=== PATIENT | female | born 1970 | race Caucasian/White ===

== ENCOUNTER 2017-02-20 14:27 | Emergency (ER) | payer MEDICARE, MEDICAID ==
[~2017-02-20] VITALS: Ht 165.1 cm; Wt 70.8 kg
[~2017-02-20 14:27] MED LIST: AEROCHAMBER1 DEV IH; ALBUTEROL-200 PUFFS/ IH; ALBUTEROL0.09 MG/A1 IH; ALBUTEROL2 PUFFS/17 IN; ATIVAN1 M1 PO; AUGMENTIN 875-1 EACH PO; BENADRYL 25MG C25 MG PO; BENADRYL25 M1 PO; BUPROPION HCL150 M1 PO; CALAMINE 180 M180 ML TP; CIPRO 500MG TA500 MG PO; DEXALONE30 MG PO; DILAUDID4 MG PO; EFFEXOR75 MG PO; ESTRACE 2MG. TAB2 MG PO; ETODOLAC400 MG PO; FLEXERIL10 MG PO; FLEXERIL5 MG PO; FLUOXETINE20 M2 PO; FLUOXETINE40 MG PO; FOLIC ACID 1MG T1 MG PO; GABAPENTIN100 M1 PO; GLYBURIDE2.5 MG PO; IRON TABLETS325 M1 PO; KAPIDEX30 MG PO; KAPIDEX60 MG PO; KEFLEX 500MG.500 MG PO; LODINE200 MG PO; LORAZEPAM1 MG/TABLE PO; LORTAB 5/500 501 TAB PO; LORTAB ELIXIR473 ML PO; MEDROL 4MG. DOSE4 MG PO; NOVAPLUS FE TD; OXCARBAZEPINE150 M1 PO; PERCOCET 10 MG1 EACH PO; PERCOGESIC EXTR1 TAB PO; PREDNISONE 10MG10 MG PO; PREDNISONE 20MG20 MG PO; PREDNISONE20 MG PO; PREDNISONE50 MG PO; PRENATABS RX1 TAB PO; PROGESTERONE200 M1 VA; PROMETRIUM200 MG PO; PROZAC 20MG CAP20 MG PO; PROZAC40 MG PO; Pepcid20 MG PO; TESSALON PERLE100 M1 PO; TESSALON PERLE100 MG PO; TESSALON PERLE200 MG PO; TOPAMAX100 MG PO; TOPAMAX200 MG PO; TORADOL10 M1 NG; TRAZADONE HYDR100 MG PO; TRAZODONE HCL150 MG PO; TRAZODONE100 MG PO; TRILEPTAL300 MG PO; TYLENOL W/CODEI1 TA2 PO; VENLAFAXINE HY150 MG PO; VISTARIL25 MG PO; ZITHROMAX Z PA250 MG PO; ZITHROMAX Z-PA250 M1 PO; ZITHROMAX200 MG/51 PO
--- NOTE | 2017-02-20 15:24 | Urgent Treatment Center Report ---
History of Present Issue Date/Time Seen by Provider 02/20/17 4905 Visit Reason Pt arrived:Walked Presenting Problem:PT C/O HEAD AND CHEST CONGESTION AND SOA X5 DAYS Location if Accident: Onset of symptoms date/time:/ or onset unknown for:MEDICAL HX UNKNOWN Have you (or family members/close friends) recently traveled outside the [place]? N If Yes, where/when: Have you had exposure to infectious disease within the past month? TB? Other? Specify: Patient state that she has been having some head and chest congestion along with occasional shortness of air when she starts coughing for around 5 days now States that it has continued to get worse and she was worried that she would get pneumonia so she came in to get checked out ALLERGIES Coded Allergies: ibuprofen (Mild, 02/15/16) naproxen (Mild, 02/15/16) sumatriptan (From IMITREX) (Mild, 02/15/16) Home Medications Active Scripts Azithromycin (Zithromycin (Z-TRAVIS) 250MG Tab) 250 MG PO DAILY #6 TAB Prov: 10/22/16 Prednisone (Prednisone 20MG) 20 MG PO BID #10 TAB Prov: 10/22/16 BENZONATATE (Benzonatate) 100 MG PO TID #15 CAP Prov: 10/22/16 Albuterol (Albuterol-Hfa Inhaler) 1 PUFF IH Q4H #1 INH Ref 2 Prov: 09/14/16 Albuterol Sulfate (Albuterol Sulfate Hfa) 1 PUFF IH Q4 #1 INH Prov: 06/04/15 Reported Medications Dexlansoprazole (Dexilant) 60 MG PO DAILY Venlafaxine Hydrochloride (Effexor 75MG) 75 MG PO DAILY Topiramate (Topamax) 200 MG PO BID Oxcarbazepine (Oxcarbazepine 150MG TAB) 150 MG PO DAILY #60 VENLAFAXINE HCL (Venlafaxine HCl ER) 150 MG PO DAILY #30 Estradiol (Estrace 2MG. Tablet) 2 MG PO DAILY #30 Trazodone Hcl 150 MG PO QHS #60 Bupropion Hcl (Bupropion HCl Sr) 150 MG PO DAILY #60 History Medical History General CAD? No Angina: No [place]: No Hypertension? No Hyperlipidemia? Yes CHF? No DVT? No PE? No COPD? Yes Asthma? Yes Anemia? Yes GERD? Yes Gastric ulcers? No GI Bleed? No Hernia? Yes Thyroid Problems? No Hypothyroidism? No CVA? No Seizures? No Diabetes? No Insulin Dependent: No Insulin Pump: No Home FSBS? No Renal Insuffiency? No UTI? Yes Stones? Yes BPH? No GB Disease: No Nephritic Syndrome? No Asplenia? No Hepatitis? No Sickle Cell Disease? No Arthritis? Yes Migraines? No Cataracts? No Glaucoma? No MRSA? No HIV? No TB? No Anxiety? Yes Depression? Yes Cancer? No More? Yes Additional hx: 1.FIBROMYALGIA 2.BARETT'S ESOPHAGUS 3. LUNG NODULES 4.BIPOLAR Immunization HX DT/Tetanus 1-4 YRS Flu 2011-FSN Pneumonia Never Had Surgical Hx Previous Surgery?Y Appendix D&C X 2 LITHROTRIPSY Tonsils Tubal Ligation HYSTERECTOMY DUNCAN'S ESOPHAGUS SX CYST REMOVAL FROM OVARY TMJ SX Family History Family HX Diabetes No CAD No Hypertension No Hyperlipidemia No Cancer Yes TB No Social History Smoking Hx Smoker: Current Every Day Smoker Tobacco: Yes Type Cigarettes Packs/day < 1 Pack Alcohol Alcohol: No Review of Systems All Other Systems Reviewed and Negative ENT nose discharge, nose congestion, throat pain. Respiratory cough, shortness of breath, wheezing Physical Exam Vital Signs Vital Signs Date Time Temp Pulse Resp B/P Pulse O2 O2 Flow FiO2 Ox Delivery Rate 02/20 1439 97.9 68 18 130/65 100 General Appearance normal appearance, WD/WN, no apparent distress Ear, Nose, Throat sinus pain/drainage, nasal congestion, throat red, irritated, drainage noted, tenderness frontal sinuses yellowish brown drainage, coughing up brown phelm Respiratory Status Yes: trachea midline, chest symmetrical, non tender chest. No: respiratory distress. Lung Sounds bilateral: wheezing. 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 No Results/Orders Current Medication Orders Sig/Grecia Start time Last Medication Dose Route Stop Time Status Admin Albuterol/Ipratropium 3 ML ONCE ONE 02/20 1530 DC 02/20 INH 02/20 1531 1557 Orders Procedure Date/time Status RT REQUEST DUONEB 02/20 1523 Active CHEST(2 VIEWS-NOT PORTABLE) 02/20 1523 Active XRAY/CT/US XRAY/CT/US XRAY chest XR interpretation by reviewed by me Xray Results no infiltrates Comment discussed with Dr Rush Progress [facility] Progress Notes Comment wheezing improved after breathing treatment Departure Departure Time of Disposition 1603 Disposition DC Home or Self Care(routine) Clinical Impression Primary Impression: Sinusitis Qualifiers: Sinusitis location: frontal Chronicity: unspecified Qualified Code: J32.1 - Chronic frontal sinusitis Condition STABLE Patient Instructions Cough, DI for Nasal Congestion, Guaifenesin Additional Instructions * Monitor Temp. Tylenol and/or Ibuprofen as needed. ER if fever is no less than 101 despite alternating Tylenol and Ibuprofen * Encourage fluids, water, Gatorade, powerade, pedialyte if infant/toddler/or child * Warm salt water gargles for throat irritation *Warm fluids *Sore throat lozenges *Sleep elevated *humidifier or vaporizer Follow up IMMEDIATELY for new or worsening of symptoms OR no noticeable improvement over the next 48-72 hours. 911 immediately for any life threatening symptoms such as chest pain or difficulty breathing Discharge Counseling Counseled pt/family regarding diagnosis, test results, medications/RX, home care, follow up needs Prescriptions Current Visit Scripts Levofloxacin (Levaquin 500MG) 500 MG PO DAILY #10 TAB Methylprednisolone (Medrol Dose Travis) 4 MG PO UD #1 TRAVIS TAKE DIRECTED ON PACKAGING at 1607
[2017-02-20] MEDS ORDERED: LEVAQUIN500 MG PO (16:06)
[2017-02-20] MEDS ORDERED: MEDROL 4MG. DOSE4 MG PO (16:06)
[2017-02-20 16:10] VITALS: BP 130/65
--- NOTE | 2017-02-21 05:38 | RADIOLOGY REPORT PS360 ---
CHEST(2 VIEWS-NOT PORTABLE) HISTORY: Cough, congestion, smoker congestion ORDERING PHYSICIAN: CHUCKIE ROSADO APRN PATIENT AGE: 46 years COMPARISON: 10/22/2016 FINDINGS: The cardiomediastinal silhouette and pulmonary vascularity are within normal limits. 6 mm noncalcified nodule present in the left lower lobe not significant changed. No lobar consolidation or collapse. No effusions or infiltrates. There is mild coarsening of bronchovascular markings which may be seen with chronic smoking-related lung disease. No acute bony anomalies. IMPRESSION: 1. No change with no acute finding. 2. Chronic coarsening of the bronchovascular markings which may be seen with chronic bronchitis/smoker lung disease. 3. No change left lower lobe nodule
== END 2017-02-20 16:14 | disposition home or self-care (01) ==
LOC: UTC 14:27
DX: J32.1 Chronic frontal sinusitis (principal); F17.210 Nicotine dependence, cigarettes, uncomplicated; J44.9 Chronic obstructive pulmonary disease, unspecified; Z79.899 Other long term (current) drug therapy

== ENCOUNTER 2017-02-23 18:19 | Observation (INO) | payer MEDICARE, MEDICAID ==
[~2017-02-23] VITALS: Ht 165.1 cm; Wt 66.4 kg
[~2017-02-23 18:19] MED LIST changes: +LEVAQUIN500 MG PO
[2017-02-23 18:31] VITALS: BP 120/73
--- NOTE | 2017-02-23 18:37 | Emergency Room Report ---
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 N Clinical Suspician of Infection? N Mental Status: 1 - Regular (Normal Baseline) Sepsis Risk:Low Sepsis Risk Have you (or family members/close friends) recently traveled outside the [place]? N If Yes, where/when: Have you had exposure to infectious disease within the past month? N TB? Other? Specify: Comment The patient complains of productive cough, chest congestion, shortness of breath , wheezing, and subjective fevers for over a week. She initially started taking leftover prednisone and Zithromax without improvement. She was then seen in the urgent treatment center on 02/20/17. She had a negative chest x-ray. She was started on Levaquin and a Medrol Dosepak. She was given a breathing treatment. She also is using inhalers at home. She has again worsened and therefore returns to the emergency department. She has chronic obstructive pulmonary disease. She does not have a primary care physician. 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 ALLERGIES Coded Allergies: ibuprofen (Mild, 02/15/16) naproxen (Mild, 02/15/16) sumatriptan (From IMITREX) (Mild, 02/15/16) Home Medications Active Scripts Levofloxacin (Levaquin 500MG) 500 MG PO DAILY #10 TAB Prov: 02/20/17 Methylprednisolone (Medrol Dose Aroldo) 4 MG PO UD #1 AROLDO Prov: 02/20/17 Azithromycin (Zithromycin (Z-AROLDO) 250MG Tab) 250 MG PO DAILY #6 TAB Prov: 10/22/16 Prednisone (Prednisone 20MG) 20 MG PO BID #10 TAB Prov: 10/22/16 BENZONATATE (Benzonatate) 100 MG PO TID #15 CAP Prov: 10/22/16 Albuterol (Albuterol-Hfa Inhaler) 1 PUFF IH Q4H #1 INH Ref 2 Prov: 09/14/16 Albuterol Sulfate (Albuterol Sulfate Hfa) 1 PUFF IH Q4 #1 INH Prov: 06/04/15 Reported Medications Dexlansoprazole (Dexilant) 60 MG PO DAILY Venlafaxine Hydrochloride (Effexor 75MG) 75 MG PO DAILY Topiramate (Topamax) 200 MG PO BID Oxcarbazepine (Oxcarbazepine 150MG TAB) 150 MG PO DAILY #60 VENLAFAXINE HCL (Venlafaxine HCl ER) 150 MG PO DAILY #30 Estradiol (Estrace 2MG. Tablet) 2 MG PO DAILY #30 Trazodone Hcl 150 MG PO QHS #60 Bupropion Hcl (Bupropion HCl Sr) 150 MG PO DAILY #60 History Medical History General CAD? No Angina: No [place]: No Hypertension? No Hyperlipidemia? Yes CHF? No DVT? No PE? No COPD? Yes Asthma? Yes Anemia? Yes GERD? Yes Gastric ulcers? No GI Bleed? No Hernia? Yes Thyroid Problems? No Hypothyroidism? No CVA? No Seizures? No Diabetes? No Insulin Dependent: No Insulin Pump: No Home FSBS? No Renal Insuffiency? No End Stage Renal Disease? No UTI? Yes Stones? Yes BPH? No GB Disease: No Nephritic Syndrome? No Asplenia? No Hepatitis? No Sickle Cell Disease? No Arthritis? Yes Migraines? No Cataracts? No Glaucoma? No MRSA? No HIV? No TB? No Anxiety? Yes Depression? Yes Cancer? No More? Yes Additional hx: 1.FIBROMYALGIA 2.BARETT'S ESOPHAGUS 3. 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 Family History Family Hx Diabetes No CAD No Hypertension No Hyperlipidemia No Cancer Yes TB No Social History Smoking Hx Smoker: Current Every Day Smoker Tobacco: Yes Type Cigarettes Packs/day < 1 Pack Alcohol Alcohol: No Review of Systems All Other Systems Reviewed and Negative Constitutional chills, fever (subjective), malaise, weakness Respiratory cough, shortness of breath, wheezing Gastrointestinal other (no appetite) Comment States not eating or drinking, urinating very little Physical Exam Vital Signs Vital Signs Date Time Temp Pulse Resp B/P Pulse O2 O2 Flow FiO2 Ox Delivery Rate 02/23 1955 98.2 78 18 109/66 99 02/23 1831 98.2 78 18 120/73 99 General Appearance normal appearance, WD/WN Eye Exam - bilateral eye normal exam, bilateral eye PERRL, bilateral eye EOMI Ear, Nose, Throat hearing grossly normal, normal ENT inspection Neck normal inspection, non-tender, supple, full range of motion Respiratory Status Yes: trachea midline, chest symmetrical, productive cough. No: respiratory distress. Lung Sounds bilateral: rhonchi, wheezing. Cardiovascular normal exam, regular rate/rhythm, no peripheral edema, no gallop, no JVD, no murmur, no rub, normal peripheral pulses Peripheral Pulses Pulses normal Yes Gastrointestinal normal bowel sounds, normal exam, non tender, soft, no organomegaly Extremities non-tender, normal range of motion, normal inspection Neurologic alert, normal exam, oriented x 3 Mental status normal mood/affect Skin intact, normal color, warm/dry Lymphatic no adenopathy Medical Decision Making LABS/Meds/Orders Pt receiving controlled substance in ED? No Results/Orders Laboratory Tests 02/23/171919: Lactic Acid 1.0 02/23/171919: Sodium 132 L, Potassium 3.3 L, Chloride 96 L, Carbon Dioxide 28, BUN 17, Creatinine 0.8, Estimated Creat Clear 95, Estimated GFR (MDRD) 78, Glucose 99, Calcium 8.6, Total Bilirubin 0.1 L, AST 7 L, ALT 16, Alkaline Phosphatase 94, Total Protein 7.8, Albumin 3.8, Globulin 4.0 H, Albumin/Globulin Ratio 1.0 L, WBC 10.8, RBC 4.43, Hgb 12.2, Hct 36.5 L, MCV 82.5, RDW 13.9, Plt Count 349, MPV 7.9, Gran % 39.3, Gran # 4.3, Lymphocytes % 49.8, Monocytes % 6.7, Eosinophils % 3.7, Basophils % 0.5, Lymphocytes # 5.4 H, Monocytes # 0.7, Eosinophils # 0.4, Basophils # 0.1, PUBS MCHC 33.3, MCH 27.5 02/23/17 1912: Chlamy pneum (TEM-PCR) Pending, Adenovirus (PCR) Pending, B. pertussis DNA (PCR) Pending, Coronavirus OC43 (PCR) Pending, Coronavirus HKU1 (PCR) Pending, Coronavirus 229E (PCR) Pending, Coronavirus NL63 (PCR) Pending, Human Metapneumovir PCR Pending, Influenza A (H1) PCR Pending, Influ A (H1N1/09) PCR Pending, Influenza A (H3) PCR Pending, Influenza Type A (PCR) Pending, Influenza Type B (PCR) Pending, M. pneumoniae (PCR) Pending, Parainfluenza 1 (PCR) Pending , Parainfluenza 2 (PCR) Pending, Parainfluenza 3 (PCR) Pending, Parainfluenza 4 (PCR) Pending, RSV (PCR) Pending, Entero/Rhino (PCR) Pending Current Medication Orders Sig/Grecia Start time Last Medication Dose Route Stop Time Status Admin Potassium Chloride 40 MEQ ONCE ONE 02/23 2015 AC PO 02/24 2016 Levofloxacin/Dextrose 150 ML .STK-MED ONE 02/23 1953 DC IV Methylprednisolone 0 .STK-MED ONE 02/23 1953 DC Sodium Succinate .ROUTE Albuterol/Ipratropium 0 .STK-MED ONE 02/23 1939 DC INH Albuterol/Ipratropium 3 ML ONCE ONE 02/23 1900 DC 02/23 INH 02/23 1901 194 Levofloxacin/Dextrose 150 ML ONCE ONE 02/23 1900 r 02/23 IV 02/23 Methylprednisolone 125 MG ONCE ONE 02/23 1900 DC 02/23 Sodium Succinate IV 02/23 Sodium Chloride 10 ML PRN PRN 02/23 1845 AC IV 02/24 1837 Orders Procedure Date/time Status RT REQUEST DUONEB 02/23 1857 Active CULTURE, SPUTUM 02/23 185 Active CULTURE, BLOOD 02/23 185 Active UPPER RESPIRATORY PANEL, PCR 02/23 185 Active LACTIC ACID 02/23 185 Complete ELECTROCARDIOGRAM REQUEST 02/23 1838 Active IV SALINE LOCK 02/23 1838 Active CBC WITH AUTO DIFF 02/23 1838 Complete CHEM 12 PROFILE 02/23 1838 Complete CM/EKG CM/EKG Comments EKG interpreted by Giovanny García MD: Rhythm: sinus Rate: 65 [place]: normal Ectopy: none Conduction: normal ST Segment Changes: none T Wave Changes: none Q Waves: none No evidence of acute ischemia or injury Normal electrocardiogram XRAY/CT/US XRAY/CT/US XRAY chest Comment Chest x-ray interpreted by Giovanny García M.D. No infiltrate, pneumothorax, pleural effusion, or wide mediastinum. I do not see any interval change. Progress - 7:55 PM: I have discussed the case with Dr. Handy who agrees to admit the patient to the hospital. We discussed the patient's clinical information, including history, exam, laboratory and radiology results and ED course. Per hospital procedure, I will write temporary bridge inpatient orders on the patient. Specific orders requested by the admitting physician: Continue steroids, nebulizer treatments, antibiotics. Departure Departure Disposition Still a Patient Clinical Impression Primary Impression: Chronic obstructive pulmonary disease with (acute) exacerbation Secondary Impressions: Acute bronchitis Qualifiers: Bronchitis organism: unspecified organism Qualified Code: J20.9 - Acute bronchitis, unspecified Condition STABLE Referrals Lee BERUMEN,Kasi Kerns (Family) ED Critical Care Critical Care No at 2002
[2017-02-23 19:19] LABS: CORONAVIRUS 229E NOT DETECTED (NOT DETECTE); CORONAVIRUS HKU 1 NOT DETECTED (NOT DETECTE); CORONAVIRUS NL63 NOT DETECTED (NOT DETECTE); CORONAVIRUS OC43 NOT DETECTED (NOT DETECTE)
[2017-02-23 19:43] LABS: HEMOGLOBIN 12.2 g/dL (12.2-16.2); LYMPH # 5.4 K/mm3 (0.7-4.5); LYMPH % 49.8 % (10-50.0)
--- NOTE | 2017-02-23 19:55 | RADIOLOGY REPORT PS360 ---
CHEST(2 VIEWS-NOT PORTABLE) HISTORY: Cough and congestion, smoker PAIN ORDERING PHYSICIAN: Giovanny García MD PATIENT AGE: 46 years COMPARISON: 02/20/2017 FINDINGS: The cardiomediastinal silhouette and pulmonary vascularity are within normal limits. There is chronic coarsening of the bronchovascular markings consistent with chronic bronchitis. A 6 mm nodule is once again noted in the superior segment of the left lower lobe. No lobar consolidation or collapse. No effusions. No acute bony anomalies. IMPRESSION: 1. COPD with chronic coarsening of the bronchovascular markings. 2. No change left lower lobe nodule. 3. No acute finding
[2017-02-23 20:32] LABS: RHINOVIRUS/ENTEROVIRUS DETECTED (NOT DETECTE)
[2017-02-23 20:57] VITALS: BP 130/85
[2017-02-23 21:44] VITALS: BP 109/66
[2017-02-24 03:46] VITALS: BP 169/92
--- NOTE | 2017-02-24 07:28 | PHARMACY CLINIC NOTE ---
Patient Demographics Patient Demographics Admission date: 02/23/17 Date: 02/24/17 Time: 07 Allergies Coded Allergies: ibuprofen (Mild, 02/15/16) naproxen (Mild, 02/15/16) sumatriptan (From IMITREX) (Mild, 02/15/16) HEIGHT- FT: 5 IN: 5.00 K.367 VTE General Information Labs: Laboratory Tests 02/24 1920 Hematology Hgb (12.2 - 16.2 g/dL) 12.2 Hct (37.0 - 47.0 %) 36.5 L Plt Count (142 - 424 K/mm3) 349 Disclaimer The following section includes nursing documentation that has been pulled in for pharmacy review. Patient's VTE score: 2 Patient's VTE Risk: VERY LOW RISK Clinical trial participant? No VTE prophylaxis [id number] VTE prophylaxis ordered? Yes Type of prophylaxis/treatment: LEONIDES at 0730
[2017-02-24 08:12] VITALS: BP 122/61
[2017-02-24 08:44] VITALS: BP 122/61
--- NOTE | 2017-02-24 10:00 | HISTORY AND PHYSICAL REPORT ---
Demographics: Admit date: 02/23/17 Chief complaint: copd PRIMARY DIAGNOSIS: copd Allergies: Coded Allergies: ibuprofen (Mild, 02/15/16) naproxen (Mild, 02/15/16) sumatriptan (From IMITREX) (Mild, 02/15/16) History of present illness: History of present illness: 46 yr old female presents to ed with c/o productive cough, chest congestion, shortness of breath, wheezing, and subjective fevers for over a week. She took left over prednisone and Zithromax without improvement. She was seen at the urgent treatment center on 02/20/17. She had a negative chest x-ray. [facility] started her on Levaquin and a Medrol Dosepak. At home she only takes albuterol inhalers at home nothing as a maintance treatment. pt states s/s worsened and therefore returns to the emergency department. She has chronic obstructive pulmonary disease. She does not have a primary care physician. 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 Past medical history: Family HX Diabetes No CAD No Hypertension No Hyperlipidemia No Cancer No TB No Immunization HX DT/Tetanus > 10 Years Ago Flu 2011-FSN Pneumonia Received In Past TB Test in last year Yes Result Negative General CAD? No Angina: No [place]: No Hypertension? No Hyperlipidemia? Yes CHF? No DVT? No PE? No COPD? Yes Asthma? Yes Anemia? Yes GERD? Yes Gastric ulcers? No GI Bleed? No Hernia? Yes Thyroid Problems? No Hypothyroidism? No CVA? No Seizures? No Diabetes? No Insulin Dependent: No Insulin Pump: No Home FSBS? No Renal Insuffiency? No UTI? Yes Stones? Yes BPH? No GB Disease: No Nephritic Syndrome? No Asplenia? No Hepatitis? No Sickle Cell Disease? No Arthritis? Yes Migraines? No Cataracts? No Glaucoma? No MRSA? No HIV? No TB? No Anxiety? Yes Depression? Yes Cancer? No More? Yes Additional hx: 1.FIBROMYALGIA 2.BARETT'S ESOPHAGUS 3. LUNG NODULES 4.BIPOLAR Past Surgical HX Previous Surgery?Y Appendix D&C X 2 LITHROTRIPSY Tonsils Tubal Ligation HYSTERECTOMY DUNCAN'S ESOPHAGUS SX CYST REMOVAL FROM OVARY TMJ SX Current home meds: Active Scripts Levofloxacin (Levaquin 500MG) 500 MG PO DAILY #10 TAB Prov: 02/20/17 Azithromycin (Zithromycin (Z-TRAVIS) 250MG Tab) 250 MG PO DAILY #6 TAB Prov: 10/22/16 Prednisone (Prednisone 20MG) 20 MG PO BID #10 TAB Prov: 10/22/16 Albuterol (Albuterol-Hfa Inhaler) 1 PUFF IH Q4H #1 INH Ref 2 Prov: 09/14/16 Albuterol Sulfate (Albuterol Sulfate Hfa) 1 PUFF IH Q4 #1 INH Prov: 06/04/15 Reported Medications Dexlansoprazole (Dexilant) 60 MG PO DAILY Venlafaxine Hydrochloride (Effexor 75MG) 75 MG PO DAILY Topiramate (Topamax) 200 MG PO BID Oxcarbazepine (Oxcarbazepine 150MG TAB) 150 MG PO DAILY #60 VENLAFAXINE HCL (Venlafaxine HCl ER) 150 MG PO DAILY #30 Estradiol (Estrace 2MG. Tablet) 2 MG PO DAILY #30 Trazodone Hcl 150 MG PO QHS #60 Bupropion Hcl (Bupropion HCl Sr) 150 MG PO DAILY #60 Social Hx: Smoking HX Tobacco Yes Type Cigarettes Packs/day < 1 PACK Alcohol Alcohol: No Hx of Drug Use Drug Use? No Review of systems: Constitutional see HPI, fever, weakness. Respiratory see HPI, cough, shortness of breath, SOB with excertion, SOB at rest, wheezing. Cardiovascular No no symptoms reported Gastrointestinal/Abdominal No no symptoms reported Genitourinary No: no symptoms reported. Musculoskeletal No: no symptoms reported. Skin No: no symptoms reported. Neurological Yes: see HPI, weakness. Psychiatric No: no symptoms reported. Exam: Lab data for last 24 hours: Laboratory Tests 02/23/171919: Lactic Acid 1.0 02/23/171919: Sodium 132 L, Potassium 3.3 L, Chloride 96 L, Carbon Dioxide 28, BUN 17, Creatinine 0.8, Estimated Creat Clear 95, Estimated GFR (MDRD) 78, Glucose 99, Calcium 8.6, Total Bilirubin 0.1 L, AST 7 L, ALT 16, Alkaline Phosphatase 94, Total Protein 7.8, Albumin 3.8, Globulin 4.0 H, Albumin/Globulin Ratio 1.0 L, WBC 10.8, RBC 4.43, Hgb 12.2, Hct 36.5 L, MCV 82.5, RDW 13.9, Plt Count 349, MPV 7.9, Gran % 39.3, Gran # 4.3, Lymphocytes % 49.8, Monocytes % 6.7, Eosinophils % 3.7, Basophils % 0.5, Lymphocytes # 5.4 H, Monocytes # 0.7, Eosinophils # 0.4, Basophils # 0.1, PUBS MCHC 33.3, MCH 27.5 02/23/17 1912: Chlamy pneum (TEM-PCR) NOT DETECTED, Adenovirus (PCR) NOT DETECTED, B. pertussis DNA (PCR) NOT DETECTED, Coronavirus OC43 (PCR) NOT DETECTED, Coronavirus HKU1 ( PCR) NOT DETECTED, Coronavirus 229E (PCR) NOT DETECTED, Coronavirus NL63 (PCR) NOT DETECTED, Human Metapneumovir PCR NOT DETECTED, Influenza A (H1) PCR NOT DETECTED, Influ A (H1N1/09) PCR NOT DETECTED, Influenza A (H3) PCR NOT DETECTED, Influenza Type A (PCR) NOT DETECTED, Influenza Type B (PCR) NOT DETECTED, M. pneumoniae (PCR) NOT DETECTED, Parainfluenza 1 (PCR) NOT DETECTED, Parainfluenza 2 (PCR) NOT DETECTED, Parainfluenza 3 (PCR) NOT DETECTED, Parainfluenza 4 (PCR) NOT DETECTED, RSV (PCR) NOT DETECTED, Entero/Rhino (PCR) DETECTED H Microbiology 02/24 2000 BLOOD: Anaerobic Blood Culture - RECD 02/24 2000 BLOOD: Aerobic Blood Culture - RECD 02/24 1920 BLOOD: Anaerobic Blood Culture - RECD 02/24 1920 BLOOD: Aerobic Blood Culture - RECD 02/24 1856 SPUTUM: Sputum Culture - ORD 02/24 1856 SPUTUM: Gram Stain - ORD Admission vital signs: 1ST Vital Signs Result Date Time Pulse Ox 99 02/23 1831 B/P 120/73 02/23 1831 Temp 98.2 02/23 183 Pulse 78 02/23 1831 Resp 18 02/23 1831 O2 Delivery ROOM AIR 02/23 2057 O2 Flow Rate 2 02/23 2130 Exam General appearance: normal appearance, awake, no acute distress Eyes: normal exam ENT: normal exam Neck: normal inspection, full range of motion Cardiovascular: regular rate & rhythm Respiratory: diminished breath sounds, wheezing, cough ABD: normal exam, soft Genitourinary: normal voiding & quantity Extremities: normal exam, moves all, warm Musculoskeletal: normal exam Skin: normal exam, intact, warm Neuro: normal exam, alert, intact, oriented Plan: Problem List 1. Chronic obstructive pulmonary disease with (acute) exacerbation Plan: contiune iv steroids and breathing treatments. Rounded with robert at 1006
[2017-02-24] MEDS ORDERED: BUPROPION HCL200 M1 PO (10:10)
[2017-02-24 15:54] VITALS: BP 144/75
[2017-02-24 19:57] VITALS: BP 100/62; BP 110/62
[2017-02-24 20:27] VITALS: BP 110/62
[2017-02-25 03:55] VITALS: BP 122/63
[2017-02-25 08:00] VITALS: BP 104/48
[2017-02-25] MEDS ORDERED: ZITHROMAX Z PA250 MG PO (08:38)
[2017-02-25] MEDS ORDERED: PREDNISONE 20MG20 MG PO (08:38)
--- NOTE | 2017-02-25 08:45 | DISCHARGE SUMMARY STANDARD ---
Demographics Admit date: 02/23/17 Discharge date: 02/25/17 History of present illness History of present illness 46 yr old female presents to ed with c/o productive cough, chest congestion, shortness of breath, wheezing, and subjective fevers for over a week. She took left over prednisone and Zithromax without improvement. She was seen at the urgent treatment center on 02/20/17. She had a negative chest x-ray. [facility] her on Levaquin and a Medrol Dosepak. At home she only takes albuterol inhalers at home nothing as a maintance treatment. pt states s/s worsened and therefore returns to the emergency department. She has chronic obstructive pulmonary disease. She does not have a primary care physician. 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 Hospital Course Hospital Course: copd- iv fluids, steriods, mummur- echo pt c/o of headaches meds given today pt states she feels better will dc home and follow up in office for more work up on mummur. lung nodules- keep ilene with pulmonology Discharge diagnoses Problem List 1. Chronic obstructive pulmonary disease with (acute) exacerbation 2. Migraine 3. Murmur, cardiac Medications Medications: Discharge meds are as noted. Follow up Follow up in office in: 7 DAYS with: LOWELL LOPEZ Comment: riounded with robert at 0844
--- NOTE | 2017-02-25 08:45 | DISCHARGE SUMMARY STANDARD ---
Demographics Admit date: 02/23/17 Discharge date: 02/25/17 History of present illness History of present illness 46 yr old female presents to ed with c/o productive cough, chest congestion, shortness of breath, wheezing, and subjective fevers for over a week. She took left over prednisone and Zithromax without improvement. She was seen at the urgent treatment center on 02/20/17. She had a negative chest x-ray. [facility] started her on Levaquin and a Medrol Dosepak. At home she only takes albuterol inhalers at home nothing as a maintance treatment. pt states s/s worsened and therefore returns to the emergency department. She has chronic obstructive pulmonary disease. She does not have a primary care physician. 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 Hospital Course Hospital Course: copd- iv fluids, steriods, mummur- echo pt c/o of headaches meds given today pt states she feels better will dc home and follow up in office for more work up on mummur. lung nodules- keep ilene with pulmonology Discharge diagnoses Problem List 1. Chronic obstructive pulmonary disease with (acute) exacerbation 2. Migraine 3. Murmur, cardiac Medications Medications: Discharge meds are as noted. Follow up Follow up in office in: 7 DAYS with: LOWELL LOPEZ Comment: riounded with robert at [id number]
[2017-02-25 11:40] VITALS: BP 104/48
--- NOTE | 2017-02-25 15:26 | RADIOLOGY REPORT PS360 ---
PROCEDURE: 2-D M-mode and color Doppler study INDICATIONS FOR THE TEST: Chest pain COPD+ Heart Murmur Tobacco Smoking+ Palpitations Fatigue Syncope Edema Hypertension Diabetes Mellitus Rheumatic Fever SOB GONZÁLES Obesity Hyperlipidemia+ Family History HD Additional History LUNG NODULES PATIENT INFORMATION HEIGHT: 65 WEIGHT:146 GENDER: Female B/P:120/73 2-D/M-MODE INTERPRETATION: 2-D MEASUREMENTS OBSERVED VALUES IN CMS Right Ventricular Dimension (RVDd) 1.8 Interventricular Septum (Thickness)(IVsd) 1.1 Left Ventricular Internal Dimensions(LVIDd) 5.2 Left Ventricular Posterior Wall (Thickness)(LVPWd) 0.8 Aortic Root 3.3 Aortic Cusp Separation 2.1 Left Atrial Dimensions (LAD) 3.7 2D 1. Left atrium is mildly enlarged, left ventricle is normal size, left ventricle wall thickness is upper limit of the normal, there is preserved left ventricular systolic function, visually estimated ejection fraction 55% with no obvious regional wall motion abnormality. 2. The right atrium and right ventricle are relatively normal size and function. 3. The aortic valve is minimally thickened and calcified. 4. The mitral and tricuspid valve leaflets are minimally thickened. 5. The pulmonic valve is poorly visualized. 6. No significant pericardial effusion noted. DOPPLER INTERROGATION: Doppler interrogation of the aortic, mitral and tricuspid valvular presence of mild aortic, mild mitral and tricuspid regurgitation, tricuspid and jet velocity insufficient for calculation of the right ventricular systolic pressure. Agitated saline contrast study fails to identify intracardiac shunt. Diastolic parameters are within normal range. CONCLUSION: 1. Mildly enlarged left atrium, normal left ventricular size, visually estimated ejection fraction 55% with no obvious regional wall motion abnormality, diastolic parameters are within normal range. 2. Mild aortic, mild mitral and tricuspid regurgitation. 3. Agitated saline contrast study fails to identify intracardiac shunt. 4. No significant pericardial effusion noted.
--- OUTSIDE RECORDS SUMMARY | 2017-03-22 03:16 | External Medical Summary Rpt ---
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 Name Role Phone Duncan ARANA MD PSC, A Unavailable Unavailable Grover ARANA MD PSC WEBB, WEBB Unavailable Unavailable WEBB LESLI, WEBB Unavailable Unavailable L[facility]LI [facility] Unavailable Unavailable [facility], [facility] MIREYA LES, MIREYA Unavailable Unavailable LES BEINEKE, BEINEKE Unavailable Unavailable BEINEKE HANSEL, BEINEKE Unavailable Unavailable HANSEL [facility] Unavailable [facility]available [facility], [facility] Unavailable Unavailable [facility], [facility] REYES, REYES Unavailable Unavailable REYES ALL, REYES ALL Unavailable Unavailable [facility] Unavailable Unavailable [facility], [facility] ROD HANSEL, ROD HANSEL Unavailable Unavailable JOEL, JOEL Unavailable Unavailable MCGARRY TRISH, MCGARRY Unavailable Unavailable TRISH MCGARRY TRISH, MCGARRY Unavailable Unavailable TRISH ROSALIE MEDINA, ROSALIE MEDINA Unavailable Unavailable HIPOLITO SWETA, Unavailable Unavailable HIPOLITO SWETA HIPOLITO SWETA, Unavailable Unavailable HIPOLITO SWETA HIPOLITO, JEFF, Unavailable Unavailable HIPOLITO, JEFF ROLANDO JAMESON, ROLANDO Unavailable Unavailable JAMESON [facility] Unavailable [facility]available [facility] Unavailable Unavailable [facility], [facility] Unavailable Unavailable [facility], [facility] Unavailable Unavailable JOE, JOE Unavailable Unavailable JOE JAMESON, JOE Unavailable Unavailable JAMESON JOE JAMESON, JOE Unavailable Unavailable JAMESON ANN DIAZ, Unavailable Unavailable ANN DIAZ MD, Unavailable Unavailable ROSELINE WILLIS, Unavailable Unavailable CHANDAN WILLIS LAZAR LARISSA, LAZAR LARISSA Unavailable Unavailable LAZAR LARISSA, LAZAR LARISSA Unavailable Unavailable LAZAR III CAROL, LAZAR Unavailable Unavailable III CAROL GREEN, RENETTA, Unavailable Unavailable GREEN, RENETTA HARPEL, HARPEL Unavailable Unavailable HARPEL DEVENDRA, HARPEL Unavailable Unavailable DEVENDRA HARPEL DEVENDRA, HARPEL Unavailable Unavailable DEVENDRA [facility] Unavailable Unavailable [facility], [facility] Unavailable Unavailable [facility], [facility] Unavailable Unavailable INC, [facility] Unavailable Unavailable HOSPITAL, [facility] Unavailable Unavailable HOSPITAL P, [facility], [facility]available Unavailable [facility] ZAMBRANO MICHELE, ZAMBRANO MICHELE Unavailable Unavailable SEN RAFAEL, SEN RAFAEL Unavailable Unavailable HUHN THO, HUHN THO Unavailable Unavailable HU[facility] THO, HUHN THO Unavailable Unavailable TELLO MEDARDO, TELLO Unavailable Unavailable [facility] KILPELA JEA, KILPELA Unavailable Unavailable JEA KRABRANDI MICHELE, KRAMAN Unavailable Unavailable [facility] Unavailable Un[facility] Un[facility] Unavailable Unavailable [facility]ING, [facility] Unavailable Unavailable [facility]ING, [facility] Unavailable Unavailable [facility]INGS[facility] Unavailable Unavailable [facility]INGS, [facility], Unavailable Unavailable [facility], Unavailable Unavailable [facility] JANUSZ, JANUSZ Unavailable Unavailable STEFFANY JR DWI, STEFFANY Unavailable Unavailable JR DWI MICHEL ANG, MICHEL ANG Unavailable Unavailable [facility] Unavailable Unavailable SERVICES, [facility] GUILLERMO DON, Unavailable Unavailable GUILLERMO DON MERSACK, BEATRICE P, Unavailable Unavailable MERSACK, BEATRICE P MURO RACHID, MURO RACHID Unavailable Unavailable JAMIN MICHELE, JAMIN MICHELE Unavailable Unavailable JAMIN MICHELE, JAMIN MICHELE Unavailable Unavailable MUSIC MIKKI, MUSIC MIKKI Unavailable Unavailable MUSIC MIKKI, MUSIC MIKKI Unavailable Unavailable [facility] Unavailable Unavailable [facility], [facility] Unavailable Unavailable [facility], [facility] PSC [facility], Unavailable Unavailable PLL[facility], [facility] Unavailable Unavailable LAB, [facility] Unavailable Unavailable LAB, [facility] LONGORIA KALI, LONGORIA KALI Unavailable Unavailable LONGORIA KALI, LONGORIA KALI Unavailable Unavailable BENZ, III ANGIE, Unavailable Unavailable BENZ, III ANGIE BENZ, III ANGIE, Unavailable Unavailable BENZ, III ANGIE CARO, SEPTEMBER W, Unavailable Unavailable CARO, SEPTEMBER W RAHMAN L, RAHMAN Unavailable Unavailable L CHURCH CAROL, CHURCH CAROL Unavailable Unavailable HORTENSIA RACHID, HORTENSIA Unavailable Unavailable RACHID SCHULSTAD GEE, Unavailable Unavailable [facility] G[facility] GEE, Unavailable Unavailable [facility] SCIFRES ANG, SCIFRES Unavailable Unavailable ANG SCIFRES ANG, SCIFRES Unavailable Unavailable ANG ARACELI LIS, ARACELI LIS Unavailable Unavailable SHEELA MAT, Unavailable Unavailable SHEELA MAT SOKAN, CRUZ O, Unavailable Unavailable SOKAN, CRUZ O [facility] Unavailable Unavailable SURG[facility], [facility] Unavailable Unavailable HOSPITALS, [facility], Unavailable Unavailable [facility] WEHRMAN III RACHID, Unavailable Unavailable WEHRMAN III RACHID WEHRMAN III RACHID, Unavailable Unavailable WEHRMAN III RACHID WEHRMAN III, ROSELYN, Unavailable Unavailable WEHRBRANDI IIIROSELYN WHITE CHR, WHITE CHR Unavailable Unavailable [facility], Unavailable Unavailable [facility] ARANA A, ARANA A Unavailable Unavailable ARANA A, ARANA A Unavailable Unavailable Purpose Continuity of Care Document - 06-19-2007 through 2016 Problems Code Diagnosis DOS Provider Status [id number] EMBOLISM & 12-07-2016 [facility] TH[facility]B [facility] SUPERFICIAL INC VEINS RIGHT LW EXT [id number] PAIN IN 12-07-2016 [facility] [id number] ACUTE EMBO 12-06-2016 [facility] THROMB UNS [facility] DEEP VNS RT INC PROX LOW EXT K219 GASTRO-ESOP 12-06-2016 [facility] H REFLUX [facility] DISEASE INC WITHOUT ESOPHAGITIS Z720 TOBACCO USE 12-06-2016 [facility] INC [id number] UNSPECIFIED 11-25-2016 [facility] ED J440 COPD WITH 10-22-2016 [facility] ACUTE [facility]OWER [facility], PLL[facility] RESPIRATORY INFECTION J441 CHRONIC 10-22-2016 [facility] OBSTRUCTIVE [facility] PULMONARY INC DZ W/EXACERBAT ION R05 COUGH 10-22-2016 [facility] R079 CHEST PAIN 10-22-2016 [facility] UNSPECIFIED [facility] [id number] PERSONAL 10-22-2016 [facility] HISTORY OF PHYSICIANS, NICOTINE PLLC DEPENDENCE J42 UNSPECIFIED 09-14-2016 [facility] CHRONIC [facility] BRONCHITIS INC R0989 OTH SPEC SX 09-14-2016 [facility] & SIGNS MEDICAL INVLV THE IMAGING ASS CIRC & RESP SYS N951 MENOPAUSAL 07-09-2016 [facility] CLIMACTERIC GROUP STATES R0781 PLEURODYNIA 04-05-2016 [facility] I10 ESSENTIAL 03-29-2016 [facility] PRIMARY [facility] HYPERTENSIO INC N J449 CHRONIC 03-29-2016 [facility] OBSTRUCTIVE [facility] PULMONARY INC DISEASE UNS [id number] CONTUSION 03-29-2016 [facility] RT FRONT [facility] WALL THORAX INC INITIAL ENCOUNTER X967CVF UNSPECIFIED 03-29-2016 [facility] INJURY OF MEDICAL THORAX IMAGING ASS INITIAL ENCOUNTER J209 ACUTE 02-15-2016 [facility] BRONCHITIS [facility] UNSPECIFIED HOSPITAL P R0602 SHORTNESS 02-15-2016 [facility] OF BREATH MEDICAL IMAGING ASS E871 HYPO-OSMOLA 02-12-2016 [facility] LITY AND [facility] HYPONATREMI INC A Z23 ENCOUNTER 02-12-2016 [facility] FOR [facility] IMMUNIZATIO INC N K224 DYSKINESIA 02-11-2016 [facility]ICAL OF SERV ESOPHAGUS FOUNDATION K2270 BARRETTS 02-11-2016 [facility] ESOPHAGUS SERV WITHOUT FOUNDATION DYSPLASIA R12 HEARTBURN 02-11-2016 [facility] SERV FOUNDATION N3020 OTHER 01-21-2016 [facility] [place] [facility] WITHOUT HEMATURIA R300 DYSURIA 01-21-2016 [facility] R312 OTHER 01-21-2016 [facility]OS[facility] PSC N3021 OTHER 12-31-2015 [facility] CYSTITIS PSC WITH HEMATURIA N342 OTHER 12-31-2015 [facility] PSC K660 PERITONEAL 12-23-2015 [facility] ADHESIONS PHYSICIANS POSTPROC GROUP POSTINFECTI ON N736 FEMALE 12-23-2015 [facility] PELVIC PHYSICIANS PERITONEAL GROUP ADHESIONS POSTINFECTI VE N8320 UNSPECIFIED 12-23-2015 [facility] OVARIAN PHYSICIANS CYSTS GROUP R102 PELVIC AND 12-23-2015 [facility] PERINEAL PHYSICIANS PAIN GROUP B9689 OTH SPEC 12-19-2015 [facility] BACTERIAL PHYSICIANS AGNT CAUSE GROUP DZ CLASSIFIED ELSW N760 ACUTE 12-19-2015 [facility] VAGINITIS PHYSICIANS GROUP N341 NONSPECIFIC 12-10-2015 [facility] URETHRITIS [facility] PSC Z8719 PERSONAL 11-21-2015 [facility] MEDICAL HISTORY SERV OTHER FOUNDATION DISEASES DIGESTIVE SYSTEM R928 OTH ABNORM 11-12-2015 [facility] & [facility] INCONCLUSIV INC E FIND ON DX IMAG BREAST N830 FOLLICULAR 11-07-2015 [facility] CYST OF MEDICAL OVARY IMAGING ASS R309 PAINFUL 11-07-2015 [facility] MICTURITION [facility] UNSPECIFIED R918 OTHER 11-04-2015 [facility] ABNORMAL FINDING OF LUNG FIELD N390 URINARY 11-03-2015 [facility] TRACT PHYSICIANS INFECTION GROUP SITE NOT SPECIFIED R0609 OTHER FORMS 10-30-2015 [facility] OF DYSPNEA SERV FOUNDATION Z539 PROCEDURE & 10-24-2015 [facility] NOT CARRIED OUT UNS REASON K449 DIAPHRAGMAT 10-22-2015 [facility] IC HERNIA SERV W/O FOUNDATION OBSTRUCTION OR GANGRENE E789 DISORDER OF 10-13-2015 [facility] HOSP LIPOPROTEIN INC METABOLISM UNSPECIFIED Z8679 PERSONAL 10-13-2015 [facility] DISEASES INC CIRCULATORY SYSTEM E785 HYPERLIPIDE 10-09-2015 [facility] HOSP UNSPECIFIED INC I340 NONRHEUMATI 09-30-2015 [facility] C MITRAL SERV VALVE FOUNDATION INSUFFICIEN CY I351 NONRHEUMATI 09-30-2015 [facility] C AORTIC SERV VALVE FOUNDATION INSUFFICIEN CY I361 NONRHEUMATI 09-30-2015 [facility] C TRICUSPID SERV VALVE FOUNDATION INSUFFICIEN CY Z8632 PERSONAL 09-25-2015 [facility] HISTORY OF PHYSICIANS GESTATIONAL GROUP DIABETES J069 ACUTE UPPER 07-22-2015 [facility] HOSP RESPIRATORY INC INFECTION UNSPECIFIED J0190 ACUTE 06-24-2015 [facility]INUSITIS [facility] N200 CALCULUS OF 04-29-2015 [facility] INC N201 CALCULUS OF 04-29-2015 [facility] P N202 CALCULUS OF 04-29-2015 [facility] MEDICAL WITH IMAGING ASS CALCULUS OF URETER N1330 UNSPECIFIED 04-28-2015 [facility] HYDRONEPHRO IMAGING ASS SIS 82755 PAIN IN 12-21-2014 [facility] JOINT, MEDICAL UPPER ARM IMAGING ASS 9593 INJURY 12-21-2014 [facility] OTHER&UNSPE MEDICAL CIFIED IMAGING ASS ELBOW FOREARM&WRI ST 3899 UNSPECIFIED 06-18-2014 [facility] PHYSICIAN LOSS PRACTICE L 7856 ENLARGEMENT 06-14-2014 [facility] OF LYMPH MEDICAL NODES IMAGING ASS 94062 OTHER 06-14-2014 [facility] NONSPECIFIC MEDICAL ABNORMAL IMAGING ASS FINDING OF LUNG FIELD 07751 LOC 05-23-2014 DEMAR OSTEOARTHRO III ANGIE S NOT SPEC PRIM/SEC OTH SPEC SITE 4019 UNSPECIFIED 11-26-2013 [facility] ESSENTIAL [facility] HYPERTENSIO INC N 486 PNEUMONIA, 11-26-2013 [facility] ORGANISM [facility] UNSPECIFIED INC 96878 ASTHMA, 11-26-2013 [facility] UNSPECIFIED [facility] , INC UNSPECIFIED STATUS 5601 PARALYTIC 11-26-2013 [facility] ILEUS [facility] INC 46299 OTHER 11-26-2013 [facility] SPECIFIED MEDICAL DISORDER OF IMAGING ASS INTESTINES 38838 ABDOMINAL 11-26-2013 [facility] OTHER MEDICAL SPECIFIED IMAGING ASS SITE 74547 OTHER 11-26-2013 [facility] DIGESTIVE [facility] SYSTEM INC COMPLICATIO NS V148 PERSONAL 11-26-2013 [facility] HISTORY [facility] ALLERGY OTH INC SPEC MEDICINAL AGTS 5990 URINARY 11-25-2013 [facility] TRACT [facility] INFECTION INC SITE NOT SPECIFIED V1582 PERS HX 11-25-2013 [facility] TOBACCO USE [facility] PRESENTING INC [facility] 50445 UNSPECIFIED 08-22-2013 [facility] MIC SLEEP DISTURBANCE 43062 ESOPHAGEAL 08-07-2013 [facility] 5533 DIAPHRAGMAT 08-07-2013 [facility] W/O HOSPITAL MENTION OBSTRUCTION /GANGREN 62332 BARRETTS 07-10-2013 [facility] 27899 ABDOMINAL 03-27-2013 [facility] PAIN, SWETA UNSPECIFIED SITE 16144 ATROPHIC 03-26-2013 [facility] GASTRITIS WITHOUT MENTION OF HEMORRHAGE 97709 PAIN IN 12-18-2012 [facility] JOINT, HAND 7295 PAIN IN 12-18-2012 [facility] SOFT SWETA TISSUES OF LIMB 9233 CONTUSION 12-18-2012 [facility] THO OF FINGER 8470 NECK SPRAIN 12-11-2012 Duncan ANDRADE MD PSC 6259 UNSPEC 09-29-2012 [facility] SYMPTOM [facility] ASSOC INC W/FEMALE GENITAL ORGANS 6268 OTH D/O 09-29-2012 [facility] MENSTRUATIO [facility] N&OTH ABN INC BLEED FE GNT TRACT V0382 NEED PROPH 09-29-2012 [facility] VACCINATION [facility] AGAINST INC STREP PNEUMONE V5869 LONG-TERM 09-29-2012 [facility] (CURRENT) [facility] USE OF INC OTHER MEDICATIONS 2165 BENIGN 09-14-2012 MUS[facility] MIKKI NEOPLASM OF SKIN OF TRUNK EXCEPT SCROTUM 48848 INFLAMED 09-14-2012 [facility] SEBORRHEIC KERATOSIS 7089 UNSPECIFIED 09-14-2012 [facility] URTICARIA V2651 TUBAL 08-08-2012 [facility] LIGATION SWETA STERILIZATI ON STATUS 32863 ABNORMAL 06-20-2012 [facility] MATERNAL [facility] GLUCOSE INC TOLERANCE W/DELIVERY 67288 PREV C/S 06-20-2012 [facility] DELIV DELIV GEE W/WO MENTION ANTPRTM COND V252 STERILIZATI 06-20-2012 [facility] ON GEE V270 OUTCOME OF 06-20-2012 [facility] DELIVERY GEE SINGLE LIVEBORN V221 SUPERVISION 05-26-2012 [facility] DEVENDRA OF OTHER NORMAL V286 SCREENING 05-26-2012 [place] [address] THREATENED 05-24-2012 [facility] TRISH PREMATURE LABOR ANTEPARTUM 24317 OTHER 04-29-2012 [facility] SPECIFED [facility] COMPLICATIO INC N ANTEPARTUM 59296 ABNORMAL 04-20-2012 [facility] MATERNAL [facility] GLUCOSE INC TOLERANCE ANTEPARTUM 7080 ALLERGIC 04-20-2012 [facility] URTICARIA [facility] INC V222 04-20-2012 [facility], [facility] INCIDENTAL INC 14425 DECR 03-29-2012 [facility] MOVMNTS [facility] MGMT MOTH INC ANTPRTM COND/COMP 89906 OTHER 03-28-2012 [facility] SPECIFIED MEDICAL DISORDER OF IMAGING ASS KIDNEY AND URETER 7242 LUMBAGO 03-28-2012 [facility] INC 4660 ACUTE 02-15-2012 [facility] BRONCHITIS [facility] INC 04132 OTHER 01-29-2012 [facility] DISEASES OF MEDICAL LUNG NOT IMAGING ASS ELSEWHERE CLASSIFIED 62997 SPRAIN AND 12-25-2011 [facility] STRAIN OF HOSP UNSPECIFIED SITE OF FOOT 37239 CONTUSION 12-25-2011 [facility] OF SHOULDER HOSP REGION 72567 CONTUSION 12-25-2011 [facility] OF FOOT HOSP V2382 SUPERVISION 11-29-2011 [facility] DEVENDRA HIGH-RISK PG ELDER MULTIGRAVID A 02010 [facility] CURRENT 11-24-2011 [facility] RASHID MAT CONDS CLASSIFIABL E ELSW ANTPRTM V2341 SUPERVISION 10-21-2011 ROSELINE Kendrick NAHOMY BERUMEN W/HISTORY PRE-TERM LABOR V2389 SUPERVISION 10-21-2011 ROSELINE Kendrikc OF NURIA PONCE MD HIGH-RISK V2889 OTHER 10-21-2011 ROSELINE PONCE MD SCREENING V704 EXAMINATION 10-21-2011 ROSELINE Kendrick FOR NAHOMY BERUMEN MEDICOLEGAL REASON V745 SCREENING 10-21-2011 ROSELINE PONCE MD FOR VENEREAL DISEASE 8448 SPRAIN&STRA 09-08-2011 JAMIN MICHELE IN OTHER SPECIFIED SITES KNEE&LEG 17970 CONTUSION 09-08-2011 JAMIN MICHELE OF HIP 49088 CONTUSION 09-08-2011 JAM[facility] MICHELE OF LOWER LEG 60429 CONTUSION 09-08-2011 JAMIN MICHELE OF KNEE 12653 PAIN IN 09-05-2011 [facility] JOINT MEDICAL PELVIC IMAGING ASS REGION AND THIGH 76553 SWELLING OF 09-05-2011 [facility] LIMB [facility]ICAL [facility] 8439 SPRAIN&STRA 09-05-2011 [facility] IN OF EMERGENCY UNSPECIFIED SERVICES SITE OF HIP&THIGH 8449 SPRAIN&STRA 09-05-2011 [facility] IN OF EMERGENCY UNSPECIFIED SERVICES SITE OF KNEE&LEG 33033 UNSPECIFIED 09-05-2011 [facility] SITE OF ANKLE SPRAIN AND STRAIN E8859 FALL FROM 09-05-2011 [facility] OTHER EMERGENCY SLIPPING SERVICES TRIPPING OR STUMBLING E8889 UNSPECIFIED 09-05-2011 [facility] FALL MEDICAL IM[facility]ING ASS V720 EXAMINATION 08-13-2011 SC[facility] ANG OF EYES AND VISION 94648 MIGRAINE 07-29-2011 LAZAR LARISSA UNSP W/O INTRACT W/O STATUS MIGRAINOSUS 7245 UNSPECIFIED 07-29-2011 LAZAR LARISSA BACKACHE 7821 RASH AND 07-28-2011 ARANA A OTHER NONSPECIFIC SKIN ERUPTION V2509 OTH GENERAL 07-15-2011 ROSELINE PONCE MD CNSL&ADVICE CONTRACEPT MANAGEMENT V7241 07-15-2011 ROSELINE PONCE MD OR TEST NEGATIVE RESULT 632 MISSED 07-01-2011 PATHOLOGY & CYTOLOGY LAB 00589 UNSPEC 06-26-2011 WEHRMAN III HEMORRHAGE RACHID EARLY ANTEPARTUM 40819 MATERNAL 2011 ROSELINE Kendrick ANEMIANAHOMY MD ANTEPARTUM 94572 SPOTTING 2011 ROSELINE Kendrick COMP NAHOMY BERUMEN ANTEPARTUM COND/COMP 33130 THREATENED 06-19-2011 [facility] , EMERGENCY ANTEPARTUM SERVICES V220 SUPERVISION 03-11-2011 [facility] OF NORMAL [facility] FIRST INC 2859 UNSPECIFIED 02-20-2011 [facility] ANEMIA [facility] INC 6238 OTHER 02-20-2011 [facility] SPECIFIED EMERGENCY NONINFLAMMA SERVICES TORY DISORDER VAGINA 25699 PAIN IN 01-21-2011 [facility] JOINT, [employer] HOLDING SITES 5210 DENTAL 01-14-2011 THE IMPLANT CARIES & ORAL SURGERY C 89386 PAIN IN 01-12-2011 [facility] JOINT, [facility]OS[facility] LOWER LEG INC 13959 PAIN IN 01-12-2011 [facility] JOINT, MEM HOS[facility] ANKLE AND INC FOOT 98466 UNSPECIFIED 01-12-2011 [facility] EMERGENCY DISORDER OF SERVICES MULTIPLE SITES 2662 OTHER 11-19-2010 [facility] CO B-COMPLEX HEALTH DEFICIENCIE CENTER S V2689 OTHER 11-19-2010 [facility] CO SPECIFIED HEALTH PROCREATIVE CENTER MANAGEMENT 2809 UNSPECIFIED 11-03-2010 [facility] OF [facility] DEFICIENCY ANEMIA 68470 RESTLESS 11-03-2010 Duncan HOFF MD PSC SYNDROME 43003 OTHER 11-03-2010 [facility] [place] [facility] [place] INC FATIGUE 7831 ABNORMAL 11-03-2010 [facility] [place] INC 43205 TOOTH 09-10-2010 THE IMPLANT BROKEN FX & ORAL DUE TO SURGERY C TRAUMA W/O MENTION COMP 5920 CALCULUS OF 08-21-2010 [facility] KIDNEY [employer] 14053 UNSPECIFIED 08-18-2010 [facility] CONSTIPATIO IMAGING ASS N 7840 HEADACHE 08-15-2010 [facility] 7945 NONSPECIFIC 07-17-2010 [facility] ABNORM SERV RESULTS FOUNDATIO THYROID FUNCT STUDY 67555 ABDOMINAL 05-05-2010 [facility] PAIN, EMERGENCY EPIGASTRIC SERVICES 7802 SYNCOPE AND 01-03-2010 [facility] COLLAPSE EMERGENCY SERVICES 8910 OPEN WOUND 01-03-2010 [facility] KNEE EMERGENCY LEG&ANK SERVICES WITHOUT MENTION COMP V065 NEED 01-03-2010 [facility] PROPHYLACTI [facility] C INC VACCINATION W/TETANUS-D [facility] 8488 OTHER 11-24-2009 [facility] SPECIFIED EMERGENCY SITES OF SERVICES SPRAINS AND ASSOCIATES STRAINS 6918 OTHER 09-04-2009 [facility] DERMATITIS OF AND RELATED [place], CONDITIONS PSC 6989 UNSPECIFIED 09-04-2009 [facility] PR[facility] DISORDER OF [place], PSC 6929 CONTACT 08-19-2009 [facility] DERMATITIS& EMERGENCY OTHER SERVICES ECZEMA DUE ASSOCIATES UNSPEC CAUSE 1330 SCABIES 08-14-2009 [facility] EM[facility]GENCY SERVICES ASSOCIATES 490 BRONCHITIS 04-17-2009 [facility] NOT EMERGENCY SPECIFIED SERVICES ACUTE OR ASSOCIATES CHRONIC 7862 COUGH 04-17-2009 [facility] 98997 FEVER 04-10-2009 [facility] UNSPECIFIED MEDICAL IMAGING ASSOCIATES 49612 UNSPECIFIED 02-25-2009 [facility]IN[facility] 6253 DYSMENORRHE 04-17-2008 [facility] INC V7612 OTHER 04-17-2008 [facility] SCREENING [facility] MAMMOGRAM INC 7061 OTHER ACNE 08-02-2007 [facility] [place], PSC 16782 LOSS OF 07-10-2007 [facility] 33922 ABDOMINAL 07-10-2007 [facility] PA[facility], SERV GENERALIZED FOUNDAT[facility] 54426 REFLUX 06-19-2007 [place] [facility] ESOPHAGITIS SERV [facility] [id number] Postoperati [facility] Allergies, Adverse Reactions, Alerts Type Drug Allergy Adverse Reaction to Substance Substance Reaction Severity Naproxen THROAT Unknown SWELLING/ITCHING Ibuprofen I-ITCHING Intermediate Sumatriptan MUSCLE STIFFNESS Intermediate Clinical Alert Notifications Alert Asthma: no influenza vaccine in the last 365 days Medications Na ND Rx Da Fi Fi Am Da Di Ph RX Ph St me C No te ll ll ou ys ag ar # ys at rm s nt no ma ic us Or Da si cy ia de te s n re d PE 00 04 0 No NT 59 -2 AZ 10 1- Lo OC 39 20 ng IN 50 13 er E- 1 NA Ac LO ti XO ve NE TA BL ET BI 00 04 1 No SA 71 -2 C- 30 0- Lo EV 10 20 ng AC 95 13 er 0 10 Ac ti MG ve HAQ PP OS IT OR Y CE 00 04 0 No FA 40 -1 ZO 92 9- Lo LI 58 20 ng N 50 13 er 1 1 GM Ac ti AD ve D- VA N AL So 00 04 0 No d 07 -1 Ch 47 9- Lo lo 10 20 ng ri 11 13 er de 3 Ac 0. ti 9% ve 50 ML Ad v SO 00 04 2 No DI 40 -1 UM 97 9- Lo 98 20 ng CH 42 13 er LO 0 RI Ac DE ti ve 0. 9% SO SHARON TI ON So 00 04 1 No d 07 -1 Ch 47 9- Lo lo 10 20 ng ri 11 13 er de 3 Ac 0. ti 9% ve 50 ML Ad v LA [address] 40 -1 AT 97 9- Lo ED 95 20 ng 30 13 er RI 9 NG Ac ER ti S ve IN JE CT IO N LO 00 04 2 No VE 07 -1 NO 50 9- Lo X 62 20 ng 40 04 13 er 1 MG Ac /0 ti .4 ve ML SY RI NG E MA 00 04 2 No PA 90 -1 P 41 9- Lo 32 98 20 ng 5 26 13 er MG 1 Ac TA ti BL ve ET PN 00 04 2 No EU 00 -1 MO 64 9- Lo VA 94 20 ng X 30 13 er 23 0 Ac ti AL ve WV 00 04 2 No OM 64 -1 ET 11 9- Lo PAT 49 20 ng ZI 53 13 er NE 5 Ac 25 ti ve MG /M L AM PU L Mo 00 04 0 No rp 40 -1 hi 91 9- Lo ne 76 20 ng 23 13 er 2M 0 G/ Ac Ml ti ve Sy ri ng e Mo 00 04 0 No rp 40 -1 hi 91 9- Lo ne 76 20 ng 23 13 er 2M 0 G/ Ac Ml ti ve Sy ri ng e Mo 00 04 0 No rp 40 -1 hi 91 9- Lo ne 76 20 ng 23 13 er 2M 0 G/ Ac Ml ti ve Sy ri ng e ME 00 04 0 No TH 51 -1 YL 70 9- Lo EN 37 20 ng E 27 13 er BL 1 UE Ac ti 1% ve AM PU L BU 00 04 0 No PI 40 -1 VA 91 9- Lo CA 16 20 ng IN 20 13 er E 2 0. Ac 5% ti ve AL Mo 00 04 2 No rp 40 -1 hi 91 9- Lo ne 26 20 ng 06 13 er 8M 9 G/ Ac Ml ti ve Sy ri ng e HY [address] 40 -1 OM 91 9- Lo OR 30 20 ng PH 43 13 er ON 1 E Ac 4 ti MG ve /M L CA RP UJ CT Immunization Name Date Rout CVX Reac Dose Comm Prov Is Faci e tion ent ider Refu lity Give sed n PPSV 09-0 33 TAY No TAY 23 2-20 CED CED VACC 16 MEM MEM INE 2 HOSP HOSP Y[facility] INC INC OR JAYDA Kendrick FOR SUBQ /IM USE Vital Signs 12-18-2012 11:31 Name Value Interpretat Reference Comment ion Range BP 80 mm[Hg] Diastolic BP Systolic 116 mm[Hg] Heart 67 /min Rate/Pulse O2% 97 % Respiratory 20 /min Rate 12-18-2012 11:30 Name Value Interpretat Reference Comment ion Range BP 80 mm[Hg] Diastolic BP Systolic 116 mm[Hg] Heart 67 /min Rate/Pulse O2% 97 % Respiratory 20 /min Rate 10-01-2012 12:00 Name Value Interpretat Reference Comment ion Range Body 98.6 [degF] Temperature BP 90 mm[Hg] Diastolic BP Systolic 154 mm[Hg] Heart 65 /min Rate/Pulse O2% 99 % Respiratory 18 /min Rate 09-29-2012 20:00 Name Value Interpretat Reference Comment ion Range O2% 95 % 09-29-2012 10:35 Name Value Interpretat Reference Comment ion Range Body 98.4 [degF] Temperature BP 93 mm[Hg] Diastolic BP Systolic 155 mm[Hg] Heart 74 /min Rate/Pulse Height 165.10 cm Respiratory 14 /min Rate Weight 88.452 kg Measured 09-29-2012 06:45 Name Value Interpretat Reference Comment ion Range Weight 195 [lb_av] Measured Results Labs Lab Lab Date Result Refere Interp Status Commen Order Detail nces retati t Range on Differential panel, method unspecified - (03-04-2017 09:55) LYMPH 15 % 10% - Normal complet 017 50% ed 09:55 Platele NORMAL complet ts 017 ed [Presen 09:55 ce] in Blood by Light microsc opy Hemoglobin A1c in Blood (03-04-2017 09:55) Hemoglo 5.8 % 0.0% Normal complet bin A1c 017 - ed in 09:55 7.0% Blood Glucose BldC Glucomtr-nc (09-29-2012 18:20) Glucose 201 70-110 complet BldC 013 mg/dl ed Glucomt 18:20 r-nc URINALYSIS/COMPLETE (09-29-2012 09:15) URINE YELLOW YELLOW complet COLOR 013 ed 09:15 URINE CLEAR CLEAR complet APPEARA 013 ed NCE 09:15 URINE NEGATIV NEG complet GLUCOSE 013 E ed - 09:15 DIPSTIC K URINE NEGATIV NEG complet BILIRUB 013 E ed IN - 09:15 DIPSTIC K URINE NEGATIV NEG complet KETONE 013 E mg/dL ed 09:15 URINE 1.015 1.005-1 complet SPECIFI 013 UNK .030 ed C 09:15 GRAVITY URINE 04-19-2 1+ NEG complet BLOOD 013 ed 09:15 URINE 09-29-2 6.5 UNK 5.0-8.5 complet PH 013 ed 09:15 URINE 09-29-2 NEGATIV NEG complet PROTEIN 013 E mg/dL ed - 09:15 DIPSTIC K URINE 09-29-2 0.2 NEG complet UROBILI 013 E.U./dL ed NOGEN - 09:15 DIPSTIC K URINE 09-29-2 NEGATIV NEG complet NITRATE 013 E ed - 09:15 DIPSTIC K URINE 09-29-2 NEGATIV NEG complet LEUK 013 E ed ESTERAS 09:15 E URINE 09-29-2 3-5 0 complet RBC 013 rbc/hpf ed 09:15 URINE 09-29-2 3-5 0-5 complet SQUAMOU 013 #/hpf ed S CELLS 09:15 Procedures Procedure DOS Code Location Performer Comment DUP-SCAN 32812 [facility] XTR VEINS [facility] G0463 [facility] OUTPATIEN 7 [facility] CL[facility] INC INC VISIT ASSESS & MGMT PT PLETHYSMO 16038 [facility] GRAPHY 7 [facility]ALTH[facility] HEALTHCAR LUNG E E VOLUMES [facility] W/WO AIRWAY RESIST PULMONARY 76218 [facility] STRESS 7 [facility]ALTH[facility] TESTING E E SIMPLE [facility] [place] [address] [facility] DIFFUSING 7 HEALTHCAR HEALTH[facility] CAPACITY E E [facility] THORAX 37026 [facility] W/O 7 HEALTHCAR HEALTHCAR CONTRAST E E MATERIAL [facility] SPMTRY 51129 [place] JOEL W/VC 7 MEDICAL EXPIRATOR SERV Y LEONCIO FOUNDATIO W/WO MXML N VOL VNTJ PRESSURIZ 09576 [facility] ED/NONPRE 7 [facility] SSURIZED INC INC INHALATIO N TREATMENT THERAPEUT 54512 [facility] IC 7 [facility] INJECTION INC INC IV PUSH EACH NEW DRUG RADIOLOGI 18530 [facility] C EXAM 7 [facility] CHEST 2 INC INC VIEWS FRONTAL&L ATERAL COMPREHEN 04387 [facility] SIVE 7 [facility] [address] [facility] STREPTOCO 7 [facility] CCUS INC INC GROUP A THER 48666 [facility] GEOVANNA PROPH/DX 7 [facility] NJX IV INC INC PUSH SINGLE/1S T SBST/DRUG CULTURE 18778 [facility] BACTERIAL 7 [facility] BLOOD INC INC AEROBIC W/ID ISOLATES ECG 00812 [facility]OV[facility]NA ROUTINE 7 [facility] ECG INC INC W/LEAST 12 LDS TRCG ONLY W/O I&R IAADI 43205 [facility] INFFLUENZ 7 [facility] A A VIRUS INC INC IAADI 96701 [facility] INFLUENZA 7 [facility] B VIRUS INC INC CREATINE 52813 [facility] KINASE MB 7 [facility] [place] [address] [facility] LACTATE 7 [place] [address] [facility] TROPONIN 7 [facility] QUANTITAT INC INC JORY BLOOD 64535 [facility] COUNT 7 [facility] COMPLETE INC INC AUTO&AUTO DIFRNTL WBC CREATINE 37371 [facility] KINASE 7 [facility] [place] [address] [facility] TROPONIN 7 [facility] QUANTITAT INC INC JORY CREATINE 23309 [facility] [place] KINASE 7 [facility] TOTAL INC INC CREATINE 30803 [facility] [place] KINASE MB 7 [facility] FRACTION INC INC ONLY ECG 64612 [facility] [place] ROUTINE 7 [facility] ECG INC INC W/LEAST 12 LDS TRCG ONLY W/O I&R BLOOD 37492 [facility] COUNT 7 [facility] COMPLETE INC INC AUTO&AUTO DIFRNTL WBC THER 27662 [facility] PROPH/DX 7 [facility] NJX IV INC INC PUSH SINGLE/1S T SBST/DRUG COMPREHEN 45901 [facility] SIVE 7 [facility] METABOLIC INC INC PANEL RADIOLOGI 49866 [facility] BARFIELD C EXAM 7 MEDICAL CHEST 2 IMAGING VIEWS ASS FRONTAL&L ATERAL PRESSURIZ 09600 [facility] ED/NONPRE 7 [facility] SSURIZED INC INC INHALATIO N TREATMENT THERAPEUT 06191 [facility] IC 7 [facility] INJECTION INC INC IV PUSH EACH NEW DRUG CT THORAX 43742 DELL MCMILLAN W/O 6 MEDICAL SWETA CONTRAST IMAGING MATERIAL ASS RADEX 34565 DELL REYES ALL RIBS UNI 6 MEDICAL W/POSTERO IMAGING ANT CH ASS MINIMUM 3 VIEWS RADIOLOGI 41742 [facility] [place] C 6 MEDICAL EXAMINATI IMAGING ON CHEST ASS SINGLE VIEW FRONTAL ECG 96112 [facility] JETER JR ROUTINE 6 [facility] W/LEAST P 12 LDS I&R ONLY PRESSURIZ 22389 [facility] [place] ED/NONPRE 6 [facility] SSURIZED INC INC INHALATIO N TREATMENT ADMINISTR G0009 [facility] ATION OF 6 [facility] PNEUMOCOC INC INC [facility] G0378 [facility] [place] OBSERVATI 6 [facility] ON INC INC SERVICE PER HOUR PPSV23 67903 [facility] [place] VACCINE 2 6 [facility] YRS OR INC INC OLDER FOR SUBQ/IM USE BASIC 02743 [facility] [place] METABOLIC 6 [facility] PANEL INC INC CALCIUM TOTAL COLLECTIO 41630 [facility] N VENOUS 6 [facility] BLOOD INC INC VENIPUNCT URE BLOOD 18452 [facility] [place] COUNT 6 [facility] COMPLETE INC INC AUTO&AUTO DIFRNTL WBC BLOOD 10905 [facility] [place] COUNT 6 [facility] COMPLETE INC INC AUTO&AUTO DIFRNTL WBC BLOOD 20743 [facility] GASES ANY 6 [facility] INC INC COMBINATI ON PH PCO2 PO2 CO2 HCO3 RADIOLOGI 38096 DELL REYES ALL C EXAM 6 MEDICAL CHEST 2 IMAGING VIEWS ASS FRONTAL&L ATERAL THER 44771 [facility] PROPH/DX 6 [facility] NJX IV INC INC PUSH SINGLE/1S T SBST/DRUG [facility] G0378 [facility] [place] OBSERVATI 6 [facility] ON INC INC SERVICE PER HOUR COMPREHEN 73664 [facility] SIVE 6 [facility] METABOLIC INC INC PANEL TOBACCO 41160 [facility] USE 6 [facility] CESSATION INC INC INTERMEDI ATE 3-10 MINUTES PRESSURIZ 62486 [facility] [place] ED/NONPRE 6 [facility] SSURIZED INC INC INHALATIO N TREATMENT ESOPHAGOG 62043 [facility] ASTRODUOD 6 MEDICAL ENOSCOPY SERV TRANSORAL FOUNDATIO N DIAGNOSTI C INJECTION J2704 [facility] PROPOFOL 6 Y Y 10 MG [facility] ANES 81727 ANESTHESI GRABMAYER TRANSURET 6 A LAZARO HRAL ASSOCIATE W/URETHRO S PSC CYSTOSCOP Y NOS CYSTO [address] DILAT CLINIC CLINIC URTL PSC PSC STRIX/MICHELE NOSIS BLOOD 91973 [facility] COUNT 6 [facility] HEMOGLOBI INC INC N BLOOD 98339 [facility] COUNT 6 [facility] HEMATOCRI INC INC T ANESTHESI 11000 [facility] A 6 ANESTH INTRAPERI OF THE TONEAL BLUE LOWER ABD W/LAPS NOS COLLECTIO 37635 [facility] N VENOUS 6 [facility] BLOOD INC INC VENIPUNCT URE LAPAROSCO 81111 [facility] PY W/RMVL 6 [facility] ADNEXAL INC INC STRUCTURE S INJECTION J2710 [facility] 6 [facility] NEOSTIGMI INC INC NE METHYLSUL FATE UP TO 0.5 MG INJECTION J2405 [facility] 6 [facility] ONDANSETR INC INC ON HCL PER 1 MG INJECTION J0131 [facility] 6 [facility] ACETAMINO INC INC PHEN 10 MG EGD 60696 [place] SEN RAFAEL TRANSORAL 6 MEDICAL BIOPSY SERV SINGLE/MU FOUNDATIO LTIPLE N ESOPHGL 01931 [place] MICHEL ZUNIGA FUNCJ 6 MEDICAL G-ESOP SERV RFLX IMPD FOUNDATIO ELTRD N PROLNG ESOPHAGEA 17487 [facility] L 6 HEALTHCAR HEALTHCAR MOTILITY E E STUDY [facility] W/INTERP& RPT DIAGNOSTI G0206 [facility] C 6 [facility] MAMMOGRAP INC INC HY INCL CAD [place] [address] [facility] TRANSVAGI 6 [facility] NAL INC INC CT THORAX 21501 [place] ZAMBRANO MICHELE W/O 6 MEDICAL CONTRAST SERV MATERIAL FOUNDATIO N URINLS 45854 [facility] DIP 6 PHYSICIAN DEVENDRA STICK/TAB S GROUP LET REAGNT NON-AUTO MICRSCPY ANES 39282 [facility] WHITE CHR UPPER GI 6 [facility] ENDOSCOPY ANESTHESI PROXIMAL A PSC TO DUODENUM ESOPHAGEA 91582 [facility] 6 [facility] STUDY W/INTERP& RPT ECG 00083 [facility] ROUTINE 6 [facility] ECG INC INC W/LEAST 12 LDS TRCG ONLY W/O I&R ECG 51110 [facility] SHEELA ROUTINE 6 PHYSICIAN MAT ECG S GROUP W/LEAST 12 LDS I&R ONLY CV STRS [address] [facility] CAROL TST 6 PHYSICIAN XERS&/OR S GROUP RX CONT ECG W/O I&R CV STRS 15866 [facility] TST 6 [facility] XERS&/OR INC INC RX CONT ECG TRCG ONLY ECHO 58782 [facility] TTHRC R-T 6 [facility] 2D INC INC W/WOM-MOD E COMPL SPEC&[place] [address] [place] JANUSZ TRACT 6 MEDICAL UPPER SERV W/WO FOUNDATIO DELAYED N IMAGES W/KUB ECG 81681 [facility] ROUTINE 6 [facility] ECG INC INC W/LEAST 12 LDS TRCG ONLY W/O I&R ECG 96676 [facility] ROUTINE 6 [facility] ECG INC INC W/LEAST 12 LDS TRCG ONLY W/O I&R RADIOLOGI 84619 DELL REYES C 6 MEDICAL EXAMINATI IMAGING ON CHEST ASS SINGLE VIEW FRONTAL CREATINE 38043 [facility] KINASE MB 6 [facility] FRACTION INC INC ONLY CREATINE 96460 [facility] KINASE 6 [facility] TOTAL INC INC FIBRIN 41717 [facility] DGRADJ 6 [facility] PRODUCTS INC INC D-DIMER QUAL/[place] [address] [facility] TROPONIN 6 [facility] QUANTITAT INC INC JORY BLOOD 19437 [facility] COUNT 6 [facility] COMPLETE INC INC AUTO&AUTO DIFRNTL WBC ECG 07231 [facility] JETER JR ROUTINE 6 [facility] W/LEAST P 12 LDS I&R ONLY COMPREHEN 28373 [facility] SIVE 6 [facility] METABOLIC INC INC PANEL FLUOROSCO 63700 [facility] PY SPX UP 5 [facility] TO 1 INC INC HOUR PHYS/QHP TIME THERAPEUT 13522 [facility] IC 5 [facility] INJECTION INC INC IV PUSH EACH NEW DRUG CYSTO/URE 33225 [facility] WEBB TERO 5 [facility] IPSY P &INDWELL STENT INSRT RADEX 68506 [place] [facility] ABDOMEN 1 5 MEDICAL HANSEL [place] [address] [facility] INFUSION 5 [facility] THERAPY INC [place] [address] [facility] ABDOMEN & 5 [facility] PELVIS INC INC W/O CONTRAST MATERIAL THERAPEUT 72619 [facility] IC 5 [facility] INJECTION INC INC IV PUSH EACH NEW DRUG RADEX 49762 DELL REYES ALL ELBOW 5 MEDICAL COMPLETE IMAGING MINIMUM [address] THORAX 41220 [facility] 5 [facility] W/[place] [address] [facility] ABDOMEN & 4 [facility] PELVIS INC INC W/O CONTRAST MATERIAL THERAPEUT 26632 [facility] [place] IC 4 [facility] PROPHYLAC INC INC TIC/DX INJECTION SUBQ/IM RADIOLOGI 25998 [facility] C EXAM 4 [facility] CHEST 2 INC INC VIEWS FRONTAL&[place] [address] [facility] 4 Y Y [facility] W/WO DELAYED IMAGES W/KUB ESOPHAGEA 71161 [facility] 4 Y Y [facility] STUDY W/INTERP& RPT GASTRIC 38053 [facility] EMPTYING 3 [facility] IMAGING INC INC STUDY EGD 00883 [facility] KAL[facility] [place] KALI TRANSORAL 3 BIOPSY 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 L3925 [employer] ORTHOSIS 3 PIP/DIP NONTORSIO N JOINT PREFAB RADEX 12077 [facility] HIPOL[facility]O FINGR 3 SWETA SWETA MINIMUM 2 VIEWS THERAPEUT 05562 [facility] IC 3 [facility] PROPHYLAC INC INC TIC/DX INJECTION SUBQ/IM HYSTEROSA 69412 HIPOL[facility] HIPOLITO LPINGOGRA 3 SWETA SWETA PHY RS&I LIG/TRNSX 11735 HARPEL HARPEL J 3 DEVENDRA DEVENDRA FALOPIAN TUBE DEL/ABDML SURG 37494 SCHULST[facility] SCHULSTAD DELIVERY 3 GEE GEE ONLY LOW 741 [facility] CERVICAL 3 [facility] INC INC SECTION 84072 HARPEL HARPEL CONTRACTI 2 DEVENDRA DEVENDRA ON STRESS TEST 60563 [facility] NONSTRESS 2 TRISH TRISH TEST 15603 [facility] NONSTRESS 2 [facility] TEST INC INC URNLS DIP 83255 [facility] [place] 2 [facility] STICK/TAB INC [place] [address] [facility] [place] INFUSION 2 [facility] HYDRATION INC INC INITIAL 31 MIN-1 HOUR THERAPEUT 34373 [facility] IC 2 [facility] PROPHYLAC INC INC TIC/DX INJECTION SUBQ/IM 25378 [facility] NONSTRESS 2 [facility] TEST INC INC 01062 [facility] NONSTRESS 2 [facility] TEST INC INC THERAPEUT 08729 [facility] IC 2 [facility] PROPHYLAC INC INC TIC/DX INJECTION SUBQ/[place] [address] [facility] 2 [facility] UTERUS INC INC LIMITED 1/> [place] [address] [facility] [place] RETROPERI 2 [facility] TONEAL INC INC REAL TIME W/IMAGE COMPLETE THERAPEUT 54261 [facility] IC 2 [facility] PROPHYLAC INC INC TIC/DX INJECTION SUBQ/IM RADIOLOGI 10679 [facility] SALAZARHIPOLITO C EXAM 2 MEDICAL SWETA CHEST 2 IMAGING VIEWS ASS FRONTAL&L ATERAL RADEX 25514 EVELIA ALTAMIRANO FOOT 2 [facility] COMPLETE MINIMUM 3 VIEWS NONCOVERE A9270 EVELIA ALTAMIRANO D ITEM OR 2 [facility] SERVICE URNLS DIP 34139 [facility] 2 [facility] STICK/TAB INC [place] [address] [facility] 2 [facility] UTERUS INC INC LIMITED 1/> FETUSES US PREG 45947 [facility] UTERUS 2 MEDICAL SWETA REAL TIME IMAGING W/IMAGE ASS DCMTN TRANSVAG CULTURE 71542 [facility] BACTERIAL 2 [facility] INC INC QUANTTATI VE COLONY COUNT URINE US PREG 80475 [facility] UTERUS 2 MEDICAL SWETA REAL TIME IMAGING W/IMAGE ASS DCMTN TRANSVAG IADNA 91614 BIO BIO LANDY 2 REFERNCE 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 UNDARM 2 OTH THAN WOOD PAIR PAD TIP&HNDGR IP CT LOWER 30596 DELL HIPOLITO EXTREMITY 2 MEDICAL SWETA W/O IMAGING CONTRAST ASS MATERIAL OPHTH 28162 SCIFRES SCIFRES MEDICAL 2 ANG ANG XM&EVAL COMPRE NEW PT 1/> VST DETERMINA 70193 SCIFRES SCIFRES TION 2 ANG ANG REFRACTIV E STATE THERAPEUT 19908 YASMEEN Song IC 2 PROPHYLAC TIC/DX INJECTION SUBQ/IM INJ J0702 YASMEEN Song BETAMETHA 2 SONE ACETATE & PHOSPHATE 3 MG INJECTION J1030 YASMEEN Song 2 METHYLPRE DNISOLONE ACETATE 40 MG URINE 68013 ROSELINE PONCE 2 NAHOMY BERUMEN DEVENDRA TEST VISUAL COLOR CMPRSN METHS URINE 30979 [facility] 2 [facility] TEST INC INC VISUAL COLOR CMPRSN METHS [place] PREG 10485 [facility] UTERUS 2 [facility] REAL TIME INC INC W/IMAGE DCMTN TRANSVAG CULTURE 06376 [facility] BACTERIAL 2 [facility] INC INC QUANTTATI VE COLONY COUNT URINE BLOOD 44829 [facility] TYPING 2 [facility] SEROLOGIC INC INC RH (D) GONADOTRO 41345 [facility] PIN 2 [facility] CHORIONIC INC INC QUANTITAT JORY BLOOD 47965 [facility] COUNT 2 [facility] COMPLETE INC INC AUTO&AUTO DIFRNTL WBC URNLS DIP 27462 [facility] 2 [facility] STICK/TAB INC INC LET REAGENT AUTO MICROSCOP Y THERAPEUT 16850 [facility] IC 1 [facility] INJECTION INC INC IV PUSH EACH NEW DRUG IV 10-11-201 21561 [facility] INFUSION 1 [facility] THERAPY/P INC INC ROPHYLAXI S /DX 1ST TO 1 [place] [address] PATHOLOGY PATHOLOGY SURG 1 & & PATHOLOGY CYTOLOGY CYTOLOGY LAB LAB GROSS&JAMESON ROSCOPIC EXAM ANESTHESI 87337 [facility] R[facility] Duncan 1 ANESTH INCOMPLET OF THE E/MISSED BLUE BLOOD 28734 [facility] COUNT 1 [facility] COMPLETE INC INC AUTO&AUTO DIFRNTL WBC BLOOD 42273 [facility] [place] COUNT 1 [facility] [address] [facility] [place] NUCLEOTID 1 [facility] ASE 5'- INC INC BLOOD 67414 [facility] [place] TYPING 1 [facility] SEROLOGIC INC INC RH (D) [place] MISSED 68562 ROSELINE PONCE 1 NAHOMY RAMSAY FIRST TRIMESTER SURGICAL BLOOD 30461 [facility] [place] COUNT 1 [facility] HEMATOCRI INC INC T COLLECTIO 34646 [facility] [place] N VENOUS 1 [facility] [address] [facility] [place] INFUSION 1 [facility] THERAPY INC INC PROPHYLAX IS/DX [place] PREG 55891 [facility] UTERUS 1 [facility] CLIN[facility] OF W/IMAGE SHERYL DCMTN TRANSVAG US PREG 80470 [facility] UTERUS 1 [facility] OF W/IMAGE SHERYL DCMTN TRANSVAG COLLECTIO 08177 [facility] N VENOUS 1 [facility] BLOOD INC INC VENIPUNCT URE GONADOTRO 10541 [facility] [place] PIN 1 [facility] CHORIONIC INC INC QUANTITAT JORY GONADOTRO 34907 [facility] PIN 1 [facility] CHORIONIC INC INC QUANTITAT JORY COLLECTIO 89779 [facility] [place] N VENOUS 1 [facility] BLOOD INC INC VENIPUNCT URE COLLECTIO 30584 [facility] [place] N VENOUS 1 [facility] BLOOD INC INC VENIPUNCT URE GONADOTRO 02542 [facility] PIN 1 [facility] CHORIONIC INC INC QUANTITAT JORY GONADOTRO 23664 [facility] PIN 1 [facility] CHORIONIC INC INC QUANTITAT JORY COLLECTIO 62669 [facility] [place] N VENOUS 1 [facility] BLOOD INC INC VENIPUNCT URE BLOOD 13907 [facility] [place] TYPING 1 [facility] SEROLOGIC INC INC ABO BLOOD 83871 [facility] [place] TYPING 1 [facility] SEROLOGIC INC INC RH (D) GONADOTRO 85547 [facility] [place] PIN 1 [facility] CHORIONIC INC INC QUANTITAT JORY BLOOD 56351 [facility] [place] COUNT 1 [facility] COMPLETE INC INC AUTO&AUTO DIFRNTL WBC URNLS DIP 30190 [facility] [place] 1 [facility] STICK/TAB INC INC LET REAGENT AUTO MICROSCOP Y US PREG 92895 [facility] UTERUS 1 [facility] OF W/IMAGE SHERYL DCMTN TRANSVAG RHEUMATOI 07884 [facility] D FACTOR 1 AMERIC AMERIC QUANTITAT HOLDING HOLDING JORY BLOOD 78695 [facility] COUNT 1 AMERIC AMERIC COMPLETE HOLDING HOLDING AUTO&[place] [address] [facility] BLOOD/URI 1 AMERIC AMERIC C ACID HOLDING HOLDING SEDIMENTA 08791 [facility] TION RATE 1 AMERIC AMERIC RBC HOLDING HOLDING AUTOMATED ANTINUCLE 68908 [facility] AR 1 AMERIC AMERIC ANTIBODIE HOLDING HOLDING S MODESTO C-REACTIV 41124 [facility] E PROTEIN 1 AMERIC AMERIC HOLDING HOLDING DEEP D9220 THE GUILLERMO SEDATION/ 1 IMPLANT & DON GENERAL ORAL ANESTHESI SURGERY C A-1ST 30 MINUTES SEDIMENTA 57525 [facility] TION RATE 1 [facility] RBC INC INC NON-AUTOM ATED DEEP D9220 THE LAZAR III SEDATION/ 1 IMPLANT & CAROL GENERAL ORAL ANESTHESI SURGERY C A-1ST 30 MINUTES URINE 81950 [facility] [place] 1 [facility] CENTER [place] [address] [facility] FERRITIN 1 [facility] BLOOD 81055 [facility] COUNT 1 [facility] COMPLETE AUTO&AUTO DIFRNTL WBC IRON 57973 [facility] BINDING 1 [facility] CAPACITY COLLECTIO 33963 A C JAMIN MICHELE N VENOUS 1 YASMEEN BERUMEN B[place] [address] [facility] IRON 1 [facility] DEEP D9220 THE GUILLERMO SEDATION/ 1 IMPLANT & DON GENERAL ORAL ANESTHESI SURGERY C A-1ST 30 MINUTES ORTHOPANT 35245 THE GUILLERMO OGRAM 1 IMPLANT & DON ORAL SURGERY C CALCULUS 98721 [facility] QUANTITAT 1 AMERIC AMERIC JORY HOLDINGDaleeliS CHEMICAL RADEX 02331 [facility] ABDOMEN 1 1 [facility] INC INC ANTEROPOS TERIOR VIEW 3D 70193 [facility] [place] RENDERING 1 [facility] W/INTERP INC [place] & [place] [address] [facility] HEAD/BRAI 1 [facility] N W/[place] [address] [facility] [place] INFUSION 1 [facility] THERAPY/P INC INC ROPHYLAXI S /DX 1ST TO 1 HR THERAPEUT 59041 [facility] [place] IC 1 [facility] INJECTION INC INC IV PUSH EACH NEW DRUG EGD 13276 [place] KAL[place] TRANSORAL 0 MEDICAL BIOPSY SERV SINGLE/MU FOUNDATIO LTIPLE CLOSURE 8659 [facility] [place] SKIN&SUBC 0 [facility] [place] [address] [facility] [place] INFUSION 0 [facility] THERAPY/P INC INC ROPHYLAXI S /DX 1ST TO 1 HR IM ADM 04619 [facility] [place] PRQ ID 0 [facility] SUBQ/IM INC INC NJXS 1 VACCINE BLOOD 78969 [facility] [place] COUNT 0 [facility] COMPLETE INC INC AUTO&AUTO DIFRNTL WBC SIMPLE 60579 [facility] [place] REPAIR 0 [facility] SCALP/NEC INC INC K/AX/ARBEN T/TRUNK 2.5CM/< THERAPEUT 07808 [facility] [place] IC 9 [facility] PROPHYLAC INC INC TIC/DX INJECTION SUBQ/IM BLOOD 72168 [facility] [place] COUNT 9 [facility] COMPLETE INC INC AUTO&AUTO DIFRNTL WBC BASIC 02877 [facility] [place] METABOLIC 9 [facility] PANEL INC INC CALCIUM TOTAL RADIOLOGI 10972 Grover PENA EXAM 9 MEDICAL JEFF CHEST 2 IMAGING VIEWS ASSOCIATE FRONTAL&[place] [address] [facility] [place] INFUSION 9 [facility] THERAPY/P INC INC ROPHYLAXI S /DX 1ST TO 1 HR RADIOLOGI 34399 Grover PENA EXAM 9 MEDICAL JEFF CHEST 2 IMAGING VIEWS ASSOCIATE FRONTAL&[place] [address] [facility] [place] TRANSVAGI 8 [facility] NAL INC INC COMPUTER- 79420 [facility] [place] AIDED 8 [facility] DETECTION INC INC SCREENING MAMMOGRAP HY 3D 84813 [facility] [place] RENDERING 8 [facility] W/INTERP INC INC & [place] [address] [facility] [place] HEAD/BRAI 8 [facility] N W/O & INC INC W/CONTRAS T MATERIAL SCREENING 46694 [facility] [place] 8 [facility] MAMMOGRAP INC INC HY BILATERAL COLONOSCO 05067 [facility] [place] PY FLX DX 8 [facility] W/[place]LLJ [place] [address] [facility] [place] THER 8 [facility] PROPH/DX INC INC 1ST >1 HR Encounters Encounter Start End Date Code Location Performer Type Date HOSPITAL [facility] [place] [facility] 7 7 [facility] - 7 7 [facility] OUTPATIEN [facility] T EMERGENCY 18216 [facility] 7 [facility] T VISIT MODERATE SEVERITY EMERGENCY 46573 HARJINDER DIAZ DEPT 7 7 PHYSICIAN VISIT S, PLLC HIGH SEVERITY& THREAT FUNCJ EMERGENCY 28351 [facility] 7 7 [facility] T VISIT [facility]IGH/URGE NT SEVERITY HOSPITAL [facility] - 7 7 [facility] OFF[facility] 79307 [facility] 7 7 PHYSICIAN T VISIT S GROUP 10 MINUTES EMERGENCY 61022 [facility] 6 6 [facility] LIMITED/M INOR PROB HOSPITAL GE[facility] - 6 6 [facility] EMERGENC[facility] 07228 [facility] 6 [facility] T VISIT [facility]IGH/URGE NT SEVERITY HOSPITAL GE[facility] - 6 6 [facility] OUTPATIEN [facility] T OFFICE 90035 [facility] OUTPATIEN 6 6 MEDICAL T VISIT SERV 15 FOUNDATIO MINUTES N OFFICE 60845 [facility]UR[facility] CAROL OUTPATIEN 6 6 MEDICAL T VISIT SERV 25 FOUNDATIO MINUTES N OFFICE 51673 LISANDRO [facility] 6 6 [facility] 15 PSC MINUTES [facility]OSP[facility] UNIVERSIT [facility] 6 6 Y [facility] - 6 6 [facility] T OFFICE 24159 LISANDRO BETANCURKINS OUTPATIEN 6 6 [facility] 10 PSC MINUTES OFFICE 51962 [facility] 6 6 PHYSICIAN DEVENDRA T VISIT S GROUP 15 MINUTES OFFICE 61401 LISANDRO WEBB OUTPATIEN 6 6 [place] [facility] 25 PSC MINUTES OFFICE 42537 [facility] OUTPATI[facility] 6 6 PHYSICIAN DEVENDRA T VISIT S GROUP 25 MINUTES OFFICE 95137 [facility] CHURCH CAROL OUTPATIEN 6 6 MEDICAL T VISIT SERV 25 FOUNDATIO MINUTES [facility] - 6 6 [facility] OFFICE 20965 [facility] OUTPATIEN 6 6 PHYSICIAN DEVENDRA T VISIT S GROUP 15 MINUTES [facility]OSP[facility] - [facility] 6 [facility] [address] [facility] T OFF[facility] PHYSICIAN DEVENDRA T VISIT S GROUP 15 MINUTES OFFICE 05044 P[facility] EDUARDOBRANDI OUTPATIEN 6 6 MEDICAL MICHELE T VISIT SERV 15 FOUNDATIO MINUTES [facility] UNIVERSIT - 6 6 [facility] T OFFICE [address] [facility] OUTPATIEN 6 6 MEDICAL T VISIT SERV 25 FOUNDATIO MINUTES [facility] GEOVANNA - 6 6 [facility] OUTPAT[facility]EN [facility] GE[facility] - 6 6 [facility] - 6 6 [facility]PATI[facility] UNIVERSIT - 6 6 [facility] T OFFICE 84830 [facility] SHEELA OUTPATIEN 6 6 PHYSICIAN MAT T NEW 60 S GROUP MINUTES [facility]OSP[facility] - 6 6 [facility] 48122 [facility] 6 6 [facility] DEPARTMEN [facility] T VISIT MODERATE SEVERITY [facility] - 6 6 [facility] 67699 [facility] 6 6 [facility] T VISIT LOW/MODER SEVERITY OFFICE 08116 [facility] ROLANDO OUTPATIEN 6 6 [facility] 20 [facility] EMERGENCY 32953 [facility] 5 5 [facility] T [facility]ISIT LIMITED/M INOR [facility] GEOVANNA - 5 5 [facility] OUTPATIEN [facility] T OFFICE 76951 [facility] OUTPATIEN 5 5 [facility] 20 [facility] - 5 5 [facility] - 5 5 [facility] OUTPATIEN [facility] T OFF[facility] 75136 [facility] 30 [facility] - 5 5 [facility] OUTPATIEN [facility] T OFFICE 00759 DEMAR BENZ[facility] OUTPATIEN 4 4 III ANGIE III [facility] 30 [facility] GEOVANNA - 4 4 [facility]EN [facility] - 4 4 [facility] OUTPATIEN [facility] T OFFICE 16629 JOE VENTURAEY OUTPATIEN 4 4 [facility] 10 [facility] UNIVERSIT [facility] 4 4 Y [facility] - 4 4 [facility] T OFFICE [address] [facility] 45 [facility] GEOVANNA - 3 3 [facility] Emergency KENIA Geovanna Palmer MD (ER) 3 10:49 3 11:31 [facility] EMERGENCY 86283 JHONNY BURNS THO 3 3 DEPARTMEN T VISIT MODERATE SEVERITY OFFICE 77237 Duncan SCHMIDT OUTPATIEN 3 3 YASMEEN BERUMEN JEDuncan T VISIT PSC 15 MINUTES Inpatient JENNIFER Ponce MD (IN) 3 06:00 3 15:00 [facility] GEOVANNA - 3 3 [facility] OFFICE 97253 MUSIC MIKKI MUSIC MIKKI OUTPATIEN 3 3 T [facility] 20 MINUTES [facility] GEOVANNA - 3 3 [facility] INPATIENT [facility] - 2 2 [facility] EMERGENCY 86732 [place] 2 2 [facility] VISIT LOW/MODER SEVERITY HOSPITAL GE[facility]NA - 2 2 [facility] GE[facility] - 2 2 [facility] - 2 2 [facility] - 2 2 [facility] EMERGENCY 39268 EVELIA 2 2 [facility] T VISIT MODERATE [facility]VERITY HOSPITAL EVELIA - 2 2 [facility] OUTPATIEN EMERGENCY 20288 GEOVANNA 2 2 [facility] T VISIT MODERATE SEVERITY [facility]OSP[facility] - 2 2 [facility] - 2 2 [facility] 54109 [facility] 2 2 NAHOMY BERUMEN E MED EST PATIENT 40-64YRS OFFICE 71034 ROSELINE PONCE OUTPATIEN 2 2 NAHOMY RAMSAY T VISIT 15 MINUTES HOSPITAL [facility] - 2 2 [facility] - 2 2 [facility] OUTPATIEN INC T EMERGENCY 90081 [facility] 2 2 [facility] DEPARTMEN INC T VISIT MODERATE SEVERITY EMERGENCY 28641 NELSON DIAZ DEPT 2 2 EMERGENCY JAMESON VISIT SERVICES HIGH SEVERITY& THREAT FUN OFFICE 38443 ROSELINE PONCE OUTPATIEN 1 1 NAHOMY RAMSAY T [facility] 60 [facility] - 1 1 [facility]PATIEN [facility] - 1 1 [facility] - 1 1 [facility] - 1 1 [facility] - 1 1 [facility] - 1 1 [facility] OUTPATIEN INC T EMERGENCY 17218 NELSON DIAS 1 1 EMERGENCY DEPARTMEN SERVICES T VISIT HIGH/URGE NT SEVERITY EMERGENCY 02880 [facility] 1 1 [facility] DEPARTMEN INC T VISIT MODERATE SEVERITY [facility]OSPITAL [facility] - 1 1 [facility] OUTPATIEN INC T EMERGENCY 67864 NELSON COOL 1 1 EMERGENCY III RACHID DEPARTMEN SERVICES T VISIT HIGH/URGE NT SEVERITY EMERGENCY 65570 [facility] 1 1 [facility] DEPARTMEN INC T VISIT MODERATE SEVERITY OFFICE 84202 [place] OUTPATIEN [address] MINUTES OFFICE 51547 A C OUTPATIEN 1 1 YASMEEN BERUMEN T VISIT PSC 15 MINUTES HOSPITAL [facility] - 1 1 [facility] OUTPATIEN INC T OFFICE 74432 Duncan C JAMIN MICHELE OUTPATIEN 1 1 YASMEEN BERUMEN T VISIT PSC 15 MINUTES EMERGENCY 53723 NELSON COOL DEPT 1 1 EMERGENCY III RACHID VISIT SERVICES HIGH SEVERITY& THREAT [facility] HOSPITAL [facility] - 1 1 [facility] OUTPATIEN INC T EMERGENCY 15902 [facility] 1 1 [facility] DEPARTMEN INC T VISIT HIGH/URGE NT SEVERITY OFFICE 55088 [place] LACEY OUTPATIEN 1 1 MEDICAL L T NEW 45 SERV MINUTES [facility] EMERGENCY 34811 NELSON JAVED DEPT 0 0 EMERGENCY MEDARDO VISIT SERVICES HIGH SEVERITY& THREAT [facility]PITAL [facility] - 0 0 [facility] OUTPATIEN INC T EMERGENCY 21237 NELSON COOL DEPT 0 0 EMERGENCY III RACHID VISIT SERVICES HIGH SEVERITY& THREAT [facility] EMERGENCY 83129 [facility] 0 0 [facility] DEPARTMEN INC T VISIT MODERATE SEVERITY EMERGENCY 26100 NELSON COOL 0 0 EMERGENCY III, DEPARTMEN SERVICES ROSELYN T VISIT HIGH/URGE ASSOCIATE NT S SEVERITY OFFICE 24650 DERMATSKIP CARO, OUTPATIEN 0 0 GY VARGHESE W T VISIT ASSOCIATE 15 S OF MINUTES [place] EMERGENCY 75134 NELSON LOERA, 0 0 EMERGENCY CRUZ DEPARTMEN SERVICES O T VISIT MODERATE ASSOCIATE SEVERITY S EMERGENCY 40947 NELSON DIAZ, 0 0 EMERGENCY ANN S DEPARTMEN SERVICES T VISIT MODERATE ASSOCIATE SEVERITY S [facility] GEOVANNA - 9 9 [facility] OUTPATIEN INC T EMERGENCY 26442 [facility] 9 9 [facility] DEPARTMEN INC T VISIT MODERATE SEVERITY EMERGENCY 97363 NELSON LOERA, 9 9 [facility] T VISIT HIGH/URGE ASSOCIATE NT S SEVERITY OFFICE [address] ST NAVYA SINGH [facility] 9 9 FAMILY RENETTA T VISIT CARE 15 CLINIC MINUTES [facility] GEOVANNA - 8 8 [facility] OUTPATIEN INC T OFFICE 32028 DERMATOLO AYANNA [facility] 8 8 GY BEATRICE P T VISIT ASSOCIATE 15 S OF MINUTES [facility] GEOVANNA - 8 8 [facility] OUTPATIEN INC T OFFICE 91229 [place] PEDRO [facility] 8 8 MEDICAL MEDICAL T VISIT SERV SERV 25 FOUNDATIO FOUNDATIO MINUTES
--- OUTSIDE RECORDS SUMMARY | 2017-03-22 03:16 | External Medical Summary Rpt ---
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 Name Role Phone Duncan ARANA MD PSC, [...] Unavailable [facility] Unavailable Unavailable PRACTICE L, [facility] ROD HANSEL, ROD HANSEL Unavailable Unavailable JOEL, JOEL Unavailable Unavailable CMGARRY TRISH, MCGARRY Unavailable Unavailable TRISH MCGARRY TRISH, [...] DEVENDRA HARPEL DEVENDRA, HARPEL Unavailable Unavailable DEVENDRA [facility] Unavailable Unavailable [place], [facility] Unavailable Unavailable [place], [facility] Unavailable Unavailable [facility], [facility] Unavailable Unavailable HOSPITAL, [facility] Unavailable Unavailable HOSPITAL P, [facility], Unavailable Unavailable [facility] ZAMBRANO MICHELE, ZAMBRANO MICHELE Unavailable Unavailable SEN RAFAEL, SEN RAFAEL Unavailable Unavailable [facility] THO, HUHN THO Unavailable Unavailable [facility] TH[facility], [facility]HN THO Unavailable Unavailable TELLO MEDARDO, TELLO Unavailable Unavailable [facility] KILPELA JEA, KILPELA Unavailable [...] DWI MICHEL ANG, MICHEL ANG Unavailable Unavailable [facility] Unavailable Unavailable SERVICES, [facility] GUILLERMO DON, Unavailable Unavailable GUILLERMO DON MERSACK, BEATRICE P, Unavailable Unavailable MERSACK, BEATRICE P MURO RACHID, MURO RACHID Unavailable Unavailable JAMIN MICHELE, JAMIN MICHELE Unavailable Unavailable JAMIN MICHELE, JAMIN MICHELE Unavailable Unavailable MUSIC MIKKI, MUSIC MIKKI Unavailable Unavailable MUSIC MIKKI, MUSIC MIKKI Unavailable [facility]available [facility] Unavailable Unavailable [facility] Unavailable Unavailable [facility], [facility], Unavailable Unavailable PLL[facility], [facility] [...] C, THE IMPLANT & ORAL SURGERY C [facility] Unavailable Unavailable [facility]PITALS, [facility], Unavailable Unavailable [facility] WEHRMAN III RACHID, Unavailable Unavailable WEHRMAN III RACHID WEHRMAN III RACHID, Unavailable Unavailable WEHRMAN III RACHID WEHRMAN III, ROSELYN, Unavailable Unavailable WEHRBRANDI IIIROSELYN WHITE CHR, WHITE CHR Unavailable Unavailable [facility], Unavailable Unavailable [facility] ARANA A, ARANA A Unavailable Unavailable ARANA A, ARANA A Unavailable Unavailable Purpose Continuity of Care Document - 06-19-2007 through 2016 Problems Code Diagnosis DOS Provider Status [id number] EMBOLISM & 12-07-2016 [facility] SUPERFICIAL INC VEINS RIGHT LW EXT [id number] PAIN IN 12-07-2016 [place] [facility] [id number] ACUTE EMBO 12-06-2016 [facility] THROMB UNS [facility] DEEP VNS RT INC PROX LOW EXT K219 GASTRO-ESOP 12-06-2016 [facility] H REFLUX [facility] DISEASE INC WITHOUT ESOPHAGITIS Z720 TOBACCO USE 12-06-2016 [facility] INC N67149 UNSPECIFIED 11-25-2016 [facility] ED J440 COPD WITH 10-22-2016 [facility] ACUTE [facility]ANS, PLLC RESPIRATORY INFECTION J441 CHRONIC 10-22-2016 [facility]STRUCTIVE [facility] PULMONARY INC DZ W/EXACERBAT ION R05 COUGH 10-22-2016 [facility] R079 CHEST PAIN 10-22-2016 [place] UNSPECIFIED MEDICAL IMAGING ASS P22929 PERSONAL 10-22-2016 [facility] HISTORY OF PHYSICIANS, NICOTINE PLLC DEPENDENCE J42 UNSPECIFIED 09-14-2016 [facility] CHRONIC [facility] BRONCHITIS INC R0989 OTH SPEC SX 09-14-2016 [place] & SIGNS MEDICAL INVLV THE IMAGING ASS CIRC & RESP SYS N951 MENOPAUSAL 07-09-2016 [facility] CLIMACTERIC GROUP STATES R0781 PLEURODYNIA 04-05-2016 [place] [facility] I10 ESSENTIAL 03-29-2016 [facility]IMARY [facility] HYPERTENSIO INC N J449 CHRONIC 03-29-2016 [facility] OBSTRUCTIVE [facility] PULMONARY INC DISEASE UNS [id number] CONTUSION 03-29-2016 [facility] RT FRONT [facility] WALL THORAX INC INITIAL ENCOUNTER M624UFG UNSPECIFIED 03-29-2016 [place] INJURY OF MEDICAL THORAX IMAGING ASS INITIAL ENCOUNTER J209 ACUTE 02-15-2016 [facility] BRONCHITIS [facility] UNSPECIFIED HOSPITAL P R0602 SHORTNESS 02-15-2016 [place] OF BREATH MEDICAL IMAGING ASS E871 HYPO-OSMOLA 02-12-2016 [facility] LITY AND [facility] HYPONATREMI INC A Z23 ENCOUNTER 02-12-2016 [facility] FOR [facility] IMMUNIZATIO INC N K224 DYSKINESIA 02-11-2016 [place] [facility] SERV ESOPHAGUS [facility]OUNDATION K2270 BARRETTS 02-11-2016 [place] [facility] ESOPHAGUS SERV WITHOUT FOUNDATION DYSPLASIA R12 HEARTBURN 02-11-2016 [place] [facility] SERV [facility] N3020 OTHER 01-21-2016 [facility] [place] PSC WITHOUT HEMATURIA R300 DYSURIA 01-21-2016 [facility] R312 OTHER 01-21-2016 [facility]CROSCOPIC [facility] PSC N3021 OTHER 12-31-2015 [facility] CYSTITIS PSC WITH HEMATURIA N342 OTHER 12-31-2015 [facility]RITIS [facility] PSC K660 PERITONEAL 12-23-2015 [facility] ADHESIONS PHYSICIANS POSTPROC GROUP POSTINFECTI ON N736 FEMALE 12-23-2015 [facility] PELVIC PHYSICIANS PERITONEAL GROUP ADHESIONS POSTINFECTI VE N8320 UNSPECIFIED 12-23-2015 [facility] OVARIAN PHYSICIANS CYSTS GROUP R102 PELVIC AND 12-23-2015 [facility] PERINEAL PHYSICIANS PAIN GROUP B9689 OTH SPEC 12-19-2015 [facility] BACTERIAL PHYSICIANS AGNT CAUSE GROUP DZ CLASSIFIED ELSW N760 ACUTE 12-19-2015 [facility] VAGINITIS PHYSICIANS GROUP N341 NONSPECIFIC 12-10-2015 [facility]THRITIS [facility] PSC Z8719 PERSONAL 11-21-2015 [place] [facility] HISTORY SERV OTHER FOUNDATION DISEASES DIGESTIVE SYSTEM R928 OTH ABNORM 11-12-2015 [facility] & [facility] INCONCLUSIV INC E FIND ON DX IMAG BREAST N830 FOLLICULAR 11-07-2015 [place] CYST OF MEDICAL OVARY IMAGING ASS R309 PAINFUL 11-07-2015 [place] MICTURITION MEDICAL IMAGING ASS UNSPECIFIED R918 OTHER 11-04-2015 [facility] ABNORMAL FINDING OF LUNG FIELD N390 URINARY 11-03-2015 [facility] TRACT PHYSICIANS INFECTION GROUP SITE NOT SPECIFIED R0609 OTHER FORMS 10-30-2015 [place] [facility] DYSPNEA SERV FOUNDATION Z539 PROCEDURE & 10-24-2015 [facility] NOT CARRIED OUT UNS REASON K449 DIAPHRAGMAT 10-22-2015 [place] [facility] HERNIA SERV W/O FOUNDATION OBSTRUCTION OR GANGRENE E789 DISORDER OF 10-13-2015 [facility] HOSP LIPOPROTEIN INC METABOLISM UNSPECIFIED Z8679 PERSONAL 10-13-2015 [place] [facility] DISEASES INC CIRCULATORY SYSTEM E785 HYPERLIPIDE 10-09-2015 [facility] UNSPECIFIED INC I340 NONRHEUMATI 09-30-2015 [facility] MITRAL SERV VALVE FOUNDATION INSUFFICIEN CY I351 NONRHEUMATI 09-30-2015 [facility] AORTIC SERV VALVE FOUNDATION INSUFFICIEN CY I361 NONRHEUMATI 09-30-2015 [facility] TRICUSPID SERV VALVE FOUNDATION INSUFFICIEN CY Z8632 PERSONAL 09-25-2015 [facility] HISTORY OF PHYSICIANS GESTATIONAL GROUP DIABETES J069 ACUTE UPPER 07-22-2015 [facility] HOSP RESPIRATORY INC INFECTION UNSPECIFIED J0190 ACUTE 06-24-2015 [place] [facility] N200 CALCULUS OF 04-29-2015 [place] KIDNEY [facility] INC N201 CALCULUS OF 04-29-2015 [facility] P N202 CALCULUS OF 04-29-2015 [place] KIDNEY MEDICAL WITH IMAGING ASS CALCULUS OF URETER N1330 UNSPECIFIED 04-28-2015 [place] [facility] HYDRONEPHRO IMAGING ASS SIS 51945 PAIN IN 12-21-2014 [place] JOINT, MEDICAL UPPER ARM IMAGING ASS 9593 INJURY 12-21-2014 [place] OTHER&UNSPE MEDICAL CIFIED IMAGING ASS [employer]WRI ST 3899 UNSPECIFIED 06-18-2014 [facility] LOSS PRACTICE L 7856 ENLARGEMENT 06-14-2014 [place] OF LYMPH MEDICAL NODES IMAGING ASS 47459 OTHER 06-14-2014 [place] NONSPECIFIC MEDICAL ABNORMAL IMAGING ASS FINDING OF LUNG FIELD 57685 LOC 05-23-2014 DEMAR OSTEOARTHRO III ANGIE S NOT SPEC PRIM/SEC OTH SPEC SITE 4019 UNSPECIFIED 11-26-2013 [facility] ESSENTIAL [facility] HYPERTENSIO INC N 486 PNEUMONIA, 11-26-2013 [facility] ORGANISM [facility] UNSPECIFIED INC 40223 ASTHMA, 11-26-2013 [facility] UNSPECIFIED [facility] , INC UNSPECIFIED STATUS 5601 PARALYTIC 11-26-2013 [facility] ILEUS [facility] INC 34078 OTHER 11-26-2013 [place] SPECIFIED MEDICAL DISORDER OF IMAGING ASS INTESTINES 70927 ABDOMINAL 11-26-2013 [facility] OTHER MEDICAL SPECIFIED IMAGING ASS SITE 14268 OTHER 11-26-2013 [facility] DIGESTIVE [facility] SYSTEM INC COMPLICATIO NS V148 PERSONAL 11-26-2013 [facility] HISTORY [facility] ALLERGY OTH INC SPEC MEDICINAL AGTS 5990 URINARY 11-25-2013 [facility] TRACT [facility] INFECTION INC SITE NOT SPECIFIED V1582 PERS HX 11-25-2013 [facility] TOBACCO USE [facility] PRESENTING INC [facility] 18791 UNSPECIFIED 08-22-2013 [facility] SLEEP DISTURBANCE 09047 ESOPHAGEAL 08-07-2013 [facility] 5533 DIAPHRAGMAT 08-07-2013 [facility] W/O HOSPITAL MENTION OBSTRUCTION /GANGREN 58811 BARRETTS 07-10-2013 [facility] 02433 ABDOMINAL 03-27-2013 [facility] PAIN, SWETA UNSPECIFIED SITE 87779 ATROPHIC 03-26-2013 [facility] GASTRITIS WITHOUT MENTION OF HEMORRHAGE 96946 PAIN IN 12-18-2012 [employer] JOINT, HAND 7295 PAIN IN 12-18-2012 [facility] SOFT SWETA TISSUES OF LIMB 9233 CONTUSION 12-18-2012 [facility] THO OF FINGER 8470 NECK SPRAIN 12-11-2012 Duncan ANDRADE MD PSC 6259 UNSPEC 09-29-2012 [facility] SYMPTOM [facility] ASSOC INC W/FEMALE GENITAL ORGANS 6268 OTH D/O 09-29-2012 [facility] MENSTRUATIO [facility] N&OTH ABN INC BLEED FE GNT TRACT V0382 NEED PROPH 09-29-2012 [facility] VACCINATION [facility] AGAINST INC STREP PNEUMONE V5869 LONG-TERM 09-29-2012 [facility] (CURRENT) [facility] USE OF INC OTHER MEDICATIONS 2165 BENIGN 09-14-2012 MUS[facility] MI[facility]I NEOPLASM OF SKIN OF TRUNK EXCEPT SCROTUM 71983 INFLAMED 09-14-2012 [facility] SEBORRHEIC KERATOSIS 7089 UNSPECIFIED 09-14-2012 [facility] URTICARIA V2651 TUBAL 08-08-2012 [facility] LIGATION SWETA STERILIZATI ON STATUS 72840 ABNORMAL 06-20-2012 [facility] MATERNAL [facility] GLUCOSE INC TOLERANCE W/DELIVERY 04630 PREV C/S 06-20-2012 [facility] DELIV DELIV GEE W/WO MENTION ANTPRTM COND V252 STERILIZATI 06-20-2012 [facility] ON GEE V270 OUTCOME OF 06-20-2012 [facility] DELIVERY GEE SINGLE LIVEBORN V221 SUPERVISION 05-26-2012 [facility] DEVENDRA OF OTHER NORMAL V286 SCREENING 05-26-2012 [place] [address] THREATENED 05-24-2012 MCGARR[facility] TRISH PREMATURE LABOR ANTEPARTUM 91087 OTHER 04-29-2012 [facility] SPECIFED [facility] COMPLICATIO INC N ANTEPARTUM 98401 ABNORMAL 04-20-2012 [facility] MATERNAL [facility] GLUCOSE INC TOLERANCE ANTEPARTUM 7080 ALLERGIC 04-20-2012 [facility] URTICARIA [facility] INC V222 04-20-2012 [place], [facility] INCIDENTAL INC 96145 DECR 03-29-2012 [facility] MOVMNTS [facility] MGMT MOTH INC ANTPRTM COND/COMP 59740 OTHER 03-28-2012 [place] SPECIFIED MEDICAL DISORDER OF IMAGING ASS KIDNEY AND URETER 7242 LUMBAGO 03-28-2012 [facility] INC 4660 ACUTE 02-15-2012 [facility] BRONCHITIS [facility] INC 52701 OTHER 01-29-2012 [place] DISEASES OF MEDICAL LUNG NOT IMAGING ASS ELSEWHERE CLASSIFIED 64888 SPRAIN AND 12-25-2011 [facility] STRAIN OF HOSP UNSPECIFIED SITE OF FOOT 55816 CONTUSION 12-25-2011 [facility] OF SHOULDER HOSP REGION 30952 CONTUSION 12-25-2011 [facility] OF FOOT HOSP V2382 SUPERVISION 11-29-2011 [facility] DEVENDRA HIGH-[place] [address] [facility] CURRENT 11-24-2011 [facility] RASHID MAT CONDS CLASSIFIABL E ELSW ANTPRTM V2341 SUPERVISION 10-21-2011 RO[facility] Kendrick NAHOMY BERUMEN W/HISTORY PRE-TERM LABOR V2389 SUPERVISION 10-21-2011 ROSELINE Kendrick OF NURIA PONCE MD HIGH-RISK V2889 OTHER 10-21-2011 [facility] PONCE MD SCREENING V704 EXAMINATION 10-21-2011 RO[facility] Kendrick FOR NAHOMY BERUMEN MEDICOLEGAL REASON V745 SCREENING 10-21-2011 RO[facility] PONCE MD FOR VENEREAL DISEASE 8448 SPRAIN&STRA 09-08-2011 JAMIN MICHELE IN OTHER SPECIFIED SITES KNEE&LEG 22142 CONTUSION 09-08-2011 JAM[facility] MICHELE OF HIP 92879 CONTUSION 09-08-2011 JAMIN MICHELE OF LOWER LEG 50400 CONTUSION 09-08-2011 JAMIN MICHELE OF KNEE 49748 PAIN IN 09-05-2011 [place] JOINT MEDICAL PELVIC IMAGING ASS REGION AND THIGH 70750 SWELLING OF 09-05-2011 [place] LIMB MEDICAL IMAGING ASS 8439 SPRAIN&STRA 09-05-2011 [facility] IN OF EMERGENCY UNSPECIFIED SERVICES SITE OF HIP&THIGH 8449 SPRAIN&STRA 09-05-2011 [facility] IN OF EMERGENCY UNSPECIFIED SERVICES SITE OF KNEE&LEG 69742 UNSPECIFIED 09-05-2011 [facility] SITE OF ANKLE SPRAIN AND STRAIN E8859 FALL FROM 09-05-2011 [facility] OTHER EMERGENCY SLIPPING SERVICES TRIPPING OR STUMBLING E8889 UNSPECIFIED 09-05-2011 [place] FALL MEDICAL IMAGING ASS V720 EXAMINATION 08-13-2011 [facility] ANG OF EYES AND VISION 00506 MIGRAINE 07-29-2011 LAZ[facility] LARISSA UNSP W/O INTRACT W/O STATUS MIGRAINOSUS 7245 UNSPECIFIED 07-29-2011 [facility] LARISSA BACKACHE 7821 RASH AND 07-28-2011 ARANA A OTHER NONSPECIFIC SKIN ERUPTION V2509 OTH GENERAL 07-15-2011 [facility] PONCE MD CNSL&ADVICE CONTRACEPT MANAGEMENT V7241 07-15-2011 [facility] PONCE MD OR TEST NEGATIVE RESULT 632 MISSED 07-01-2011 PATHOLOGY & CYTOLOGY LAB 19064 UNSPEC 06-26-2011 WEHRMAN III HEMORRHAGE RACHID EARLY ANTEPARTUM 69568 MATERNAL 2011 ROSELINE Kendrick ANEMIANAHOMY MD ANTEPARTUM 08020 SPOTTING 2011 [facility] Kendrick COMP NAHOMY BERUMEN ANTEPARTUM COND/COMP 74118 THREATENED 06-19-2011 [facility] , EMERGENCY ANTEPARTUM SERVICES V220 SUPERVISION 03-11-2011 [facility] OF NORMAL [facility] FIRST INC 2859 UNSPECIFIED 02-20-2011 [facility] ANEMIA [facility] INC 6238 OTHER 02-20-2011 [facility] SPECIFIED EMERGENCY NONINFLAMMA SERVICES TORY DISORDER VAGINA 53372 PAIN IN 01-21-2011 LAB [facility] ALFR[facility]O JOINT, [employer]ING SITES 5210 DENTAL 01-14-2011 THE IMPLANT CARIES & ORAL SURGERY C 48993 PAIN IN 01-12-2011 [facility] JO[facility], [facility] LOWER LEG INC 68791 PAIN IN 01-12-2011 [facility] JO[facility], [facility] ANKLE AND INC FOOT 75706 UNSPECIFIED 01-12-2011 [facility] JOINT EMERGENCY DISORDER OF SERVICES MULTIPLE SITES 2662 OTHER 11-19-2010 [facility] CO B-[facility]PLEX [facility]ICIENCIE CENTER S V2689 OTHER 11-19-2010 [facility] CO SPECIFIED HEALTH PROCREATIVE CENTER MANAGEMENT 2809 UNSPECIFIED 11-03-2010 [facility] OF [facility] DEFICIENCY ANEMIA 11120 RESTLESS 11-03-2010 Duncan HOFF MD PSC SYNDROME 67901 OTHER 11-03-2010 [facility] OF [place] INC FATIGUE 7831 ABNORMAL 11-03-2010 [facility] OF WEIGHT [place] INC 69568 TOOTH 09-10-2010 THE IMPLANT BROKEN FX & ORAL DUE TO SURGERY C TRAUMA W/O MENTION COMP 5920 CALCULUS OF 08-21-2010 LAB LU[facility] ALFREDO KIDNEY [employer] 17222 UNSPECIFIED 08-18-2010 [place] MEDICAL CONSTIPATIO IMAGING ASS N 7840 HEADACHE 08-15-2010 [place] [facility] 7945 NONSPECIFIC 07-17-2010 [place] [facility] ABNORM SERV RESULTS FOUNDATIO THYROID FUNCT STUDY 91246 ABDOMINAL 05-05-2010 [facility] PAIN, EMERGENCY EPIGASTRIC SERVICES 7802 SYNCOPE AND 01-03-2010 [facility] COLLAPSE EMERGENCY SERVICES 8910 OPEN WOUND 01-03-2010 [facility] KNEE EMERGENCY LEG&ANK SERVICES WITHOUT MENTION COMP V065 NEED 01-03-2010 [facility] PROPHYLACTI [facility] C INC VACCINATION W/TETANUS-D [facility] 8488 OTHER 11-24-2009 [facility] SPECIFIED EMERGENCY SITES OF SERVICES SPRAINS AND ASSOCIATES STRAINS 6918 OTHER 09-04-2009 DERMATOLOGY ATOPIC ASSOCIATES DERMATITIS OF AND RELATED [place], CONDITIONS PSC 6989 UNSPECIFIED 09-04-2009 [facility] PRURITIC [facility] DISORDER OF [place], PSC 6929 CONTACT 08-19-2009 [facility] DERMATITIS& EMERGENCY OTHER SERVICES ECZEMA DUE ASSOCIATES UNSPEC CAUSE 1330 SCABIES 08-14-2009 [facility] EMERGENCY SERVICES ASSOCIATES 490 BRONCHITIS 04-17-2009 [facility] NOT EMERGENCY SPECIFIED SERVICES ACUTE OR ASSOCIATES CHRONIC 7862 COUGH 04-17-2009 [place] [facility] 09331 FEVER 04-10-2009 [place] UNSPECIFIED MEDICAL IMAGING ASSOCIATES 09975 UNSPECIFIED 02-25-2009 [facility] 6253 DYSMENORRHE 04-17-2008 [facility] A [facility] HOS[facility] INC V7612 OTHER 04-17-2008 [facility] SCREENING [facility] MAMMOGRAM INC 7061 OTHER ACNE 08-02-2007 [facility] OF [place], PSC 85905 LOSS OF 07-10-2007 [place] [facility] SERV FOUNDAT[facility] 87391 ABDOMINAL 07-10-2007 [place] [facility] PA[place], SERV GENERALIZED FOUNDATIO 76546 REFLUX 06-19-2007 [place] [facility] ESOPHAGITIS SERV FOUNDATIO [id number] Postoperati [facility] Allergies, Adverse Reactions, Alerts Type Drug Allergy [...] er 23 0 Ac ti AL ve WI 00 04 2 No OM 64 -1 [...] Procedure DOS Code Location Performer Comment DUP-SCAN 23582 [facility] XTR VEINS 7 [facility] INC INC [facility] L/[facility] G0463 [facility] OUTPATIEN 7 MEM HOSP [facility] T CLIN INC INC VISIT ASSESS & MGMT PT PLETHYSMO 96365 [facility] GRAPHY 7 [facility] LUNG E E [facility] W/WO AIRWAY RESIST PULMONARY 37433 [facility] STRESS 7 [facility] [place] [address] [facility] DIFFUSING 7 [facility]CAR HEALTHCAR CAPACITY E E [facility] THORAX 76793 [facility] W/O 7 [facility] CONTRAST E E [facility] SPMTRY 11390 [place] JOEL W/VC 7 MEDICAL EXPIRATOR SERV Y LEONCIO FOUNDATIO W/WO MXML N VOL VNTJ PRESSURIZ 18525 [facility] ED/NONPRE 7 MEM H[facility]P [facility] SSURIZED INC INC INHALATIO N TREATMENT THERAPEUT 55648 [facility] IC 7 [facility] INJECTION INC INC IV PUSH EACH NEW DRUG RADIOLOGI 04604 [facility] C EXAM 7 [facility] CHEST 2 INC INC VIEWS FRONTAL&L ATERAL COMPREHEN 32627 [facility] SIVE 7 MEM H[facility] [place] [address] [facility] STREPTOCO 7 MEM HOSP [facility] CCUS INC INC GROUP A THER 93548 [facility] PROPH/DX 7 MEM H[facility]P [facility] NJX IV INC INC PUSH SINGLE/1S T SBST/DRUG CULTURE 49310 [facility] BACTERIAL 7 [facility] BLOOD INC INC AEROBIC W/ID ISOLATES ECG 35925 [facility] ROUTINE 7 MEM HOSP [facility] ECG INC INC W/LEAST 12 LDS TRCG ONLY W/O I&R IAADI 41259 [facility] INFFLUENZ 7 MEM HOSP [facility] A A VIRUS INC INC IAADI 26896 [facility] INFLUENZA 7 [facility] B VIRUS INC INC CREATINE 12923 [facility] KINASE MB 7 MEM HOSP [place] [address] [facility] LACTATE 7 [place] [address] [facility] TROPONIN 7 MEM H[facility] QUANTITAT INC INC JORY BLOOD 13016 [facility] COUNT 7 [facility] COMPLETE INC INC AUTO&AUTO DIFRNTL WBC CREATINE 74912 [facility] KINASE 7 [place] [address] [facility] [place] TROPONIN 7 [facility] QUANTITAT INC INC JORY CREATINE 75339 [facility] [place] KINASE 7 [facility] TOTAL INC INC CREATINE 14033 [facility] [place] KINASE MB 7 [facility] H[facility] FRACTION INC INC ONLY ECG 87313 [facility] [place] ROUTINE 7 [facility] ECG INC INC W/LEAST 12 LDS TRCG ONLY W/O I&R BLOOD 00964 [facility] [place] COUNT 7 [facility] COMPLETE INC INC AUTO&AUTO DIFRNTL WBC THER 43880 [facility] [place] PROPH/DX 7 [facility] NJX IV INC INC PUSH SINGLE/1S T SBST/DRUG COMPREHEN 53392 [facility] [place] SIVE 7 [facility]P [facility] METABOLIC INC INC PANEL RADIOLOGI 84831 [facility] C EXAM 7 MEDICAL CHEST 2 IMAGING VIEWS ASS FRONTAL&L ATERAL PRESSURIZ 79382 [facility] [place] ED/NONPRE 7 MEM HOSP MEM HOS[facility] SSURIZED INC INC INHALATIO N TREATMENT THERAPEUT 69101 [facility] [place] IC 7 [facility] INJECTION INC INC IV PUSH EACH NEW DRUG CT THORAX 19842 DELL MCMILLAN W/O 6 MEDICAL SWETA CONTRAST IMAGING MATERIAL ASS RADEX 38952 DELL REYES ALL RIBS UNI 6 MEDICAL W/POSTERO IMAGING ANT CH ASS MINIMUM 3 VIEWS RADIOLOGI 11260 [facility] [place] C 6 MEDICAL EXAMINATI IMAGING ON CHEST ASS SINGLE VIEW FRONTAL ECG 59464 [facility] JETER JR ROUTINE 6 [facility] W/LEAST P 12 LDS I&R ONLY PRESSURIZ 81427 [facility] [place] ED/NONPRE 6 MEM HOS[facility] HOS[facility] SSURIZED INC INC INHALATIO N TREATMENT ADMINISTR G0009 [facility] ATION OF 6 MEM HOSP [facility]OS[facility] PNEUMOCOC INC INC [facility] G0378 [facility] [place] OBSERVATI 6 [facility] ON INC INC SERVICE PER HOUR PPSV23 63331 [facility] VACCINE 2 6 [facility] YRS OR INC INC OLDER FOR SUBQ/IM USE BASIC 04308 [facility] METABOLIC 6 [facility] PANEL INC INC CALCIUM TOTAL COLLECTIO 36598 [facility] N VENOUS 6 MEM H[facility]OS[facility] BLOOD INC INC VENIPUNCT URE BLOOD 27495 [facility] [place] COUNT 6 [facility]OS[facility] COMPLETE INC INC AUTO&AUTO DIFRNTL WBC BLOOD 99722 [facility] [place] COUNT 6 [facility] COMPLETE INC INC AUTO&AUTO DIFRNTL WBC BLOOD 95314 [facility] GASES ANY 6 [facility] INC INC COMBINATI ON PH PCO2 PO2 CO2 HCO3 RADIOLOGI 94801 DELL REYES ALL C EXAM 6 MEDICAL CHEST 2 IMAGING VIEWS ASS FRONTAL&L ATERAL THER 40664 [facility] PROPH/DX 6 [facility] NJX IV INC INC PUSH SINGLE/1S T SBST/DRUG [facility] [id number] [facility] OBSERVATI 6 [facility] ON INC INC SERVICE PER HOUR COMPREHEN 24455 [facility] SIVE 6 [facility] METABOLIC INC INC PANEL TOBACCO 84058 [facility] USE 6 [facility] CESSATION INC INC INTERMEDI ATE 3-10 MINUTES PRESSURIZ 24597 [facility] ED/NONPRE 6 [facility] SSURIZED INC INC INHALATIO N TREATMENT ESOPHAGOG 70144 [facility] ASTRODUOD 6 MEDICAL ENOSCOPY SERV TRANSORAL FOUNDATIO N DIAGNOSTI C INJECTION J2704 [facility] PLANO PROPOFOL 6 Y Y 10 MG [facility] ANES 12880 ANESTHESI GRABMAYER TRANSURET 6 A LAZARO HRAL ASSOCIATE W/URETHRO S PSC CYSTOSCOP Y NOS CYSTO [id number] [facility] URTL PSC PSC STRIX/MICHELE NOSIS BLOOD 59954 [facility] COUNT 6 [facility] HEMOGLOBI INC INC N BLOOD 07196 [facility] COUNT 6 [facility] HEMATOCRI INC INC T ANESTHESI 22272 [facility] HANSEL A 6 ANESTH INTRAPERI OF THE TONEAL BLUE LOWER ABD W/LAPS NOS COLLECTIO 95758 [facility] N VENOUS 6 [facility] BLOOD INC INC VENIPUNCT URE LAPAROSCO 51190 [facility] PY W/RMVL 6 [facility] [...] ACETAMINO INC INC PHEN 10 MG EGD 58478 [place] SEN RAFAEL TRANSORAL 6 MEDICAL BIOPSY SERV SINGLE/MU FOUNDATIO LTIPLE N ESOPHGL 85790 [place] MICHEL ZUNIGA FUNCJ 6 MEDICAL G-ESOP SERV RFLX IMPD FOUNDATIO ELTRD N PROLNG ESOPHAGEA 30061 [facility] 6 [facility]ALTH[facility] HEALTHCAR MOTILITY E E [facility] W/INTERP& RPT DIAGNOSTI [id number] [facility] C 6 [facility] MAMMOGRAP INC INC [place] [address] [facility] TRANSVAGI 6 [facility] NAL INC INC [place] THORAX [address] [place] ZAMBRANO MICHELE W/O 6 MEDICAL CONTRAST SERV MATERIAL FOUNDATIO N URINLS 19279 [facility] HARPEL DIP 6 PHYSICIAN DEVENDRA STICK/TAB S GROUP LET REAGNT NON-AUTO MICRSCPY ANES 18120 [facility] WHITE CHR UPPER GI 6 [facility] ENDOSCOPY ANESTHESI PROXIMAL A PSC TO DUODENUM ESOPHAGEA 49688 [facility] 6 [facility] STUDY W/INTERP& RPT ECG 34587 [facility] ROUTINE 6 [facility] ECG INC INC W/LEAST 12 LDS TRCG ONLY W/O I&R ECG 17864 [facility] SHEELA ROUTINE 6 PHYSICIAN MAT ECG S GROUP W/LEAST 12 LDS I&R ONLY CV STRS 37070 [facility] CAROL TST 6 PHYSICIAN XERS&/OR S GROUP RX CONT ECG W/O I&R CV STRS 54251 [facility] TST 6 [facility] XERS&/OR INC INC RX CONT ECG TRCG ONLY ECHO 91998 GEOVANNA [place] TTHRC R-T 6 [facility] 2D INC INC W/WOM-MOD E COMPL SPEC&[place] [address] [place] JANUSZ TRACT 6 MEDICAL UPPER SERV W/WO FOUNDATIO DELAYED N IMAGES W/KUB ECG 71235 [facility] [place] ROUTINE 6 [facility] ECG INC INC W/LEAST 12 LDS TRCG ONLY W/O I&R ECG 93905 GE[facility] [place] ROUTINE 6 [facility] ECG INC INC W/LEAST 12 LDS TRCG ONLY W/O I&R RADIOLOGI 77009 DELL REYES C 6 MEDICAL EXAMINATI IMAGING ON CHEST ASS SINGLE VIEW FRONTAL CREATINE 69904 [facility] KINASE MB 6 [facility] FRACTION INC INC ONLY CREATINE 50239 [facility] [place] KINASE 6 [facility] TOTAL INC INC FIBRIN 59620 GE[facility]NA [place] DGRADJ 6 [facility] PRODUCTS INC INC D-DIMER QUAL/[place] [address] GEOV[facility]NA [place] TROPONIN 6 [facility] QUANTITAT INC INC JORY BLOOD 72037 [facility] [place] COUNT 6 [facility] COMPLETE INC INC AUTO&AUTO DIFRNTL WBC ECG 46088 GEOVANNA JETER JR ROUTINE [address] [facility] W/LEAST P 12 LDS I&R ONLY COMPREHEN 45076 [facility] SIVE 6 [facility] METABOLIC INC INC PANEL FLUOROSCO 63777 GE[facility] [place] PY SPX UP 5 [facility] TO 1 INC INC HOUR PHYS/QHP TIME THERAPEUT 07472 [facility] [place] IC 5 [facility] INJECTION INC INC IV PUSH EACH NEW DRUG CYSTO/URE 75615 GEOVANNA WEBB TERO 5 [facility] IPSY P &INDWELL STENT INSRT RADEX 28204 [place] ADRIA ABDOMEN 1 5 MEDICAL HANSEL [place] [address] GEOV[facility] INFUSION 5 [facility] THERAPY INC [place] [address] GEOV[facility] [place] ABDOMEN & 5 [facility] PELVIS INC INC W/O CONTRAST MATERIAL THERAPEUT 94521 [facility] [place] IC 5 [facility] INJECTION INC INC IV PUSH EACH NEW DRUG RADEX 43185 DELL REYES ALL ELBOW 5 MEDICAL COMPLETE IMAGING MINIMUM [address] THORAX 94581 [facility] [place] 5 [facility] W/[place] [address] GE[facility] [place] ABDOMEN & 4 [facility] PELVIS INC INC W/O CONTRAST MATERIAL THERAPEUT 39801 GE[facility] [place] IC 4 [facility] PROPHYLAC INC INC TIC/DX INJECTION SUBQ/IM RADIOLOGI 63019 [facility] [place] C EXAM 4 [facility] CHEST 2 INC INC VIEWS FRONTAL&[place] [address] [facility] [place] 4 Y Y [facility] W/WO DELAYED IMAGES W/KUB ESOPHAGEA 37612 [facility] 4 Y Y [facility] STUDY W/INTERP& RPT GASTRIC 08727 GEOVANNA [place] EMPTYING 3 [facility] IMAGING INC INC STUDY EGD 71779 [place] KALI [place] KALI TRANSORAL 3 BIOPSY 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 L3925 [employer] ORTHOSIS 3 PIP/DIP NONTORSIO N JOINT PREFAB RADEX 18807 HIPOL[facility]O HIPOLITO FINGR 3 SWETA SWETA MINIMUM 2 VIEWS THERAPEUT 57518 GEOV[facility]NA [place] IC 3 [facility] PROPHYLAC INC INC TIC/DX INJECTION SUBQ/IM HYSTEROSA 07610 HIPOLITO HIPOLITO LPINGOGRA 3 SWETA SWETA PHY RS&I LIG/TRNSX 61731 HARPEL HARPEL J 3 DEVENDRA DEVENDRA FALOPIAN TUBE DEL/ABDML SURG 13129 SCHULSTAD SCHULSTAD DELIVERY 3 GEE GEE ONLY LOW 741 [facility] [place] CERVICAL 3 [facility] INC INC SECTION 89544 HARPEL HARPEL CONTRACTI 2 DEVENDRA DEVENDRA ON STRESS TEST 40025 MALGORZATA MCGARRY NONSTRESS 2 TRISH TRISH TEST 17386 GEOV[facility]NA [place] NONSTRESS 2 [facility] TEST INC INC URNLS DIP 64645 GEOV[facility]NA [place] 2 [facility] STICK/TAB INC [place] [address] GEOV[facility] [place] INFUSION 2 [facility] HYDRATION INC INC INITIAL 31 MIN-1 HOUR THERAPEUT 79924 [facility] [place] IC 2 [facility] PROPHYLAC INC INC TIC/DX INJECTION SUBQ/IM 80825 [facility] [place] NONSTRESS 2 [facility] TEST INC INC 72762 [facility] [place] NONSTRESS 2 [facility] TEST INC INC THERAPEUT 78107 GEOV[facility]NA [facility] IC 2 [facility] PROPHYLAC INC INC TIC/DX INJECTION SUBQ/[place] 913[address] GE[facility] 2 [facility] UTERUS INC INC LIMITED 1/> [place] [address] GEOVANNA AUSTIN RETROPERI 2 [facility] TONEAL INC INC REAL TIME W/IMAGE COMPLETE THERAPEUT 67181 [facility] [place] IC 2 [facility] PROPHYLAC INC INC TIC/DX INJECTION SUBQ/IM RADIOLOGI 81399 [facility] SALAZARHIPOLITO C EXAM 2 MEDICAL SWETA CHEST 2 IMAGING VIEWS ASS FRONTAL&L ATERAL RADEX 53788 EVELIA ALTAMIRANO FOOT 2 [facility] COMPLETE MINIMUM 3 VIEWS NONCOVERE A9270 EVELIA ALTAMIRANO D ITEM OR 2 [facility] SERVICE URNLS DIP 36821 [facility] [place] 2 [facility] STICK/TAB INC [place] [address] [facility] 2 [facility] UTERUS INC INC LIMITED 1/> FETUSES US PREG 38721 [facility]OL[facility] UTERUS 2 MEDICAL SWETA REAL TIME IMAGING W/IMAGE ASS DCMTN TRANSVAG CULTURE 70313 [facility] [place] BACTERIAL 2 [facility] INC INC QUANTTATI VE COLONY COUNT URINE US PREG 99853 [facility] HIOPLITO UTERUS 2 MEDICAL SWETA REAL TIME IMAGING W/IMAGE ASS DCMTN TRANSVAG IADNA 23664 BIO BIO LANDY 2 REFERNCE REFERNCE SPECIES 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 UNDARM 2 OTH THAN WOOD PAIR PAD TIP&HNDGR IP CT LOWER 83542 DELL HIPOLITO EXTREMITY 2 MEDICAL SWETA W/O IMAGING CONTRAST ASS MATERIAL OPHTH 92404 SCIFRES SCIFRES MEDICAL 2 ANG ANG XM&EVAL COMPRE NEW PT 1/> VST DETERMINA 04058 SCIFRES SCIFRES TION 2 ANG ANG REFRACTIV E STATE THERAPEUT 10087 YASMEEN Song IC 2 PROPHYLAC TIC/DX INJECTION SUBQ/IM INJ J0702 YASMEEN Song BETAMETHA 2 SONE ACETATE & PHOSPHATE 3 MG INJECTION J1030 YASMEEN Song 2 METHYLPRE DNISOLONE ACETATE 40 MG URINE 91300 ROSELINE PONCE 2 NAHOMY BERUMEN DEVENDRA TEST VISUAL COLOR CMPRSN METHS URINE 80542 [facility] [place] 2 [facility] TEST INC INC VISUAL COLOR CMPRSN METHS US PREG 49853 [facility] [place] UTERUS 2 [facility] REAL TIME INC INC W/IMAGE DCMTN TRANSVAG CULTURE 22770 [facility] [place] BACTERIAL 2 [facility] INC INC QUANTTATI VE COLONY COUNT URINE BLOOD 20895 [facility] [place] TYPING 2 [facility] SEROLOGIC INC INC RH (D) GONADOTRO 15353 GE[facility] [place] PIN 2 [facility] CHORIONIC INC INC QUANTITAT JORY BLOOD 78688 [facility] [place] COUNT 2 [facility] COMPLETE INC INC AUTO&AUTO DIFRNTL WBC URNLS DIP 69146 [facility] [place] 2 [facility] STICK/TAB INC INC LET REAGENT AUTO MICROSCOP Y THERAPEUT 48160 [facility] [place] IC 1 [facility] INJECTION INC INC IV PUSH EACH NEW DRUG IV 10-11-201 06063 [facility] [place] INFUSION 1 [facility] THERAPY/P INC INC ROPHYLAXI S /DX 1ST TO 1 [place] [address] PATHOLOGY PATHOLOGY SURG 1 & & PATHOLOGY CYTOLOGY CYTOLOGY LAB LAB GROSS&JAMESON ROSCOPIC EXAM ANESTHESI 44955 [facility] RACHID Duncan 1 ANESTH INCOMPLET OF THE E/MISSED BLUE BLOOD 96196 [facility] [place] COUNT 1 [facility] COMPLETE INC INC AUTO&AUTO DIFRNTL WBC BLOOD 38028 [facility] [place] COUNT 1 [facility] [address] [facility] [place] NUCLEOTID 1 [facility] ASE 5'- INC INC BLOOD 90745 GE[facility]NA [place] TYPING 1 [facility] SEROLOGIC INC INC RH (D) [place] MISSED 40083 ROSELINE PONCE 1 NAHOMY RAMSAY FIRST TRIMESTER SURGICAL BLOOD 78462 [facility] [place] COUNT 1 [facility] HEMATOCRI INC INC T COLLECTIO 41581 GE[facility] [place] N VENOUS 1 [facility] [address] [facility] [place] INFUSION 1 [facility] THERAPY INC INC PROPHYLAX IS/DX EA [place]OUR [place] PREG 52107 [facility] UTERUS 1 [facility] REAL [facility] CLINIC OF W/IMAGE SHERYL DCMTN TRANSVAG US PREG 58458 [facility] UTERUS 1 [facility] OF W/IMAGE SHERYL DCMTN TRANSVAG COLLECTIO 78825 [facility] [place] N VENOUS 1 [facility] BLOOD INC INC VENIPUNCT URE GONADOTRO 59937 GEOAVNNA [facility] PIN 1 [facility] CHORIONIC INC INC QUANTITAT JORY GONADOTRO 95025 [facility] [place] PIN 1 [facility] CHORIONIC INC INC QUANTITAT JORY COLLECTIO 10732 [facility] [place] N VENOUS 1 [facility] BLOOD INC INC VENIPUNCT URE COLLECTIO 39678 [facility] [place] N VENOUS 1 [facility] BLOOD INC INC VENIPUNCT URE GONADOTRO 02059 [facility] [place] PIN 1 [facility] CHORIONIC INC INC QUANTITAT JORY GONADOTRO 22293 GE[facility] PIN 1 [facility] CHORIONIC INC INC QUANTITAT JORY COLLECTIO 05333 GE[facility] [place] N VENOUS 1 [facility] BLOOD INC INC VENIPUNCT URE BLOOD 41645 [facility] [place] TYPING 1 [facility] SEROLOGIC INC INC ABO BLOOD 62292 [facility] [place] TYPING 1 [facility] SEROLOGIC INC INC RH (D) GONADOTRO 30769 GE[facility] [place] PIN 1 [facility] CHORIONIC INC INC QUANTITAT JORY BLOOD 79564 GE[facility] [place] COUNT 1 [facility] COMPLETE INC INC AUTO&AUTO DIFRNTL WBC URNLS DIP 23760 GE[facility] [place] 1 [facility] STICK/TAB INC INC LET REAGENT AUTO MICROSCOP Y US PREG 93745 [facility] UTERUS 1 [facility] W/IMAGE SHERYL DCMTN TRANSVAG RHEUMATOI 12469 [facility] D FACTOR 1 AMERIC AMERIC QUANTITAT HOLDING HOLDING JORY BLOOD 56457 [facility] COUNT 1 AMERIC AMERIC COMPLETE HOLDING HOLDING AUTO&[place] [address] [facility] BLOOD/URI 1 AMERIC AMERIC C ACID HOLDING HOLDING SEDIMENTA 78138 [facility] TION RATE 1 AMERIC AMERIC RBC HOLDING HOLDING AUTOMATED ANTINUCLE 52438 [facility] AR 1 AMERIC AMERIC ANTIBODIE HOLDING HOLDING S MODESTO C-REACTIV 10117 [facility] E PROTEIN 1 AMERIC AMERIC HOLDING HOLDING DEEP D9220 THE GUILLERMO SEDATION/ 1 IMPLANT & DON GENERAL ORAL ANESTHESI SURGERY C A-1ST 30 MINUTES SEDIMENTA 51927 [facility] [place] TION RATE 1 [facility] RBC INC INC NON-AUTOM ATED DEEP D9220 THE LAZAR III SEDATION/ 1 IMPLANT & CAROL GENERAL ORAL ANESTHESI SURGERY C A-1ST 30 MINUTES URINE 77808 GE[facility] [place] 1 [facility] CENTER [place] [address] [facility] FERRITIN 1 [facility] BLOOD 75196 [facility] COUNT 1 [facility] COMPLETE AUTO&AUTO DIFRNTL WBC IRON 05960 [facility] BINDING 1 [facility] CAPACITY COLLECTIO 08847 A C JAMIN MICHELE N VENOUS 1 YASMEEN BERUMEN B[place] [address] [facility] IRON 1 [facility] DEEP D9220 THE GUILLERMO SEDATION/ 1 IMPLANT & DON GENERAL ORAL ANESTHESI SURGERY C A-1ST 30 MINUTES ORTHOPANT 99237 THE GUILLERMO OGRAM 1 IMPLANT & DON ORAL SURGERY C CALCULUS 65615 [facility] QUANTITAT 1 AMERIC AMERIC JORY HOLDINGAny+TimesS CHEMICAL RADEX 25919 [facility] [place] ABDOMEN 1 1 [facility] INC INC ANTEROPOS TERIOR VIEW 3D 75987 [facility] [place] RENDERING 1 [facility] W/INTERP INC INC & [place] [address] GEOV[facility]NA [place] HEAD/BRAI 1 [facility] N W/[place] [address] GEOV[facility]NA [place] INFUSION 1 [facility] THERAPY/P INC INC ROPHYLAXI S /DX 1ST TO 1 HR THERAPEUT 62210 [facility] [place] IC 1 [facility] INJECTION INC INC IV PUSH EACH NEW DRUG EGD 99699 [place] KALI TRANSORAL 0 MEDICAL BIOPSY SERV SINGLE/MU FOUNDATIO LTIPLE CLOSURE 8659 [facility] [place] SKIN&SUBC 0 [facility] [place] [address] GEOV[facility] [place] INFUSION 0 [facility] THERAPY/P INC INC ROPHYLAXI S /DX 1ST TO 1 HR IM ADM 72563 [facility] [place] PRQ ID 0 [facility] SUBQ/IM INC INC NJXS 1 VACCINE BLOOD 02399 [facility] [place] COUNT 0 [facility] COMPLETE INC INC AUTO&AUTO DIFRNTL WBC SIMPLE 25694 GE[facility] [place] REPAIR 0 [facility] SCALP/NEC INC INC K/AX/ARBEN T/TRUNK 2.5CM/< THERAPEUT 41399 [facility] [place] IC 9 [facility] PROPHYLAC INC INC TIC/DX INJECTION SUBQ/IM BLOOD 25759 [facility] [place] COUNT 9 [facility] COMPLETE INC INC AUTO&AUTO DIFRNTL WBC BASIC 96283 [facility] [place] METABOLIC 9 [facility] PANEL INC INC CALCIUM TOTAL RADIOLOGI 59147 Grover PENA EXAM 9 MEDICAL JEFF CHEST 2 IMAGING VIEWS ASSOCIATE FRONTAL&[place] [address] GEOV[facility]NA [facility] INFUSION 9 [facility] THERAPY/P INC INC ROPHYLAXI S /DX 1ST TO 1 HR RADIOLOGI 54863 Grover PENA EXAM 9 MEDICAL JEFF CHEST 2 IMAGING VIEWS ASSOCIATE FRONTAL&[place] [address] GEOV[facility]NA [place] TRANSVAGI 8 [facility] NAL INC INC COMPUTER- 96286 GEOV[facility]NA [place] AIDED 8 [facility] DETECTION INC INC SCREENING MAMMOGRAP HY 3D 95055 GEOV[facility] RENDERING 8 [facility] W/INTERP INC INC & [place] [address] GE[facility]NA [place] HEAD/BRAI 8 [facility] N W/O & INC INC W/CONTRAS T MATERIAL SCREENING 76928 [facility] [place] 8 [facility] MAMMOGRAP INC INC HY BILATERAL COLONOSCO 47864 GE[facility]NA [place] PY FLX DX 8 [facility] W/COLLJ [place] [address] [facility] [place] THER 8 [facility] PROPH/DX INC INC 1ST >1 HR Encounters Encounter Start End Date Code Location Performer Type Date HOSPITAL [facility] 7 [facility] INC [facility] Coyle 7 [facility] OUTPATIEN INC T [facility] [place] - 7 7 [facility] OUTPATI E [facility] GEOVANNA - 7 7 [facility] OUTPATIEN [facility] T EMERGENCY 86177 [facility]NA 7 7 [facility] T VISIT MODERATE SEVERITY EMERGENCY 63057 HARJINDER DIAZ DEPT 7 7 PHYSICIAN VISIT S, PLLC HIGH SEVERITY& THREAT FUNCJ EMERGENCY 47992 GEOVANNA 7 7 [facility] T VISIT HIGH/URGE NT SEVERITY HOSPITAL GEOVANNA - 7 7 [facility] T OFFICE 97952 [facility] 7 7 PHYSICIAN T VISIT S GROUP 10 MINUTES EMERGENCY 49017 [facility]NA 6 6 [facility] T VISIT LIMITED/M INOR [facility] GEOVANNA - 6 6 [facility] T EMERGENCY 91391 GE[facility]ANNA 6 6 [facility] T VISIT HIGH/URGE NT SEVERITY HOSPITAL GEOVANNA - 6 6 [facility] OUTPATIEN [facility] T OFFICE 56039 P[facility] CHARLES LIS OUTPATIEN 6 6 MEDICAL T VISIT SERV 15 FOUNDATIO MINUTES N OFFICE 16105 P[facility] CHURCH CAROL OUTPATIEN 6 6 MEDICAL T VISIT SERV 25 FOUNDATIO MINUTES N OFFICE 42687 LISANDRO EBTANCURKINS OUTPATIEN 6 6 [facility] V[facility] 15 PSC MINUTES HOSPITAL [facility] - 6 6 [facility] GEOV[facility] - 6 6 [facility] OUTPATIEN [facility] T OFFICE 13084 LISANDRO BETANCURKINS OUTPATIEN 6 6 [facility] 10 PSC MINUTES OFFICE 20507 [facility] OUTPATIEN 6 6 PHYSICIAN DEVENDRA T VISIT S GROUP 15 MINUTES OFFICE 34473 LISANDRO WEBB OUTPATIEN 6 6 [place] [facility] T VISIT CLINIC 25 PSC MINUTES OFFICE 62568 [facility] HARPEL OUTPATIEN 6 6 PHYSICIAN DEVENDRA T VISIT S GROUP 25 MINUTES OFFICE 70812 P[facility]RO CHURCH CAROL OUTPATIEN 6 6 MEDICAL T VISIT SERV 25 FOUNDATIO MINUTES [facility] UK - 6 6 [facility] OUTPATIEN [facility] HOSPITALS OFFICE 36827 [facility] HARPEL OUTPATIEN 6 6 PHYSICIAN DEVENDRA T VISIT S GROUP 15 MINUTES HOSPITAL [facility]ANNA - 6 6 [facility] 6 6 [facility] 35519 [facility] PHYSICIAN DEVENDRA T VISIT S GROUP 15 MINUTES OFFICE 38682 PEDRO EDUARDOBRANDI OUTPATIEN 6 6 MEDICAL MICHELE T VISIT SERV 15 FOUNDATIO MINUTES [facility] UNIVERSIT - 6 6 [facility] T OFFICE 19702 [facility] OUTPATI[facility] 6 6 MEDICAL T VISIT SERV 25 FOUNDATIO MINUTES [facility] GEOVANNA - 6 6 MEM H[facility] OUTPATIEN [facility] GEOVANNA - 6 6 [facility] OUTPATIEN [facility] GEOVANNA - 6 6 [facility] OUTPATIEN [facility] UNIVERSIT - 6 6 [facility] T OFFICE 78208 [facility] SHEELA OUTPATIEN 6 6 PHYSICIAN MAT T NEW 60 S GROUP MINUTES HOSPITAL GEOVANNA - 6 6 [facility] OUTPATIEN [facility] EMERGENCY 03902 GEOVANNA 6 6 MEM H[facility] DEPARTMEN [facility] T VISIT MODERATE SEVERITY HOSPITAL GEOVANNA - 6 6 [facility] OUTPATIEN [facility] HOSPITAL GEOVANNA - 6 6 [facility] OUTPATIEN [facility] EMERGENCY 93961 GEOVANNA 6 6 [facility] T VISIT LOW/MODER SEVERITY OFFICE 38992 GEOVANNA ROLANDO OUTPATIEN 6 6 [facility] 20 [facility] EMERGENCY 02627 GEOVANNA 5 5 [facility] T VISIT LIMITED/M INOR [facility] GEOVANNA - 5 5 [facility] OUTPATIEN [facility] T OFFICE 89773 GEOVANNA OUTPATIEN 5 5 [facility] 20 INC [facility] GEOVANNA - 5 5 [facility] OUTPATIEN [facility] HOSPITAL GEOVANNA - 5 5 [facility] OUTPATIEN [facility] T OFF[facility] 83736 [facility] 5 5 [facility] 30 [facility] GEOVANNA - 5 5 [facility] OUTPATIEN [facility] T OFFICE 01523 DEMAR BENZ, OUTPATIEN 4 4 III ANGIE III [facility] 30 [facility] GEOVANNA - 4 4 [facility] OUTPATIEN [facility] HOSPITAL GEOVANNA - 4 4 [facility] OUTPATIEN [facility] T OFFICE 65450 JOE VENTURAEY OUTPATIEN 4 4 [facility] 10 [facility] UNIVERSIT - 4 4 [facility] - 4 4 [facility] T OFFICE 22312 [facility] 4 T [facility] 45 [facility] GEOVANNA - 3 3 [facility] OUTPATIEN [facility] Emergency KENIA Geovanna Palmer MD (ER) 3 10:49 3 11:31 [facility] EMERGENCY 87844 JHONNY BURNS THO 3 3 DEPARTMEN T VISIT MODERATE SEVERITY OFFICE 05210 Duncan SCHMIDT OUTPATIEN 3 3 YASMEEN BERUMEN JEDuncan T VISIT PSC 15 MINUTES Inpatient JENNIFER Ponce MD (IN) 3 06:00 3 15:00 [facility] GEOVANNA - 3 3 [facility] OUTPATIEN [facility] OFFICE 53790 MUSIC MIKKI MUSIC MIKKI OUTPATIEN 3 3 T [facility] 20 MINUTES [facility] GEOVANNA - 3 3 [facility] INPATIENT [facility] GEOVANNA - 2 2 [facility] OUT[facility]IEN [facility] EMERGENCY 98203 [place] 2 2 [facility] VISIT LOW/MODER SEVERITY HOSPITAL GE[facility] - 2 2 [facility] OUTPATIEN [facility] HOSPITAL [place] [facility] 2 2 [facility] OUTPATIEN [facility] HOSPITAL [place] - 2 2 [facility] OUTPATIEN [facility] - 2 2 [facility] OUTPATIEN [facility] EMERGENCY 95227 EVELIA 2 2 [facility] T VISIT MODERATE [facility]VERITY HOSPITAL EVELIA - 2 2 [facility] OUTPATIEN EMERGENCY 89524 GEOVANNA 2 2 [facility] T VISIT MODERATE [facility]VERITY HOSPITAL [facility] - 2 2 [facility] OUTPATIEN [facility] HOSPITAL [place] - 2 2 [facility] OUTPATIEN [facility] PERIODIC 72013 [facility] 2 2 NAHOMY BERUMEN E MED EST PATIENT 40-64YRS OFFICE 63491 ROSELINE PONCE OUTPATIEN 2 2 NAHOMY RAMSAY T VISIT 15 MINUTES HOSPITAL [facility] - 2 2 [facility] - 2 2 [facility] OUTPATIEN INC T EMERGENCY 24390 [place] 2 2 [facility] DEPARTMEN INC T VISIT MODERATE SEVERITY EMERGENCY 95912 NELSON DIAZ DEPT 2 2 EMERGENCY JAMESON VISIT SERVICES HIGH SEVERITY& THREAT FUN OFFICE 00273 ROSELINE PONCE OUTPATIEN 1 1 NAHOMY RAMSAY T [facility] 60 [facility] GEOVANNA - 1 1 [facility]PATI[facility] - 1 1 [facility] OUTPATIEN [facility] HOSP[facility] - 1 1 [facility] OUTPATIEN [facility] - 1 1 [facility] OUTPATIEN [facility] - 1 1 [facility] OUTPATIEN [facility] HOSPITAL [facility] - 1 1 [facility] OUTPATIEN INC T EMERGENCY 72892 NELSON DIAS 1 1 EMERGENCY DEPARTMEN SERVICES T VISIT HIGH/URGE NT SEVERITY EMERGENCY 98903 [facility] 1 1 [facility] DEPART[facility] INC T VISIT MODERATE SEVERITY HOSPITAL [facility] - 1 1 [facility] OUTPATIEN INC T EMERGENCY 92775 NELSON COOL 1 1 EMERGENCY III RACHID DEPARTMEN SERVICES T VISIT HIGH/URGE NT SEVERITY EMERGENCY 14147 [facility] 1 1 [facility] DEPARTMEN INC T VISIT MODERATE SEVERITY OFFICE 76680 [place] OUTPATIEN [address] MINUTES OFFICE 78394 A C OUTPATIEN 1 1 YASMEEN BERUMEN T VISIT PSC 15 MINUTES HOSPITAL [facility] - 1 1 [facility] OUTPATIEN INC T OFFICE 85781 Duncan C JAMIN MICHELE OUTPATIEN 1 1 YASMEEN BERUMEN T VISIT PSC 15 MINUTES EMERGENCY 35275 NELSON COOL DEPT 1 1 EMERGENCY III RACHID VISIT SERVICES HIGH SEVERITY& THREAT [facility] GEOV[place] - 1 1 [facility] OUTPATIEN INC T EMERGENCY 12205 [place] 1 1 [facility] DEPARTMEN INC T VISIT HIGH/URGE NT SEVERITY OFFICE 89613 [place] LACEY OUTPATIEN 1 1 MEDICAL L T NEW 45 SERV MINUTES [facility] EMERGENCY 00363 NELSON JAVED DEPT 0 0 EMERGENCY MEDARDO VISIT SERVICES HIGH SEVERITY& THREAT [facility] GEOV[place]NA - 0 0 [facility] OUTPATIEN INC T EMERGENCY 75552 NELSON COOL DEPT 0 0 EMERGENCY III RACHID VISIT SERVICES HIGH SEVERITY& THREAT [facility] EMERGENCY 38412 [place] 0 0 [facility] DEPARTMEN INC T VISIT MODERATE SEVERITY EMERGENCY 80487 NELSON COOL 0 0 EMERGENCY III, DEPARTMEN SERVICES ROSELYN T VISIT HIGH/URGE ASSOCIATE NT S SEVERITY OFFICE 26394 DERMATSKIP CARO, OUTPATIEN 0 0 GY VARGHESE W T VISIT ASSOCIATE 15 S OF MINUTES [place] EMERGENCY 73092 NELSON LOERA, 0 0 EMERGENCY CRUZ DEPARTMEN SERVICES O T VISIT MODERATE ASSOCIATE SEVERITY S EMERGENCY 48534 NELSON DIAZ, 0 0 EMERGENCY ANN S DEPARTMEN SERVICES T VISIT MODERATE ASSOCIATE SEVERITY S [facility] GEOVANNA - 9 9 [facility] OUTPATIEN INC T EMERGENCY 49341 [facility] 9 9 [facility] DEPARTMEN INC T VISIT MODERATE SEVERITY EMERGENCY [id number] NELSON LOERA, 9 9 [facility] VISIT HIGH/URGE ASSOCIATE NT S SEVERITY OFFICE [id number] NAVYA [facility] 9 9 FAMILY RENETTA T VISIT CARE 15 CLINIC MINUTES [facility] - 8 8 [facility] OUTPATIEN INC T OFFICE [id number] DERMATOLO AYANNA [facility] 8 8 GY BEATRICE P T VISIT ASSOCIATE 15 S OF MINUTES [facility] - 8 8 [facility] OUTPATIEN INC T OFFICE [id number] [place] PEDRO [facility] 8 8 MEDICAL MEDICAL T VISIT SERV SERV 25 FOUNDATIO FOUNDATIO MINUTES
--- OUTSIDE RECORDS SUMMARY | 2017-03-22 03:23 | External Medical Summary Rpt ---
Author Author , KENNETH Organization KENNETH Address Unknown Phone [email or web address] Care Team Providers Care Robotic Maintenance Technician Name Role Phone A Grover ARANA MD PSC, A Unavailable Unavailable Grover ARANA MD PSC WEBB, WEBB Unavailable Unavailable WEBB LESLI, WEBB Unavailable Unavailable L[facility]LI [facility] Unavailable Unavailable [facility], [facility] MIREYA LES, MIREYA Unavailable Unavailable LES BEINEKE, BEINEKE Unavailable Unavailable BEINEKE HANSEL, BEINEKE Unavailable Unavailable HANSEL [facility] Unavailable [facility]available [facility], [facility] Unavailable Unavailable [facility], [facility] REYES, RYEES Unavailable Unavailable REYES ALL, REYES ALL Unavailable Unavailable [facility] ROD HANSEL, ROD HANSEL Unavailable Unavailable JOEL, JOEL Unavailable Unavailable MCGARRY TRISH, MCGARRY Unavailable Unavailable TRISH MCGARRY TRISH, MCGARRY Unavailable Unavailable TRISH COOK CAROL, COOK CAROL Unavailable Unavailable HIPOLITO SWETA, Unavailable Unavailable [facility]IP[facility] [...] JAMESON ANN DIAZ, Unavailable Unavailable ANN DIAZ S ROSELINE COREA MD, Unavailable Unavailable ROSELINE LAZAR LARISSA, LAZAR LARISSA Unavailable Unavailable LAZAR LARISSA, CADY LARISSA Unavailable Unavailable LAZAR III CAROL, LAZAR Unavailable Unavailable III RENETTA HERNANDEZ, Unavailable Unavailable RENETTA SINGH HARPEL, HARPEL Unavailable Unavailable HARPEL DEVENDRA, HARPEL Unavailable Unavailable DEVENDRA HARPEL DEVENDRA, HARPEL Unavailable Unavailable DEVENDRA [facility] Unavailable Unavailable [place], [facility] Unavailable Unavailable [place], [facility] Unavailable Unavailable INC, [facility] Unavailable Unavailable HOSPITAL, [facility] Unavailable Unavailable HOSPITAL P, [facility], Unavailable Unavailable [facility] MCKINLEY HALL, MCKINLEY HALL Unavailable Unavailable HUHN THO, HUHN THO Unavailable Unavailable HUHN THO, HUHN THO Unavailable Unavailable TELLO MEDARDO, TELLO Unavailable Unavailable MEDARDO [facility] KILPELA JEA, KILPELA Unavailable Unavailable JEA KRAMAN MICHELE, KRAMAN Unavailable Unavailable MICHE[facility] [...] DWI MICHEL ANG, MICHEL ANG Unavailable Unavailable [facility] Unavailable Unavailable SERVICES, [facility] GUILLERMO DON, Unavailable Unavailable GUILLERMO DON MERSACK, BEATRICE P, Unavailable Unavailable MERSACK, BEATRICE P BHASKAR RACHID, BHASKAR RASHID Unavailable Unavailable JAMIN MICHELE, JAMIN MICHELE Unavailable Unavailable JAMIN MICHELE, JAMIN MICHELE Unavailable Unavailable MUSIC MIKKI, MUSIC MIKKI Unavailable Unavailable MUSIC MIKKI, MUSIC MIKKI Unavailable Unavailable [facility] Unavailable Unavailable [facility], Unavailable Unavailable PLLC, [facility], [...] SEPTEMBER W, Unavailable Unavailable CARO, SEPTEMBER W KIM LAD, KIM LAD Unavailable Unavailable RAHMAN L, RAHMAN Unavailable Unavailable L CHURCH CAROL, CHURCH CAROL Unavailable Unavailable HORTENSIA RACHID, HORTENSIA Unavailable Unavailable RACHID SCHULSTAD GEE, Unavailable Unavailable [facility], Unavailable Unavailable [facility] SCIFRES ANG, SCIFRES Unavailable Unavailable ANG SCIFRES ANG, SCIFRES Unavailable Unavailable ANG ARACELI LIS, ARACELI LIS Unavailable Unavailable SHEELA MAT, Unavailable Unavailable SHEELA MAT SOLUNA BARNETTCRUZ O, Unavailable Unavailable LUNA LOERAATUNDE O BE[facility] Unavailable Unavailable [facility] Unavailable Unavailable SURG[facility], [facility] Unavailable [facility]available HOSPITALS, [facility], Unavailable Unavailable [facility] WEHRMAN III RACHID, Unavailable Unavailable WEHRMAN III RACHID WEHRMAN III RACHID, Unavailable Unavailable WEHRMAN III RACHID WEHRMAN III, ROSELYN, Unavailable Unavailable WEHRMAN III, ROSELYN WHITE CHR, WHITE CHR Unavailable Unavailable [facility], Unavailable [facility]available [facility] ARANA A, ARANA A Unavailable Unavailable ARANA A, ARANA A Unavailable Unavailable Purpose Continuity of Care Document - 06-19-2007 through 2016 Problems Code Diagnosis DOS Provider Status [id number] EMBOLISM & 12-07-2016 [facility]B [facility] SUPERFICIAL INC VEINS RIGHT LW EXT [id number] PAIN IN 12-07-2016 [facility]G [facility] [id number] ACUTE EMBO 12-06-2016 [facility] THROMB UNS [facility] DEEP VNS RT INC PROX LOW EXT K219 GASTRO-ESOP 12-06-2016 [facility] H REFLUX [facility] DISEASE INC WITHOUT ESOPHAGITIS Z720 TOBACCO USE 12-06-2016 [facility] INC M48568 UNSPECIFIED 11-25-2016 [facility] ED J440 COPD WITH 10-22-2016 [facility] RESPIRATORY INFECTION J441 CHRONIC 10-22-2016 [facility] OBSTRUCTIVE [facility] PULMONARY INC DZ W/EXACERBAT ION R05 COUGH 10-22-2016 [facility] R079 CHEST PAIN 10-22-2016 [facility] UNSPECIFIED [facility] [id number] PERSONAL 10-22-2016 [facility], NICOTINE PLLC DEPENDENCE J42 UNSPECIFIED 09-14-2016 [facility] CHRONIC [facility] BRONCHITIS INC R0989 OTH SPEC SX 09-14-2016 [facility] & SIGNS MEDICAL INVLV THE IMAGING ASS CIRC & RESP SYS N951 MENOPAUSAL 07-09-2016 [facility] CLIMACTERIC GROUP STATES R0781 PLEURODYNIA 04-05-2016 [facility] I10 ESSENTIAL 03-29-2016 [facility] PRIMARY [facility] HYPERTENSIO INC N J449 CHRONIC 03-29-2016 [facility] OBSTRUCTIVE [facility] PULMONARY INC DISEASE UNS [id number] CONTUSION 03-29-2016 [facility] RT FRONT [facility] WALL THORAX INC INITIAL ENCOUNTER [id number] UNSPECIFIED 03-29-2016 [facility] IN[facility] OF MEDICAL THORAX IMAGING ASS INITIAL ENCOUNTER J209 ACUTE 02-15-2016 [facility]CHITIS [facility] R0602 SHORTNESS 02-15-2016 [facility] LUMPKINY OF BREATH MEDICAL IMAGING ASS E871 HYPO-OSMOLA 02-12-2016 [facility] LITY AND [facility] HYPONATREMI INC A Z23 ENCOUNTER 02-12-2016 [facility] FOR [facility] IMMUNIZATIO INC N K224 DYSKINESIA 02-11-2016 [place] [facility] ESOPHAGUS [facility]OUND[facility] K2270 BARRETTS 02-11-2016 [facility] ESOP[facility]AGUS SERV WITHOUT FOUNDATION DYSPLASIA R12 HEARTBURN 02-11-2016 [facility] N3020 OTHER 01-21-2016 [facility] WITHOUT HEMATURIA R300 DYSURIA 01-21-2016 NEW [facility] PSC R312 OTHER 01-21-2016 NEW MICROSCOPIC [facility] HEMATURIA [facility]INIC PSC N3021 OTHER 12-31-2015 [facility] CYSTITIS PSC WITH HEMATURIA N342 OTHER 12-31-2015 NEW URETHRITIS [facility] PSC K660 PERITONEAL 12-23-2015 [facility] ADHESIONS PHYSICIANS POSTPROC GROUP POSTINFECTI ON N736 FEMALE 12-23-2015 [facility] PELVIC PHYSICIANS PERITONEAL GROUP ADHESIONS POSTINFECTI VE N8320 UNSPECIFIED 12-23-2015 [facility] OVARIAN PHYSICIANS CYSTS GROUP R102 PELVIC AND 12-23-2015 [facility] PERINEAL PHYSICIANS PAIN GROUP B9689 OT SPEC 12-19-2015 [facility] BACTERIAL PHYSICIANS AGNT CAUSE GROUP DZ CLASSIFIED ELSW N760 ACUTE 12-19-2015 [facility] VAGINITIS PHYSICIANS GROUP N341 NONSPECIFIC 12-10-2015 NEW URETHRITIS [facility] PSC Z8719 PERSONAL 11-21-2015 [place] [facility] HIST[facility] SERV OTHER FOUNDATION DISEASES DIGESTIVE SYSTEM R928 OTH ABNORM 11-12-2015 [facility] & [facility] INCONCLUSIV INC E FIND ON DX IMAG BREAST N830 FOLLICULAR 11-07-2015 [facility] CYST OF MEDICAL OVARY IMAGING ASS R309 PAINFUL 11-07-2015 [facility] MICTURITION [facility] UNSPECIFIED R918 OTHER 11-04-2015 [facility] ABNORMAL FINDING OF LUNG FIELD N390 URINARY 11-03-2015 [facility] TRACT PHYSICIANS INFECTION GROUP SITE NOT SPECIFIED R0609 OTHER FORMS 10-30-2015 [place] [facility] DYSPNEA SERV FOUNDATION Z539 PROCEDURE & 10-24-2015 [facility] NOT CARRIED OUT UNS REASON K449 DIAPHRAGMAT 10-22-2015 [place] [facility] HERNIA SERV W/O FOUNDATION OBSTRUCTION OR GANGRENE E789 DISORDER OF 10-13-2015 [facility] LIPOPROTEIN INC METABOLISM UNSPECIFIED Z8679 PERSONAL 10-13-2015 [facility]IST[facility]TH [facility] DISEASES INC CIRCULATORY SYSTEM E785 HYPERLIPIDE 10-09-2015 [facility] REMI [facility] UNSPECIFIED INC I340 NONRHEUMATI 09-30-2015 [facility] MITRAL SERV VALVE FOUNDATION INSUFFICIEN CY I351 NONRHEUMATI 09-30-2015 [place] [facility] AORTIC SERV VALVE [facility]OUND[facility] INSUFFICIEN CY I361 NONRHEUMATI 09-30-2015 [facility] TRICUSPID SERV VALVE FOUNDATION INSUFFICIEN CY Z8632 PERSONAL 09-25-2015 [facility] HISTORY OF PHYSICIANS GESTATIONAL GROUP DIABETES J069 ACUTE UPPER 07-22-2015 [facility] RESPIRATORY INC INFECTION UNSPECIFIED J0190 ACUTE 06-24-[address] [facility] [address] [facility] N200 CALCULUS OF 04-29-2015 [facility] KIDNEY [facility] INC N201 CALCULUS OF 04-29-2015 [facility] URETER [facility] P N202 CALCULUS OF 04-29-2015 [facility] KIDNEY MEDICAL WITH IMAGING ASS CALCULUS OF URETER N1330 UNSPECIFIED 04-28-2015 [facility] HYDRONEPHRO IMAGING ASS SIS 65175 PAIN IN 12-21-2014 [facility], MEDICAL UPPER ARM IMAGING ASS 9593 INJURY 12-21-2014 [facility] OTHER&UNSPE MEDICAL CIFIED IMAGING ASS [employer]BOW FOREARM&WRI ST 3899 UNSPECIFIED 06-18-2014 [facility] LOSS PRACTICE L 7856 ENLARGEMENT 06-14-2014 [facility] OF LYMPH MEDICAL NODES IMAGING ASS 03418 OTHER 06-14-2014 [facility] NONSPECIFIC MEDICAL ABNORMAL IMAGING ASS FINDING OF LUNG FIELD 45037 LOC 05-23-2014 DEMAR OSTEOARTHRO III ANGIE S NOT SPEC PRIM/SEC OTH SPEC SITE 4019 UNSPECIFIED 11-26-2013 [facility] ESSENTIAL [facility] HYPERTENSIO INC N 486 PNEUMONIA, 11-26-2013 [facility] ORGANISM [facility] UNSPECIFIED INC 79502 ASTHMA, 11-26-2013 [facility] UNSPECIFIED [facility] , INC UNSPECIFIED STATUS 5601 PARALYTIC 11-26-2013 [facility] ILEUS [facility] INC 57288 OTHER 11-26-2013 [facility] SPE[facility]IF[facility] MEDICAL DISORDER OF IMAGING ASS INTESTINES 98451 ABDOMINAL 11-26-2013 [facility] PAIN OTHER MEDICAL SPECIFIED IMAGING ASS SITE 32240 OTHER 11-26-2013 [facility] DIGESTIVE [facility] SYSTEM INC COMPLICATIO NS V148 PERSONAL 11-26-2013 [facility] HISTORY [facility] ALLERGY OTH INC SPEC MEDICINAL AGTS 5990 URINARY 11-25-2013 [facility] TRACT [facility] INFECTION INC SITE NOT SPECIFIED V1582 PERS HX 11-25-2013 [facility] TOBACCO USE [facility] PRESENTING INC [facility] 97136 UNSPECIFIED 08-22-2013 [facility] SLEEP DISTURBANCE 33872 ESOPHAGEAL 08-07-2013 [facility] 5533 DIAPHRAGMAT 08-07-2013 [facility] W/O HOSPITAL MENTION OBSTRUCTION /GANGREN 25332 BARRETTS 07-10-2013 [facility] 74546 ABDOMINAL 03-27-2013 [facility] PAIN, SWETA UNSPECIFIED SITE 85902 ATROPHIC 03-26-2013 [facility] GASTRITIS WITHOUT MENTION OF HEMORRHAGE 03733 PAIN IN 12-18-2012 [employer] JOINT, HAND 7295 PAIN IN 12-18-2012 [facility] SOFT SWETA TISSUES OF LIMB 9233 CONTUSION 12-18-2012 [facility] THO OF FINGER 8470 NECK SPRAIN 12-11-2012 Duncan ANDRADE MD PSC 6259 UNSPEC 09-29-2012 [facility] SYMPTOM [facility] ASSOC INC W/FEMALE GENITAL ORGANS 6268 OTH D/O 09-29-2012 [facility] MENSTRUATIO [facility] N&OTH ABN INC BLEED FE GNT TRACT V0382 NEED PROPH 09-29-2012 [facility] VACCINATION [facility] AGAINST INC STREP PNEUMONE V5869 LONG-TERM 09-29-2012 [facility] (CURRENT) [facility] USE OF INC OTHER MEDICATIONS 2165 BENIGN 09-14-2012 MUS[facility] MI[facility]I NEOPLASM OF SKIN OF TRUNK EXCEPT SCROTUM 46991 INFLAMED 09-14-2012 [facility] SEBORRHEIC KERATOSIS 7089 UNSPECIFIED 09-14-2012 [facility] URTICARIA V2651 TUBAL 08-08-2012 [facility] LIGATION SWETA STERILIZATI ON STATUS 76523 ABNORMAL 06-20-2012 [facility] MATERNAL [facility] GLUCOSE INC TOLERANCE W/DELIVERY 37531 PREV C/S 06-20-2012 BRITTANY VIGIL GEE W/WO MENTION ANTPRTM COND V252 STERILIZATI 06-20-2012 [facility] ON GEE V270 OUTCOME OF 06-20-2012 [facility] DELIVERY GEE SINGLE LIVEBORN V221 SUPERVISION 05-26-2012 [facility] DEVENDRA OF OTHER NORMAL V286 SCREENING 05-26-2012 [place] [address] THREATENED 05-24-2012 [facility] TRISH PREMATURE LABOR ANTEPARTUM 64508 OTHER 04-29-2012 [facility] SPECIFED [facility] COMPLICATIO INC N ANTEPARTUM 25367 ABNORMAL 04-20-2012 [facility] MATERNAL [facility] GLUCOSE INC TOLERANCE ANTEPARTUM 7080 ALLERGIC 04-20-2012 [facility] URTICARIA [facility] INC V222 04-20-2012 [facility] STATE, [facility] INCIDENTAL INC 24029 DECR 03-29-2012 [facility] MOVMNTS [facility] MGMT MOTH INC ANTPRTM COND/COMP 33727 OTHER 03-28-2012 [facility] SPECIFIED MEDICAL DISORDER OF IMAGING ASS KIDNEY AND URETER 7242 LUMBAGO 03-28-2012 [facility] INC 4660 ACUTE 02-15-2012 [facility] BRONCHITIS [facility] INC 75585 OTHER 01-29-2012 [facility] DISEASES OF MEDICAL LUNG NOT IMAGING ASS ELSEWHERE CLASSIFIED 33510 SPRAIN AND 12-25-2011 [facility] STRAIN OF HOSP UNSPECIFIED SITE OF FOOT 57787 CONTUSION 12-25-2011 [facility] OF SHOULDER HOSP REGION 38351 CONTUSION 12-25-2011 [facility] OF FOOT HOSP V2382 SUPERVISION 11-29-2011 NAHOMY RAMSAY HIGH-RISK [place]VID A [address] [facility] CURRENT 11-24-2011 [facility] RASHID MAT CONDS CLASSIFIABL E ELSW ANTPRTM V2341 SUPERVISION 10-21-2011 ROSELINE Kendrick NAHOMY BERUMEN W/HISTORY PRE-TERM LABOR V2389 SUPERVISION 10-21-2011 ROSELINE Kendrick OF OTHER NAHOMY BERUMEN HIGH-RISK V2889 OTHER 10-21-2011 ROSELINE Kendrick SPECIFIED NAHOMY BERUMEN SCREENING V704 EXAMINATION 10-21-2011 ROSELINE Kendrick FOR NAHOMY BERUMEN MEDICOLEGAL REASON V745 SCREENING 10-21-2011 ROSELINE Kendrick EXAMINATION NAHOMY BERUMEN FOR VENEREAL DISEASE 8448 SPRAIN&STRA 09-08-2011 JAMIN MICHELE IN OTHER SPECIFIED SITES KNEE&LEG 95409 CONTUSION 09-08-2011 JAMIN MICHELE OF HIP 71311 CONTUSION 09-08-2011 JAMIN MICHELE OF LOWER LEG 33794 CONTUSION 09-08-2011 JAMIN MICHELE OF KNEE 24768 PAIN IN 09-05-2011 [facility] JOINT MEDICAL PELVIC IMAGING ASS REGION AND THIGH 49437 SWELLING OF 09-05-2011 [facility] LIMB [facility]ICAL [facility] ASS 8439 SPRAIN&STRA 09-05-2011 [facility] IN OF EMERGENCY UNSPECIFIED SERVICES SITE OF HIP&THIGH 8449 SPRAIN&STRA 09-05-2011 [facility] IN OF EMERGENCY UNSPECIFIED SERVICES SITE OF KNEE&LEG 78280 UNSPECIFIED 09-05-2011 [facility] SITE OF ANKLE SPRAIN AND STRAIN E8859 FALL FROM 09-05-2011 [facility] OTHER EMERGENCY SLIPPING SERVICES TRIPPING OR STUMBLING E8889 UNSPECIFIED 09-05-2011 [facility] FALL MEDICAL IMAGING ASS V720 EXAMINATION 08-13-2011 SCIFRES ANG OF EYES AND VISION 48723 MIGRAINE 07-29-2011 LAZAR LARISSA UNSP W/O INTRACT W/O STATUS MIGRAINOSUS 7245 UNSPECIFIED 07-29-2011 LAZAR LARISSA BACKACHE 7821 RASH AND 07-28-2011 ARANA A OTHER NONSPECIFIC SKIN ERUPTION V2509 OTH GENERAL 07-15-2011 ROSELINE COREA MD CNSL&ADVICE CONTRACEPT MANAGEMENT V7241 07-15-2011 ROSELINE Kendrick EXAMINATION NAHOMY BERUMEN OR TEST NEGATIVE RESULT 632 MISSED 07-01-2011 PATHOLOGY & CYTOLOGY LAB 21646 UNSPEC 06-26-2011 WEHRMAN III HEMORRHAGE RACHID EARLY ANTEPARTUM 78301 MATERNAL 2011 NAHOMY ESCOBAR MD ANTEPARTUM 20671 SPOTTING 2011 ROSELINE COREA MD ANTEPARTUM COND/COMP 17441 THREATENED 06-19-2011 [facility] , EMERGENCY ANTEPARTUM SERVICES V220 SUPERVISION 03-11-2011 [facility] OF NORMAL [facility] FIRST INC 2859 UNSPECIFIED 02-20-2011 [facility] ANEMIA [facility] INC 6238 OTHER 02-20-2011 [facility] SPECIFIED EMERGENCY NONINFLAMMA SERVICES TORY DISORDER VAGINA 34922 PAIN IN 01-21-2011 LAB [facility]O JOINT, AMERIC MULTIPLE HOLDING SITES 5210 DENTAL 01-14-2011 THE IMPLANT CARIES & ORAL SURGERY C 02828 PAIN IN 01-12-2011 [facility], [facility] LOWER LEG INC 44365 PAIN IN 01-12-2011 [facility], [facility] ANKLE AND INC FOOT 66078 UNSPECIFIED 01-12-2011 [facility] EMERGENCY DISORDER OF SERVICES MULTIPLE SITES 2662 OTHER 11-19-2010 [facility] CO B-[facility] C[facility] S V2689 OTHER 11-19-2010 [facility] CO SPECIFIED HEALTH PROCREATIVE CENTER MANAGEMENT 2809 UNSPECIFIED 11-03-2010 [facility] ANEMIA 40300 RESTLESS 11-03-2010 A Grover HOFF MD PSC SYNDROME 90702 OTHER 11-03-2010 [facility] [place] INC FATIGUE 7831 ABNORMAL 11-03-2010 [facility] OF WEIGHT GAIN [place] INC 99390 TOOTH 09-10-2010 THE IMPLANT BROKEN FX & ORAL DUE TO SURGERY C TRAUMA W/O MENTION COMP 5920 CALCULUS OF 08-21-2010 LAB LUIS ALFREDO KIDNEY [employer] 42933 UNSPECIFIED 08-18-2010 [facility] CONSTIPATIO IMAGING ASS N 7840 HEADACHE 08-15-2010 [facility] 7945 NONSPECIFIC 07-17-2010 [place] [facility] ABNORM SERV RESULTS FOUNDATIO THYROID FUNCT STUDY 11278 ABDOMINAL 05-05-2010 [facility] PAIN, EMERGENCY EPIGASTRIC SERVICES 7802 SYNCOPE AND 01-03-2010 [facility] COLLAPSE EMERGENCY SERVICES 8910 OPEN WOUND 01-03-2010 [facility] KNEE EMERGENCY LEG&ANK SERVICES WITHOUT MENTION COMP V065 NEED 01-03-2010 [facility] PROPHYLACTI [facility] C INC VACCINATION W/TETANUS-D [facility] 8488 OTHER 11-24-2009 [facility] SPECIFIED EMERGENCY SITES OF SERVICES SPRAINS AND ASSOCIATES STRAINS 6918 OTHER 09-04-2009 [facility]OCIATES DERMATITIS OF AND RELATED [facility] CONDITIONS PSC 6989 UNSPECIFIED 09-04-2009 [facility] PR[facility] DISORDER OF [place], PSC 6929 CONTACT 08-19-2009 [facility] DERMATITIS& EMERGENCY OTHER SERVICES ECZEMA DUE ASSOCIATES UNSPEC CAUSE 1330 SCABIES 08-14-2009 [facility] SERVICES ASSOCIATES 490 BRONCHITIS 04-17-2009 [facility] NOT EMERGENCY SPECIFIED SERVICES ACUTE OR ASSOCIATES CHRONIC 7862 COUGH 04-17-2009 [facility] 11612 FEVER 04-10-2009 [facility] UNSPECIFIED MEDICAL IMAGING ASSOCIATES 82115 UNSPECIFIED 02-25-2009 [facility] 2781 DYSMENORRHE 04-17-2008 [facility] A [facility] INC V7612 OTHER 04-17-2008 [facility] SCREENING [facility] MAMMOGRAM INC 7061 OTHER ACNE 08-02-2007 [facility] [place], PSC 06645 LOSS OF 07-10-2007 [place] [facility] 47168 ABDOMINAL 07-10-2007 [place] [facility] PAIN, SERV GENERALIZED FOUNDATIO 37155 REFLUX 06-19-2007 [place] [facility] ESOPHAGITIS SERV [facility]ATIO Immunization Name Date Rout CVX Reac Dose Comm Prov Is Faci e tion ent ider Refu lity Give sed n PPSV 09-0 33 TAY No TAY 23 2-20 CED CED VACC 16 MEM MEM INE 2 HOSP HOSP YRS INC INC OR NIKOSE R FOR SUBQ /IM USE Procedures Procedure DOS Code Location Performer Comment DUP-SCAN 61750 [facility] [place] XTR VEINS 7 MEM HOSP MEM HOSP INC INC UNILATERA L/LIMITED [facility] G0463 [facility] [place] OUTPATIEN 7 MEM HOS[facility] MEM HOSP T CLIN INC INC VISIT ASSESS & MGMT PT PLETHYSMO 60370 [place] [facility] GRAPHY 7 MEDICAL LUNG SERV VOLUMES FOUNDATIO W/WO N AIRWAY RESIST CT THORAX 33684 [place] W/O 7 HEALTHCAR HEALTHCAR CONTRAST E E MATERIAL [facility] SPMTRY 65203 [place] [facility]EL W/VC 7 MEDICAL EXPIRATOR SERV Y LEONCIO FOUNDATIO W/WO MXML N VOL VNTJ PULMONARY 02390 [place] [facility] STRESS 7 [place] [address] [place] [facility] DIFFUSING 7 [place] [address] [facility] TROPONIN 7 MEM HOSP [place] [address] [facility] STREPTOCO 7 MEM HOSP MEM HOSP CCUS INC INC GROUP A COMPREHEN 19837 [facility] SIVE 7 MEM HOSP MEM [facility]OS[facility] METABOLIC INC INC PANEL CREATINE 62223 [facility] KINASE MB 7 MEM HOSP [place] [address] [facility] [place] LACTATE 7 MEM HOSP [facility]OS[facility] INC INC CREATINE 64976 [facility] KINASE 7 MEM HOSP MEM [facility]OS[facility] TOTAL INC INC BLOOD 50172 [facility] [place] COUNT 7 MEM H[facility] MEM [facility]OS[facility] COMPLETE INC INC AUTO&AUTO DIFRNTL WBC PRESSURIZ 05-12-201 93103 [facility] [place] ED/NONPRE 7 MEM HOSP MEM HOSP SSURIZED INC INC INHALATIO N TREATMENT THERAPEUT 72729 [facility] [place] IC 7 MEM HOSP MEM HOSP INJECTION INC INC IV PUSH EACH NEW DRUG THER 60292 [facility] [place] PROPH/DX 7 MEM HOSP MEM [facility]OS[facility] NJX IV INC INC PUSH SINGLE/1S T SBST/DRUG CULTURE 75779 [facility] [place] BACTERIAL 7 MEM HOSP [facility]OS[facility] BLOOD INC INC AEROBIC W/ID ISOLATES RADIOLOGI 07661 [facility] C EXAM 7 MEM HOSP MEM HOSP CHEST 2 INC INC VIEWS FRONTAL&L ATERAL ECG 30536 [facility] [place] ROUTINE 7 MEM HOSP MEM HOSP ECG INC INC W/LEAST 12 LDS TRCG ONLY W/O I&R IAADI 87025 [facility] [place] INFLUENZA 7 MEM HOSP [facility] B VIRUS INC INC IAADI 23788 [facility] [place] INFFLUENZ 7 MEM HOSP [facility]OS[facility] A A VIRUS INC INC ECG 89390 [facility] [place] ROUTINE 7 MEM HOSP MEM HOSP ECG INC INC W/LEAST 12 LDS TRCG ONLY W/O I&R RADIOLOGI 37223 [facility] [place] C EXAM 7 MEM HOSP MEM HOS[facility] CHEST 2 INC INC VIEWS FRONTAL&L ATERAL THER 82439 [facility] [place] PROPH/DX 7 MEM HOSP MEM HOSP NJX IV INC INC PUSH SINGLE/1S T SBST/DRUG THERAPEUT 17017 [facility] [place] IC 7 MEM H[facility]P MEM [facility]OS[facility] INJECTION INC INC IV PUSH EACH NEW DRUG PRESSURIZ 51891 [facility] [place] ED/NONPRE 7 MEM HOSP MEM HOSP SSURIZED INC INC INHALATIO N TREATMENT BLOOD 43323 [facility] [place] COUNT 7 MEM HOS[facility] MEM [facility]OS[facility] COMPLETE INC INC AUTO&AUTO DIFRNTL WBC CREATINE 71306 [facility] [place] KINASE 7 MEM HOSP [facility]OS[facility] TOTAL INC INC CREATINE 85874 [facility] KINASE MB 7 MEM HOSP MEM HOSP FRACTION INC INC ONLY COMPREHEN 17140 [facility] SIVE 7 [facility] [place] [address] [facility] TROPONIN 7 [facility] QUANTITAT INC INC JORY CT THORAX 27736 DELL MCMILLAN W/O 6 [facility] SWETA CONTRAST IMAGING MATERIAL ASS RADEX 64323 [facility] RIBS UNI 6 [facility] W/POSTERO INC INC ANT CH MINIMUM 3 VIEWS RADIOLOGI 49794 DELL CONTRERASSARIKE C 6 MEDICAL EXAMINATI IMAGING ON CHEST ASS SINGLE VIEW FRONTAL ECG 50066 [facility]ET[facility] JR ROUTINE 6 [facility] W/LEAST P 12 LDS I&R ONLY PRESSURIZ 01088 [facility] ED/NONPRE 6 [facility] SSURIZED INC INC INHALATIO N TREATMENT PPSV23 16769 [facility] VACCINE 2 6 [facility] YRS OR INC INC OLDER FOR SUBQ/IM USE BASIC 98702 [facility] METABOLIC 6 [facility] PANEL INC INC CALCIUM TOTAL COLLECTIO 82693 [facility] N VENOUS 6 [facility] BLOOD [facility] G0378 [facility] OBSERVATI 6 [facility] ON INC INC SERVICE PER HOUR ADMINISTR G0009 [facility] ATION OF 6 [facility] PNEUMOCOC INC INC KEERTHI VACCINE BLOOD 87865 [facility] COUNT 6 [facility] COMPLETE INC INC AUTO&AUTO DIFRNTL WBC BLOOD 87626 [facility] COUNT 6 [facility] COMPLETE INC INC AUTO&AUTO DIFRNTL [facility] G0378 [facility] OBSERVATI 6 [facility] ON INC INC SERVICE PER HOUR COMPREHEN 31987 [facility] SIVE 6 [facility] METABOLIC INC INC PANEL TOBACCO 66991 [facility] USE 6 [facility] CESSATION INC INC INTERMEDI ATE 3-10 MINUTES BLOOD 71262 [facility] GASES ANY 6 [facility] INC INC COMBINATI ON PH PCO2 PO2 CO2 HCO3 THER 15024 [facility] PROPH/DX 6 [facility] NJX IV INC INC PUSH SINGLE/1S T SBST/DRUG RADIOLOGI 90183 [facility] C EXAM 6 [facility] CHEST 2 INC INC VIEWS FRONTAL&L ATERAL PRESSURIZ 92412 [facility] ED/NONPRE 6 [facility] SSURIZED INC INC INHALATIO N TREATMENT INJECTION J2704 [facility] PROPOFOL 6 Y Y 10 MG [facility] ESOPHAGOG 08583 [facility] ASTRODUOD 6 MEDICAL ENOSCOPY SERV TRANSORAL FOUNDATIO N DIAGNOSTI C CYSTO 48308 [facility] CALIBRATI 6 [facility] URTL PSC STRIX/MICHELE NOSIS ANES 74188 ANESTHESI KIM LAD TRANSURET 6 A HRAL ASSOCIATE W/URETHRO S PSC CYSTOSCOP Y NOS INJECTION J0131 [facility] ACETAMINO INC INC PHEN 10 MG INJECTION J2710 [facility] NEOSTIGMI INC INC NE METHYLSUL FATE UP TO 0.5 MG INJECTION J2405 [facility] ONDANSETR INC INC ON HCL PER 1 MG ANESTHESI 88016 [facility] HANSEL A 6 ANESTH INTRAPERI OF THE TONEAL BLUE LOWER ABD W/LAPS NOS COLLECTIO 30121 GE[facility]NA [place] N VENOUS 6 [facility] BLOOD INC INC VENIPUNCT URE LAPAROSCO 71628 [facility] [place] PY W/RMVL 6 [facility] ADNEXAL INC INC STRUCTURE S BLOOD 70720 [facility] [place] COUNT 6 [facility] HEMATOCRI INC INC T BLOOD 57762 [facility] [place] COUNT 6 [facility] HEMOGLOBI INC INC N ESOPHGL 73668 PEDRO ZUNIGA FUNCJ 6 MEDICAL G-ESOP SERV RFLX IMPD FOUNDATIO ELTRD N PROLNG ESOPHAGEA 81606 [place] L 6 [facility]CAR MOTILITY E E STUDY HOSPITALS HOSPITALS W/INTERP& RPT EGD 94958 [place] SEN RAFAEL TRANSORAL 6 MEDICAL BIOPSY SERV SINGLE/MU FOUNDATIO LTIPLE N DIAGNOSTI [id number] GE[facility]NA GEOVANNA C 6 [facility] MAMMOGRAP INC INC HY [place]; [place] [address] [facility] CITY[facility]ermaine MCMILLAN TRANSVAGI 6 MEDICAL SWETA NAL IMAGING ASS [address] THORAX 14103 [facility] W/O 6 Y Y [facility] MATERIAL URINLS 91814 [facility] HARPEL DIP 6 PHYSICIAN DEVENDRA STICK/TAB S GROUP LET REAGNT NON-AUTO MICRSCPY ANES 24292 [facility] CH[facility] UPPER GI 6 [facility] ENDOSCOPY ANESTHESI PROXIMAL A PSC TO DUODENUM ESOPHAGEA 32887 [facility] 6 Y Y [facility] STUDY W/INTERP& RPT ECG 23186 GE[facility] [place] ROUTINE 6 [facility] ECG INC INC W/LEAST 12 LDS TRCG ONLY W/O I&R ECG 92560 [facility] SHEELA ROUTINE 6 PHYSICIAN MAT ECG S GROUP W/LEAST 12 LDS I&R ONLY CV STRS 91747 [facility] MC[facility]EN CAROL TST 6 PHYSICIAN XERS&/OR S GROUP RX CONT ECG W/O I&R CV STRS 73933 [facility] [place] TST 6 [facility] XERS&/OR INC INC RX CONT ECG TRCG ONLY ECHO 56934 PEDRO SIFUENTES TTHRC R-T 6 MEDICAL 2D SERV W/WOM-MOD FOUNDATIO E COMPL N SPEC&[place] [address] PEDRO JANUSZ TRACT 6 MEDICAL UPPER SERV W/WO FOUNDATIO DELAYED N IMAGES W/KUB ECG 30207 [facility] [place] ROUTINE 6 [facility] ECG INC INC W/LEAST 12 LDS TRCG ONLY W/O I&R ECG 67925 [facility] [place] ROUTINE 6 [facility] ECG INC INC W/LEAST 12 LDS TRCG ONLY W/O I&R RADIOLOGI 80586 [facility] 6 MEDICAL EXAMINATI IMAGING ON CHEST ASS SINGLE VIEW FRONTAL ECG 86831 GEOVANNA JETER JR ROUTINE 6 [facility] W/LEAST P 12 LDS I&R ONLY CREATINE 38901 [facility] [place] KINASE 6 [facility] TOTAL INC INC COMPREHEN 62524 GE[facility]NA [place] SIVE 6 [facility] METABOLIC INC INC PANEL CREATINE 69292 GEOV[place]NA [place] KINASE MB 6 [facility] FRACTION INC INC ONLY FIBRIN 39971 GE[facility] [place] DGRADJ 6 [facility]OSP PRODUCTS INC INC D-DIMER QUAL/[place] [address] GE[facility] [place] TROPONIN 6 [facility] QUANTITAT INC INC JORY BLOOD 64483 [facility] [place] COUNT 6 [facility] COMPLETE INC INC AUTO&AUTO DIFRNTL WBC FLUOROSCO 86268 GE[facility] [place] PY SPX UP 5 [facility] TO 1 INC INC HOUR PHYS/QHP TIME THERAPEUT 21705 [facility] [place] IC 5 [facility] INJECTION INC INC IV PUSH EACH NEW DRUG CYSTO/URE 20749 GEOVANNA WEBB TERO 5 [facility] IPSY P &[place] [address] [facility] [place] INFUSION 5 [facility] THERAPY INC INC PROPHYLAX IS/DX EA HOUR RADEX 18323 [facility] 1 5 MEDICAL HANSEL [place] [address] [facility] [place] ABDOMEN & 5 [facility] PELVIS INC INC W/O CONTRAST MATERIAL THERAPEUT 76090 GE[facility] [place] IC 5 [facility] INJECTION INC INC IV PUSH EACH NEW DRUG RADEX 42230 [facility] REYES ALL ELBOW 5 MEDICAL COMPLETE IMAGING MINIMUM [address] THORAX 69818 [facility] BEINEKE 5 MEDICAL HANSEL W/[place] [address] [facility] ABDOMEN & 4 MEDICAL SWETA PELVIS IMAGING W/O ASS CONTRAST MATERIAL RADIOLOGI 70914 GE[facility]NA [place] C EXAM 4 [facility] CHEST 2 INC INC VIEWS FRONTAL&L ATERAL THERAPEUT 73136 [facility] [place] IC 4 [facility] PROPHYLAC INC INC TIC/DX IN[place] SUBQ/[place] [address] [facility] 4 Y Y [facility] W/WO DELAYED IMAGES W/KUB ESOPHAGEA 37131 [facility] 4 Y Y [facility] STUDY W/INTERP& RPT GASTRIC 17888 [facility] HIPOLITO EMPTYING 3 SWETA SWETA IMAGING STUDY EGD 71132 [facility] KALI [place] KALI TRANSORAL 3 BIOPSY SINGLE/MU LTIPLE RADEX 11212 [facility] HIP[facility] FINGR 3 SWETA SWETA MINIMUM 2 VIEWS FINGER L3925 [employer] ORTHOSIS 3 PIP/DIP NONTORSIO N JOINT PREFAB THERAPEUT 48569 [facility] [place] IC 3 [facility] PROPHYLAC INC INC TIC/DX INJECTION SUBQ/IM HYSTEROSA 50495 [facility] HIPOLITO LPINGOGRA 3 SWETA SWETA PHY RS&I LIG/TRNSX 25725 HARPEL HARPEL J 3 DEVENDRA DEVENDRA FALOPIAN TUBE DEL/ABDML SURG 55015 SCHULSTAD SCHULSTAD DELIVERY 3 GEE GEE ONLY LOW 741 GE[facility] [place] CERVICAL 3 [facility] INC INC SECTION 38686 [facility] HARPEL CONTRACTI 2 DEVENDRA DEVENDRA ON STRESS TEST 15130 MALGORZATA MCGARRY NONSTRESS 2 TRISH TRISH TEST 44533 [facility] [place] NONSTRESS 2 [place] [address] [facility] [place] INFUSION 2 [facility] HYDRATION INC INC INITIAL 31 MIN-1 HOUR URNLS DIP 21370 [facility] [place] 2 [facility] STICK/TAB INC INC LET REAGENT AUTO MICROSCOP Y THERAPEUT 74524 [facility] [place] IC 2 [facility] PROPHYLAC INC INC TIC/DX INJECTION SUBQ/IM 45954 [facility] [place] NONSTRESS 2 [facility] TEST INC INC 97474 [facility] [place] NONSTRESS 2 [place] [address] [facility] [place] 2 [facility] UTERUS INC INC LIMITED 1/> FETUSES THERAPEUT 81814 [facility] [place] IC 2 [facility] PROPHYLAC INC INC TIC/DX INJECTION SUBQ/[place] [address] GE[facility] [place] RETROPERI 2 [facility] TONEAL INC INC REAL TIME W/IMAGE COMPLETE THERAPEUT 08757 [facility] [place] IC 2 [facility] PROPHYLAC INC INC TIC/DX INJECTION SUBQ/IM RADIOLOGI 08064 DELL MCMILLAN C EXAM 2 MEDICAL SWETA CHEST 2 IMAGING VIEWS ASS FRONTAL&L ATERAL RADEX 94537 EVELIA ALTAMIRANO FOOT 2 [facility] COMPLETE MINIMUM 3 VIEWS NONCOVERE A9270 EVELIA ALTAMIRANO D ITEM OR 2 [facility] SERVICE URNLS DIP 09501 [facility] [place] 2 [facility] STICK/TAB INC INC LET REAGENT AUTO MICROSCOP Y US PREG 89639 DELL 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 UTERUS 2 MEDICAL SWETA REAL TIME IMAGING W/[place] [address] [facility] [place] 2 [facility] UTERUS INC INC LIMITED 1/> FETUSES CULTURE 52551 [facility] [place] BACTERIAL 2 [facility] INC INC QUANTTATI VE COLONY COUNT URINE US PREG 01070 [facility] [place] UTERUS 2 [facility] REAL TIME INC INC W/IMAGE DCMTN TRANSVAG IADNA 40422 BIO BIO LANDY 2 REFERNCE REFERNCE SPECIES 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 NABIL L.P. UNDARM 2 OTH THAN WOOD PAIR PAD TIP&HNDGR IP CT LOWER 42281 DELL HIPOLITO EXTREMITY 2 MEDICAL SWETA W/O IMAGING CONTRAST ASS MATERIAL OPHTH 42980 SCIFRES SCIFRES MEDICAL 2 ANG ANG XM&EVAL COMPRE NEW PT 1/> VST DETERMINA 79442 SCIFRES SCIFRES TION 2 ANG ANG REFRACTIV E STATE THERAPEUT 86648 YASMEEN Song IC 2 PROPHYLAC TIC/DX INJECTION SUBQ/IM INJ J0702 YASMEEN Song BETAMETHA 2 SONE ACETATE & PHOSPHATE 3 MG INJECTION J1030 YASMEEN Song 2 METHYLPRE DNISOLONE ACETATE 40 MG URINE 23977 ROSELINE COREA 2 NAHOMY BERUMEN DEVENDRA IONA VISUAL COLOR CMPRSN METHS URINE 20766 [facility] [place] 2 [facility] TEST INC INC VISUAL COLOR CMPRSN METHS BLOOD 14564 [facility] [place] TYPING 2 [facility] SEROLOGIC INC INC RH (D) CULTURE 41892 GE[facility] [place] BACTERIAL 2 [facility] INC INC QUANTTATI VE COLONY COUNT URINE US PREG 48604 GEOV[facility]NA [place] UTERUS 2 [facility] REAL TIME INC INC W/IMAGE DCMTN TRANSVAG URNLS DIP 13327 GE[facility] [place] 2 [facility] STICK/TAB INC INC LET REAGENT AUTO MICROSCOP Y GONADOTRO 78093 GE[facility]NA [place] PIN 2 [facility] CHORIONIC INC INC QUANTITAT JORY BLOOD 70515 [facility] [place] COUNT 2 [facility] COMPLETE INC INC AUTO&AUTO DIFRNTL WBC BLOOD 65683 [facility] [place] COUNT 1 [facility] COMPLETE INC INC AUTO&AUTO DIFRNTL WBC BLOOD 12522 [facility] [place] COUNT 1 [facility] HEMOGLOBI INC INC N BLOOD 46308 GE[facility] [place] COUNT 1 [facility] HEMATOCRI INC INC T COLLECTIO 31555 [facility] [place] N VENOUS 1 [facility] [place] [address] PATHOLOGY PATHOLOGY SURG 1 & & PATHOLOGY CYTOLOGY CYTOLOGY LAB LAB GROSS&[place] [address] GE[facility] [place] NUCLEOTID 1 [facility] ASE 5'- INC INC ANESTHESI 52897 [facility] Song 1 ANESTH INCOMPLET OF THE E/MISSED BLUE THERAPEUT 69071 GEOV[facility]NA [place] IC 1 [facility] INJECTION [place] [address] GEOV[place] [place] INFUSION 1 [facility] THERAPY/P INC INC ROPHYLAXI S /DX 1ST TO 1 HR TX MISSED 98161 GE[facility] [place] 1 [facility] FIRST INC INC TRIMESTER SURGICAL BLOOD 75576 GEOV[facility]NA [place] TYPING 1 [facility] SEROLOGIC INC INC RH (D) [place] [address] GEOV[facility] [place] INFUSION 1 [facility] THERAPY INC INC PROPHYLAX IS/DX [place] HOUR [place] PREG 34831 [facility] UTERUS 1 [facility] REAL TIME CLINIC OF W/IMAGE SHERYL DCMTN TRANSVAG US PREG 60374 [facility] UTERUS 1 [facility] OF W/IMAGE SHERYL DCMTN TRANSVAG COLLECTIO 47284 [facility] [place] N VENOUS 1 [facility] BLOOD INC INC VENIPUNCT URE GONADOTRO 03381 GE[facility]NA [place] PIN 1 [facility] CHORIONIC INC INC QUANTITAT JORY GONADOTRO 52697 GEOV[facility]NA [place] PIN 1 [facility] CHORIONIC INC INC QUANTITAT JORY COLLECTIO 70750 GE[facility] [place] N VENOUS 1 [facility] BLOOD INC INC VENIPUNCT URE COLLECTIO 86645 GE[facility] [place] N VENOUS 1 [facility] BLOOD INC INC VENIPUNCT URE GONADOTRO 96200 GE[facility] [place] PIN 1 [facility] CHORIONIC INC INC QUANTITAT JORY GONADOTRO 65211 GE[facility] [place] PIN 1 [facility] CHORIONIC INC INC QUANTITAT JORY COLLECTIO 83058 [facility] [place] N VENOUS 1 [facility] BLOOD INC INC VENIPUNCT URE URNLS DIP 44026 GEOV[place]NA [place] 1 [facility] STICK/TAB INC INC LET REAGENT AUTO MICROSCOP Y BLOOD 18729 GEOVANNA [place] TYPING 1 [facility] SEROLOGIC INC INC RH (D) GONADOTRO 65771 GEOVANNA [place] PIN 1 [facility] CHORIONIC INC INC QUANTITAT JORY BLOOD 87860 GE[facility] [place] TYPING 1 [facility] SEROLOGIC INC INC ABO BLOOD 44508 GEOV[facility]NA [place] COUNT 1 [facility] COMPLETE INC INC AUTO&AUTO DIFRNTL WBC US PREG 23918 [facility] UTERUS 1 [facility] W/IMAGE SHERYL DCMTN TRANSVAG RHEUMATOI 15966 [facility] D FACTOR 1 AMERIC AMERIC QUANTITAT HOLDING HOLDING JORY ANTINUCLE 04537 [facility] AR 1 AMERIC AMERIC ANTIBODIE HOLDING HOLDING S MODESTO BLOOD 36640 [facility] COUNT 1 AMERIC AMERIC COMPLETE HOLDING HOLDING AUTO&[place] [address] [facility] BLOOD/URI 1 AMERIC AMERIC C ACID HOLDING HOLDING SEDIMENTA 17101 [facility] TION RATE 1 AMERIC AMERIC RBC HOLDING HOLDING AUTOMATED C-REACTIV 58503 [facility] E PROTEIN 1 AMERIC AMERIC HOLDING HOLDING DEEP D9220 THE GUILLERMO SEDATION/ 1 IMPLANT & DON GENERAL ORAL ANESTHESI SURGERY C A-1ST 30 MINUTES SEDIMENTA 19390 GE[facility]NA [place] TION RATE 1 [facility] RBC INC INC NON-AUTOM ATED DEEP D9220 THE LAZAR III SEDATION/ 1 IMPLANT & CAROL GENERAL ORAL ANESTHESI SURGERY C A-1ST 30 MINUTES URINE 60612 GE[facility] [place] 1 [facility] VISUAL COLOR CMPRSN METHS COLLECTIO 59264 Duncan BAUTISTA N VENOUS 1 YASMEEN BERUMEN BLOOD PSC VENIPUNCT URE BLOOD 83630 [facility] COUNT 1 [facility] INC COMPLETE AUTO&[place] [address] [facility] FERRITIN 1 [facility] [place] [address] [facility] IRON 1 [facility] IRON 35238 [facility] BINDING 1 [facility] CAPACITY DEEP D9220 THE GUILLERMO SEDATION/ 1 IMPLANT & DON GENERAL ORAL ANESTHESI SURGERY C A-1ST 30 MINUTES ORTHOPANT 37625 THE GUILLERMO OGRAM 1 IMPLANT & DON ORAL SURGERY C CALCULUS 11358 LAB [facility] LAB [facility] QUANTITAT 1 AMERIC AMERIC JORY HOLDINGS HOLDINGS CHEMICAL RADEX 39942 [facility] ABDOMEN 1 1 MEDICAL SWETA IMAGING ANTEROPOS ASS TERIOR VIEW 3D 23169 [facility] RENDERING 1 MEDICAL SWETA W/INTERP IMAGING & [place] [address] [facility] HEAD/BRAI 1 MEDICAL SWETA N W/O IMAGING CONTRAST ASS MATERIAL THERAPEUT 23760 GE[facility]NA [place] IC 1 [facility] INJECTION INC [place] [address] GEOVANNA [place] INFUSION 1 [facility] THERAPY/P INC INC ROPHYLAXI S /DX 1ST TO 1 HR EGD 16826 [place] KALI TRANSORAL 0 MEDICAL BIOPSY SERV SINGLE/[place] [address] GEOVANNA [place] INFUSION 0 [facility] THERAPY/P INC INC ROPHYLAXI S /DX 1ST TO 1 HR SIMPLE 28046 NELSON WEHRMAN REPAIR 0 EMERGENCY III RACHID SCALP/NEC SERVICES K/AX/ARBEN T/TRUNK 2.5CM/< IM ADM 30621 GEOVANNA [place] PRQ ID 0 [facility] SUBQ/IM INC INC NJXS 1 VACCINE BLOOD 91087 [facility] [place] COUNT 0 [facility] COMPLETE INC INC AUTO&AUTO DIFRNTL WBC CLOSURE 8659 GEOV[facility]NA [place] SKIN&SUBC 0 [facility] UTANEOUS INC INC TISSUE OTHER SITES BLOOD 89815 [facility] [place] COUNT 9 [facility] COMPLETE INC INC AUTO&AUTO DIFRNTL WBC BASIC 78401 GE[facility] [place] METABOLIC 9 [facility] PANEL INC INC CALCIUM TOTAL THERAPEUT 96773 GEOVANNA [place] IC 9 [facility] PROPHYLAC INC INC TIC/DX INJECTION SUBQ/[place] [address] GEOVANNA [place] INFUSION 9 [facility] THERAPY/P INC INC ROPHYLAXI S /DX 1ST TO 1 HR RADIOLOGI 20515 GEOVANNA [place] C EXAM 9 [facility] CHEST 2 INC INC VIEWS FRONTAL&L ATERAL RADIOLOGI 50603 DELL MCMILLAN C EXAM 9 MEDICAL JEFF CHEST 2 IMAGING VIEWS ASSOCIATE FRONTAL&[place] [address] GEOVANNA [place] HEAD/BRAI 8 [facility]OS[facility] N W/O & [place] [address] GEOVANNA [place] TRANSVAGI 8 [facility] NAL INC INC COMPUTER- 86220 GEOV[facility]NA [place] AIDED 8 [facility] DETECTION INC INC SCREENING MAMMOGRAP HY 3D 93536 GE[facility]NA [place] RENDERING 8 [facility] W/INTERP INC INC & POSTPROCE SS SUPERVISI ON SCREENING 05074 [facility] [place] 8 [facility] MAMMOGRAP INC INC HY BILATERAL COLONOSCO 86919 [place] PY FLX DX 8 MEDICAL MEDICAL W/COLLJ SERV SERV SPEC [place] [address] GEOV[facility]NA [place] THER 8 [facility] PROPH/DX INC INC 1ST >1 HR Encounters Encounter Start End Date Code Location Performer Type Date HOSPITAL GEOVANNA Coyle 7 [facility] OUTPATIEN INC [facility] GEOVANNA Coyle 7 [facility]PATI[facility] INC [facility] [address] [facility] GEOVANNA Coyle 7 [facility] OUTPATIEN INC T EMERGENCY 56561 GEOVANNA Coyle 7 [facility] DEPARTMEN INC T VISIT MODERATE SEVERITY EMERGENCY 29417 HARJINDER DIAZ DEPT 7 7 PHYSICIAN VISIT S, PLL HIGH SEVERITY& THREAT FUN HOSPITAL GEOVANNA - 7 7 [facility] OUTPATIEN INC T EMERGENCY 30897 GEOVAN[facility] 7 7 [facility] HIGH/URGE NT SEVERITY OFFICE 29658 [facility] OUTPATIEN 7 7 PHYSICIAN T VISIT S GROUP 10 MINUTES EMERGENCY 49379 GEOVANNA 6 6 [facility] LIMITED/M INOR [facility] GEOVANNA - 6 6 [facility] OUTPATIEN [facility] T EMERGENCY 38012 GEOVANNA 6 6 [facility] HIGH/URGE NT SEVERITY HOSPITAL GEOVANNA - 6 6 [facility] OUTPATIEN INC T OFFICE 38015 [facility] CAROL OUTPATIEN 6 6 MEDICAL T VISIT SERV 25 FOUNDATIO MINUTES N OFFICE 81974 [facility] ARACELI LIS OUTPATIEN 6 6 MEDICAL T VISIT SERV 15 FOUNDATIO MINUTES N OFFICE 24898 [facility] 6 6 [place] 15 PSC MINUTES HOSPITAL [facility] - 6 6 [facility] GEOVANNA - 6 6 [facility] OUTPATIEN INC T OFFICE 72532 [facility] 6 6 [place] [facility] 10 PSC MINUTES OFFICE 82784 [facility] OUTPATIEN 6 6 PHYSICIAN DEVENDRA T VISIT S GROUP 15 MINUTES OFFICE 05497 [facility] 6 6 [place] [facility] 25 PSC MINUTES OFFICE 58477 [facility] OUTPATIEN 6 6 PHYSICIAN DEVENDRA T VISIT S GROUP 25 MINUTES OFFICE 53435 [facility] MEDICAL T VISIT SERV 25 FOUNDATIO MINUTES [facility]OS[facility] - 6 6 [facility] OFFICE 58641 [facility] 6 PHYSICIAN DEVENDRA T VISIT S GROUP 15 MINUTES HOSPITAL GEOVANNA - 6 6 [facility] GEOVANNA - 6 6 [facility]PATIEN [facility] - [facility] 00190 [facility] 6 6 PHYSICIAN DEVENDRA T VISIT S GROUP 15 MINUTES OFFICE [address] [facility] 6 6 MEDICAL MICHELE T VISIT SERV 15 FOUNDATIO MINUTES [facility] 6 [facility] 50720 [facility] 6 6 MEDICAL T VISIT SERV 25 FOUNDATIO MINUTES [facility] GEOVANNA - 6 6 [facility] OUTPATIEN [facility] GEOVANNA - 6 6 [facility] GEOVANNA - 6 6 [facility] - 6 [facility] 82988 [facility] 6 6 PHYSICIAN MAT T NEW 60 S GROUP MINUTES [facility] GEOVANNA - 6 6 [facility]PATIEN [facility] EMERGENC[facility] 28979 GEOVANNA 6 6 MEM [facility]PART[facility] T VISIT MODERATE [facility]VERITY HOSPITAL GEOVANNA - 6 6 [facility]PATIEN [facility] - 6 6 [facility] EMERGENC[facility] [id number] [place] 6 6 [facility] T VISIT LOW/MODER SEVERITY OFFICE 51394 GE[place] ROLANDO OUTPATIEN 6 [address] [facility] 20 [facility] GEOVANNA - 5 5 [facility] OUTPATIEN [facility] EMERGENC[facility] 80923 [facility] 5 5 [facility]ISIT LIMITED/M INOR PROB OFFICE 67971 [facility] OUTPATIEN 5 5 [facility] 20 [facility] GEOV[facility] - 5 5 [facility] OUTPATIEN [facility] GEOVANNA [facility] 5 5 [facility] OUTPATIEN [facility] T OFFICE 87069 OBED GOMES OUTPATIEN 5 5 [facility] 30 [facility] GEOVANNA - 5 5 [facility] OUTPATIEN [facility] T OFFICE [id number] DEMAR BENZ[facility] OUTPATIEN 4 4 III ANGIE III [facility] 30 [facility] GEOVANNA - 4 4 [facility] OUTPATIEN [facility] GEOV[facility] 4 4 [facility] T OFFICE 22161 [facility] OUTPATI[facility] 4 4 [facility] 10 [facility] UNIVERSIT - 4 4 [facility] 47011 RANJIT CHURCH [facility] OUTPATI 4 4 T [facility] 45 [facility] GE[facility] - 3 3 [facility] OUTPATIEN [facility] T EMERGENCY 31146 HUHN THO HUHN THO 3 3 DEPARTMEN T VISIT MODERATE SEVERITY OFFICE 34005 Duncan HOLDEN 3 3 YASMEEN MARIE T VISIT [facility] 15 MINUTES [facility] GE[facility] - 3 3 [facility] OFFICE 19559 MUSIC MIKKI MUSIC MIKKI OUTPATIEN 3 3 T NEW 20 MINUTES HOSPITAL [facility] 3 3 [facility] INPATIENT [facility] GE[facility] - 2 2 [facility] OUTPATIEN [facility] GE[facility] - 2 2 [facility] EMERGENCY 79549 [place] 2 2 [facility] VISIT LOW/MODER [facility]VERITY HOSPITAL [facility] - 2 2 [facility] GEOVANNA - 2 2 [facility] - 2 2 [facility] - 2 2 [facility] 42671 EV[place]IA 2 2 [facility] T VISIT MODERATE [facility]VERITY HOSPITAL [facility] - 2 2 [facility] EMERGENC[facility] 19380 [place] 2 2 [facility] T VISIT MODERATE [facility]VERITY [facility] - 2 2 [facility] OUT[facility] PERIODIC 00736 ROSELINE Kendrick PREVENTIV 2 2 NAHOMY BERUMEN E MED EST PATIENT [id number] OFFICE 49782 ROSELINE COREA OUTPATIEN 2 2 NAHOMY BERUMEN DEVENDRA VISIT 15 MINUTES HOSPITAL [facility] - 2 2 [facility] - 2 2 [facility] EMERGENCY 25287 NELSON DIAZ DEPT 2 2 EMERGENCY JAMESON VISIT SERVICES HIGH SEVERITY& THREAT FUN EMERGENCY 01820 [facility] 2 2 [facility] MODERATE SEVERITY [facility] - 1 1 [facility] OUTPATIEN INC T OFFICE 98699 ROSELINE COREA OUTPATIEN 1 1 [facility] 60 MINUTES [facility] T EMERGENCY [id number] NELSON DIAS 1 1 EMERGENCY DEPARTMEN SERVICES T VISIT HIGH/URGE NT SEVERITY EMERGENCY 72077 [facility] 1 1 [facility] T VISIT MODERATE SEVERITY [facility] 1 [facility] T EMERGENCY 59773 NELSON COOL 1 1 EMERGENCY III RACHID DEPARTMEN SERVICES T VISIT HIGH/URGE NT SEVERITY EMERGENCY 36265 [facility] 1 1 [facility] T VISIT MODERATE SEVERITY OFFICE 54782 [facility] [place] OUTPATIEN [address] MINUTES OFFICE 28549 A C OUTPERRY 1 1 YASMEEN BERUMEN T VISIT PSC 15 MINUTES [facility] - 1 1 [facility] T OFFICE 16183 A C JAMIN BAUTISTA OUTPATIMAGDIEL 1 1 YASMEEN BERUMEN T VISIT PSC 15 MINUTES EMERGENCY 76699 NELSON COOL DEPT 1 1 EMERGENCY III RACHID VISIT SERVICES HIGH SEVERITY& THREAT FUN [facility]OSP[facility] - 1 1 [facility] OUTPATI[facility] INC T EMERGENCY 81322 [facility] 1 1 [facility] DEPARTMEN INC T VISIT HIGH/URGE NT SEVERITY OFFICE 05513 [place] LACEY MCCULLOUGHPATIEN 1 1 MEDICAL L T NEW 45 SERV MINUTES [facility] EMERGENCY 33683 NELSON JAVED DEPT 0 0 EMERGENCY MEDARDO VISIT SERVICES HIGH SEVERITY& THREAT FUNCJ EMERGENCY 19302 NELSON COOL DEPT 0 0 EMERGENCY III RACHID VISIT SERVICES HIGH SEVERITY& THREAT FUNJ EMERGENCY 78949 [facility] 0 0 [facility] DEPART[facility] INC T VISIT MODERATE SEVERITY [facility] - 0 0 [facility] OUTPATI[facility] INC T EMERGENCY 68165 NELSON COOL 0 0 EMERGENCY III, DEPARTMEN SERVICES ROSELYN T VISIT HIGH/URGE ASSOCIATE NT S SEVERITY OFFICE 82300 NAVIN CERVANTES 0 0 GY VARGHESE W T VISIT ASSOCIATE 15 S OF MINUTES [facility] EMERGENCY 01017 NELSON LOERA, 0 0 EMERGENCY CRUZ DEPARTMEN SERVICES O T VISIT MODERATE ASSOCIATE SEVERITY S EMERGENCY 48238 NELSON DIAZ, 0 0 EMERGENCY ANN S DEPARTMEN SERVICES T VISIT MODERATE ASSOCIATE SEVERITY S EMERGENCY 70467 NELSON LOERA, 9 9 EMERGENCY CRUZ DEPARTMEN SERVICES O T VISIT HIGH/URGE ASSOCIATE NT S SEVERITY [facility] - 9 9 [facility] OUT[facility] INC T EMERGENCY 91038 [facility] 9 9 [facility] DEPARTMEN INC T VISIT MODERATE SEVERITY OFFICE 14553 NAVIN CHAHAL 9 9 FAMILY RENETTA T VISIT CARE 15 CLINIC MINUTES [facility] - 8 8 [facility] OUTPATIEN INC T OFFICE 35885 NAVIN FLANENRY 8 8 GY BEATRICE P T VISIT ASSOCIATE 15 S OF MINUTES [facility]OV[facility] - 8 8 [facility] OUTPATIEN INC T OFFICE 70030 [place] OUTSERGEI 8 8 MEDICAL MEDICAL T VISIT SERV SERV 25 [facility]OUND[facility] FOUNDATIO MINUTES
--- OUTSIDE RECORDS SUMMARY | 2017-03-22 03:23 | External Medical Summary Rpt ---
Author Author , KENNETH Organization KENNETH Address Unknown Phone [email or web address] Care Team Providers Care Honey Producer Name Role Phone A Grover ARANA MD [...] [facility] Unavailable Unavailable JOE, JOE Unavailable Unavailable JEO JAMESON, JOE Unavailable Unavailable JAMESON JOE JAMESON, [...] DEVENDRA HARPEL DEVENDRA, HARPEL Unavailable Unavailable DEVENDRA [facility] Unavailable Unavailable [place] Unavailable Unavailable [facility] Unavailable Unavailable INC, [facility] Unavailable Unavailable [facility], [facility] Unavailable Unavailable [facility]OSPITAL P, [facility], Unavailable Unavailable [facility]IN[facility], MCKINLEY H[facility] Unavailable Unavailable [facility] THO, HUHN THO Unavailable Unavailable [facility] TH[facility], HUHN THO Unavailable Unavailable TELLO MEDARDO, TELLO Unavailable Unavailable [facility] KILPELA JEA, KILPELA Unavailable [...] DWI MICHEL ANG, MICHEL ANG Unavailable Unavailable [facility] Unavailable Unavailable SERVICES, [facility] GUILLERMO DON, Unavailable Unavailable GUILLERMO DON MERSACK, BEATRICE P, Unavailable Unavailable MERSACK, BEATRICE P BHASKAR RACHID, BHASKAR RASHID Unavailable Unavailable JAMIN MICHELE, JAMIN MICHELE Unavailable Unavailable JAMIN MICHELE, JAMIN MICHELE Unavailable Unavailable MUSIC MIKKI, MUSIC MIKKI Unavailable Unavailable MUSIC MIKKI, MUSIC MIKKI Unavailable Unavailable [facility] Unavailable Unavailable [facility], Unavailable Unavailable [facility], [facility] [...] THE IMPLANT & ORAL SURGERY C [facility] Unavailable Unavailable [facility]ITALS, [facility], Unavailable Unavailable [facility] WEHRMAN III RACHID, Unavailable Unavailable WEHRMAN III [...] 2016 Problems Code Diagnosis DOS Provider Status [id number] EMBOLISM & 12-07-2016 [facility] SUPERFICIAL INC VEINS RIGHT LW EXT [id number] PAIN IN 12-07-2016 [place] [facility] [id number] ACUTE EMBO 12-06-2016 [facility] THROMB UNS [facility] DEEP VNS RT INC PROX LOW EXT K219 GASTRO-ESOP 12-06-2016 [facility] H REFLUX [facility] DISEASE INC WITHOUT ESOPHAGITIS Z720 TOBACCO USE 12-06-2016 [facility] INC [id number] UNSPECIFIED 11-25-2016 [facility] ED J440 COPD WITH 10-22-2016 [facility] RESPIRATORY INFECTION J441 CHRONIC 10-22-2016 [facility] OBSTRUCTIVE [facility] PULMONARY INC DZ W/EXACERBAT ION R05 COUGH 10-22-2016 [facility] R079 CHEST PAIN 10-22-2016 [place] UNSPECIFIED [facility] [id number] PERSONAL 10-22-2016 [facility] HISTORY OF PHYSIC[facility]ANS, NICOTINE PLLC DEPENDENCE J42 UNSPECIFIED 09-14-2016 [facility] CHRONIC [facility] BRONCHITIS INC R0989 OTH SPEC SX 09-14-2016 [place] [facility] THE IMAGING ASS CIRC & RESP SYS N951 MENOPAUSAL 07-09-2016 [facility] CLIMACTERIC GROUP STATES R0781 PLEURODYNIA 04-05-2016 [facility] I10 ESSENTIAL 03-29-2016 [facility] PRIMARY [facility] HYPERTENSIO INC N J449 CHRONIC 03-29-2016 [facility] OBSTRUCTIVE [facility] PULMONARY INC DISEASE UNS [id number] CONTUSION 03-29-2016 [facility] RT FRONT [facility] WALL THORAX INC INITIAL ENCOUNTER N456NEK UNSPECIFIED 03-29-2016 [facility] OF MEDICAL THORAX IMAGING ASS INITIAL ENCOUNTER J209 ACUTE 02-15-2016 [facility] BRONCHITIS [facility] P R0602 SHORTNESS 02-15-2016 [facility] E871 HYPO-OSMOLA 02-12-2016 [facility] LITY AND [facility] HYPONATREMI INC A Z23 ENCOUNTER 02-12-2016 [facility] FOR [facility] IMMUNIZATIO INC N K224 DYSKINESIA 02-11-2016 [facility] SERV ESOPHAGUS FOUNDATION K2270 BARRETTS 02-11-2016 [facility]US SERV WITHOUT FOUNDATION DYSPLASIA R12 HEARTBURN 02-11-2016 [facility] N3020 OTHER 01-21-2016 [facility] [place] [facility] PSC WITHOUT HEMATURIA R300 DYSURIA 01-21-2016 NEW [facility] PSC R312 OTHER 01-21-2016 NEW [facility]CROSCOPIC [place] HEMAT[facility]IA [facility]IC PSC N3021 OTHER 12-31-2015 [facility] CYSTITIS PSC WITH HEMATURIA N342 OTHER 12-31-2015 NEW URETHRITIS [facility] PSC K660 PERITONEAL 12-23-2015 [facility] ADHESIONS PHYSICIANS POSTPROC GROUP POSTINFECTI ON N736 FEMALE 12-23-2015 [facility] PELVIC PHYSICIANS PERITONEAL GROUP ADHESIONS POSTINFECTI VE N8320 UNSPECIFIED 12-23-2015 [facility] OVARIAN PHYSICIANS CYSTS GROUP R102 PELVIC AND 12-23-2015 [facility] PERINEAL PHYSICIANS PAIN GROUP B9689 OT SPEC 12-19-2015 [facility] BACTERIAL PHYSICIANS AGNT CAUSE GROUP DZ CLASSIFIED ELSW N760 ACUTE 12-19-2015 [facility] VAGINITIS PHYSICIANS GROUP N341 NONSPECIFIC 12-10-2015 NEW URETHRITIS [facility] PSC Z8719 PERSONAL 11-21-2015 [facility] SERV OTHER FOUNDATION DISEASES DIGESTIVE SYSTEM R928 OTH ABNORM 11-12-2015 [facility] & [facility] INCONCLUSIV INC E FIND ON DX IMAG BREAST N830 FOLLICULAR 11-07-2015 [place] CYST OF MEDICAL OVARY IMAGING ASS R309 PAINFUL 11-07-2015 [place] MICTURITION [facility] UNSPECIFIED R918 OTHER 11-04-2015 [facility] ABNORMAL FINDING OF LUNG FIELD N390 URINARY 11-03-2015 [facility] TRACT PHYSICIANS INFECTION GROUP SITE NOT SPECIFIED R0609 OTHER FORMS 10-30-2015 [facility] OF DYSPNEA SERV FOUNDATION Z539 PROCEDURE & 10-24-2015 [facility] NOT CARRIED OUT UNS REASON K449 DIAPHRAGMAT 10-22-2015 [facility] IC HERNIA SERV W/O FOUNDATION OBSTRUCTION OR GANGRENE E789 DISORDER OF 10-13-2015 [facility] LIPOPROTEIN INC METABOLISM UNSPECIFIED Z8679 PERSONAL 10-13-2015 [place] HISTORY OTH [facility] DISEASES INC CIRCULATORY SYSTEM E785 HYPERLIPIDE 10-09-2015 [place] REMI [facility] UNSPECIFIED INC I340 NONRHEUMATI 09-30-2015 [facility] MITRAL SERV VALVE FOUNDATION INSUFFICIEN CY I351 NONRHEUMATI 09-30-2015 [place] [facility] AORTIC SERV VALVE FOUNDATION INSUFFICIEN CY I361 NONRHEUMATI 09-30-2015 [facility] TRICUSPID SERV VALVE FOUNDATION INSUFFICIEN CY Z8632 PERSONAL 09-25-2015 [facility] HISTORY OF PHYSICIANS GESTATIONAL GROUP DIABETES J069 ACUTE UPPER 07-22-2015 [facility] RESPIRATORY INC INFECTION UNSPECIFIED J0190 ACUTE 06-24-2015 [place] SINUSITIS [facility] N200 CALCULUS OF 04-29-2015 [place] KIDNEY [facility] INC N201 CALCULUS OF 04-29-2015 [place] [facility] P N202 CALCULUS OF 04-29-2015 [place] [facility]NEY MEDICAL WITH IMAGING ASS CALCULUS OF URETER N1330 UNSPECIFIED 04-28-2015 [place] [facility] HYDRONEPHRO IMAGING ASS SIS 32099 PAIN IN 12-21-2014 [place] [facility], MEDICAL UPPER ARM IMAGING ASS 9593 INJURY 12-21-2014 [place] OTHER&UNSPE MEDICAL CIFIED IMAGING ASS [employer]&WRI ST 3899 UNSPECIFIED 06-18-2014 [facility] HEARING PHYSICIAN LOSS PRACTICE L 7856 ENLARGEMENT 06-14-2014 [place] OF LYMPH MEDICAL NODES IMAGING ASS 41583 OTHER 06-14-2014 [place] NONSPECIFIC MEDICAL ABNORMAL IMAGING ASS FINDING OF LUNG FIELD 10566 LOC 05-23-2014 [facility] OSTEOARTHRO III ANGIE S NOT SPEC PRIM/SEC OTH SPEC SITE 4019 UNSPECIFIED 11-26-2013 [facility] ESSENTIAL [facility] HYPERTENSIO INC N 486 PNEUMONIA, 11-26-2013 [facility] ORGANISM [facility] UNSPECIFIED INC 89800 ASTHMA, 11-26-2013 [facility] UNSPECIFIED [facility] , INC UNSPECIFIED STATUS 5601 PARALYTIC 11-26-2013 [facility] ILEUS [facility] INC 60038 OTHER 11-26-2013 [facility] [place] [place] SPECIFIED MEDICAL DISORDER OF IMAGING ASS INTESTINES 03838 ABDOMINAL 11-26-2013 [facility] [place] [place] PAIN OTHER MEDICAL SPECIFIED IMAGING ASS SITE 87148 OTHER 11-26-2013 [facility] DIGESTIVE [facility] SYSTEM INC COMPLICATIO NS V148 PERSONAL 11-26-2013 [facility] HISTORY [facility] ALLERGY OTH INC SPEC MEDICINAL AGTS 5990 URINARY 11-25-2013 [facility] TRACT [facility] INFECTION INC SITE NOT SPECIFIED V1582 PERS HX 11-25-2013 [facility] TOBACCO USE [facility] PRESENTING INC [facility] 74660 UNSPECIFIED 08-22-2013 [facility] SLEEP DISTURBANCE 15910 ESOPHAGEAL 08-07-2013 [facility] 5533 DIAPHRAGMAT 08-07-2013 [facility] W/O HOSPITAL MENTION OBSTRUCTION /GANGREN 62077 BARRETTS 07-10-2013 [facility] 59137 ABDOMINAL 03-27-2013 [place] PAIN, SWETA UNSPECIFIED SITE 65707 ATROPHIC 03-26-2013 [facility] GASTRITIS WITHOUT MENTION OF HEMORRHAGE 33454 PAIN IN 12-18-2012 [employer] JOINT, HAND [...] NEOPLASM OF SKIN OF TRUNK EXCEPT SCROTUM 56482 INFLAMED 09-14-2012 [facility] SEBORRHEIC KERATOSIS 7089 UNSPECIFIED 09-14-2012 [facility] URTICARIA V2651 TUBAL 08-08-2012 [place] LIGATION SWETA STERILIZATI ON STATUS 89479 ABNORMAL 06-20-2012 [facility] MATERNAL [facility] GLUCOSE INC TOLERANCE W/DELIVERY 51719 PREV C/S 06-20-2012 BR[facility] VIGIL GEE W/WO MENTION ANTPRTM COND V252 STERILIZATI 06-20-2012 [place] ON GEE V270 OUTCOME OF 06-20-2012 [place] DELIVERY GEE SINGLE LIVEBORN V221 SUPERVISION 05-26-2012 [facility] DEVENDRA OF OTHER NORMAL V286 SCREENING 05-26-2012 [place] [address] THREATENED 05-24-2012 [facility] PREMATURE LABOR ANTEPARTUM 40490 OTHER 04-29-2012 [facility] SPECIFED [facility] COMPLICATIO INC N ANTEPARTUM 52951 ABNORMAL 04-20-2012 [facility] MATERNAL [facility] GLUCOSE INC TOLERANCE ANTEPARTUM 7080 ALLERGIC 04-20-2012 [facility] URTICARIA [facility] INC V222 04-20-2012 [facility] STATE, [facility] INCIDENTAL INC 90869 DECR 03-29-2012 [facility] MOVMNTS [facility] MGMT MOTH INC ANTPRTM COND/COMP 41640 OTHER 03-28-2012 [place] SPECIFIED MEDICAL DISORDER OF IMAGING ASS KIDNEY AND URETER 7242 LUMBAGO 03-28-2012 [facility] INC 4660 ACUTE 02-15-2012 [facility] BRONCHITIS [facility] INC 00242 OTHER 01-29-2012 [place] DISEASES OF MEDICAL LUNG NOT IMAGING ASS ELSEWHERE CLASSIFIED 23206 SPRAIN AND 12-25-2011 [facility] STRAIN OF HOSP UNSPECIFIED SITE OF FOOT 51164 CONTUSION 12-25-2011 [facility] MEM OF SHOULDER HOSP REGION 08878 CONTUSION 12-25-2011 [facility] MEM OF FOOT HOSP V2382 SUPERVISION 11-29-2011 NAHOMY RAMSAY HIGH[place] [address] [facility] CURRENT 11-24-2011 [place] RASHID MAT CONDS CLASSIFIABL [...] JAMIN MICHELE IN OTHER SPECIFIED SITES KNEE&LEG 57478 CONTUSION 09-08-2011 JAMIN MICHELE OF HIP 21975 CONTUSION 09-08-2011 JAMIN MICHELE OF LOWER LEG 59621 CONTUSION 09-08-2011 JAMIN MICHELE OF KNEE 16634 PAIN IN 09-05-2011 [place] [facility] MEDICAL PELVIC IMAGING ASS REGION AND THIGH 50623 SWELLING OF 09-05-2011 [place] LIMB [facility]ICAL [facility] 8439 SPRAIN&STRA 09-05-2011 [facility] IN OF EMERGENCY UNSPECIFIED SERVICES SITE OF HIP&THIGH 8449 SPRAIN&STRA 09-05-2011 [facility] IN OF EMERGENCY UNSPECIFIED SERVICES SITE OF KNEE&LEG 91654 UNSPECIFIED 09-05-2011 [facility] SITE OF ANKLE SPRAIN AND STRAIN E8859 FALL FROM 09-05-2011 [facility] OTHER EMERGENCY SLIPPING SERVICES TRIPPING OR STUMBLING E8889 UNSPECIFIED 09-05-2011 [place] FALL MEDICAL IMAGING ASS V720 EXAMINATION 08-13-2011 [facility] ANG OF EYES AND VISION 09254 MIGRAINE 07-29-2011 LAZAR LARISSA UNSP W/O INTRACT W/O STATUS MIGRAINOSUS 7245 UNSPECIFIED 07-29-2011 LAZAR LARISSA BACKACHE 7821 RASH AND 07-28-2011 ARANA A OTHER NONSPECIFIC SKIN ERUPTION V2509 OTH GENERAL 07-15-2011 ROSELINE COREA MD CNSL&ADVICE CONTRACEPT MANAGEMENT V7241 07-15-2011 ROSELINE Kendrick EXAMINATION NAHOMY BERUMEN OR TEST NEGATIVE RESULT 632 MISSED 07-01-2011 PATHOLOGY & CYTOLOGY LAB 53242 UNSPEC 06-26-2011 WEHRMAN III HEMORRHAGE RACHID EARLY ANTEPARTUM 56691 MATERNAL 2011 NAHOMY ESCOBAR MD ANTEPARTUM 23592 SPOTTING 2011 ROSELINE COREA MD ANTEPARTUM COND/COMP 47306 THREATENED 06-19-2011 [facility] , EMERGENCY ANTEPARTUM SERVICES V220 SUPERVISION 03-11-2011 [facility] OF NORMAL [facility] FIRST INC 2859 UNSPECIFIED 02-20-2011 [facility] ANEMIA [facility] INC 6238 OTHER 02-20-2011 [facility] SPECIFIED EMERGENCY NONINFLAMMA SERVICES TORY DISORDER VAGINA 69379 PAIN IN 01-21-2011 LAB LUIS ALFREDO JOINT, [employer] SITES 5210 DENTAL 01-14-2011 THE IMPLANT CARIES & ORAL SURGERY C 50783 PAIN IN 01-12-2011 [facility], [facility] LOWER LEG INC 17906 PAIN IN 01-12-2011 [facility], [facility] ANKLE AND INC FOOT 36619 UNSPECIFIED 01-12-2011 [facility] EMERGENCY DISORDER OF SERVICES MULTIPLE SITES 2662 OTHER 11-19-2010 [facility] CO B-[facility] S V2689 OTHER 11-19-2010 [facility] CO SPECIFIED HEALTH PROCREATIVE CENTER MANAGEMENT 2809 UNSPECIFIED 11-03-2010 [facility] DEFICIENCY ANEMIA 15366 RESTLESS 11-03-2010 A Grover HOFF MD PSC SYNDROME 67945 OTHER 11-03-2010 [facility] OF [place] INC FATIGUE 7831 ABNORMAL 11-03-2010 [facility] OF WEIGHT [place]IN [place] INC 78488 TOOTH 09-10-2010 THE IMPLANT BROKEN FX & ORAL DUE TO SURGERY C TRAUMA W/O MENTION COMP 5920 CALCULUS OF 08-21-2010 LAB LUIS ALFREDO KIDNEY [employer] 52555 UNSPECIFIED 08-18-2010 [place] [facility] CONSTIPATIO IMAGING ASS N 7840 HEADACHE 08-15-2010 [place] [facility] 7945 NONSPECIFIC 07-17-2010 [place] [facility] ABNORM SERV RESULTS FOUNDATIO THYROID FUNCT STUDY 85938 ABDOMINAL 05-05-2010 [place] PAIN, EMERGENCY EPIGASTRIC SERVICES 7802 SYNCOPE AND 01-03-2010 [facility] COLLAPSE EMERGENCY SERVICES 8910 OPEN WOUND 01-03-2010 [facility] KNEE EMERGENCY LEG&ANK SERVICES WITHOUT MENTION COMP V065 NEED 01-03-2010 [facility] PROPHYLACTI [facility] C INC VACCINATION W/TETANUS-D [facility] 8488 OTHER 11-24-2009 [facility] SPECIFIED EMERGENCY SITES OF SERVICES SPRAINS AND ASSOCIATES STRAINS 6918 OTHER 09-04-2009 DERMATOLOGY ATOPIC ASSOCIATES DERMATITIS OF AND RELATED [facility] CONDITIONS PSC 6989 UNSPECIFIED 09-04-2009 DERMATOLOGY PRURITIC ASSOCIATES DISORDER OF [place], PSC 6929 CONTACT 08-19-2009 [facility] DERMATITIS& EMERGENCY OTHER SERVICES ECZEMA DUE ASSOCIATES UNSPEC CAUSE 1330 SCABIES 08-14-2009 [facility] ASSOCIATES 490 BRONCHITIS 04-17-2009 [facility] NOT EMERGENCY SPECIFIED SERVICES ACUTE OR ASSOCIATES CHRONIC 7862 COUGH 04-17-2009 [place] [facility] 00549 FEVER 04-10-2009 [place] UNSPECIFIED MEDICAL IMAGING ASSOCIATES 62931 UNSPECIFIED 02-25-2009 [facility] 3328 DYSMENORRHE 04-17-2008 [facility] A [facility] INC V7612 OTHER 04-17-2008 [facility] SCREENING [facility] MAMMOGRAM INC 7061 OTHER ACNE 08-02-2007 [facility] [place], PSC 66805 LOSS OF 07-10-2007 [place] [facility] 79545 ABDOMINAL 07-10-2007 [place] [facility] PA[facility], SERV GENERALIZED FOUNDATIO 58035 REFLUX 06-19-2007 [place] [facility] ESOPHAGITIS SERV FOUNDATIO Immunization Name Date Rout CVX Reac Dose Comm Prov Is Faci e tion ent ider Refu lity Give sed n PPSV 09-0 33 TAY No TAY 23 2-20 CED CED VACC 16 MEM MEM INE 2 HOSP HOSP YRS INC INC OR NIKOSE R FOR SUBQ /IM USE Procedures Procedure DOS Code Location Performer Comment DUP-SCAN 78719 [facility] [place] XTR VEINS 7 [facility] INC INC UNILATERA L/LIMITED [facility] G0463 [facility] [place] OUTPATIEN 7 MEM H[facility] MEM [facility]OS[facility] T CLIN INC INC VISIT ASSESS & MGMT PT PLETHYSMO 39702 [place] [facility] GRAPHY 7 MEDICAL LUNG SERV VOLUMES FOUNDATIO W/WO N AIRWAY RESIST CT THORAX 77220 [place] W/O 7 [facility]ALTH[facility] HEALTHCAR CONTRAST E E [facility] SPMTRY 90437 [place] JOEL W/VC 7 MEDICAL EXPIRATOR SERV Y LEONCIO FOUNDATIO W/WO MXML N VOL VNTJ PULMONARY 91450 [place] [facility] STRESS 7 [place] [address] [place] [facility] DIFFUSING 7 [place] [address] [facility] [place] TROPONIN 7 MEM HOSP [place] [address] [facility] [place] STREPTOCO 7 MEM HOSP MEM [facility]OSP CCUS INC INC GROUP A COMPREHEN 41031 [facility] [place] SIVE 7 [facility] H[facility] METABOLIC INC INC PANEL CREATINE 36788 [facility] [place] KINASE MB 7 MEM HOSP [place] [address] [facility] [place] LACTATE 7 [facility] H[facility] INC INC CREATINE 03303 [facility] [place] KINASE 7 MEM HOSP [facility] TOTAL INC INC BLOOD 67474 [facility] [place] COUNT 7 [facility]OS[facility] COMPLETE INC INC AUTO&AUTO DIFRNTL WBC PRESSURIZ 05-12-201 94515 [facility] [place] ED/NONPRE 7 MEM HOSP MEM HOS[facility] SSURIZED INC INC INHALATIO N TREATMENT THERAPEUT 04172 [facility] [place] IC 7 MEM [facility]P [facility]OSP INJECTION INC INC IV PUSH EACH NEW DRUG THER 78811 [facility] [place] PROPH/DX 7 MEM [facility]OSP [facility] NJX IV INC INC PUSH SINGLE/1S T SBST/DRUG CULTURE 88771 [facility] [place] BACTERIAL 7 [facility]P [facility] BLOOD INC INC AEROBIC W/ID ISOLATES RADIOLOGI 99444 [facility] [place] C EXAM 7 MEM HOSP [facility]OS[facility] CHEST 2 INC INC VIEWS FRONTAL&L ATERAL ECG 23253 [facility] [place] ROUTINE 7 MEM HOSP MEM [facility]OSP ECG INC INC W/LEAST 12 LDS TRCG ONLY W/O I&R IAADI 23044 [facility] AUSITN INFLUENZA 7 MEM HOSP [facility] B VIRUS INC INC IAADI 48767 [facility] [place] INFFLUENZ 7 [facility] A A VIRUS INC INC ECG 11632 [facility] [place] ROUTINE 7 MEM HOSP MEM [facility]OSP ECG INC INC W/LEAST 12 LDS TRCG ONLY W/O I&R RADIOLOGI 69656 [facility] [place] C EXAM 7 MEM HOSP MEM [facility]OS[facility] CHEST 2 INC INC VIEWS FRONTAL&L ATERAL THER 65903 [facility] [place] PROPH/DX 7 MEM HOSP MEM HOSP NJX IV INC INC PUSH SINGLE/1S T SBST/DRUG THERAPEUT 40323 [facility] [place] IC 7 MEM H[facility]P MEM [facility]OS[facility] INJECTION INC INC IV PUSH EACH NEW DRUG PRESSURIZ 36152 [facility] [place] ED/NONPRE 7 MEM HOSP MEM HOSP SSURIZED INC INC INHALATIO N TREATMENT BLOOD 47039 [facility] [place] COUNT 7 [facility] H[facility]OS[facility] COMPLETE INC INC AUTO&AUTO DIFRNTL WBC CREATINE 34967 [facility] [place] KINASE 7 MEM HOSP [facility] TOTAL INC INC CREATINE 46722 [facility] [place] KINASE MB 7 MEM HOSP [facility] FRACTION INC INC ONLY COMPREHEN 68961 [facility] [place] SIVE 7 [facility] [address] [facility] [place] TROPONIN 7 [facility] QUANTITAT INC INC JORY CT THORAX 67291 DELL MCMILLAN W/O 6 MEDICAL SWETA CONTRAST IMAGING MATERIAL ASS RADEX 94719 [facility] [place] RIBS UNI 6 MEM H[facility]P [facility] W/POSTERO INC INC ANT CH MINIMUM 3 VIEWS RADIOLOGI 92526 DELL CONTRERASSARIKE C 6 MEDICAL EXAMINATI IMAGING ON CHEST ASS SINGLE VIEW FRONTAL ECG 73681 [facility] JETER JR ROUTINE 6 [facility] W/LEAST P 12 LDS I&R ONLY PRESSURIZ 19148 [facility] [place] ED/NONPRE 6 MEM HOSP MEM [facility]OS[facility] SSURIZED INC INC INHALATIO N TREATMENT PPSV23 12078 [facility] [place] VACCINE 2 6 MEM H[facility] YRS OR INC INC OLDER FOR SUBQ/IM USE BASIC 43722 [facility] [place] METABOLIC 6 MEM HOS[facility]OS[facility] PANEL INC INC CALCIUM TOTAL COLLECTIO 90495 [facility] [place] N VENOUS 6 MEM HOSP [facility] BLOOD INC INC VENIPUNCT URE [facility] G0378 [facility] [place] OBSERVATI 6 [facility] ON INC INC SERVICE PER HOUR ADMINISTR G0009 [facility] [place] ATION OF 6 MEM HOSP MEM HOSP PNEUMOCOC INC INC KEERTHI VACCINE BLOOD 29215 [facility] [place] COUNT 6 MEM H[facility] MEM [facility]OS[facility] COMPLETE INC INC AUTO&AUTO DIFRNTL WBC BLOOD 58325 [facility] [place] COUNT 6 MEM H[facility]OS[facility] COMPLETE INC INC AUTO&AUTO DIFRNTL WBC HOSPITAL G0378 [facility] [place] OBSERVATI 6 MEM H[facility]OS[facility] ON INC INC SERVICE PER HOUR COMPREHEN 46255 [facility] [place] SIVE 6 [facility] H[facility]OS[facility] METABOLIC INC INC PANEL TOBACCO 46508 [facility] [place] USE 6 [facility] CESSATION INC INC INTERMEDI ATE 3-10 MINUTES BLOOD 99163 [facility] [place] GASES ANY 6 MEM HOSP [facility]OS[facility] INC INC COMBINATI ON PH PCO2 PO2 CO2 HCO3 THER 57277 [facility] [place] PROPH/DX 6 MEM HOSP [facility]OS[facility] NJX IV INC INC PUSH SINGLE/1S T SBST/DRUG RADIOLOGI 32405 [facility] [place] C EXAM 6 MEM HOSP [facility]OS[facility] CHEST 2 INC INC VIEWS FRONTAL&L ATERAL PRESSURIZ 46515 [facility] [place] ED/NONPRE 6 MEM HOSP MEM HOS[facility] SSURIZED INC INC INHALATIO N TREATMENT INJECTION J2704 [facility] PROPOFOL 6 Y Y 10 MG [facility] ESOPHAGOG 26833 [facility] ASTRODUOD 6 MEDICAL ENOSCOPY SERV TRANSORAL FOUNDATIO N DIAGNOSTI C CYSTO 49285 [facility] CALIBRATI 6 [place] [facility] URTL PSC STRIX/MICHELE NOSIS ANES [address] TRANSURET 6 A HRAL [...] INC ON HCL PER 1 MG ANESTHESI 03744 COMMUNITY ROD HANSEL A 6 ANESTH INTRAPERI OF THE TONEAL BLUE LOWER ABD W/LAPS NOS COLLECTIO 89955 [facility] [place] N VENOUS 6 MEM HOSP [facility]OS[facility] BLOOD INC INC VENIPUNCT URE LAPAROSCO 58643 [facility] [place] PY W/RMVL 6 MEM HOSP MEM HOS[facility] ADNEXAL INC INC STRUCTURE S BLOOD 48761 [facility] [place] COUNT 6 MEM HOS[facility] MEM HOS[facility] HEMATOCRI INC INC T BLOOD 99101 [facility] [place] COUNT 6 [facility] MEM HOS[facility] HEMOGLOBI INC INC N ESOPHGL 22790 [facility] ZUNIGA FUNCJ 6 MEDICAL G-ESOP SERV RFLX IMPD FOUNDATIO ELTRD N PROLNG ESOPHAGEA 04690 [place] L 6 [facility] MOTILITY E E STUDY HOSPITALS HOSPITALS W/INTERP& RPT EGD 74126 [place] SEN RAFAEL TRANSORAL 6 MEDICAL BIOPSY SERV SINGLE/MU FOUNDATIO LTIPLE N DIAGNOSTI [id number] [facility] C 6 [facility] MAMMOGRAP INC INC HY [place] [address] [facility] TRANSVAGI 6 MEDICAL SWETA NAL IMAG[facility] THORAX 24061 [facility] W/O [address] [facility] MATERIAL URINLS 42816 [facility] HARPEL DIP 6 PHYSICIAN DEVENDRA STICK/TAB S GROUP LET REAGNT NON-AUTO MICRSCPY ANES 07338 [facility] WHITE CHR UPPER GI 6 [facility] ENDOSCOPY ANESTHESI PROXIMAL A PSC TO DUODENUM ESOPHAGEA 18465 [facility] ALLIANCE 6 Y Y [facility] STUDY W/INTERP& RPT ECG 39879 [facility] [place] ROUTINE 6 [facility] ECG INC INC W/LEAST 12 LDS TRCG ONLY W/O I&R ECG 41988 [facility] SHEELA ROUTINE 6 PHYSICIAN MAT ECG S GROUP W/LEAST 12 LDS I&R ONLY CV STRS 38740 [facility] CAROL TST 6 PHYSICIAN XERS&/OR S GROUP RX CONT ECG W/O I&R CV STRS 24923 [facility] [place] TST 6 [facility] XERS&/OR INC INC RX CONT ECG TRCG ONLY ECHO 19372 P[facility]RO SIFUENTES TTHRC R-T 6 MEDICAL 2D SERV W/WOM-MOD FOUNDATIO E COMPL N SPEC&[place] [address] P[facility] JANUSZ TRACT 6 MEDICAL UPPER SERV W/WO FOUNDATIO DELAYED N IMAGES W/KUB ECG 84612 [facility] [place] ROUTINE 6 [facility] ECG INC INC W/LEAST 12 LDS TRCG ONLY W/O I&R ECG 99646 [facility] [place] ROUTINE 6 [facility] ECG INC INC W/LEAST 12 LDS TRCG ONLY W/O I&R RADIOLOGI 89957 [facility] [place] [place] REYES 6 MEDICAL EXAMINATI IMAGING ON CHEST ASS SINGLE VIEW FRONTAL ECG 30015 [facility] JETER JR ROUTINE 6 [facility] W/LEAST P 12 LDS I&R ONLY CREATINE 42347 [facility] [place] KINASE 6 [facility] TOTAL INC INC COMPREHEN 74610 [facility] [place] SIVE 6 [facility] METABOLIC INC INC PANEL CREATINE 32956 [facility] [place] KINASE MB 6 [facility] FRACTION INC INC ONLY FIBRIN 47567 [facility] [place] DGRADJ 6 [facility] PRODUCTS INC INC D-DIMER QUAL/[place] [address] [facility] [place] TROPONIN 6 [facility] QUANTITAT INC INC JORY BLOOD 88548 [facility] [place] COUNT 6 [facility] COMPLETE INC INC AUTO&AUTO DIFRNTL WBC FLUOROSCO 53431 [facility] [place] PY SPX UP 5 [facility] TO 1 INC INC HOUR PHYS/QHP TIME THERAPEUT 18673 [facility] [place] IC 5 [facility] INJECTION INC INC IV PUSH EACH NEW DRUG CYSTO/URE 40963 [facility] WEBB TERO 5 [facility] IPSY [place] [address] [facility] [place] INFUSION 5 [facility] HOSP THERAPY INC INC PROPHYLAX IS/DX EA HOUR RADEX 35869 [place] [facility] ABDOMEN 1 5 MEDICAL HANSEL [place] [address] GE[place]NA ASUTIN ABDOMEN & 5 [facility]OSP PELVIS INC INC W/O CONTRAST MATERIAL THERAPEUT 40365 GEOVANNA [place] IC 5 [facility]OSP INJECTION INC INC IV PUSH EACH NEW DRUG RADEX 79198 [place] REYES ALL ELBOW 5 MEDICAL COMPLETE IMAGING MINIMUM [address] THORAX 28887 [place] BEINEKE 5 MEDICAL HANSEL W/[place] [address] [place] ABDOMEN & 4 MEDICAL SWETA PELVIS IMAGING W/O ASS CONTRAST MATERIAL RADIOLOGI 54151 GEOV[place]NA [place] C EXAM 4 [facility] CHEST 2 INC INC VIEWS FRONTAL&L ATERAL THERAPEUT 75253 GE[place] IC 4 [facility] PROPHYLAC INC INC TIC/DX INJECTION SUBQ/[place] [address] [facility] [address] [facility] W/WO DELAYED IMAGES W/KUB ESOPHAGEA 28873 [facility] 4 Y Y [facility] STUDY W/INTERP& RPT GASTRIC 37646 HIPOL[facility] HIPOLITO EMPTYING 3 SWETA SWETA IMAGING STUDY EGD 04142 LONG[place] KALI LONG[place] KALI TRANSORAL 3 BIOPSY SINGLE/MU LTIPLE RADEX 42478 [facility] HIP[facility] FINGR 3 SWETA SWETA MINIMUM 2 VIEWS FINGER L3925 [employer] ORTHOSIS 3 PIP/DIP NONTORSIO N JOINT PREFAB THERAPEUT 06821 GE[place] IC 3 [facility] PROPHYLAC INC INC TIC/DX INJECTION SUBQ/IM HYSTEROSA 08313 HIP[facility] HIPOLITO LPINGOGRA 3 SWETA SWETA PHY RS&I LIG/TRNSX 44088 HARPEL HARPEL J 3 DEVENDRA DEVENDRA FALOPIAN TUBE DEL/ABDML SURG 50049 SCHULSTAD SCHULSTAD DELIVERY 3 GEE GEE ONLY LOW 741 GEOV[place]NA [place] CERVICAL 3 [facility] INC INC SECTION 75125 HARPEL HARPEL CONTRACTI 2 DEVENDRA DEVENDRA ON STRESS TEST 68223 MALGORZATA MCGARRY NONSTRESS 2 TRISH TRISH TEST 52689 [place] NONSTRESS 2 [place] [address] [place] INFUSION 2 [facility] HYDRATION INC INC INITIAL 31 MIN-1 HOUR URNLS DIP 16407 [facility] 2 [facility] STICK/TAB INC INC LET REAGENT AUTO MICROSCOP Y THERAPEUT 26150 [place] IC 2 [facility] PROPHYLAC INC INC TIC/DX INJECTION SUBQ/IM 75554 [place] NONSTRESS 2 [facility] TEST INC INC 91580 [place] NONSTRESS 2 [place] [address] GEOV[place] 2 [facility] UTERUS INC INC LIMITED 1/> FETUSES THERAPEUT 61914 GE[place] IC 2 [facility] PROPHYLAC INC INC TIC/DX INJECTION SUBQ/[place] [address] [place] RETROPERI 2 [facility] TONEAL INC INC REAL TIME W/IMAGE COMPLETE THERAPEUT 51429 [place] IC 2 [facility] PROPHYLAC INC INC TIC/DX INJECTION SUBQ/IM RADIOLOGI 80772 DELL MCMILLAN C EXAM 2 MEDICAL SWETA CHEST 2 IMAGING VIEWS ASS FRONTAL&L ATERAL RADEX 03280 EVELIA ALTAMIRANO FOOT 2 [facility] COMPLETE MINIMUM 3 VIEWS NONCOVERE A9270 EVELIA ALTAMIRANO D ITEM OR 2 [facility] SERVICE URNLS DIP 45723 [place] 2 [facility] STICK/TAB INC INC LET REAGENT AUTO MICROSCOP Y US PREG 39108 DELL 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 UTERUS 2 MEDICAL SWETA REAL TIME IMAGING W/[place] [address] [place] 2 [facility] UTERUS INC INC LIMITED 1/> FETUSES CULTURE 93524 GE[place]NA [place] BACTERIAL 2 [facility] INC INC QUANTTATI VE COLONY COUNT URINE US PREG 39478 GE[place]NA [place] UTERUS 2 [facility] REAL TIME INC INC W/IMAGE DCMTN TRANSVAG IADNA 63727 BIO BIO LANDY 2 REFERNCE REFERNCE SPECIES 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 NABIL L.P. UNDARM 2 OTH THAN WOOD PAIR PAD TIP&HNDGR IP CT LOWER 16122 DELL HIPOLITO EXTREMITY 2 MEDICAL SWETA W/O IMAGING CONTRAST ASS MATERIAL OPHTH 08817 SCIFRES SCIFRES MEDICAL 2 ANG ANG XM&EVAL COMPRE NEW PT 1/> VST DETERMINA 03234 SCIFRES SCIFRES TION 2 ANG ANG REFRACTIV E STATE THERAPEUT 67835 YASMEEN Song IC 2 PROPHYLAC TIC/DX INJECTION SUBQ/IM INJ J0702 YASMEEN Song BETAMETHA 2 SONE ACETATE & PHOSPHATE 3 MG INJECTION J1030 YASMEEN Song 2 METHYLPRE DNISOLONE ACETATE 40 MG URINE 35451 ROSELINE COREA 2 NAHOMY BERUMEN DEVENDRA IONA VISUAL COLOR CMPRSN METHS URINE 35058 [facility] [place] 2 [facility] TEST INC INC VISUAL COLOR CMPRSN METHS BLOOD 75445 GE[place] TYPING 2 [facility] SEROLOGIC INC INC RH (D) CULTURE 74093 [place] BACTERIAL 2 [facility] INC INC QUANTTATI VE COLONY COUNT URINE US PREG 57000 GEOV[place]NA [place] UTERUS 2 [facility] REAL TIME INC INC W/IMAGE DCMTN TRANSVAG URNLS DIP 72331 GE[place] 2 [facility] STICK/TAB INC INC LET REAGENT AUTO MICROSCOP Y GONADOTRO 88194 GE[place]NA [place] PIN 2 [facility] CHORIONIC INC INC QUANTITAT JORY BLOOD 08802 [place] COUNT 2 [facility] COMPLETE INC INC AUTO&AUTO DIFRNTL WBC BLOOD 35399 [place] COUNT 1 [facility] COMPLETE INC INC AUTO&AUTO DIFRNTL WBC BLOOD 61495 [place] COUNT 1 [facility] HEMOGLOBI INC INC N BLOOD 37495 [place] COUNT 1 [facility] HEMATOCRI INC INC T COLLECTIO 81085 GE[facility] N VENOUS 1 [facility] [place] [address] PATHOLOGY PATHOLOGY SURG 1 & & PATHOLOGY CYTOLOGY CYTOLOGY LAB LAB GROSS&[place] [address] GEOVANNA [place] NUCLEOTID 1 [facility] ASE 5'- INC INC ANESTHESI 43385 [facility] Song 1 ANESTH INCOMPLET OF THE E/MISSED BLUE THERAPEUT 14472 GEOVANNA [place] IC 1 [facility]OSP INJECTION [place] [address] GEOV[place]NA [place] INFUSION 1 [facility]OS[facility] THERAPY/P INC INC ROPHYLAXI S /DX 1ST TO 1 HR TX MISSED 53119 GE[place]NA [place] 1 [facility]OSP FIRST INC INC TRIMESTER SURGICAL BLOOD 58213 GE[place]NA [place] TYPING 1 [facility] HOSP SEROLOGIC INC INC RH (D) [place] [address] GEOV[place]NA [place] INFUSION 1 [facility]OSP THERAPY INC INC PROPHYLAX IS/DX EA HOUR US PREG 55860 [facility] UTERUS 1 [facility]IN[facility] OF W/IMAGE SHERYL DCMTN TRANSVAG US PREG 78169 [facility] UTERUS 1 [facility] W/IMAGE SHERYL DCMTN TRANSVAG COLLECTIO 40233 [place] N VENOUS 1 [facility] BLOOD INC INC VENIPUNCT URE GONADOTRO 80656 GEOV[place]NA [place] PIN 1 [facility] CHORIONIC INC INC QUANTITAT JORY GONADOTRO 74690 GE[place] PIN 1 [facility] CHORIONIC INC INC QUANTITAT JORY COLLECTIO 51822 GE[place] N VENOUS 1 [facility] BLOOD INC INC VENIPUNCT URE COLLECTIO 20992 GE[place] N VENOUS 1 [facility] BLOOD INC INC VENIPUNCT URE GONADOTRO 13329 GE[place] PIN 1 [facility] CHORIONIC INC INC QUANTITAT JORY GONADOTRO 74266 [place] PIN 1 [facility] CHORIONIC INC INC QUANTITAT JORY COLLECTIO 19692 GE[place] N VENOUS 1 [facility] BLOOD INC INC VENIPUNCT URE URNLS DIP 76932 GEOV[place]NA [place] 1 [facility] STICK/TAB INC INC LET REAGENT AUTO MICROSCOP Y BLOOD 87876 GEOV[place]NA [place] TYPING 1 [facility] SEROLOGIC INC INC RH (D) GONADOTRO 60998 GEOVANNA [place] PIN 1 [facility]OS[facility] CHORIONIC INC INC QUANTITAT JORY BLOOD 35523 GE[place]NA [place] TYPING 1 [facility] SEROLOGIC INC INC ABO BLOOD 66336 GEOV[place]NA [place] COUNT 1 [facility]OS[facility] COMPLETE INC INC AUTO&[place]NTL [place]BC [place] PREG 84234 [facility] UTERUS 1 [facility] W/IMAGE SHERYL DCMTN TRANSVAG RHEUMATOI 62988 [facility] D FACTOR 1 AMERIC AMERIC QUANTITAT HOLDING HOLDING JORY ANTINUCLE 06516 [facility] AR 1 AMERIC AMERIC ANTIBODIE HOLDING HOLDING S MODESTO BLOOD 52529 [facility] COUNT 1 AMERIC AMERIC COMPLETE HOLDING HOLDING AUTO&[place] [address] [facility] BLOOD/URI 1 AMERIC AMERIC C ACID HOLDING HOLDING SEDIMENTA 74567 [facility] TION RATE 1 AMERIC AMERIC RBC HOLDING HOLDING AUTOMATED C-REACTIV 44758 [facility] E PROTEIN 1 AMERIC AMERIC HOLDING HOLDING DEEP D9220 THE GUILLERMO SEDATION/ 1 IMPLANT & DON GENERAL ORAL ANESTHESI SURGERY C A-1ST 30 MINUTES SEDIMENTA 11710 GEOV[place]NA [place] TION RATE 1 [facility] RBC INC INC NON-AUTOM ATED DEEP D9220 THE LAZAR III SEDATION/ 1 IMPLANT & CAROL GENERAL ORAL ANESTHESI SURGERY C A-1ST 30 MINUTES URINE 28795 GEOV[place]NA [place] 1 [facility]ENTER VISUAL COLOR CMPRSN METHS COLLECTIO 56901 Duncan BAUTISTA N VENOUS 1 YASMEEN BERUMEN BLOOD PSC VENIPUNCT URE BLOOD 51120 [facility] COUNT 1 [facility] INC COMPLETE AUTO&[place] [address] [facility] FERRITIN 1 [facility] [place] [address] [facility] IRON 1 [facility] IRON 33304 [facility] BINDING 1 [facility] CAPACITY DEEP D9220 THE GUILLERMO SEDATION/ 1 IMPLANT & DON GENERAL ORAL ANESTHESI SURGERY C A-1ST 30 MINUTES ORTHOPANT 88590 THE GUILLERMO OGRAM 1 IMPLANT & DON ORAL SURGERY C CALCULUS 90558 [facility] QUANTITAT 1 AMERIC AMERIC JORY HOLDINGS HOLDINGS CHEMICAL RADEX 88593 [place] ABDOMEN 1 1 MEDICAL SWETA IMAGING ANTEROPOS ASS TERIOR VIEW 3D 24891 [place] RENDERING 1 MEDICAL SWETA W/INTERP IMAGING & [place] [address] [place] HEAD/BRAI 1 MEDICAL SWETA N W/O IMAGING CONTRAST ASS MATERIAL THERAPEUT 98260 GE[facility]NA [place] IC 1 [facility] INJECTION [place] [address] GEOV[place]NA [place] INFUSION 1 [facility] THERAPY/P INC INC ROPHYLAXI S /DX 1ST TO 1 HR EGD 90025 [place] KALI TRANSORAL 0 MEDICAL BIOPSY SERV SINGLE/[place] [address] GEOVANNA [place] INFUSION 0 [facility] THERAPY/P INC INC ROPHYLAXI S /DX 1ST TO 1 HR SIMPLE 62238 NELSON WEHRMAN REPAIR 0 EMERGENCY III RACHID SCALP/NEC SERVICES K/AX/ARBEN T/TRUNK 2.5CM/< IM ADM 39645 GE[facility]NA [place] PRQ ID 0 [facility] SUBQ/IM INC INC NJXS 1 VACCINE BLOOD 40690 [place] COUNT 0 [facility] COMPLETE INC INC AUTO&AUTO DIFRNTL WBC CLOSURE 8659 GE[place] SKIN&SUBC 0 [facility] UTANEOUS INC INC TISSUE OTHER SITES BLOOD 00585 [place] COUNT 9 [facility] COMPLETE INC INC AUTO&AUTO DIFRNTL WBC BASIC 77849 GE[place] METABOLIC 9 [facility] PANEL INC INC CALCIUM TOTAL THERAPEUT 12684 [place] IC 9 [facility] PROPHYLAC INC INC TIC/[place] INJE[place] SUBQ/[place] [address] GEOVANNA [place] INFUSION 9 [facility] THERAPY/P INC INC ROPHYLAXI S /DX 1ST TO 1 HR RADIOLOGI 88462 GEOV[place]NA [place] C EXAM 9 [facility] CHEST 2 INC INC VIEWS FRONTAL&L ATERAL RADIOLOGI 44507 DELL MCMILLAN C EXAM 9 MEDICAL JEFF CHEST 2 IMAGING VIEWS ASSOCIATE FRONTAL&[place] [address] GEOVANNA [place] HEAD/BRAI 8 [facility] N W/O & [place] [address] GEOV[place]NA [place] TRANSVAGI 8 [facility] NAL INC INC COMPUTER- 61167 GEOV[place]NA [place] AIDED 8 [facility] DETECTION INC INC SCREENING MAMMOGRAP HY 3D 55964 GEOV[place]NA [place] RENDERING 8 [facility] W/INTERP INC INC & POSTPROCE SS SUPERVISI ON SCREENING 06907 [facility] [place] 8 [facility] MAMMOGRAP INC INC HY BILATERAL COLONOSCO [address] [place] PY FLX DX 8 MEDICAL MEDICAL W/COLLJ SERV SERV SPEC [place] [address] GEOV[place]NA [place] THER 8 [facility] PROPH/DX INC INC 1ST >1 HR Encounters Encounter Start End Date Code Location Performer Type Date HOSPITAL GEOVANNA Coyle 7 [facility] OUTPATIEN INC [facility] GEOVANNA Coyle 7 [facility] 7 7 [facility] GEOVANNA Coyle 7 [facility] OUTPATIEN INC T EMERGENCY 96965 GEOVANNA Coyle 7 [facility] DEPARTMEN INC T VISIT MODERATE SEVERITY EMERGENCY 31795 HARJINDER DIAZ DEPT 7 7 PHYSICIAN VISIT S, PLL HIGH SEVERITY& THREAT FUN HOSPITAL GEOVANNA - 7 7 [facility] OUTPATIEN INC T EMERGENCY 70202 GEOVANNA 7 7 [facility] T VISIT HIGH/URGE NT SEVERITY OFFICE 87603 [facility] HARPEL OUTPATIEN 7 7 PHYSICIAN T VISIT S GROUP 10 MINUTES EMERGENCY 64905 GEOVANNA 6 6 [facility] T VISIT LIMITED/M INOR [facility] GEOVANNA - 6 6 [facility] OUTPATIEN [facility] T EMERGENCY 33797 GEOVANNA 6 6 [facility] T VISIT HIGH/URGE NT SEVERITY HOSPITAL GEOVANNA - 6 6 [facility] OUTPATIEN INC T OFFICE 05555 [facility] OUTPATIEN 6 6 MEDICAL T VISIT SERV 25 FOUNDATIO MINUTES N OFFICE 42062 [facility] ARACELI LIS OUTPATIEN 6 6 MEDICAL T VISIT SERV 15 FOUNDATIO MINUTES N OFFICE 59854 [facility] 6 6 [place] [facility] 15 PSC MINUTES HOSPITAL [facility] - 6 6 [facility] GE[facility] - 6 6 [facility] OUTPATIEN INC T OFFICE 84667 [facility] 6 6 [place] [facility] 10 PSC MINUTES OFFICE 19063 [facility] HARPEL OUTPATIEN 6 6 PHYSICIAN DEVENDRA T VISIT S GROUP 15 MINUTES OFFICE 73430 [facility] 6 6 [place] [facility] 25 PSC MINUTES OFFICE 03040 [facility] HARPEL OUTPATIEN 6 6 PHYSICIAN DEVENDRA T VISIT S GROUP 25 MINUTES OFFICE 26531 [facility] T VISIT SERV 25 FOUNDATIO MINUTES [facility] - 6 6 [facility] 56[facility] PHYSICIAN DEVENDRA T VISIT S GROUP 15 MINUTES HOSPITAL GEOVANNA - 6 6 [facility]EN [facility] GEOVANNA - 6 6 [facility] 56930 [facility] 6 6 PHYSICIAN DEVENDRA T VISIT S GROUP 15 MINUTES OFFICE [address] [facility] 6 6 MEDICAL MICHELE T VISIT SERV 15 FOUNDATIO MINUTES [facility] UN[facility]ERS[facility] - 6 6 [facility] 93313 [facility] 6 6 MEDICAL T VISIT SERV 25 FOUNDATIO MINUTES [facility] GEOVANNA - 6 6 [facility]PAT[facility]EN [facility] GE[facility] - 6 6 [facility] - 6 6 [facility]PATI[facility] UNIVERSIT - 6 6 [facility] OFF[facility] 61321 [facility] 6 6 PHYSICIAN MAT T NEW 60 S GROUP MINUTES [facility] GEOVANNA - 6 6 [facility] OUTPATIEN [facility] EMERGENCY 93391 GEOVANNA 6 6 [facility] DEPARTMEN [facility] T VISIT MODERATE SEVERITY HOSPITAL GEOVANNA - 6 6 [facility] OUTPATIEN [facility] GEOVANNA - 6 6 [facility] OUTPATIEN [facility] EMERGENCY 51396 GEOVANNA 6 6 [facility] T VISIT LOW/MODER SEVERITY OFFICE 53762 GEOVANNA ROLANDO OUTPATIEN 6 6 [facility] 20 [facility] GEOVANNA - 5 5 [facility] OUTPATIEN [facility] EMERGENCY 44389 GEOVANNA 5 5 [facility] VISIT LIMITED/M INOR PROB OFFICE 67469 GEOVANNA OUTPATIEN 5 5 [facility] [address] [facility] GEOVANNA - 5 5 [facility]PATIEN [facility] GEOVANNA - 5 5 [facility] OUTPATIEN [facility] T OFFICE 56786 OBED GOM[facility] OUTPATIEN 5 5 PHYSICIAN [facility] 30 [facility] GEOVANNA - 5 5 [facility] OUTPATIEN [facility] T OFFICE 47267 DEMAR BENZ, OUTPATIEN 4 4 III ANGIE III [facility] 30 [facility] GEOVANNA - 4 4 [facility] OUTPATIEN [facility] GEOVANNA - 4 4 [facility] OUTPATIEN [facility] T OFFICE 08835 [facility] 4 4 [facility] 10 [facility]ERS[facility] - 4 [facility] OFF[facility] 03875 [facility] OUT[facility] 4 4 T [facility] 45 [facility] GEOVANNA - 3 3 [facility] OUTPATIEN [facility] T EMERGENCY 03932 HU[facility] THO HUHN THO 3 3 DEPARTMEN T VISIT MODERATE SEVERITY OFFICE 64341 Duncan HOLDEN 3 3 YASMEEN MARIE T VISIT [facility] 15 MINUTES [facility] GEOVANNA - 3 3 [facility] OUTPATIEN [facility] OFFICE 69916 MUSIC MIKKI MUSIC MIKKI OUTPATIEN 3 3 T NEW 20 MINUTES HOSPITAL GEOVANNA - 3 3 [facility] INPATIENT [facility] GEOVANNA - 2 2 [facility] OUTPATI[facility] GEOVANNA - 2 2 [facility] OUTPATIEN [facility] EMERGENCY 76820 GEOVANNA 2 2 [facility] VISIT LOW/MODER SEVERITY HOSPITAL GEOVANNA - 2 2 [facility] GEOV[facility]NA - 2 2 [facility] GEOV[facility]NA - 2 2 [facility] EVELIA - 2 2 [facility] 63768 EVELIA 2 2 [facility] T VISIT MODERATE SEVERITY HOSPITAL GEOVANNA - 2 2 [facility] EMERGENCY 61401 GEOVANNA 2 2 [facility] T VISIT MODERATE SEVERITY HOSPITAL GEOVANNA - 2 2 [facility] OUTPATIEN [facility] PERIODIC 81978 ROSELINE Kendrick PREVENTIV 2 2 NAHOMY BERUMEN E MED EST PATIENT 40-64YRS OFFICE 21333 ROSELINE COREA OUTPATIEN 2 2 NAHOMY BERUMEN DEVENDRA VISIT 15 MINUTES HOSPITAL GEOVANNA - 2 2 [facility] OUTPATIEN [facility] HOSPITAL GEOVANNA - 2 2 [facility] OUTPATIEN [facility] EMERGENCY 02967 NELSON DIAZ DEPT 2 2 EMERGENCY JAMESON VISIT SERVICES HIGH SEVERITY& THREAT FUN EMERGENCY 92695 GEOVANNA 2 2 [facility] T VISIT MODERATE SEVERITY HOSPITAL GEOVANNA - 1 1 [facility] OUTPATIEN INC T OFFICE 49475 ROSELINE COREA OUTPATIEN 1 1 NAHOMY [facility]SA[facility] 60 MINUTES HOSPITAL GEOVANNA - 1 1 [facility] OUTPATIEN INC T HOSPITAL GEOVANNA - 1 1 [facility] OUTPATIEN INC T HOSPITAL GEOVANNA - [facility] 1 [facility] 1 [facility] 1 [facility] T EMERGENCY 19658 NELSON DIAS 1 1 EMERGENCY DEPARTMEN SERVICES T VISIT HIGH/URGE NT SEVERITY EMERGENCY 03246 [facility] 1 1 [facility] T VISIT MODERATE SEVERITY [facility] - 1 1 [facility] T EMERGENCY 57389 NELSON COOL 1 1 EMERGENCY III RACHID DEPARTMEN SERVICES T VISIT HIGH/URGE NT SEVERITY EMERGENCY 39946 [facility] 1 1 [facility] T VISIT MODERATE SEVERITY OFFICE 93132 [facility] [place] OUTPATIEN [address] MINUTES OFFICE 33481 A C OUTPERRY 1 1 YASMEEN BERUMEN T VISIT PSC 15 MINUTES [facility]OSP[facility] - 1 1 [facility] T OFFICE 63697 A C JAMIN BAUTISTA OUTPATIMAGDIEL 1 1 YASMEEN BERUMEN T VISIT PSC 15 MINUTES EMERGENCY 22184 NELSON COOL DEPT 1 1 EMERGENCY III RACHID VISIT SERVICES HIGH SEVERITY& THREAT FUN [facility]OSP[facility] - 1 1 [facility] OUT[facility] INC T EMERGENCY 73936 [facility] 1 1 [facility] DEPARTMEN INC T VISIT HIGH/URGE NT SEVERITY OFFICE 97846 [place] LACEY MCCULLOUGHPATIEN 1 1 MEDICAL L T NEW 45 SERV MINUTES [facility] EMERGENCY 10875 NELSON JAVED DEPT 0 0 EMERGENCY MEDARDO VISIT SERVICES HIGH SEVERITY& THREAT FUNCJ EMERGENCY 21046 NELSON COLO DEPT 0 0 EMERGENCY III RACHID VISIT SERVICES HIGH SEVERITY& THREAT FUNJ EMERGENCY 12278 [facility] 0 0 [facility] DE[facility] INC T VISIT MODERATE SEVERITY [facility] - 0 0 [facility] T EMERGENCY 21452 NELSON COOL 0 0 EMERGENCY III, DEPARTMEN SERVICES ROSELYN T VISIT HIGH/URGE ASSOCIATE NT S SEVERITY OFFICE 87945 NAVIN CERVANTES 0 0 GY VARGHESE W T VISIT ASSOCIATE 15 S OF MINUTES [facility] EMERGENCY 76747 NELSON LOERA, 0 0 EMERGENCY CRUZ DEPARTMEN SERVICES O T VISIT MODERATE ASSOCIATE SEVERITY S EMERGENCY 42128 NELSON DIAZ, 0 0 EMERGENCY ANN S DEPARTMEN SERVICES T VISIT MODERATE ASSOCIATE SEVERITY S EMERGENCY 36314 NELSON LOERA, 9 9 EMERGENCY CRUZ DEPARTMEN SERVICES O T VISIT HIGH/URGE ASSOCIATE NT S SEVERITY [facility]OS[facility] - 9 9 [facility] OUT[facility] INC T EMERGENCY 36098 [facility] 9 9 [facility] DEPARTMEN INC T VISIT MODERATE SEVERITY OFFICE 05282 NAVIN CHAHAL 9 9 FAMILY [place] T VISIT CARE 15 CLINIC MINUTES [facility] - 8 8 [facility] OUTPATIEN INC T OFFICE 73313 NAVIN FLANNERY 8 8 GY BEATRICE P T VISIT ASSOCIATE 15 S OF MINUTES [facility] - 8 8 [facility] OUTPATIEN INC T OFFICE 57837 [place] OUTSERGEI 8 8 MEDICAL MEDICAL T VISIT SERV SERV 25 FOUNDATIO FOUNDATIO MINUTES
--- OUTSIDE RECORDS SUMMARY | 2017-03-22 03:24 | External Medical Summary Rpt ---
Demographics Preferred Language Greek Marital Status Unknown Shinto Affiliation Unknown Race Unknown Ethnic Group Unknown Author Author DIANE Address Unknown Phone Immunization No patient found.
--- OUTSIDE RECORDS SUMMARY | 2017-03-22 03:24 | External Medical Summary Rpt ---
Author Author EDGARSENG Montgomery, [facility] [employer] Organization [facility] [employer] Address Unknown Phone Unavailable Results 25-Hydroxyvitamin D [Mass/volume] in Serum or Plasma Observa Value Referen Units Interpr Notes Date tion ce etation Range 25-Hydrox 30.0 - ng/mL No Vitamin D Sep 22 yvitamin 100.0 informati 2017 9:55 D on in deficienc AM [Mass/vol source y has ume] in data been Serum or defined Plasma by the [place] ofMedicin e and an Endocrine Society practice guideline as alevel of serum 25-OH vitamin D less than 20 ng/mL (1,2).The Endocrine Society went on to further define vitamin Dinsuffic iency as a level between 21 and 29 ng/mL (2).1. IOM (Institut e of Medicine) . 2010. Dietary reference intakes for calcium and D. [place]: [employer].2. Duarte MF, Shoaib NC, Trever Ahuja PAT, et al.Evalua tion, treatment , and preventio n of vitamin Ddeficien cy: an Endocrine Society clinical practiceg uideline. JCEM. 2010; 96(7):191 1-30.Perf ormed at: - [facility] [address] [id number] Sanitary Aide: Jalen Coreas PhD, Phone: [phone] CBC W Auto Differential panel in Blood Observa Value Referen Units Interpr Notes Date tion ce etation Range Basophils 0 - 0.2 K/MM3 Normal No Sep 22 informati 2016 9:55 [#/volume on in AM ] in source Blood by data Automated count Basophils 0.1 - 2.0 % Normal No Sep 22 /100 informati 2016 9:55 leukocyte on in AM s in source Blood by data Automated count Eosinophi 0.0 - 0.4 K/mm3 Normal No Sep 22 ls informati 2016 9:55 [#/volume on in AM ] in source Blood by data Automated count Eosinophi 0.1 - % Normal No Sep 22 ls/100 12.0 informati 2017 9:55 leukocyte on in AM s in source Blood by data Automated count Granulocy 1.8 - 7.8 K/mm3 Low No Sep 22 woody informati 2017 9:55 [#/volume on in AM ] in source Blood by data Automated count Granulocy 37.0 - % Low No Sep 22 woody/100 80.0 informati 2017 9:55 leukocyte on in AM s in source Blood by data Automated count Hematocri 37.0 - % Low No Sep 22 t [Volume 47.0 informati 2017 9:55 on in AM Fraction] source of Blood data Hemoglobi 12.2 - g/dL Low No Sep 22 n 16.2 informati 2017 9:55 [Mass/vol on in AM ume] in source Blood data Lymphocyt 0.7 - 4.5 K/mm3 Normal No Sep 22 es informati 2017 9:55 [#/volume on in AM ] in source Unspecifi data ed specimen by Automated count Lymphocyt 10 - 50.0 % Normal No Sep 22 es informati 2017 9:55 [#/volume on in AM ] in source Unspecifi data ed specimen by Automated count Erythrocy 27 - 31.2 pg Normal No Sep 22 te mean informati 2017 9:55 corpuscul on in AM ar source hemoglobi data n [Entitic mass] Erythrocy 31.8 - g/dl Normal No Sep 22 te mean 35.4 informati 2017 9:55 corpuscul on in AM ar source hemoglobi data n concentra tion [Mass/vol ume] by Automated count Erythrocy 82.2 - fl Normal No Sep 22 te mean 97.8 informati 2017 9:55 corpuscul on in AM ar volume source [Entitic data volume] by Automated count Monocytes 0.1 - 1.0 K/mm3 High No Sep 22 informati 2017 9:55 [#/volume on in AM ] in source Blood by data Automated count Monocytes 1.7 - 9.3 % High No Sep 22 /100 informati 2017 9:55 leukocyte on in AM s in source Blood by data Automated count Platelet 7.4 - fl Normal No Sep 22 mean 10.4 informati 2016 9:55 volume on in AM [Entitic source volume] data in Blood by Automated count Platelets 142 - 424 K/mm3 Normal No Sep 22 informati 2017 9:55 [#/volume on in AM ] in source Blood data Erythrocy 4.2 - 5.4 M/mm3 Normal No Sep 22 woody informati 2017 9:55 [#/volume on in AM ] in source Amniotic data fluid Erythrocy 11.5 - % Normal No Sep 22 te 17.5 informati 2017 9:55 distribut on in AM ion width source [Entitic data volume] by Automated count Leukocyte 4.8 - K/MM3 High No Sep 22 s 10.8 informati 2017 9:55 [#/volume on in AM ] in source Blood data Differential panel, method unspecified - Observa Value Referen Units Interpr Notes Date tion ce etation Range Neutrophi 0 - 8 % Normal No Sep 22 ls.band informati 2017 9:55 form/100 on in AM leukocyte source s in data Blood by Automated count Eosinophi 0 - 3 % Normal No Sep 22 ls/100 informati 2016 9:55 leukocyte on in AM s in source Blood by data Manual count LYMPH 15 10 - 50 % Normal No Sep 22 informa 2017 tion in 9:55 AM source data Monocytes 2 - 9 % Normal No Sep 22 /100 informati 2017 9:55 leukocyte on in AM s in source Blood by data Automated count Platele NORMAL No No No No Sep 22 ts informa informa informa informa 2016 [Presen tion in tion in tion in tion in 9:55 AM ce] in source source source source Blood data data data data by Light microsc opy Neutrophi 42 - 76 % High No Sep 22 ls informati 2016 9:55 [#/volume on in AM ] in source Blood by data Automated count Cells No #CELLS No No Sep 22 Counted informati informati informati 2017 9:55 Total [#] on in on in on in AM in Blood source source source data data data Hemoglobin A1c in Blood Observa Value Referen Units Interpr Notes Date tion ce etation Range Hemoglo 5.8 0.0 - % Normal < 6% Sep bin A1c 7.0 NON-PAULINE 2017 in BETIC 9:55 AM Blood LEVEL< 7% CONTROL LED DIABETI C LEVEL> 8% POORLY CONTROL LED DIABETI C LEVEL Comprehensive metabolic 2000 panel in Serum or Plasma Observa Value Referen Units Interpr Notes Date tion ce etation Range Albumin/G 1.1 - 1.8 No Normal No Sep 22 lobulin informati informati 2017 9:55 [Mass on in on in AM ratio] in source source Serum or data data Plasma Albumin 3.4 - 5.0 gm/dL Normal No Sep 22 [Mass/vol informati 2017 9:55 ume] in on in AM Serum or source Plasma data Alkaline 46 - 116 U/L Normal No Sep 22 phosphata informati 2017 9:55 se on in AM [Enzymati source c data activity/ volume] in Serum or Plasma Bilirubin 0.2 - 1.0 mg/dL Low No Sep 22 .total informati 2017 9:55 [Mass/vol on in AM ume] in source Serum or data Plasma Urea 7 - 18 mg/dL Normal No Sep 22 nitrogen informati 2017 9:55 [Mass/vol on in AM ume] in source Serum or data Plasma Calcium 8.5 - mg/dL Normal No Sep 22 [Mass/vol 10.1 informati 2017 9:55 ume] in on in AM Serum or source Plasma data Chloride 98 - 107 mmoL/L Low No Sep 22 [Moles/vo informati 2017 9:55 lume] in on in AM Serum or source Plasma data Carbon 21.0 - mmoL/L Normal No Sep 22 dioxide, 32.0 informati 2017 9:55 total on in AM [Moles/vo source lume] in data Serum or Plasma Creatinin 0.55 - mg/dL Normal No Sep 22 e 1.02 informati 2017 9:55 [Mass/vol on in AM ume] in source Serum or data Plasma Estimated 59- ML/MIN No REFERENCE Sep 22 informati RANGE: 2017 9:55 glomerula on in >60 AM r source ML/MIN/1. filtratio data 73 SQUARE n rate METERSIf (GF this patient is -A merican, then multiply theresult by 1.210. Globulin 1.3 - 3.2 gm/dL High No Sep 22 [Mass/vol informati 2017 9:55 ume] in on in AM Serum source data Glucose 74 - 106 mg/dL Normal No Sep 22 [Mass/vol informati 2017 9:55 ume] in on in AM Serum or source Plasma data Potassium 3.5 - 5.1 mmoL/L Normal No Sep 22 informati 2017 9:55 [Moles/vo on in AM lume] in source Serum or data Plasma Sodium 136 - 145 mmoL/L Low No Sep 22 [Moles/vo informati 2017 9:55 lume] in on in AM Serum or source Plasma data Aspartate 15 - 37 U/L Low No Sep 22 informati 2017 9:55 aminotran on in AM sferase source [Enzymati data c activity/ volume] in Serum or Plasma Alanine 12 - 78 U/L Normal No Sep 22 aminotran informati 2017 9:55 sferase on in AM [Enzymati source c data activity/ volume] in Serum or Plasma Protein 6.4 - 8.2 gm/dL Normal No Sep 22 [Mass/vol informati 2017 9:55 ume] in on in AM Serum or source Plasma data Thyroxine (T4) free [Mass/volume] in Serum or Plasma Observa Value Referen Units Interpr Notes Date tion ce etation Range Thyroxine 0.76 - ng/dL Normal No Sep 22 (T4) 1.46 informati 2017 9:55 free on in AM [Mass/vol source ume] in data Serum or Plasma Lipid 1996 panel in Serum or Plasma Observa Value Referen Units Interpr Notes Date tion ce etation Range Cholester < 200 mg/dL High No Sep 22 ol informati 2017 9:55 [Moles/vo on in AM lume] in source Unspecifi data ed specimen Cholester 40 - 60 MG/DL High No Sep 22 ol in HDL informati 2017 9:55 on in AM [Mass/vol source ume] in data Serum or Plasma Cholester 0 - 130 mg/dL Normal No Sep 22 ol in LDL informati 2016 9:55 on in AM [Mass/vol source ume] in data Serum or Plasma by calcmaulik on Triglycer 30 - 200 mg/dL Normal No Sep 22 christi informati 2017 9:55 [Moles/vo on in AM lume] in source Serum or data Plasma Cholester 0 - 40 No Normal No Sep 22 ol in informati informati 2017 9:55 VLDL on in on in AM [Mass/vol source source ume] in data data Serum or Plasma Thyrotropin [Units/volume] in Serum or Plasma Observa Value Referen Units Interpr Notes Date tion ce etation Range Thyrotrop 0.358 - uIU/ml Normal No Sep 22 in 3.740 informati 2017 9:55 [Units/vo on in AM lume] in source Serum or data Plasma Lactate [Moles/volume] in Blood Observa Value Referen Units Interpr Notes Date tion ce etation Range Lactate 0.4 - 2.0 mmol/L Normal No Sep 13 [Moles/vo informati 2017 7:20 lume] in on in PM Blood source data Comprehensive metabolic 2000 panel in Serum or Plasma Observa Value Referen Units Interpr Notes Date tion ce etation Range Albumin/G 1.1 - 1.8 No Low No Sep 13 lobulin informati informati 2017 7:20 [Mass on in on in PM ratio] in source source Serum or data data Plasma Albumin 3.4 - 5.0 gm/dL Normal No Sep 13 [Mass/vol informati 2017 7:20 ume] in on in PM Serum or source Plasma data Alkaline 46 - 116 U/L Normal No Sep 13 phosphata informati 2017 7:20 se on in PM [Enzymati source c data activity/ volume] in Serum or Plasma Bilirubin 0.2 - 1.0 mg/dL Low No Sep 13 .total informati 2017 7:20 [Mass/vol on in PM ume] in source Serum or data Plasma Urea 7 - 18 mg/dL Normal No Sep 13 nitrogen informati 2017 7:20 [Mass/vol on in PM ume] in source Serum or data Plasma Calcium 8.5 - mg/dL Normal No Sep 13 [Mass/vol 10.1 informati 2017 7:20 ume] in on in PM Serum or source Plasma data Chloride 98 - 107 mmoL/L Low No Sep 13 [Moles/vo informati 2017 7:20 lume] in on in PM Serum or source Plasma data Carbon 21.0 - mmoL/L Normal No Sep 13 dioxide, 32.0 informati 2017 7:20 total on in PM [Moles/vo source lume] in data Serum or Plasma Creatinin 0.55 - mg/dL Normal No Sep 13 e 1.02 informati 2017 7:20 [Mass/vol on in PM ume] in source Serum or data Plasma Creatinin 50 - 200 ML/MIN Normal No Sep 13 e renal informati 2017 7:20 clearance on in PM source predicted data by Cockcroft -Gault formula Estimated 59- ML/MIN No REFERENCE Sep 13 informati RANGE: 2017 7:20 glomerula on in >60 PM r source ML/MIN/1. filtratio data 73 SQUARE n rate METERSIf (GF this patient is -A merican, then multiply theresult by 1.210. Globulin 1.3 - 3.2 gm/dL High No Sep 13 [Mass/vol informati 2017 7:20 ume] in on in PM Serum source data Glucose 74 - 106 mg/dL Normal No Sep 13 [Mass/vol informati 2016 7:20 ume] in on in PM Serum or source Plasma data Potassium 3.5 - 5.1 mmoL/L Low No Sep 13 inform2016 7:20 [Moles/vo on in PM lume] in source Serum or data Plasma Sodium 136 - 145 mmoL/L Low No Sep 13 [Moles/vo informati 2017 7:20 lume] in on in PM Serum or source Plasma data Aspartate 15 - 37 U/L Low No Sep 13 inform2016 7:20 aminotran on in PM sferase source [Enzymati data c activity/ volume] in Serum or Plasma Alanine 12 - 78 U/L Normal No Sep 13 aminotran inform2016 7:20 sferase on in PM [Enzymati source c data activity/ volume] in Serum or Plasma Protein 6.4 - 8.2 gm/dL Normal No Sep 13 [Mass/vol informati 2016 7:20 ume] in on in PM Serum or source Plasma data CBC W Auto Differential panel in Blood Observa Value Referen Units Interpr Notes Date tion ce etation Range Basophils 0 - 0.2 K/MM3 Normal No Sep 13 inform2016 7:20 [#/volume on in PM ] in source Blood by data Automated count Basophils 0.1 - 2.0 % Normal No Sep 13 /100 informati 2016 7:20 leukocyte on in PM s in source Blood by data Automated count Eosinophi 0.0 - 0.4 K/mm3 Normal No Sep 13 ls informati 2016 7:20 [#/volume on in PM ] in source Blood by data Automated count Eosinophi 0.1 - % Normal No Sep 13 ls/100 12.0 informati 2016 7:20 leukocyte on in PM s in source Blood by data Automated count Granulocy 1.8 - 7.8 K/mm3 Normal No Sep 13 woody inform2016 7:20 [#/volume on in PM ] in source Blood by data Automated count Granulocy 37.0 - % Normal No Sep 13 woody/100 80.0 informati 2016 7:20 leukocyte on in PM s in source Blood by data Automated count Hematocri 37.0 - % Low No Sep 13 t [Volume 47.0 informati 2016 7:20 on in PM Fraction] source of Blood data Hemoglobi 12.2 - g/dL Normal No Sep 13 n 16.2 informati 2016 7:20 [Mass/vol on in PM ume] in source Blood data Lymphocyt 0.7 - 4.5 K/mm3 High No Sep 13 es informati 2017 7:20 [#/volume on in PM ] in source Unspecifi data ed specimen by Automated count Lymphocyt 10 - 50.0 % Normal No Sep 13 es informati 2016 7:20 [#/volume on in PM ] in source Unspecifi data ed specimen by Automated count Erythrocy 27 - 31.2 pg Normal No Sep 13 te mean informati 2016 7:20 corpuscul on in PM ar source hemoglobi data n [Entitic mass] Erythrocy 31.8 - g/dl Normal No Sep 13 te mean 35.4 informati 2016 7:20 corpuscul on in PM ar source hemoglobi data n concentra tion [Mass/vol ume] by Automated count Erythrocy 82.2 - fl Normal No Sep 13 te mean 97.8 informati 2016 7:20 corpuscul on in PM ar volume source [Entitic data volume] by Automated count Monocytes 0.1 - 1.0 K/mm3 Normal No Sep 13 informati 2016 7:20 [#/volume on in PM ] in source Blood by data Automated count Monocytes 1.7 - 9.3 % Normal No Sep 13 /100 informati 2017 7:20 leukocyte on in PM s in source Blood by data Automated count Platelet 7.4 - fl Normal No Sep 13 mean 10.4 informati 2016 7:20 volume on in PM [Entitic source volume] data in Blood by Automated count Platelets 142 - 424 K/mm3 No No Sep 13 informati informati 2016 7:20 [#/volume on in on in PM ] in source source Blood data data Erythrocy 4.2 - 5.4 M/mm3 Normal No Sep 13 woody informati 2016 7:20 [#/volume on in PM ] in source Amniotic data fluid Erythrocy 11.5 - % Normal No Sep 13 te 17.5 informati 2016 7:20 distribut on in PM ion width source [Entitic data volume] by Automated count Leukocyte 4.8 - K/MM3 Normal No Sep 13 s 10.8 informati 2016 7:20 [#/volume on in PM ] in source Blood data UPPER RESPIRATORY PANEL,PCR Observa Value Referen Units Interpr Notes Date tion ce etation Range Adenovi NOT NOT No No No Sep 13 [place] DNA DETECTE DETECTE informa informa informa 2017 D tion in tion in tion in 7:12 PM [Presen source source source ce] in data data data Unspeci fied specime n by Probe & target amplifi cation method Bordete NOT NOT No No No Sep 13 lla DETECTE DETECTE informa informa informa 2017 pertuss D tion in tion in tion in 7:12 PM is DNA source source source [Presen data data data ce] in Unspeci fied specime n by Probe & target amplifi cation method Chlamyd NOT NOT No No No Sep 13 ophila DETECTE DETECTE informa informa informa 2017 pneumon D tion in tion in tion in 7:12 PM iae DNA source source source data data data [Presen ce] in Unspeci fied specime n by Probe & target amplifi cation method SARS NOT NOT No No No Sep 13 coronav DETECTE DETECTE informa informa informa 2017 irus D tion in tion in tion in 7:12 PM RNA source source source [Presen data data data ce] in Unspeci fied specime n by Probe & target amplifi cation method Human NOT NOT No No No Sep 13 coronav DETECTE DETECTE informa informa informa 2017 irus D tion in tion in tion in 7:12 PM HKU1 source source source RNA data data data detecti on by SARS NOT NOT No No No Sep 13 coronav DETECTE DETECTE informa informa informa 2017 irus D tion in tion in tion in 7:12 PM RNA source source source [Presen data data data ce] in Unspeci fied specime n by Probe & target amplifi cation method SARS NOT NOT No No No Sep 13 coronav DETECTE DETECTE informa informa informa 2017 irus D tion in tion in tion in 7:12 PM RNA source source source [Presen data data data ce] in Unspeci fied specime n by Probe & target amplifi cation method Influen NOT NOT No No No Sep 13 za DETECTE DETECTE informa informa informa 2017 virus A D tion in tion in tion in 7:12 PM H3 RNA source source source data data data [Presen ce] in Unspeci fied specime n by Probe & target amplifi cation method Influen NOT NOT No No No Sep 13 za DETECTE DETECTE informa informa informa 2017 virus A D tion in tion in tion in 7:12 PM H1 RNA source source source data data data [Presen ce] in Isolate by Probe & target amplifi cation method Influen NOT NOT No No No Sep 13 za DETECTE DETECTE informa informa informa 2017 virus A D tion in tion in tion in 7:12 PM H1 RNA source source source data data data [Presen ce] in Unspeci fied specime n by Probe & target amplifi cation method Influen NOT NOT No No No Sep 13 za DETECTE DETECTE informa informa informa 2017 virus B D tion in tion in tion in 7:12 PM RNA source source source [Presen data data data ce] in Unspeci fied specime n by Probe & target amplifi cation method Influen NOT NOT No No No Sep 13 za DETECTE DETECTE informa informa informa 2017 virus A D tion in tion in tion in 7:12 PM RNA source source source [Presen data data data ce] in Unspeci fied specime n by Probe & target amplifi cation method Human NOT NOT No No No Sep 13 metapne DETECTE DETECTE informa informa informa 2017 umoviru D tion in tion in tion in 7:12 PM s Ag source source source [Presen data data data ce] in Unspeci fied specime n Mycopla NOT NOT No No No Sep 13 sma DETECTE DETECTE informa informa informa 2017 pneumon D tion in tion in tion in 7:12 PM iae DNA source source source data data data [Presen ce] in Unspeci fied specime n by Probe & target amplifi cation method Parainf NOT NOT No No No Sep 13 luenza DETECTE DETECTE informa informa informa 2017 virus 1 D tion in tion in tion in 7:12 PM RNA source source source [Presen data data data ce] in Unspeci fied specime n by Probe & target amplifi cation method Parainf NOT NOT No No No Sep 13 luenza DETECTE DETECTE informa informa informa 2017 virus 2 D tion in tion in tion in 7:12 PM RNA source source source [Presen data data data ce] in Unspeci fied specime n by Probe & target amplifi cation method Parainf NOT NOT No No No Sep 13 luenza DETECTE DETECTE informa informa informa 2017 virus 3 D tion in tion in tion in 7:12 PM RNA source source source [Presen data data data ce] in Unspeci fied specime n by Probe & target amplifi cation method Parainf NOT NOT No No No Sep 13 luenza DETECTE DETECTE informa informa informa 2017 virus 4 D tion in tion in tion in 7:12 PM RNA source source source [Presen data data data ce] in Isolate by Probe & target amplifi cation method Rhinovi DETECTE NOT No Abnorma No Sep 13 [place]ston+Ent D DETECTE informa l informa 2017 eroviru tion in tion in 7:12 PM s RNA source source [Presen data data ce] in Unspeci fied specime n by Probe & target amplifi cation method Respira NOT NOT No No No Sep 13 tory DETECTE DETECTE informa informa informa 2017 syncyti D tion in tion in tion in 7:12 PM al source source source virus data data data RNA [Presen ce] in Unspeci fied specime n by Probe & target amplifi cation method
--- OUTSIDE RECORDS SUMMARY | 2017-03-22 03:24 | External Medical Summary Rpt ---
Demographics Preferred Language Icelandic Marital Status Unknown [employer] Affiliation Unknown Race Unknown Ethnic Group Unknown Author Author DIANE Address Unknown Phone Immunization No patient found.
--- OUTSIDE RECORDS SUMMARY | 2017-03-22 03:24 | External Medical Summary Rpt ---
[...] been Serum or defined Plasma by the [place] of[employer]icin e and an Endocrine Society practice [...] 2010; 96(7):191 1-30.Perf ormed at: - [facility] [address] [id number] Rejector: Jalen Coreas PhD, Phone: [phone] CBC W Auto Differential panel in [...]
--- OUTSIDE RECORDS SUMMARY | 2017-03-22 03:42 | External Medical Summary Rpt ---
Author Author , KENNETH Bravo KENNETH Address Unknown Phone [email or web address] Care Team Providers Care Toddler Teacher Name Role Phone Duncan ARANA MD PSC, [...] Unavailable [facility] Unavailable Unavailable [facility], [facility] ROD HANSEL, ROD HANSEL Unavailable Unavailable JOEL, JOEL Unavailable Unavailable MCGARRY TRISH, MCGARRY Unavailable Unavailable TRISH MCGARRY TRISH, MCGARRY Unavailable Unavailable TRISH COOK CAROL, ROSALIE CAROL Unavailable Unavailable HIPOLITO SWETA, Unavailable Unavailable [...] Unavailable ANN DIAZ MD, Unavailable Unavailable ROSELINE LAZAR LARISSA, LAZAR LARISSA Unavailable Unavailable LAZAR LARISSA, LAZAR LARISSA Unavailable Unavailable LAZAR III CAROL, LAZAR Unavailable Unavailable III CAROL GREEN, RENETTA, Unavailable Unavailable GREEN, RENETTA HARPEL, HARPEL Unavailable Unavailable HARPEL DEVENDRA, HARPEL Unavailable Unavailable DEVENDRA HARPEL DEVENDRA, HARPEL Unavailable Unavailable DEVENDRA [facility] Unavailable Unavailable [place], [facility] Unavailable Unavailable [place], [facility] Unavailable Unavailable [facility], [facility] Unavailable [facility]available HOSPITAL, [facility] Unavailable Unavailable HOSPITAL P, [facility] P [facility], Unavailable Unavailable [facility] SEN RAFAEL, SEN RAFAEL Unavailable Unavailable HUHN THO, HUHN THO Unavailable Unavailable HUHN THO, HUHN THO Unavailable Unavailable TELLO MEDARDO, TELLO Unavailable Unavailable [facility] KILPELA JEA, KILPELA Unavailable [...] DWI MICHEL ANG, MICHEL ANG Unavailable Unavailable [facility] Unavailable Unavailable SERVICES, [facility] GUILLERMO DON, Unavailable Unavailable GUILLERMO DON MERSACK, BEATRICE P, Unavailable Unavailable MERSACK, BEATRICE P MURO RACHID, MURO RACHID Unavailable Unavailable JAMIN MICHELE, JAMIN MICHELE Unavailable Unavailable JAMIN MICHELE, JAMIN MICHELE Unavailable Unavailable MUSIC MIKKI, MUSIC MIKKI Unavailable Unavailable MUSIC MIKKI, MUSIC MIKKI Unavailable Unavailable [facility] Unavailable Unavailable [facility], [facility], Unavailable Unavailable [facility], [facility] Unavailable Unavailable LAB, [facility] Unavailable Unavailable LAB, [facility] LONGORIA KALI, LONGORIA KALI Unavailable Unavailable LONGORIA KALI, LONGORIA KALI Unavailable Unavailable BENZ, III ANGIE, Unavailable Unavailable BENZ, III ANGIE BENZ, III ANGIE, Unavailable Unavailable BENZ, III ANGIE , SEPTEMBER W, Unavailable Unavailable September W KIM LAD, KIM LAD Unavailable Unavailable [...] CRUZ O, Unavailable Unavailable SOKAN, CRUZ O BEAR, BEAR Unavailable Unavailable [facility] Unavailable Unavailable [facility], [facility] Unavailable Unavailable HOSPITALS, [facility], Unavailable Unavailable [facility] WEHRMAN III RACHID, Unavailable Unavailable WEHRMAN III RACHID WEHRMAN III RACHID, Unavailable Unavailable WEHRMAN III RACHID WEHRMAN III, ROSELYN, Unavailable Unavailable WEHRBRANDI III ROSELYN WHITE CHR, WHITE CHR Unavailable Unavailable [facility], Unavailable Unavailable [facility] ARANA A, ARANA A Unavailable Unavailable ARANA A, ARANA A Unavailable Unavailable Purpose Continuity of Care Document - 06-19-2007 through 2016 Problems Code Diagnosis DOS Provider Status [id number] EMBOLISM & 12-07-2016 [facility] SUPERFICIAL INC VEINS RIGHT LW EXT [id number] PAIN IN 12-07-2016 [place] RIGHT [facility]G [facility] [id number] ACUTE EMBO 12-06-2016 [facility] TH[facility]B UNS [facility] DEEP VNS RT INC PROX LOW EXT K219 GASTRO-ESOP 12-06-2016 [facility] H REFLUX [facility] DISEASE INC WITHOUT ESOPHAGITIS Z720 TOBACCO USE 12-06-2016 [facility] INC [id number] UNSPECIFIED 11-25-2016 [facility] ED J440 COPD WITH 10-22-2016 [facility] RESPIRATORY INFECTION J441 CHRONIC 10-22-2016 [facility]CTIVE [facility] PULMONARY INC DZ W/EXACERBAT ION R05 COUGH 10-22-2016 [place] [facility] R079 CHEST PAIN 10-22-2016 [place] UNSPECIFIED [facility]ICAL IMAGING ASS [id number] PERSONAL 10-22-2016 [facility]YSIC[facility]ANS, NICOTINE PLLC DEPENDENCE J42 UNSPECIFIED 09-14-2016 [facility] CHRONIC [facility] BRONCHITIS INC R0989 OTH SPEC SX 09-14-2016 [place] & SIGNS MEDICAL INVLV THE IMAGING ASS CIRC & RESP SYS N951 MENOPAUSAL 07-09-2016 [facility] CLIMACTERIC GROUP STATES R0781 PLEURODYNIA 04-05-2016 [place] [facility] I10 ESSENTIAL 03-29-2016 [facility] PRIMARY [facility] HYPERTENSIO INC N J449 CHRONIC 03-29-2016 [facility] OBSTRUCTIVE [facility] PULMONARY INC DISEASE UNS [id number] CONTUSION 03-29-2016 [facility] RT FRONT [facility] WALL THORAX INC INITIAL ENCOUNTER G523OWB UNSPECIFIED 03-29-2016 [place] INJURY OF MEDICAL THORAX IMAGING ASS INITIAL ENCOUNTER J209 ACUTE 02-15-2016 [facility] BRONCHITIS [facility] UNSPECIFIED HOSPITAL P R0602 SHORTNESS 02-15-2016 [place] OF BREATH MEDICAL IMAGING ASS E871 HYPO-OSMOLA 02-12-2016 [facility] LITY AND [facility] HYPONATREMI INC A Z23 ENCOUNTER 02-12-2016 [facility] FOR [facility] IMMUNIZATIO INC N K224 DYSKINESIA 02-11-2016 [facility] SERV ESOPHAGUS FOUNDATION K2270 BARRETTS 02-11-2016 [place] [facility] ESOPHAGUS SERV WITHOUT FOUNDATION DYSPLASIA R12 HEARTBURN 02-11-2016 [place] [facility] SERV [facility] N3020 OTHER 01-21-2016 [facility] [place] [facility] P[facility] WITHOUT HEMATURIA R300 DYSURIA 01-21-2016 [facility] [place] [facility] PSC R312 OTHER 01-21-2016 [facility]CROSCOPIC [place] [facility]EM[facility] PSC N3021 OTHER 12-31-2015 [facility] CYSTITIS P[facility] WITH HEMATURIA N342 OTHER 12-31-2015 NEW URETHRITIS [facility] PSC K660 PERITONEAL 12-23-2015 [facility] ADHESIONS PHYSICIANS POSTPROC GROUP POSTINFECTI ON N736 FEMALE 12-23-2015 [facility] PELVIC PHYSICIANS PERITONEAL GROUP ADHESIONS POSTINFECTI VE N8320 UNSPECIFIED 12-23-2015 [facility] OVARIAN PHYSICIANS CYSTS GROUP R102 PELVIC AND 12-23-2015 [facility] PERINEAL PHYSICIANS PAIN GROUP B9689 OTH SPEC 12-19-2015 [facility] BACTERIAL PHYSICIANS AGNT CAUSE GROUP DZ CLASSIFIED ELSW N760 ACUTE 12-19-2015 [facility] VAGINITIS PHYSICIANS GROUP N341 NONSPECIFIC 12-10-2015 [facility] URETHRITIS [facility] PSC Z8719 PERSONAL 11-21-2015 [place] [facility] HISTORY SERV OTHER FOUNDATION DISEASES DIGESTIVE SYSTEM R928 OTH ABNORM 11-12-2015 [facility] & [facility] INCONCLUSIV INC E FIND ON DX IMAG BREAST N830 FOLLICULAR 11-07-2015 [place] CYST OF MEDICAL OVARY IMAGING ASS R309 PAINFUL 11-07-2015 [place] MICTURITION MEDICAL IMAGING ASS UNSPECIFIED R918 OTHER 11-04-2015 [facility] ER ABNORMAL FINDING OF LUNG FIELD N390 URINARY 11-03-2015 [facility] TRACT PHYSICIANS INFECTION GROUP SITE NOT SPECIFIED R0609 OTHER FORMS 10-30-2015 [place] [facility] OF DYSPNEA SERV FOUNDATION Z539 PROCEDURE & 10-24-2015 [facility] NOT CARRIED OUT UNS REASON K449 DIAPHRAGMAT 10-22-2015 [place] [facility] IC HERNIA SERV W/O FOUNDATION OBSTRUCTION OR GANGRENE E789 DISORDER OF 10-13-2015 [facility] HOSP LIPOPROTEIN INC METABOLISM UNSPECIFIED Z8679 PERSONAL 10-13-2015 [facility] HISTORY OTH [facility] DISEASES INC CIRCULATORY SYSTEM E785 HYPERLIPIDE 10-09-2015 [facility] HOSP UNSPECIFIED INC I340 NONRHEUMATI 09-30-2015 [facility] C MITRAL SERV VALVE FOUNDATION INSUFFICIEN CY I351 NONRHEUMATI 09-30-2015 [facility] AORTIC SERV VALVE FOUNDATION INSUFFICIEN CY I361 NONRHEUMATI 09-30-2015 [facility] TRICUSPID SERV VALVE FOUNDATION INSUFFICIEN CY Z8632 PERSONAL 09-25-2015 [facility] HISTORY OF PHYSICIANS GESTATIONAL GROUP DIABETES J069 ACUTE UPPER 07-22-2015 [facility] HOSP RESPIRATORY INC INFECTION UNSPECIFIED J0190 ACUTE 06-24-2015 [facility] SINUSITIS [facility] N200 CALCULUS OF 04-29-2015 [facility] KIDNEY [facility] INC N201 CALCULUS OF 04-29-2015 [facility] URETER [facility] P N202 CALCULUS OF 04-29-2015 [place] KIDNEY MEDICAL WITH IMAGING ASS CALCULUS OF URETER N1330 UNSPECIFIED 04-28-2015 [place] [facility]ICAL HYDRONEPHRO IMAGING ASS SIS 57878 PAIN IN 12-21-2014 [place] JOINT, MEDICAL UPPER ARM IMAGING ASS 9593 INJURY 12-21-2014 [place] OTHER&UNSPE MEDICAL CIFIED IMAGING ASS [employer]&WRI ST 3899 UNSPECIFIED 06-18-2014 [facility] HEARING PHYSICIAN LOSS PRACTICE L 7856 ENLARGEMENT 06-14-2014 [place] OF LYMPH MEDICAL NODES IMAGING ASS 66716 OTHER 06-14-2014 [place] NONSPECIFIC MEDICAL ABNORMAL IMAGING ASS FINDING OF LUNG FIELD 03811 LOC 05-23-2014 DEMAR OSTEOARTHRO III ANGIE S NOT SPEC PRIM/SEC OTH SPEC SITE 4019 UNSPECIFIED 11-26-2013 [facility] ESSENTIAL [facility] HYPERTENSIO INC N 486 PNEUMONIA, 11-26-2013 [facility] ORGANISM [facility] UNSPECIFIED INC 74723 ASTHMA, 11-26-2013 [facility] UNSPECIFIED [facility] , INC UNSPECIFIED STATUS 5601 PARALYTIC 11-26-2013 [facility] ILEUS [facility] INC 39735 OTHER 11-26-2013 [place] SPECIFIED MEDICAL DISORDER OF IMAGING ASS INTESTINES 32730 ABDOMINAL 11-26-2013 [facility] PAIN OTHER MEDICAL SPECIFIED IMAGING ASS SITE 33534 OTHER 11-26-2013 [facility] DIGESTIVE [facility] SYSTEM INC COMPLICATIO NS V148 PERSONAL 11-26-2013 [facility] HISTORY [facility] ALLERGY OTH INC SPEC MEDICINAL AGTS 5990 URINARY 11-25-2013 [facility] TRACT [facility] INFECTION INC SITE NOT SPECIFIED V1582 PERS HX 11-25-2013 [facility] TOBACCO USE [facility] PRESENTING INC [facility] 54483 UNSPECIFIED 08-22-2013 [facility] SLEEP DISTURBANCE 78884 ESOPHAGEAL 08-07-2013 [facility] 5533 DIAPHRAGMAT 08-07-2013 [facility] W/O HOSPITAL MENTION OBSTRUCTION /GANGREN 52493 BARRETTS 07-10-2013 [facility] 84640 ABDOMINAL 03-27-2013 H[facility] PAIN, SWETA UNSPECIFIED SITE 40517 ATROPHIC 03-26-2013 [facility] KALI GASTRITIS WITHOUT MENTION OF HEMORRHAGE 11218 PAIN IN 12-18-2012 [employer] JOINT, HAND [...] NEOPLASM OF SKIN OF TRUNK EXCEPT SCROTUM 43334 INFLAMED 09-14-2012 MUSIC MIKKI SEBORRHEIC KERATOSIS 7089 UNSPECIFIED 09-14-2012 MUS[facility] MIKKI URTICARIA V2651 TUBAL 08-08-2012 [facility] LIGATION SWETA STERILIZATI ON STATUS 69655 ABNORMAL 06-20-2012 [facility] MATERNAL [facility] GLUCOSE INC TOLERANCE W/DELIVERY 42554 PREV C/S 06-20-2012 ROBERTSTPIPE FLYNN W/WO MENTION ANTPRTM COND V252 STERILIZATI 06-20-2012 [facility] ON GEE V270 OUTCOME OF 06-20-2012 [facility] DELIVERY GEE SINGLE LIVEBORN V221 SUPERVISION 05-26-2012 [facility] DEVENDRA OF OTHER NORMAL V286 SCREENING 05-26-2012 [place] [address] THREATENED 05-24-2012 [facility] TRISH PREMATURE LABOR ANTEPARTUM 77511 OTHER 04-29-2012 [facility] SPECIFED [facility] COMPLICATIO INC N ANTEPARTUM 98681 ABNORMAL 04-20-2012 [facility] MATERNAL [facility] GLUCOSE INC TOLERANCE ANTEPARTUM 7080 ALLERGIC 04-20-2012 [facility] URTICARIA [facility] INC V222 04-20-2012 [facility] STATE, [facility] INCIDENTAL INC 73514 DECR 03-29-2012 [facility] MOVMNTS [facility] MGMT MOTH INC ANTPRTM COND/COMP 16768 OTHER 03-28-2012 [place] SPECIFIED MEDICAL DISORDER OF IMAGING ASS KIDNEY AND URETER 7242 LUMBAGO 03-28-2012 [facility] INC 4660 ACUTE 02-15-2012 [facility] BRONCHITIS [facility] INC 58744 OTHER 01-29-2012 [place] DISEASES OF MEDICAL LUNG NOT IMAGING ASS ELSEWHERE CLASSIFIED 82365 SPRAIN AND 12-25-2011 [facility] STRAIN OF HOSP UNSPECIFIED SITE OF FOOT 71688 CONTUSION 12-25-2011 [facility] OF SHOULDER HOSP REGION 60455 CONTUSION 12-25-2011 [facility] OF FOOT HOSP V2382 SUPERVISION 11-29-2011 HAR[facility]L DEVENDRA HIGH-RISK [place]ID A [address] [facility] CURRENT 11-24-2011 [facility] RASHID MAT [...] JAMIN MICHELE IN OTHER SPECIFIED SITES KNEE&LEG 11143 CONTUSION 09-08-2011 JAMIN MICHELE OF HIP 53776 CONTUSION 09-08-2011 JAMIN MICHELE OF LOWER LEG 53193 CONTUSION 09-08-2011 JAMIN MICHELE OF KNEE 99714 PAIN IN 09-05-2011 [place] JOINT MEDICAL PELVIC IMAGING ASS REGION AND THIGH 97966 SWELLING OF 09-05-2011 [place] LIMB MEDICAL IMAGING ASS 8439 SPRAIN&STRA 09-05-2011 [facility] IN OF EMERGENCY UNSPECIFIED SERVICES SITE OF HIP&THIGH 8449 SPRAIN&STRA 09-05-2011 [facility] UNSPECIFIED SERVICES SITE OF KNEE&LEG 35278 UNSPECIFIED 09-05-2011 [facility] SITE OF ANKLE SPRAIN AND STRAIN E8859 FALL FROM 09-05-2011 [facility] OTHER EMERGENCY SLIPPING SERVICES TRIPPING OR STUMBLING E8889 UNSPECIFIED 09-05-2011 [place] FALL MEDICAL IMAGING ASS V720 EXAMINATION 08-13-2011 [facility] ANG OF EYES AND VISION 49879 MIGRAINE 07-29-2011 LAZAR LARISSA UNSP W/O INTRACT W/O STATUS MIGRAINOSUS 7245 UNSPECIFIED 07-29-2011 LAZAR LARISSA BACKACHE 7821 RASH AND 07-28-2011 ARANA A OTHER NONSPECIFIC SKIN ERUPTION V2509 OTH GENERAL 07-15-2011 ROSELINE PONCE MD CNSL&ADVICE CONTRACEPT MANAGEMENT V7241 07-15-2011 ROSELINE Kendrick EXAMINATION NAHOMY BERUMEN OR TEST NEGATIVE RESULT 632 MISSED 07-01-2011 PATHOLOGY & CYTOLOGY LAB 47917 UNSPEC 06-26-2011 WEHRMAN III HEMORRHAGE RACHID EARLY ANTEPARTUM 29775 MATERNAL 2011 ROSELINE Kendrick ANEMIANAHOMY MD ANTEPARTUM 42937 SPOTTING 2011 ROSELINE Kendrick COMP NAHOMY BERUMEN ANTEPARTUM COND/COMP 98879 THREATENED 06-19-2011 [facility] , EMERGENCY ANTEPARTUM SERVICES V220 SUPERVISION 03-11-2011 [facility] OF NORMAL [facility] FIRST INC 2859 UNSPECIFIED 02-20-2011 [facility] ANEMIA [facility] INC 6238 OTHER 02-20-2011 [facility] SPECIFIED EMERGENCY NONINFLAMMA SERVICES TORY DISORDER VAGINA 25293 PAIN IN 01-21-2011 LAB [facility] ALFR[facility]O JOINT, [employer] SITES 5210 DENTAL 01-14-2011 THE IMPLANT CARIES & ORAL SURGERY C 60694 PAIN IN 01-12-2011 [facility] JOINT, [facility] LOWER LEG INC 27143 PAIN IN 01-12-2011 [facility] JOINT, MEM [facility]OS[facility] ANKLE AND INC FOOT 28214 UNSPECIFIED 01-12-2011 [facility] JOINT [facility]ERGENCY DISORDER OF SERVICES MULTIPLE SITES 2662 OTHER 11-19-2010 [facility] CO B-[facility]ICIEN[facility] C[facility] S V2689 OTHER 11-19-2010 [facility] CO SPECIFIED HEALTH PROCREATIVE CENTER MANAGEMENT 2809 UNSPECIFIED 11-03-2010 [facility] OF [facility] DEFICIENCY ANEMIA 19413 RESTLESS 11-03-2010 A Grover HOFF MD PSC SYNDROME 24486 OTHER 11-03-2010 [facility] OF [facility] FATIGUE 7831 ABNORMAL 11-03-2010 LABONE OF WEIGHT GAIN [facility] 91043 TOOTH 09-10-2010 THE IMPLANT BROKEN FX & ORAL DUE TO SURGERY C TRAUMA W/O MENTION COMP 5920 CALCULUS OF 08-21-2010 LAB LUIS ALFREDO KIDNEY [employer] 94381 UNSPECIFIED 08-18-2010 [place] MEDICAL CONSTIPATIO IMAGING ASS N 7840 HEADACHE 08-15-2010 [place] [facility] 7945 NONSPECIFIC 07-17-2010 [place] MEDICAL ABNORM SERV RESULTS FOUNDATIO THYROID FUNCT STUDY 35237 ABDOMINAL 05-05-2010 [facility] PAIN, EMERGENCY EPIGASTRIC SERVICES 7802 SYNCOPE AND 01-03-2010 [facility] COLLAPSE EMERGENCY SERVICES 8910 OPEN WOUND 01-03-2010 [facility] KNEE EMERGENCY LEG&ANK SERVICES WITHOUT MENTION COMP V065 NEED 01-03-2010 [facility] PROPHYLACTI [facility] C INC VACCINATION W/TETANUS-D IPHT 8488 OTHER 11-24-2009 [facility] SPECIFIED EMERGENCY SITES OF SERVICES SPRAINS AND ASSOCIATES STRAINS 6918 OTHER 09-04-2009 [facility] DERMATITIS OF AND RELATED [place], CONDITIONS PSC 6989 UNSPECIFIED 09-04-2009 [facility] PR[facility] DISORDER OF [place], PSC 6929 CONTACT 08-19-2009 [facility] DERMATITIS& EMERGENCY OTHER SERVICES ECZEMA DUE ASSOCIATES UNSPEC CAUSE 1330 SCABIES 08-14-2009 [facility] ASSOCIATES 490 BRONCHITIS 04-17-2009 [facility] NOT EMERGENCY SPECIFIED SERVICES ACUTE OR ASSOCIATES CHRONIC 7862 COUGH 04-17-2009 [place] [facility] 61384 FEVER 04-10-2009 [place] UNSPECIFIED MEDICAL IMAGING ASSOCIATES 60510 UNSPECIFIED 02-25-2009 [facility] 6253 DYSMENORRHE 04-17-2008 [facility] A [facility] INC V7612 OTHER 04-17-2008 [facility] SCREENING [facility] MAMMOGRAM INC 7061 OTHER ACNE 08-02-2007 [facility] ASSOC[facility]ATES [facility], PSC 33084 LOSS OF 07-10-2007 [place] [facility] WE[facility] 27291 ABDOMINAL 07-10-2007 [place] [facility] PAIN, SERV GENERALIZED FOUNDATIO 04217 REFLUX 06-19-2007 [place] [facility] ESOPHAGITIS SERV FOUNDATIO [id number] Postoperati [facility] Allergies, Adverse Reactions, Alerts Type Drug [...] er 23 0 Ac ti AL ve MD 00 04 2 No OM 64 -1 [...] ed in 09:55 7.0% Blood Glucose BldC Glucomtr-mCnc (09-29-2012 18:20) Glucose 201 70-110 complet BldC [...] UNK .030 ed C 09:15 GRAVITY URINE 1+ NEG complet BLOOD 013 ed 09:15 URINE 04-19-2 6.5 UNK 5.0-8.5 complet PH 013 ed [...] Procedure DOS Code Location Performer Comment DUP-SCAN 28408 [facility] [place] XTR VEINS 7 [facility] INC INC [facility] L/LIMITED STUDY HOSPITAL G0463 [facility] [place] OUTPATIEN 7 [facility] HOSP T CLIN INC INC VISIT ASSESS & MGMT PT PULMONARY 85070 [place] JOEL STRESS 7 [place] [address] [place] DIFFUSING 7 MEDICAL CAPACITY SERV [facility] N [facility] THORAX 50407 [place] W/O 7 HEALTHCAR HEALTHCAR CONTRAST E E MATERIAL [facility] [address] [place] JOEL W/VC 7 MEDICAL EXPIRATOR SERV Y LEONCIO FOUNDATIO W/WO MXML N VOL VNTJ PLETHYSMO 75523 [place] JOEL GRAPHY 7 MEDICAL LUNG SERV VOLUMES FOUNDAT[facility] W/WO N AIRWAY RESIST THERAPEUT 53089 [facility] [place] IC 7 [facility] HOSP INJECTION INC INC IV PUSH EACH NEW DRUG RADIOLOGI 60736 [facility] [place] C EXAM 7 [facility] HOSP CHEST 2 INC INC VIEWS FRONTAL&L ATERAL ECG 63611 [facility] [place] ROUTINE 7 [facility] HOSP ECG INC INC W/LEAST 12 LDS TRCG ONLY W/O I&R THER 22680 [facility] [place] PROPH/DX 7 [facility] HOSP NJX IV INC INC PUSH SINGLE/1S T SBST/DRUG PRESSURIZ 14690 [facility] [place] ED/NONPRE 7 MEM HOSP MEM HOSP SSURIZED INC INC INHALATIO N TREATMENT COMPREHEN 15561 [facility] SIVE 7 MEM HOSP [place] [address] [facility] [place] STREPTOCO 7 MEM HOSP MEM HOSP CCUS INC INC GROUP A CREATINE 33557 [facility] KINASE MB 7 MEM HOSP [place] [address] [facility] [place] LACTATE 7 MEM HOSP MEM HOSP INC INC CREATINE 77151 [facility] [place] KINASE 7 [place] [address] [facility] [place] TROPONIN 7 MEM HOSP MEM HOSP QUANTITAT INC INC JORY BLOOD 94028 [facility] [place] COUNT 7 MEM HOSP MEM HOSP COMPLETE INC INC AUTO&AUTO DIFRNTL WBC IAADI 17459 [facility] AS[facility] INFLUENZA 7 MEM HOSP MEM HOSP B VIRUS INC INC IAADI 06962 [facility] [place] INFFLUENZ 7 MEM HOSP MEM [facility]OS[facility] A A VIRUS INC INC CULTURE 46310 [facility] [place] BACTERIAL 7 MEM HOSP MEM HOSP BLOOD INC INC AEROBIC W/[place] [address] [facility] [place] TROPONIN 7 MEM HOSP MEM HOSP QUANTITAT INC INC JORY BLOOD 71595 [facility] [place] COUNT 7 MEM H[facility] MEM HOSP COMPLETE INC INC AUTO&AUTO DIFRNTL WBC COMPREHEN 93769 [facility] [place] SIVE 7 MEM HOS[facility] MEM HOSP METABOLIC INC INC PANEL CREATINE 69651 [facility] [place] KINASE 7 MEM HOSP MEM [facility]OS[facility] TOTAL INC INC CREATINE 88460 [facility] [place] KINASE MB 7 MEM HOSP MEM HOSP FRACTION INC INC ONLY PRESSURIZ 32286 [facility] [place] ED/NONPRE 7 MEM HOSP MEM HOSP SSURIZED INC INC INHALATIO N TREATMENT THER 02887 [facility] PROPH/DX 7 MEM HOS[facility] NJX IV INC INC PUSH SINGLE/1S T SBST/DRUG ECG 59276 [facility] ROUTINE 7 MEM HOSP [facility] ECG INC INC W/LEAST 12 LDS TRCG ONLY W/O I&R RADIOLOGI 50549 [facility] [place] C EXAM 7 [facility] MEM HOSP CHEST 2 INC INC VIEWS FRONTAL&L ATERAL THERAPEUT 69885 [facility] [place] IC 7 [facility] INJECTION INC INC IV PUSH EACH NEW DRUG CT THORAX 31367 DELL MCMILLAN W/O 6 MEDICAL SWETA CONTRAST IMAGING MATERIAL ASS RADEX 08211 [facility] [place] RIBS UNI 6 [facility] MEM HOSP W/POSTERO INC INC ANT CH MINIMUM 3 VIEWS RADIOLOGI 78593 DELL BARFIELD C 6 MEDICAL EXAMINATI IMAGING ON CHEST ASS SINGLE VIEW FRONTAL ECG 34795 [facility] JETER JR ROUTINE 6 [facility] W/LEAST P 12 [facility] I&R ONLY HOSPITAL G0378 [facility] OBSERVATI 6 [facility] MEM HOSP ON INC INC SERVICE PER HOUR PRESSURIZ 86981 [facility] ED/NONPRE 6 [facility] SSURIZED INC INC INHALATIO N TREATMENT COLLECTIO 19289 [facility] N VENOUS 6 [facility] BLOOD INC INC VENIPUNCT URE BASIC 65889 GEOVANNA [place] METABOLIC 6 [facility] PANEL INC INC CALCIUM TOTAL BLOOD 26318 GE[place]NA [place] COUNT 6 [facility] COMPLETE INC INC AUTO&AUTO DIFRNTL WBC PPSV23 67062 GEOV[place]NA [place] VACCINE 2 6 [facility] YRS OR INC INC OLDER FOR SUBQ/IM USE ADMINISTR G0009 GEOVANNA [place] ATION OF 6 [facility] PNEUMOCOC INC INC KEERTHI VACCINE TOBACCO 73671 GEOVANNA [place] USE 6 [facility] CESSATION INC INC INTERMEDI ATE 3-10 MINUTES RADIOLOGI 60903 GEOV[place]NA [place] C EXAM 6 [facility] CHEST 2 INC INC VIEWS FRONTAL&L ATERAL BLOOD 37238 GE[place] COUNT 6 [facility] COMPLETE INC INC AUTO&AUTO DIFRNTL WBC BLOOD 61123 GEOV[place]NA [place] GASES ANY 6 [facility] INC INC COMBINATI ON PH PCO2 PO2 CO2 HCO3 COMPREHEN 51561 GEOV[place]NA [place] SIVE 6 [facility] METABOLIC INC INC PANEL PRESSURIZ 31204 GE[place] ED/NONPRE 6 [facility] SSURIZED INC INC INHALATIO N TREATMENT THER 51503 GEOVANNA [place] PROPH/DX 6 [facility] NJX IV INC INC PUSH SINGLE/1S T SBST/DRUG [facility] [id number] GEOVANNA [place] OBSERVATI 6 [facility] ON INC INC SERVICE PER HOUR ESOPHAGOG 95411 [place] RANJIT MEDINA ASTRODUOD 6 MEDICAL ENOSCOPY SERV TRANSORAL FOUNDATIO N DIAGNOSTI C INJECTION J2704 [facility] PROPOFOL 6 Y Y 10 MG [facility] 89199 ANESTHESI KIM LAD TRANSURET 6 A HRAL ASSOCIATE W/URETHRO S PSC CYSTOSCOP Y NOS CYSTO 82713 LISANDRO WEBB CALIBRATI 6 [facility] URTL PSC STRIX/MICHELE NOSIS BLOOD 05504 GEOV[place]NA [place] COUNT 6 [facility] HEMATOCRI INC INC T ANESTHESI 33555 COMMUNITY ROD HANSEL A 6 ANESTH INTRAPERI OF THE TONEAL BLUE LOWER ABD W/LAPS NOS COLLECTIO 35308 GEOVANNA [place] N VENOUS 6 [facility] BLOOD INC INC VENIPUNCT URE INJECTION J2405 GE[place]NA [place] 6 [facility] ONDANSETR INC INC ON HCL PER 1 MG LAPAROSCO 38023 GEOVANNA [place] PY W/RMVL 6 [facility] ADNEXAL INC INC STRUCTURE S BLOOD 48102 GEOV[place]NA [place] COUNT 6 [facility] HEMOGLOBI INC INC N INJECTION J2710 [facility] 6 [facility] NEOSTIGMI INC INC NE METHYLSUL FATE UP TO 0.5 MG INJECTION J0131 GE[place]NA [place] 6 [facility] ACETAMINO INC INC PHEN 10 MG EGD 11546 [place] SEN RAFAEL TRANSORAL 6 MEDICAL BIOPSY SERV SINGLE/MU FOUNDATIO LTIPLE N ESOPHGL 54721 PEDRO ZUNIGA FUNCJ 6 MEDICAL G-ESOP SERV RFLX IMPD FOUNDATIO ELTRD N PROLNG ESOPHAGEA 69815 [facility] L 6 HEALTHCAR HEALTHCAR MOTILITY E E STUDY [facility] W/INTERP& RPT DIAGNOSTI G0206 GEOVANNA [place] C 6 [facility] MAMMOGRAP INC INC HY [place] [address] [place] [facility] TRANSVAGI 6 MEDICAL SWETA NAL IMAGING ASS CT THORAX 40393 [facility] W/O 6 Y Y CONTRAST [facility] MATERIAL URINLS 81921 [facility] HARPEL DIP 6 PHYSICIAN DEVENDRA STICK/TAB S GROUP LET REAGNT NON-AUTO MICRSCPY ANES 52909 [facility] UPPER GI 6 [facility] ENDOSCOPY ANESTHESI PROXIMAL A PSC TO DUODENUM ESOPHAGEA 51377 [facility] 6 Y Y MOTILITY [facility] STUDY W/INTERP& RPT ECG 86753 GEOVANNA [place] ROUTINE 6 [facility] ECG INC INC W/LEAST 12 LDS TRCG ONLY W/O I&R ECG 35923 [facility] SHEELA ROUTINE 6 PHYSICIAN MAT ECG S GROUP W/LEAST 12 LDS I&R ONLY CV STRS 16678 [facility] CAROL TST 6 PHYSICIAN XERS&/OR S GROUP RX CONT ECG W/O I&R CV STRS 02826 GEOVANNA [place] TST 6 [facility] XERS&/OR INC INC RX CONT ECG TRCG ONLY ECHO 56342 PEDRO SIFUENTES TTHRC R-T 6 MEDICAL 2D SERV W/WOM-MOD FOUNDATIO E COMPL N SPEC&[place] [address] [place] JANUSZ TRACT 6 MEDICAL UPPER SERV W/WO FOUNDATIO DELAYED N IMAGES W/KUB ECG 26249 GEOVANNA [place] ROUTINE 6 [facility] ECG INC INC W/LEAST 12 LDS TRCG ONLY W/O I&R ECG 27560 GEOVANNA [place] ROUTINE 6 [facility] ECG INC INC W/LEAST 12 LDS TRCG ONLY W/O I&R ECG 87068 GEOVANNA JETER JR ROUTINE [address] [facility] W/LEAST P 12 LDS I&R ONLY RADIOLOGI 91351 DELL REYES C 6 MEDICAL EXAMINATI IMAGING ON CHEST ASS SINGLE VIEW FRONTAL COMPREHEN 61022 GEOVANNA UASTIN SIVE 6 [facility] METABOLIC INC INC PANEL CREATINE 84104 GEOVANNA [place] KINASE MB 6 [facility] FRACTION INC INC ONLY CREATINE 89414 GEOV[facility] [place] KINASE 6 [facility] TOTAL INC INC FIBRIN 36503 GEOVANNA [place]IN DGRADJ 6 [facility] HOSP PRODUCTS INC INC D-DIMER QUAL/[place] [address] GEOVANNA [place] TROPONIN 6 [facility]OS[facility] QUANTITAT INC INC JORY BLOOD 19335 GEOVANNA [place] COUNT 6 [facility]OS[facility] COMPLETE INC INC AUTO&AUTO DIFRNTL WBC RADEX 44174 [place] [facility] 1 5 MEDICAL HANSEL IMAGING ANTEROPOS ASS TERIOR VIEW CYSTO/URE 33143 GEOVANNA WEBB TERO 5 [facility] W/[facility] IPSY P &INDWELL STENT INSRT FLUOROSCO 33425 GEOVANNA [place] PY SPX UP 5 [facility] TO 1 INC INC HOUR PHYS/QHP TIME THERAPEUT 65729 GEOVANNA [place] IC 5 [facility] INJECTION INC [place] [address] GEOVANNA [place]IN INFUSION 5 [facility] THERAPY INC INC PROPHYLAX IS/DX EA HOUR THERAPEUT 53777 GEOVANNA [place] IC 5 [facility] INJECTION INC [place] [address] GEOVANNA [place]IN ABDOMEN & 5 [facility] PELVIS INC INC W/O CONTRAST MATERIAL RADEX 78473 DELL REYES ALL ELBOW 5 MEDICAL COMPLETE IMAGING MINIMUM [address] THORAX 24927 [facility] BARFIELD 5 MEDICAL HANSEL W/[place] [address] DELL 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 ABDOMEN & 4 MEDICAL SWETA PELVIS IMAGING W/O ASS CONTRAST MATERIAL RADIOLOGI 18971 GEOVANNA Ness EXAM 4 [facility] CHEST 2 INC INC VIEWS FRONTAL&L ATERAL THERAPEUT 36751 GEOVANNA [place] IC 4 [facility] PROPHYLAC INC INC TIC/DX IN[place] SUBQ/[place] [address] [facility] 4 Y Y [facility] W/WO DELAYED IMAGES W/KUB ESOPHAGEA 79257 [facility] 4 Y Y [facility] STUDY W/INTERP& RPT GASTRIC 70572 [facility] HIPOLITO EMPTYING 3 SWETA SWETA IMAGING STUDY EGD 85756 [place] KALI [place] KALI TRANSORAL 3 BIOPSY 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 L3925 [employer] ORTHOSIS 3 PIP/DIP NONTORSIO N JOINT PREFAB RADEX 88393 [place] [facility] FINGR 3 SWETA SWETA MINIMUM 2 VIEWS THERAPEUT 10516 GEOVANNA [place] IC 3 [facility] PROPHYLAC INC INC TIC/DX INJECTION SUBQ/IM HYSTEROSA 57369 [facility] HIPOLIT[facility] LPINGOGRA 3 SWETA SWETA PHY RS&I 83108 SCHULSTAD SCHULSTAD DELIVERY 3 GEE GEE ONLY LIG/TRNSX 07379 HARPEL HARPEL J 3 DEVENDRA DEVENDRA FALOPIAN TUBE DEL/ABDML SURG LOW 741 GEOVANNA [place] CERVICAL 3 [facility] INC INC SECTION 52043 NAHOMY PONCE CONTRACTI 2 DEVENDRA DEVENDRA ON STRESS TEST 96631 MALGORZATA MCGARRY NONSTRESS 2 TRISH TRISH TEST 26900 GEOVANNA [place] NONSTRESS 2 [facility] TEST INC INC URNLS DIP 01780 GE[facility] [place] 2 [facility] STICK/TAB INC [place] [address] GEOVANNA [place] INFUSION 2 [facility] HYDRATION INC INC INITIAL 31 MIN-1 HOUR THERAPEUT 08619 GEOV[place]NA [place] IC 2 [facility] PROPHYLAC INC INC TIC/DX INJECTION SUBQ/IM 79008 GEOV[facility]NA [place] NONSTRESS 2 [place] [address] GEOVANNA [place] RETROPERI 2 [facility] TONEAL INC INC REAL TIME W/IMAGE COMPLETE 55863 GEOV[facility] [place] NONSTRESS 2 [facility] [place] [address] GEOV[facility]NA [place] 2 [facility] UTERUS INC INC LIMITED 1/> FETUSES THERAPEUT 75190 GEOVANNA [place] IC 2 [facility] PROPHYLAC INC INC TIC/DX INJECTION SUBQ/IM THERAPEUT 73596 GEOVANNA [place] IC 2 [facility] PROPHYLAC INC INC TIC/DX INJECTION SUBQ/IM RADIOLOGI 06427 DELL 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 C EXAM 2 MEDICAL SWETA CHEST 2 IMAGING VIEWS ASS FRONTAL&L ATERAL NONCOVERE A9270 EVELIA ALTAMIRANO D ITEM OR 2 [facility] SERVICE RADEX 05409 EVELIA ALTAMIRANO FOOT 2 [facility] COMPLETE MINIMUM 3 VIEWS CULTURE 90489 GEOV[facility]NA [place] BACTERIAL 2 [facility] INC [place] [address] GEOVANNA [place] 2 [facility] UTERUS INC INC LIMITED 1/> FETUSES US PREG 21003 DELL MCMILLAN UTERUS 2 MEDICAL SWETA REAL TIME IMAGING W/IMAGE ASS DCMTN TRANSVAG URNLS DIP 39097 GEOV[facility]NA [place] 2 [facility] STICK/TAB INC INC LET REAGENT AUTO MICROSCOP Y US PREG 74911 GEOVANNA [place] UTERUS 2 [facility] REAL TIME INC INC W/IMAGE DCMTN TRANSVAG IADNA 83393 BIO BIO HERPES 2 REFERNCE 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 UNDARM 2 OTH THAN WOOD PAIR PAD TIP&HNDGR IP CT LOWER [address] [facility] EXTREMITY 2 MEDICAL SWETA W/O IMAGING CONTRAST ASS MATERIAL DETERMINA 06039 SCIFRES SCIFRES TION 2 ANG ANG REFRACTIV E STATE OPHTH 48180 SCIFRES SCIFRES MEDICAL 2 ANG ANG XM&EVAL COMPRE NEW PT 1/> VST THERAPEUT 42308 YASMEEN Song IC 2 PROPHYLAC TIC/DX INJECTION SUBQ/IM INJ J0702 YASMEEN Song BETAMETHA 2 SONE ACETATE & PHOSPHATE 3 MG INJECTION J1030 YASMEEN Song 2 METHYLPRE DNISOLONE ACETATE 40 MG URINE 82606 ROSELINE PONCE 2 NAHOMY BERUMEN DEVENDRA TEST VISUAL COLOR CMPRSN METHS URINE 79926 GEOV[facility]NA [place] 2 [facility] TEST INC INC VISUAL COLOR CMPRSN METHS US PREG 60987 GEOVANNA [place] UTERUS 2 [facility] REAL TIME INC INC W/IMAGE DCMTN TRANSVAG GONADOTRO 54150 GEOVANNA [place] PIN 2 [facility] CHORIONIC INC INC QUANTITAT JORY BLOOD 67585 GEOVANNA [place] COUNT 2 [facility] COMPLETE INC INC AUTO&AUTO DIFRNTL WBC URNLS DIP 30189 [facility] [place] 2 [facility] STICK/TAB INC INC LET REAGENT AUTO MICROSCOP Y BLOOD 93776 GEOVANNA [place] TYPING 2 [facility] SEROLOGIC INC INC RH (D) CULTURE 73495 GEOVANNA [place] BACTERIAL 2 [facility] INC INC QUANTTATI VE COLONY COUNT URINE BLOOD 94817 GEOVANNA [place] TYPING 1 [facility] SEROLOGIC INC INC RH (D) [place] [address] GEOVANNA [place] INFUSION 1 [facility] THERAPY INC [place] [address] GEOVANNA [place] INFUSION 1 [facility] THERAPY/P INC INC ROPHYLAXI S /DX 1ST TO 1 HR THERAPEUT 42216 GEOVANNA [place] IC 1 [facility]OSP INJECTION INC INC IV PUSH EACH NEW DRUG BLOOD 95076 GEOVANNA GEOVANNA COUNT 1 [facility] COMPLETE INC INC AUTO&AUTO DIFRNTL WBC TX MISSED 73272 GEOVANNA [place] 1 [facility] [place] [address] GEOVANNAARELY AUSTIN NUCLEOTID 1 [facility] ASE 5'- INC INC BLOOD 59674 GEOVANNA [place] COUNT 1 [facility] HEMOGLOBI INC INC N COLLECTIO 35886 GEOVANNA [place] N VENOUS 1 [facility] BLOOD INC INC VENIPUNCT URE BLOOD 93760 GEOVANNA [place] COUNT 1 [facility] [place] [address] PATHOLOGY PATHOLOGY SURG 1 & & PATHOLOGY CYTOLOGY CYTOLOGY LAB LAB GROSS&JAMESON ROSCOPIC EXAM ANESTHESI 17450 [facility] A 1 ANESTH INCOMPLET OF THE E/MISSED BLUE US PREG 37097 [facility] UTERUS 1 [facility] REAL TIME CLINIC OF W/IMAGE SHERYL DCMTN TRANSVAG US PREG 58917 [facility] UTERUS 1 [facility] REAL TIME CLINIC OF W/IMAGE SHERYL DCMTN TRANSVAG COLLECTIO 71467 GEOVANNA [place] N VENOUS 1 [facility] BLOOD INC INC VENIPUNCT URE GONADOTRO 54632 GEOVANNA AUSTIN PIN 1 [facility] CHORIONIC INC INC QUANTITAT JORY GONADOTRO 70059 GEOVANNA [place] PIN 1 [facility] CHORIONIC INC INC QUANTITAT JORY COLLECTIO 60613 GEOV[facility]NA [place] N VENOUS 1 [facility] BLOOD INC INC VENIPUNCT URE COLLECTIO 05481 GEOVANNA [place] N VENOUS 1 [facility] BLOOD INC INC VENIPUNCT URE GONADOTRO 94772 GEOVANNA [place] PIN 1 [facility] CHORIONIC INC INC QUANTITAT JORY GONADOTRO 23906 GEOVANNA [place] PIN 1 [facility] CHORIONIC INC INC QUANTITAT JORY COLLECTIO 50450 GEOVANNA [place] N VENOUS 1 [facility] BLOOD INC INC VENIPUNCT URE GONADOTRO 03419 GEOVANNA [place] PIN 1 [facility] CHORIONIC INC INC QUANTITAT JORY BLOOD 13458 GEOVANNA [place] TYPING 1 [facility] SEROLOGIC INC INC ABO BLOOD 95575 GEOVANNA [place] COUNT 1 [facility] COMPLETE INC INC AUTO&AUTO DIFRNTL WBC URNLS DIP 83135 GEOVANNA AUSTNI 1 [facility] STICK/TAB INC INC LET REAGENT AUTO MICROSCOP Y BLOOD 76403 GEOVANNA [place] TYPING 1 [facility] SEROLOGIC INC INC RH (D) US PREG 18879 [facility] UTERUS 1 [facility] REAL [facility] CLINIC OF W/[place] [address] LAB [facility] LAB [facility] BLOOD/URI 1 AMERIC AMERIC C ACID HOLDING HOLDING SEDIMENTA 17928 [facility] TION RATE 1 AMERIC AMERIC RBC HOLDING HOLDING AUTOMATED C-REACTIV 55512 [facility] E PROTEIN 1 AMERIC AMERIC HOLDING HOLDING RHEUMATOI 92436 [facility] D FACTOR 1 AMERIC AMERIC QUANTITAT HOLDING HOLDING JORY BLOOD 06327 [facility] COUNT 1 AMERIC AMERIC COMPLETE HOLDING HOLDING AUTO&AUTO DIFRNTL WBC ANTINUCLE 20765 [facility] AR 1 AMERIC AMERIC ANTIBODIE HOLDING HOLDING S MODESTO DEEP D9220 THE GUILLERMO SEDATION/ 1 IMPLANT & DON GENERAL ORAL ANESTHESI SURGERY C A-1ST 30 MINUTES SEDIMENTA 01034 GEOVANNA [place] TION RATE 1 [facility] RBC INC INC NON-AUTOM ATED DEEP D9220 THE LAZAR III SEDATION/ 1 IMPLANT & CAROL GENERAL ORAL ANESTHESI SURGERY C A-1ST 30 MINUTES URINE 17125 GEOVANNA [place] 1 [facility] CENTER [place] [address] LABONE OF LABONE OF FERRITIN 1 [facility] COLLECTIO 38353 A C JAMIN MICHELE N VENOUS 1 YASMEEN BERUMEN B[place] [address] [facility] IRON 1 [facility] BLOOD 84054 [facility] COUNT 1 [facility] COMPLETE AUTO&AUTO DIFRNTL WBC IRON 47908 [facility] BINDING 1 [facility] CAPACITY DEEP D9220 THE GUILLERMO SEDATION/ 1 IMPLANT & DON GENERAL ORAL ANESTHESI SURGERY C A-1ST 30 MINUTES ORTHOPANT 75213 THE GUILLERMO OGRAM 1 IMPLANT & DON ORAL SURGERY C CALCULUS 70042 LAB [facility]FR[facility] LAB [facility]FR[facility] QUANTITAT 1 AMERIC AMERIC JORY HOLDINGS HOLDINGS CHEMICAL RADEX 48198 [place] [facility] ABDOMEN 1 1 MEDICAL SWET[place] [address] [place] [facility] HEAD/BRAI 1 MEDICAL SWETA N W/O IMAGING CONTRAST ASS MATERIAL 3D 70909 [place] [facility] RENDERING 1 MEDICAL SWETA W/INTERP IMAGING & [place] [address] GEOVANNA [place] INFUSION 1 [facility] THERAPY/P INC INC ROPHYLAXI S /DX 1ST TO 1 HR THERAPEUT 05999 GEOVANNA [place] IC 1 [facility] INJECTION INC INC IV PUSH EACH NEW DRUG EGD 72660 [place] KALI TRANSORAL 0 MEDICAL BIOPSY SERV SINGLE/MU FOUNDATIO LTIPLE BLOOD 48197 GEOVANNA [place] COUNT 0 [facility] COMPLETE INC INC AUTO&AUTO DIFRNTL WBC SIMPLE 09796 NELSON WEHRMAN REPAIR 0 EMERGENCY III RACHID SCALP/NEC SERVICES K/AX/ARBEN T/TRUNK 2.5CM/< CLOSURE 8659 GEOVANNA AUSTIN SKIN&SUBC 0 [facility] UTANEOUS [place] [address] GEOVANNA A[place] INFUSION 0 [facility] THERAPY/P INC INC ROPHYLAXI S /DX 1ST TO 1 HR IM ADM 85828 GEOVANNA [place] PRQ ID 0 [facility] SUBQ/IM INC INC NJXS 1 VACCINE THERAPEUT 75818 GEOV[facility]NA [place] IC 9 [facility] PROPHYLAC INC INC TIC/[place] INJECTION SUBQ/[place] [address] GEOVANNA [place] INFUSION 9 [facility] THERAPY/P INC INC ROPHYLAXI S /DX 1ST TO 1 HR BASIC 75846 GEOVANNA [place] METABOLIC 9 [facility] PANEL INC INC CALCIUM TOTAL BLOOD 95408 GEOV[facility]NA [place] COUNT 9 [facility] COMPLETE INC INC AUTO&AUTO DIFRNTL WBC RADIOLOGI 00033 GEOVANNA [place] C EXAM 9 [facility] CHEST 2 INC INC VIEWS FRONTAL&L ATERAL RADIOLOGI 98341 Grover PENA EXAM 9 MEDICAL JEFF CHEST 2 IMAGING VIEWS ASSOCIATE FRONTAL&L S ATERAL 3D 23419 GEOVANNA [place] RENDERING 8 [facility] W/INTERP INC INC & [place] [address] GEOVANNA [place] HEAD/BRAI 8 [facility] N W/O & INC INC W/CONTRAS T MATERIAL 12653 GEOVANNA [place] TRANSVAGI 8 [facility] NAL INC INC COMPUTER- 53216 GEOVANNA [place] AIDED 8 [facility] DETECTION INC INC SCREENING MAMMOGRAP HY SCREENING 69317 GEOV[facility]NA [place] 8 [facility] MAMMOGRAP INC INC HY BILATERAL COLONOSCO 42161 [place] PY FLX DX 8 MEDICAL MEDICAL W/COLLJ SERV SERV SPEC [place]OUND[place] NFS [address]70 GEOVANNA [place] THER 8 [facility] PROPH/DX INC INC 1ST >1 HR Encounters Encounter Start End Date Code Location Performer Type Date [facility] GEOVANNA Coyle 7 [facility] GEOVANNA Coyle 7 [facility]PATI[facility] 7 7 [facility] OUTPATIEN E T HOSPITALS EMERGENCY 00263 GEOVANNA 7 7 [facility] DEPARTMEN INC T VISIT MODERATE SEVERITY HOSPITAL GEOVANNA - 7 7 [facility] OUTPATIEN INC T EMERGENCY 01671 [facility] DEPT 7 7 PHYSICIAN VISIT S, PLLC HIGH SEVERITY& THREAT FUNCJ EMERGENCY 08143 GEOVANNA 7 7 [facility] DEPARTMEN INC T VISIT HIGH/URGE NT SEVERITY HOSPITAL GEOVANNA - 7 7 [facility] OUTPATIEN INC T OFFICE 93582 [facility] PHYSICIAN T VISIT S GROUP 10 MINUTES HOSPITAL GEOVANNA - 6 6 [facility] OUTPATIEN INC T EMERGENCY 98302 GEOVANNA 6 6 [facility] T VISIT LIMITED/M INOR PROB EMERGENCY 14972 GEOVANNA 6 6 [facility] DEPARTMEN INC T VISIT HIGH/URGE NT SEVERITY HOSPITAL GEOVANNA - 6 6 [facility] OUTPATIEN INC T OFFICE 32756 [facility] CAROL OUTPATIEN 6 6 MEDICAL T VISIT SERV 25 FOUNDATIO MINUTES N OFFICE 07557 [facility] LIS OUTPATIEN 6 6 MEDICAL T VISIT SERV 15 FOUNDATIO MINUTES N OFFICE 29196 L[facility]ANDRO WEBB OUTPATIEN 6 6 [facility] L[facility] T VISIT CLINIC 15 PSC MINUTES HOSPITAL [facility] - 6 [facility] GEOVANNA - 6 6 [facility] OUTPATIEN INC T OFFICE 05919 [facility] OUTPATIEN 6 6 [facility] T VISIT CLINIC 10 PSC MINUTES OFFICE 22550 [facility] GRANTL OUTPATIEN 6 6 PHYSICIAN DEVENDRA T VISIT S GROUP 15 MINUTES OFFICE 04381 [facility]PATIEN 6 6 [facility] 25 PSC MINUTES OFFICE 95260 [facility] HARPEL OUTPATIEN 6 6 PHYSICIAN DEVENDRA T VISIT S GROUP 25 MINUTES OFFICE 88994 [facility] CHURCH CAROL OUTPATIEN 6 6 MEDICAL T VISIT SERV 25 FOUNDATIO MINUTES N HOSPITAL [facility] - 6 6 [facility] OUTPATIEN E T HOSPITALS OFFICE 99037 [facility] PHYSICIAN DEVENDRA T VISIT S GROUP 15 MINUTES HOSPITAL GEOVANNA - 6 6 [facility] OUTPATIEN [facility] GEOVANNA - 6 6 [facility]PATIEN [facility] - [facility] 6 PHYSICIAN DEVENDRA T VISIT S GROUP 15 MINUTES OFFICE 93345 [facility] CAPPS OUTPATIEN 6 6 MEDICAL MICHELE T VISIT SERV 15 FOUNDATIO MINUTES [facility] UNIVERSIT - 6 6 Y [facility] T OFFICE 56763 [facility] OUTPATIEN 6 6 MEDICAL T VISIT SERV 25 FOUNDATIO MINUTES N HOSPITAL GEOVANNA - 6 6 [facility] OUTPATIEN [facility] GEOVANNA - 6 6 [facility] OUTPATIEN [facility] GEOVANNA - 6 6 [facility] OUTPATIEN [facility] UNIVERSIT - 6 6 Y [facility] T OFFICE 98511 [facility] 6 PHYSICIAN MAT T NEW 60 S GROUP MINUTES HOSPITAL GEOVANNA - 6 6 [facility] OUTPATIEN [facility] GEOVANNA - 6 6 [facility] OUTPATIEN COUNT INCLUDES [facility] EMERGENCY 66008 GEOVANNA 6 6 [facility] DEPARTMEN INC T VISIT MODERATE SEVERITY HOSPITAL GEOVANNA - 6 6 [facility]PAT[facility]EN [facility] T EMERGENCY 83399 GEOVANNA 6 6 [facility] DEPARTMEN INC T VISIT LOW/MODER SEVERITY OFFICE 00506 GEOVANNA MCKINNEYRON OUTPATIEN 6 6 [facility] [address] [facility] EMERGENCY 24087 GEOVANNA 5 5 [facility] DEPARTMEN [facility] T V[facility]IT LIMITED/M INOR [facility] GEOVANNA - 5 5 [facility]PATIEN [facility] T OFFICE 38317 GEOVANNA OUTPATIEN 5 5 [facility] 20 INC [facility] GEOVANNA - 5 5 [facility]EN [facility] GEOVAN[place] [facility] 5 5 [facility] OFF[facility] [id number] [facility] 30 PRACTICE [facility] GEOV[place] [facility] 5 5 [facility]EN [facility] T OFFICE 72458 DEMAR BENZ OUTPATIMAGDIEL 4 4 III ANGIE III [facility] 30 [facility] GE[place] - 4 4 [facility] OUTPATIEN [facility] GE[place] [facility] 4 4 [facility]EN [facility] T OFFICE [id number] JOE DIAZ OUTPATIEN 4 4 [facility] 10 [facility] UNIVERSIT - [address] [facility] UNIVERSIT [facility] 4 4 Y [facility] T [facility] 98626 RANJIT CHURCH [facility] OUTPATI 4 4 T [facility] 45 [facility] [place] - 3 3 [facility] OUTPATIEN COUNT INCLUDES THE [facility] Emergency KENIA Palmer MD (ER) 3 10:49 3 11:31 [facility] EMERGENCY 55265 HUHN THO HUHN THO 3 3 DEPARTMEN T VISIT MODERATE SEVERITY OFFICE 00829 Duncan SCHMIDT OUTPATIEN 3 3 YASMEEN MARIE T VISIT PSC 15 MINUTES Inpatient IMP Geovanna Ponce MD (IN) 3 06:00 3 15:00 [facility] [place] - 3 3 [facility] OUTPATIEN COUNT INCLUDES THE [facility] OFFICE 67576 MUSIC MIKKI MUSIC MIKKI OUTPATIEN 3 3 T NEW 20 MINUTES HOSPITAL [place] [facility] 3 3 [facility]PATIENT [facility] GE[place] [facility] 2 2 [facility] EMERGENCY 86539 [place] 2 2 [facility] VISIT LOW/MODER SEVERITY HOSPITAL [place] - 2 2 [facility] HOSPITAL [place] - 2 2 [facility] OUTPATIEN COUNT [facility]CLUDES THE [facility] HOSPITAL [place] - 2 2 [facility] OUTPATIEN COUNT [facility]CLUDES THE [facility] HOSPITAL [place] - 2 2 [facility] OUTPATIEN COUNT [facility]CLUDES THE [facility] HOSPITAL EVELIA - 2 2 [facility] 73932 EVELIA 2 2 [facility] VISIT MODERATE SEVERITY EMERGENCY 81503 [place] 2 2 [facility] VISIT MODERATE SEVERITY HOSPITAL [place] - 2 2 [facility] OUTPATIEN COUNT [facility]CLUDES THE [facility] HOSPITAL [place] - 2 2 [facility] OUTPATIEN COUNT INCLUDES THE [facility] PERIODIC 69873 ROSELINE BOBBY 2 2 NAHOMY BERUMEN E MED EST PATIENT 40-64YRS OFFICE 86859 ROSELINE PONCE OUTPATIEN 2 2 NA[facility] RAMSAY T VISIT 15 MINUTES HOSPITAL [place] - 2 2 [facility] OUTPATIEN INC T HOSPITAL [place] - 2 2 [facility] OUTPATIEN INC T EMERGENCY 72145 NELSON DIAZ DEPT 2 2 EMERGENCY JAMESON VISIT SERVICES HIGH SEVERITY& THREAT FUNCJ EMERGENCY 90379 [place] 2 2 [facility] DEPARTMEN INC T VISIT MODERATE SEVERITY OFFICE 00443 ROSELINE PONCE OUTPATIEN 1 1 NAHOMY RAMSAY T NEW 60 MINUTES HOSPITAL [place] - 1 1 [facility] OUTPATIEN COUNT INCLUDES THE [facility] HOSPITAL [place] - 1 1 [facility] OUTPATIEN INC T HOSPITAL [place] - 1 1 [facility] OUTPATIEN COUNT INCLUDES THE [facility] HOSPITAL [place] - 1 1 [facility] OUTPATIEN INC [facility]OSPITAL [place] - 1 1 [facility] OUTPATIEN INC T EMERGENCY 31832 [place] 1 1 [facility] DEPARTMEN INC T VISIT MODERATE SEVERITY EMERGENCY 69220 NELSON DIAS 1 1 EMERGENCY DEPARTMEN SERVICES T VISIT HIGH/URGE NT SEVERITY HOSPITAL [place] - 1 1 [facility] OUTPATIEN INC T EMERGENCY 68225 NELSON COOL 1 1 EMERGENCY III RACHID DEPARTMEN SERVICES T VISIT HIGH/URGE NT SEVERITY EMERGENCY 45730 [facility] 1 1 [facility] T VISIT MODERATE SEVERITY [facility]OSP[facility] - [facility] 1 [facility] OUTPATI[facility] T OFFICE 58395 [place] [place] OUTPATIEN [address] [facility] MINUTES OFFICE 19664 A C OUTPERRY 1 1 YASMEEN BERUMEN T VISIT [facility] 15 MINUTES OFFICE 90797 A C JAMIN MICHELE OUTPATIEN 1 1 YASMEEN BERUMEN T VISIT [facility] 15 MINUTES HOSPITAL [facility] - 1 1 [facility] OUTPATI[facility] INC T EMERGENCY 63649 [facility] 1 1 [facility] DEPARTMEN INC T VISIT HIGH/URGE NT SEVERITY EMERGENCY 90456 NELSON COOL DEPT 1 1 EMERGENCY III RACHID VISIT SERVICES HIGH SEVERITY& THREAT [facility] - 1 1 [facility] OUTPATI[facility] INC T OFFICE [address]00 [place] [facility] OUTPATIEN 1 1 MEDICAL Nikita T NEW 45 SERV MINUTES [facility] EMERGENCY 67774 NELSON JAVED DEPT 0 0 EMERGENCY MEDARDO VISIT SERVICES HIGH SEVERITY& THREAT FUNCJ EMERGENCY 04602 NELSON COOL DEPT 0 0 EMERGENCY III RACHID VISIT SERVICES HIGH SEVERITY& THREAT FUNCJ EMERGENCY 50615 [facility] 0 0 [facility] DEPARTMEN INC T VISIT MODERATE SEVERITY [facility]OSPITAL [facility] - 0 0 [facility] OUTPATI[facility] INC T EMERGENCY 19115 NELSON COOL 0 0 EMERGENCY III, DEPARTMEN SERVICES ROSELYN T VISIT HIGH/URGE ASSOCIATE NT S SEVERITY OFFICE 64451 NAVIN CERVANTES 0 0 GY VARGHESE W T VISIT ASSOCIATE 15 S OF MINUTES [facility] EMERGENCY 68839 NELSON LOERA, 0 0 EMERGENCY CRUZ DEPARTMEN SERVICES O T VISIT MODERATE ASSOCIATE SEVERITY S EMERGENCY 24948 NELSON DIAZ, 0 0 EMERGENCY ANN S DEPARTMEN SERVICES T VISIT MODERATE ASSOCIATE SEVERITY S EMERGENCY 12378 [facility] 9 9 [facility] DEPARTMEN INC T VISIT MODERATE SEVERITY EMERGENCY 35065 NELSON LOERA, 9 9 EMERGENCY CRUZ DEPARTMEN SERVICES O T VISIT HIGH/URGE ASSOCIATE NT S SEVERITY HOSPITAL [facility] - 9 9 [facility] OUTPATIEN INC T OFFICE [address] [facility] 9 9 FAMILY RENETTA T VISIT CARE [address] [facility] GEOVANNA - 8 8 [facility] OUTPATIEN INC T OFFICE [address] [facility] 8 8 GY BEATRICE P T VISIT ASSOCIATE 15 S OF MINUTES [facility] GEOVANNA - 8 8 [facility] OUTPATIEN INC T OFFICE [address] [place] [facility] 8 8 MEDICAL MEDICAL T VISIT SERV SERV 25 FOUNDATIO FOUNDATIO MINUTES
--- OUTSIDE RECORDS SUMMARY | 2017-03-22 03:42 | External Medical Summary Rpt ---
Author Author , KENNETH Bravo KENNETH Address Unknown Phone [email or web address] Care Team Providers Care Heater Furnace Name Role Phone Duncan ARANA MD PSC, [...] Unavailable [facility] Unavailable Unavailable PRACTICE L, [facility] ROD HANSEL, ROD HANSEL [...] Unavailable [facility] Unavailable Unavailable [place], [facility] Unavailable Unavailable [place], [facility] Unavailable Unavailable [facility], [facility] Unavailable [facility]available HOSPITAL, [facility] Unavailable Unavailable HOSPITAL P, [facility], Unavailable Unavailable [facility] SEN RAFAEL, SEN RAFAEL Unavailable Unavailable [facility], [facility]HN THO Unavailable Unavailable [facility] TH[facility], HUHN THO Unavailable Unavailable TELLO MEDARDO, TELLO Unavailable Unavailable [facility], [facility] KILPELA JEA, KILPELA Unavailable [...] DWI MICHEL ANG, MICHEL ANG Unavailable Unavailable [facility] Unavailable Unavailable SERVICES, [facility] GUILLERMO DON, Unavailable Unavailable GUILLERMO DON MERSACK, BEATRICE P, Unavailable Unavailable MERSACK, BEATRICE P MURO RACHID, MURO RACHID Unavailable Unavailable JAMIN MICHELE, JAMIN MICHELE Unavailable Unavailable JAMIN MICHELE, JAMIN MICHELE Unavailable Unavailable MUSIC MIKKI, MUSIC MIKKI Unavailable Unavailable MUSIC MIKKI, MUSIC MIKKI Unavailable Unavailable [facility] Unavailable Unavailable [facility], [facility], Unavailable Unavailable PLLC, [...] C, THE IMPLANT & ORAL SURGERY C [facility] Unavailable [facility]available [facility], [facility], Unavailable Unavailable [facility] WEHRMAN III RACHID, Unavailable Unavailable [...] 2016 Problems Code Diagnosis DOS Provider Status [id number] EMBOLISM & 12-07-2016 [facility] SUPERFICIAL INC VEINS RIGHT LW EXT [id number] PAIN IN 12-07-2016 [facility] [id number] ACUTE EMBO 12-06-2016 [facility] THROMB UNS [facility] DEEP VNS RT INC PROX LOW EXT K219 GASTRO-ESOP 12-06-2016 [facility] H REFLUX [facility] DISEASE INC WITHOUT ESOPHAGITIS Z720 TOBACCO USE 12-06-2016 [facility] INC [id number] UNSPECIFIED 11-25-2016 [facility] ED J440 COPD WITH 10-22-2016 [facility] RESPIRATORY INFECTION J441 CHRONIC 10-22-2016 [place] [facility]IVE [facility] PULMONARY INC DZ W/EXACERBAT ION R05 COUGH 10-22-2016 [facility] R079 CHEST PAIN 10-22-2016 [facility] UNSPECIFIED [facility] ASS V68419 PERSONAL 10-22-2016 [facility] HISTORY [facility] PHYSIC[facility]ANS, NICOTINE PLLC DEPENDENCE J42 UNSPECIFIED 09-14-2016 [facility] CHRONIC [facility] BRONCHITIS INC R0989 OTH SPEC SX 09-14-2016 [facility] & SIGNS MEDICAL INVLV THE IMAGING ASS CIRC & RESP SYS N951 MENOPAUSAL 07-09-2016 [facility] CLIMACTERIC GROUP STATES R0781 PLEURODYNIA 04-05-2016 [facility] I10 ESSENTIAL 03-29-2016 [facility] PRIMARY [facility] HYPERTENSIO INC N J449 CHRONIC 03-29-2016 [facility] OBSTRUCTIVE [facility] PULMONARY INC DISEASE UNS [id number] CONTUSION 03-29-2016 [facility] RT FRONT [facility] WALL THORAX INC INITIAL ENCOUNTER R152LDW UNSPECIFIED 03-29-2016 [facility] INJURY OF MEDICAL THORAX IMAGING ASS INITIAL ENCOUNTER J209 ACUTE 02-15-2016 [facility] BRONCHITIS [facility] UNSPECIFIED HOSPITAL P R0602 SHORTNESS 02-15-2016 [facility] OF BREATH MEDICAL IMAGING ASS E871 HYPO-OSMOLA 02-12-2016 [facility] LITY AND [facility] HYPONATREMI INC A Z23 ENCOUNTER 02-12-2016 [facility] FOR [facility] IMMUNIZATIO INC N K224 DYSKINESIA 02-11-2016 [facility] ESOPHAGUS [facility] K2270 BARRETTS 02-11-2016 [facility] ESOPHAGUS SERV WITHOUT FOUNDATION DYSPLASIA R12 HEARTBURN 02-11-2016 [facility] N3020 OTHER 01-21-2016 [facility] [place] [facility] P[facility] WITHOUT HEMATURIA R300 DYSURIA 01-21-2016 [facility] [place] [facility] PSC R312 OTHER 01-21-2016 NEW [facility]CROSCOPIC [place] [facility] PSC N3021 OTHER 12-31-2015 [facility] CYSTITIS P[facility] WITH HEMATURIA N342 OTHER 12-31-2015 NEW URETHRITIS [facility] PSC K660 PERITONEAL 12-23-2015 [facility] ADHESIONS PHYSICIANS POSTPROC GROUP POSTINFECTI ON N736 FEMALE 12-23-2015 [facility] PELVIC PHYSICIANS PERITONEAL GROUP ADHESIONS POSTINFECTI VE N8320 UNSPECIFIED 12-23-2015 [facility] OVARIAN PHYSICIANS CYSTS GROUP R102 PELVIC AND 12-23-2015 [facility] PERINEAL PHYSICIANS PAIN GROUP B9689 OTH SPEC 12-19-2015 [facility] BACTERIAL PHYSICIANS AGNT CAUSE GROUP DZ CLASSIFIED ELSW N760 ACUTE 12-19-2015 [facility] VAGINITIS PHYSICIANS GROUP N341 NONSPECIFIC 12-10-2015 NEW URETHRITIS [facility] PSC Z8719 PERSONAL 11-21-2015 [facility] H[facility]ORY SERV OTHER FOUNDATION DISEASES DIGESTIVE SYSTEM R928 OTH ABNORM 11-12-2015 [facility] & [facility] INCONCLUSIV INC E FIND ON DX IMAG BREAST N830 FOLLICULAR 11-07-2015 [facility] CYST OF MEDICAL OVARY IMAGING ASS R309 PAINFUL 11-07-2015 [facility] MICTURITION [facility] UNSPECIFIED R918 OTHER 11-04-2015 [facility] CLIN[facility] ABNORMAL FINDING OF LUNG FIELD N390 URINARY 11-03-2015 [facility] TRACT PHYSICIANS INFECTION GROUP SITE NOT SPECIFIED R0609 OTHER FORMS 10-30-2015 [facility] DYSPNEA SERV FOUNDATION Z539 PROCEDURE & 10-24-2015 [facility] NOT CARRIED OUT UNS REASON K449 DIAPHRAGMAT 10-22-2015 [facility] HERNIA SERV W/O FOUNDATION OBSTRUCTION OR GANGRENE E789 DISORDER OF 10-13-2015 [facility] HOSP LIPOPROTEIN INC METABOLISM UNSPECIFIED Z8679 PERSONAL 10-13-2015 [place] HISTORY OTH MEM [facility] DISEASES INC CIRCULATORY SYSTEM E785 HYPERLIPIDE 10-09-2015 [facility] H[facility] UNSPECIFIED INC I340 NONRHEUMATI 09-30-2015 [facility] MITRAL SERV VALVE FOUNDATION INSUFFICIEN CY I351 NONRHEUMATI 09-30-2015 [facility] AORTIC SERV VALVE FOUNDATION INSUFFICIEN CY I361 NONRHEUMATI 09-30-2015 [facility] TRICUSPID SERV VALVE FOUNDATION INSUFFICIEN CY Z8632 PERSONAL 09-25-2015 [facility] HISTORY OF PHYSICIANS GESTATIONAL GROUP DIABETES J069 ACUTE UPPER 07-22-2015 [facility] HOSP RESPIRATORY INC INFECTION UNSPECIFIED J0190 ACUTE 06-24-2015 [place] [facility]ITIS [facility] N200 CALCULUS OF 04-29-2015 [place] KIDNEY [facility] INC N201 CALCULUS OF 04-29-2015 [place] URETER [facility] P N202 CALCULUS OF 04-29-2015 [facility] K[facility]NEY [facility]ICAL WITH IMAGING ASS CALCULUS OF URETER N1330 UNSPECIFIED 04-28-2015 [facility] HYDRONEPHRO IMAGING ASS SIS 59064 PAIN IN 12-21-2014 [facility] JOINT, MEDICAL UPPER ARM IMAGING ASS 9593 INJURY 12-21-2014 [facility] OTHER&UNSPE MEDICAL CIFIED IMAGING ASS [employer]&WRI ST 3899 UNSPECIFIED 06-18-2014 [facility] HEARING PHYSICIAN LOSS PRACTICE L 7856 ENLARGEMENT 06-14-2014 [facility] OF LYMPH MEDICAL NODES IMAGING ASS 11333 OTHER 06-14-2014 [facility] NONSPECIFIC MEDICAL ABNORMAL IMAGING ASS FINDING OF LUNG FIELD 99388 LOC 05-23-2014 DEMAR OSTEOARTHRO III ANGIE S NOT SPEC PRIM/SEC OTH SPEC SITE 4019 UNSPECIFIED 11-26-2013 [facility] ESSENTIAL [facility] HYPERTENSIO INC N 486 PNEUMONIA, 11-26-2013 [facility] ORGANISM [facility] UNSPECIFIED INC 93169 ASTHMA, 11-26-2013 [facility] UNSPECIFIED [facility] , INC UNSPECIFIED STATUS 5601 PARALYTIC 11-26-2013 [facility] ILEUS [facility] INC 83951 OTHER 11-26-2013 [facility] SPECIFIED MEDICAL DISORDER OF IMAGING ASS INTESTINES 22752 ABDOMINAL 11-26-2013 [facility] PAIN OTHER MEDICAL SPECIFIED IMAGING ASS SITE 84699 OTHER 11-26-2013 [facility] DIGESTIVE [facility] INC COMPLICATIO NS V148 PERSONAL 11-26-2013 [facility] HISTORY [facility] ALLERGY OTH INC SPEC MEDICINAL AGTS 5990 URINARY 11-25-2013 [facility] TRACT [facility] INFECTION INC SITE NOT SPECIFIED V1582 PERS HX 11-25-2013 [facility] TOBACCO USE [facility] PRESENTING INC [facility] 75050 UNSPECIFIED 08-22-2013 [facility] SLEEP DISTURBANCE 26821 ESOPHAGEAL 08-07-2013 [facility] 5533 DIAPHRAGMAT 08-07-2013 [facility] W/O HOSPITAL MENTION OBSTRUCTION /GANGREN 46242 BARRETTS 07-10-2013 [facility] 42476 ABDOMINAL 03-27-2013 [facility] PAIN, SWETA UNSPECIFIED SITE 78170 ATROPHIC 03-26-2013 [facility] KALI GASTRITIS WITHOUT MENTION OF HEMORRHAGE 50871 PAIN IN 12-18-2012 [employer] JOINT, HAND [...] NEOPLASM OF SKIN OF TRUNK EXCEPT SCROTUM 11331 INFLAMED 09-14-2012 [facility] SEBORRHEIC KERATOSIS 7089 UNSPECIFIED 09-14-2012 [facility] URTICARIA V2651 TUBAL 08-08-2012 [facility] LIGATION SWETA STERILIZATI ON STATUS 36928 ABNORMAL 06-20-2012 [facility] MATERNAL [facility] GLUCOSE INC TOLERANCE W/DELIVERY 75998 PREV C/S 06-20-2012 ROBERTSTPIPE FLYNN W/WO MENTION ANTPRTM COND V252 STERILIZATI 06-20-2012 [facility] ON GEE V270 OUTCOME OF 06-20-2012 [facility] DELIVERY GEE SINGLE LIVEBORN V221 SUPERVISION 05-26-2012 [facility] DEVENDRA OF OTHER NORMAL V286 SCREENING 05-26-2012 [place] [address] THREATENED 05-24-2012 [facility] TRISH PREMATURE LABOR ANTEPARTUM 69055 OTHER 04-29-2012 [facility] SPECIFED [facility] COMPLICATIO INC N ANTEPARTUM 26017 ABNORMAL 04-20-2012 [facility] MATERNAL [facility] GLUCOSE INC TOLERANCE ANTEPARTUM 7080 ALLERGIC 04-20-2012 [facility] URTICARIA [facility] INC V222 04-20-2012 [facility] STATE, [facility] INCIDENTAL INC 92755 DECR 03-29-2012 [facility] MOVMNTS [facility] MGMT MOTH INC ANTPRTM COND/COMP 37859 OTHER 03-28-2012 [facility] SPECIFIED MEDICAL DISORDER OF IMAGING ASS KIDNEY AND URETER 7242 LUMBAGO 03-28-2012 [facility] INC 4660 ACUTE 02-15-2012 [facility] BRONCHITIS [facility] INC 82025 OTHER 01-29-2012 [facility] DISEASES OF MEDICAL LUNG NOT IMAGING ASS ELSEWHERE CLASSIFIED 28573 SPRAIN AND 12-25-2011 [facility] STRAIN OF HOSP UNSPECIFIED SITE OF FOOT 16851 CONTUSION 12-25-2011 [facility] OF SHOULDER HOSP REGION 50258 CONTUSION 12-25-2011 [facility] OF FOOT HOSP V2382 SUPERVISION 11-29-2011 HARPEL DEVENDRA HIGH-R[place] [address] [facility] CURRENT 11-24-2011 [place] RASHID MAT CONDS CLASSIFIABL E ELSW ANTPRTM V2341 SUPERVISION 10-21-2011 ROSELINE Kendrick NAHOMY BERUMEN W/HISTORY PRE-TERM LABOR V2389 SUPERVISION 10-21-2011 ROSELINE Kendrick OF OTHER NAHOMY BERUMEN HIGH-RISK V2889 OTHER 10-21-2011 ROSELINE Kendrick SPECIFIED NAHMOY BERUMEN SCREENING V704 EXAMINATION 10-21-2011 ROSELINE Kendrick FOR NAHOMY BERUMEN MEDICOLEGAL REASON V745 SCREENING 10-21-2011 ROSELINE Kendrick EXAMINATION NAHOMY BERUMEN FOR VENEREAL DISEASE 8448 SPRAIN&STRA 09-08-2011 JAMIN MICHELE IN OTHER SPECIFIED SITES KNEE&LEG 07571 CONTUSION 09-08-2011 JAMIN MICHELE OF HIP 56142 CONTUSION 09-08-2011 JAMIN MICHELE OF LOWER LEG 74256 CONTUSION 09-08-2011 JAMIN MICHELE OF KNEE 53720 PAIN IN 09-05-2011 [facility] JOINT MEDICAL PELVIC IMAGING ASS REGION AND THIGH 02829 SWELLING OF 09-05-2011 [facility] LIMB [facility] 8439 SPRAIN&STRA 09-05-2011 [facility] IN OF EMERGENCY UNSPECIFIED SERVICES SITE OF HIP&THIGH 8449 SPRAIN&STRA 09-05-2011 [facility] IN OF EMERGENCY UNSPECIFIED SERVICES SITE OF KNEE&LEG 57788 UNSPECIFIED 09-05-2011 [facility] SITE OF ANKLE SPRAIN AND STRAIN E8859 FALL FROM 09-05-2011 [facility] OTHER EMERGENCY SLIPPING SERVICES TRIPPING OR STUMBLING E8889 UNSPECIFIED 09-05-2011 [facility] FALL [facility] ASS V720 EXAMINATION 08-13-2011 [facility] ANG OF EYES AND VISION 74005 MIGRAINE 07-29-2011 LAZAR LARISSA UNSP W/O INTRACT W/O STATUS MIGRAINOSUS 7245 UNSPECIFIED 07-29-2011 LAZAR LARISSA BACKACHE 7821 RASH AND 07-28-2011 ARANA A OTHER NONSPECIFIC SKIN ERUPTION V2509 OTH GENERAL 07-15-2011 RO[facility]LINE PONCE MD CNSL&ADVICE CONTRACEPT MANAGEMENT V7241 07-15-2011 ROSELINE Kendrick EXAMINATION NAHOMY BERUMEN OR TEST NEGATIVE RESULT 632 MISSED 07-01-2011 PATHOLOGY & CYTOLOGY LAB 15019 UNSPEC 06-26-2011 WEHRMAN III HEMORRHAGE RACHID EARLY ANTEPARTUM 96425 MATERNAL 2011 ROSELINE Kendrick ANEMIANAHOMY MD ANTEPARTUM 97308 SPOTTING 2011 ROSELINE Kendrick COMP NAHOMY BERUMEN ANTEPARTUM COND/COMP 23176 THREATENED 06-19-2011 [facility] , EMERGENCY ANTEPARTUM SERVICES V220 SUPERVISION 03-11-2011 [facility] OF NORMAL [facility] FIRST INC 2859 UNSPECIFIED 02-20-2011 [facility] ANEMIA [facility] INC 6238 OTHER 02-20-2011 [facility] SPECIFIED EMERGENCY NONINFLAMMA SERVICES TORY DISORDER VAGINA 52859 PAIN IN 01-21-2011 LAB [facility] JOINT, [employer]ING SITES 5210 DENTAL 01-14-2011 THE IMPLANT CARIES & ORAL SURGERY C 44126 PAIN IN 01-12-2011 [facility] JOINT, [facility] LOWER LEG INC 81120 PAIN IN 01-12-2011 [facility] JOINT, [facility] ANKLE AND INC FOOT 90318 UNSPECIFIED 01-12-2011 [facility] JOINT EMERGENCY DISORDER OF SERVICES MULTIPLE SITES 2662 OTHER 11-19-2010 [facility] CO B[facility] S V2689 OTHER 11-19-2010 [facility] CO SPECIFIED HEALTH PROCREATIVE CENTER MANAGEMENT 2809 UNSPECIFIED 11-03-2010 [facility] DEFICIENCY ANEMIA 18373 RESTLESS 11-03-2010 A Grover HOFF MD PSC SYNDROME 31344 OTHER 11-03-2010 [facility] OF MALAISE AND [facility] FATIGUE 7831 ABNORMAL 11-03-2010 [facility] OF WEIGHT GAIN [facility] 54363 TOOTH 09-10-2010 THE IMPLANT BROKEN FX & ORAL DUE TO SURGERY C TRAUMA W/O MENTION COMP 5920 CALCULUS OF 08-21-2010 LAB [facility] ALFR[facility]O KIDNEY [employer] 55343 UNSPECIFIED 08-18-2010 [facility] CONSTIPATIO IMAGING ASS N 7840 HEADACHE 08-15-2010 [facility] 7945 NONSPECIFIC 07-17-2010 [facility] ABNORM SERV RESULTS FOUNDATIO THYROID FUNCT STUDY 73110 ABDOMINAL 05-05-2010 [facility] PAIN, EMERGENCY EPIGASTRIC SERVICES 7802 SYNCOPE AND 01-03-2010 [facility] COLLAPSE EMERGENCY SERVICES 8910 OPEN WOUND 01-03-2010 [facility] KNEE EMERGENCY LEG&ANK SERVICES WITHOUT MENTION COMP V065 NEED 01-03-2010 [facility] PROPHYLACTI [facility] C INC VACCINATION W/TETANUS-D IPHT 8488 OTHER 11-24-2009 [facility] SPECIFIED EMERGENCY SITES OF SERVICES SPRAINS AND ASSOCIATES STRAINS 6918 OTHER 09-04-2009 [facility] ATOPIC ASSOCIATES DERMATITIS OF AND RELATED [place], CONDITIONS PSC 6989 UNSPECIFIED 09-04-2009 [facility]OLOG[facility] PRURITIC [facility]OCIATES DISORDER OF [place], PSC 6929 CONTACT 08-19-2009 [facility] DERMATITIS& EMERGENCY OTHER SERVICES ECZEMA DUE ASSOCIATES UNSPEC CAUSE 1330 SCABIES 08-14-2009 [facility] ASSOCIATES 490 BRONCHITIS 04-17-2009 [facility] NOT EMERGENCY SPECIFIED SERVICES ACUTE OR ASSOCIATES CHRONIC 7862 COUGH 04-17-2009 [facility] 36284 FEVER 04-10-2009 [facility] UNSPECIFIED MEDICAL IMAGING ASSOCIATES 38153 UNSPECIFIED 02-25-2009 [facility] 6253 DYSMENORRHE 04-17-2008 [facility] A [facility] INC V7612 OTHER 04-17-2008 [facility] SCREENING [facility] MAMMOGRAM INC 7061 OTHER ACNE 08-02-2007 DERMATOLOGY ASSOCIATES [facility], PSC 42711 LOSS OF 07-10-2007 [place] [facility] 81792 ABDOMINAL 07-10-2007 [place] [facility] PA[facility], SERV GENERALIZED FOUNDAT[facility] 29834 REFLUX 06-19-2007 [place] [facility] ESOPHAGITIS SERV [facility]OUNDAT[facility] [id number] Postoperati [facility] Allergies, Adverse Reactions, Alerts Type Drug [...] er 23 0 Ac ti AL ve [place] 00 04 2 No OM 64 -1 [...] Procedure DOS Code Location Performer Comment DUP-SCAN 32507 [facility] [place] XTR VEINS 7 [facility] INC INC UNILATERA L/LIMITED STUDY HOSPITAL G0463 [facility] [place] OUTPATIEN 7 [facility] T CLIN INC INC VISIT ASSESS & MGMT PT PULMONARY 26459 [place] STRESS 7 [place] [address] [place] DIFFUSING 7 MEDICAL CAPACITY SERV FOUNDAT[facility] N [facility] THORAX 79843 [place] W/O 7 HEALTHCAR HEALTHCAR CONTRAST E E MATERIAL [facility] [address] [place] JOEL W/VC 7 MEDICAL EXPIRATOR SERV Y LEONCIO FOUNDATIO W/WO MXML N VOL VNTJ PLETHYSMO 79405 [place] [facility] GRAPHY 7 MEDICAL LUNG SERV VOLUMES FOUNDATIO W/WO N AIRWAY RESIST THERAPEUT 36380 [facility] [place] IC 7 [facility] INJECTION INC INC IV PUSH EACH NEW DRUG RADIOLOGI 39983 [facility] [place] C EXAM 7 [facility] CHEST 2 INC INC VIEWS FRONTAL&L ATERAL ECG 18823 [facility] [place] ROUTINE 7 [facility] ECG INC INC W/LEAST 12 LDS TRCG ONLY W/O I&R THER 50307 [facility] [place] PROPH/DX 7 [facility] NJX IV INC INC PUSH SINGLE/1S T SBST/DRUG PRESSURIZ 72399 [facility] [place] ED/NONPRE 7 MEM HOSP [facility]OS[facility] SSURIZED INC INC INHALATIO N TREATMENT COMPREHEN 07869 [facility] [place] SIVE 7 MEM HOS[facility] [place] [address] [facility] [place] STREPTOCO 7 MEM HOSP MEM HOS[facility] CCUS INC INC GROUP A CREATINE 73010 [facility] [place] KINASE MB 7 MEM HOSP [place] [address] [facility] [place] LACTATE 7 [facility] H[facility]OS[facility] INC INC CREATINE 27324 [facility] [place] KINASE 7 [place] [address] [facility] [place] TROPONIN 7 MEM H[facility]OS[facility] QUANTITAT INC INC JORY BLOOD 93507 [facility] [place] COUNT 7 MEM [facility] MEM [facility]OS[facility] COMPLETE INC INC AUTO&AUTO DIFRNTL WBC IAADI 37340 [facility] [place] INFLUENZA 7 MEM H[facility]OS[facility] B VIRUS INC INC IAADI 16187 [facility] [place] INFFLUENZ 7 [facility] H[facility] A A VIRUS INC INC CULTURE 89597 [facility] [place] BACTERIAL 7 MEM HOS[facility] MEM HOSP BLOOD INC INC AEROBIC W/[place] [address] [facility] [place] TROPONIN 7 MEM HOS[facility] MEM [facility]OS[facility] QUANTITAT INC INC JORY BLOOD 09591 [facility] [place] COUNT 7 [facility]OS[facility] COMPLETE INC INC AUTO&AUTO DIFRNTL WBC COMPREHEN 12563 [facility] [place] SIVE 7 [facility]OS[facility] METABOLIC INC INC PANEL CREATINE 94926 [facility] [place] KINASE 7 MEM H[facility]OS[facility] TOTAL INC INC CREATINE 76159 [facility] [place] KINASE MB 7 MEM HOS[facility]OS[facility] FRACTION INC INC ONLY PRESSURIZ 34996 [facility] [place] ED/NONPRE 7 MEM H[facility] MEM HOS[facility] SSURIZED INC INC INHALATIO N TREATMENT THER 87683 [facility] [place] PROPH/DX 7 [facility] NJX IV INC INC PUSH SINGLE/1S T SBST/DRUG ECG 14264 [facility] [place] ROUTINE 7 [facility] ECG INC INC W/LEAST 12 LDS TRCG ONLY W/O I&R RADIOLOGI 89001 [facility] [place] C EXAM 7 [facility] CHEST 2 INC INC VIEWS FRONTAL&L ATERAL THERAPEUT 31322 [facility] [place] IC 7 [facility] INJECTION INC INC IV PUSH EACH NEW DRUG CT THORAX 33071 DELL MCMILLAN W/O 6 MEDICAL WSETA CONTRAST IMAGING MATERIAL ASS RADEX 21493 [facility] [place] RIBS UNI 6 [facility] W/POSTERO INC INC ANT CH MINIMUM 3 VIEWS RADIOLOGI 54076 DELL BARFIELD C 6 MEDICAL EXAMINATI IMAGING ON CHEST ASS SINGLE VIEW FRONTAL ECG 64809 [facility] JETER JR ROUTINE [address] [facility] W/LEAST P 12 [facility] G0378 [facility] [place] OBSERVATI 6 [facility] ON INC INC SERVICE PER HOUR PRESSURIZ 33134 [facility] [place] ED/NONPRE 6 [facility] SSURIZED INC INC INHALATIO N TREATMENT COLLECTIO 67456 [facility] N VENOUS 6 [facility] BLOOD INC INC VENIPUNCT URE BASIC 85414 [facility] METABOLIC 6 [facility] PANEL INC INC CALCIUM TOTAL BLOOD 97068 [facility] [place] COUNT 6 [facility]OS[facility] COMPLETE INC INC AUTO&AUTO DIFRNTL WBC PPSV23 64501 [facility] VACCINE 2 6 MEM H[facility] YRS OR INC INC OLDER FOR SUBQ/IM USE ADMINISTR G0009 [facility] ATION OF 6 MEM HOSP [facility] PNEUMOCOC INC INC KEERTHI VACCINE TOBACCO 11184 [facility] USE 6 [facility]OS[facility] CESSATION INC INC INTERMEDI ATE 3-10 MINUTES RADIOLOGI 13636 [facility] [place] C EXAM 6 [facility]OS[facility] CHEST 2 INC INC VIEWS FRONTAL&L ATERAL BLOOD 84738 [facility] [place] COUNT 6 [facility]OS[facility] COMPLETE INC INC AUTO&AUTO DIFRNTL WBC BLOOD 20503 [facility] GASES ANY 6 [facility] HOS[facility]OS[facility] INC INC COMBINATI ON PH PCO2 PO2 CO2 HCO3 COMPREHEN 30084 [facility] SIVE 6 [facility] H[facility]OS[facility] METABOLIC INC INC PANEL PRESSURIZ 29093 [facility] [place] ED/NONPRE 6 [facility] SSURIZED INC INC INHALATIO N TREATMENT THER 29581 [facility] [place] PROPH/DX 6 [facility] NJX IV INC INC PUSH SINGLE/1S T SBST/DRUG [facility] [id number] [facility] [place] OBSERVATI 6 [facility] ON INC INC SERVICE PER HOUR ESOPHAGOG 49045 [place] RAN[facility] ASTRODUOD 6 MEDICAL ENOSCOPY SERV TRANSORAL FOUNDATIO N DIAGNOSTI C INJECTION J2704 [facility] [place] PROPOFOL 6 Y Y 10 MG [facility] [address]14 ANESTHESI KIM LAD TRANSURET 6 A HRAL ASSOCIATE W/URETHRO S PSC CYSTOSCOP Y NOS CYSTO 86506 LISANDRO WEBB CALIBRATI 6 [place] URTL PSC STRIX/MICHELE NOSIS BLOOD 77430 [facility] [place] COUNT 6 [facility] HEMATOCRI INC INC T ANESTHESI 45251 COMMUNITY ROD HANSEL A 6 ANESTH INTRAPERI OF THE TONEAL BLUE LOWER ABD W/LAPS NOS COLLECTIO 78838 [facility] [place] N VENOUS 6 [facility] BLOOD INC INC VENIPUNCT URE INJECTION J2405 [facility] [place] 6 [facility] ONDANSETR INC INC ON HCL PER 1 MG LAPAROSCO 07083 [facility] [place] PY W/RMVL 6 [facility] ADNEXAL INC INC STRUCTURE S BLOOD 38217 [facility] [place] COUNT 6 [facility] HEMOGLOBI INC INC N INJECTION J2710 [facility] [place] [facility] NEOSTIGMI INC INC NE METHYLSUL FATE UP TO 0.5 MG INJECTION J0131 [facility] [place] 6 [facility] ACETAMINO INC INC PHEN 10 MG EGD 23532 [place] SEN RAFAEL TRANSORAL 6 MEDICAL BIOPSY SERV SINGLE/MU FOUNDATIO LTIPLE N ESOPHGL 56012 PEDRO ZUNIGA FUNCJ 6 MEDICAL G-ESOP SERV RFLX IMPD FOUNDATIO ELTRD N PROLNG ESOPHAGEA 47204 [facility] L 6 HEALTHCAR HEALTHCAR MOTILITY E E STUDY [facility] W/INTERP& RPT DIAGNOSTI G0206 [facility] [place] C 6 [facility] MAMMOGRAP INC INC HY INCL CAD WHEN PER[place]; [place] [address] [facility] [facility] TRANSVAGI 6 MEDICAL SWETA NAL IMAGING ASS CT THORAX 47879 [facility] [place] W/O 6 Y Y CONTRAST [facility] MATERIAL URINLS 61357 [facility] HARPEL DIP 6 PHYSICIAN DEVENDRA STICK/TAB S GROUP LET REAGNT NON-AUTO MICRSCPY ANES 62875 [facility] WHITE CHR UPPER GI 6 [facility] ENDOSCOPY ANESTHESI PROXIMAL A PSC TO DUODENUM ESOPHAGEA 90122 [facility] 6 Y Y MOTILITY [facility] STUDY W/INTERP& RPT ECG 70122 [facility] [place] ROUTINE 6 [facility] ECG INC INC W/LEAST 12 LDS TRCG ONLY W/O I&R ECG 28653 [facility] SHEELA ROUTINE 6 PHYSICIAN MAT ECG S GROUP W/LEAST 12 LDS I&R ONLY CV STRS 77406 [facility] TST 6 PHYSICIAN XERS&/OR S GROUP RX CONT ECG W/O I&R CV STRS 111[address] GEOVANNA [place] TST 6 [facility] XERS&/OR INC INC RX CONT ECG TRCG ONLY ECHO 38060 PEDRO SIFUENTES TTHRC R-T 6 MEDICAL 2D SERV W/WOM-MOD FOUNDATIO E COMPL N SPEC&[place] [address] [place] JANUSZ TRACT 6 MEDICAL UPPER SERV W/WO FOUNDATIO DELAYED N IMAGES W/KUB ECG 12144 GEOVANNA [place] ROUTINE 6 [facility] ECG INC INC W/LEAST 12 LDS TRCG ONLY W/O I&R ECG 27770 GEOVANNA [place] ROUTINE 6 [facility] ECG INC INC W/LEAST 12 LDS TRCG ONLY W/O I&R ECG 86016 GEOVANNA JETER JR ROUTINE 6 [facility] W/LEAST P 12 LDS I&R ONLY RADIOLOGI 05206 DELL REYES C 6 MEDICAL EXAMINATI IMAGING ON CHEST ASS SINGLE VIEW FRONTAL COMPREHEN 23193 GEOV[facility]NA [place] SIVE 6 [facility] METABOLIC INC INC PANEL CREATINE 15822 GEOVANNA [place] KINASE MB 6 [facility] FRACTION INC INC ONLY CREATINE 00994 GEOVANNA [place] KINASE 6 [facility] TOTAL INC INC FIBRIN 95992 GEOVANNA [place] DGRADJ 6 [facility] PRODUCTS INC INC D-DIMER QUAL/[place] [address] GEOVANNA [place] TROPONIN 6 [facility] QUANTITAT INC INC JORY BLOOD 24870 GEOVANNA [place] COUNT 6 [facility] COMPLETE INC INC AUTO&AUTO DIFRNTL WBC RADEX 03950 [facility] 1 5 MEDICAL HANSEL IMAGING ANTEROPOS ASS TERIOR VIEW CYSTO/URE 52857 GEOVANNA WEBB TERO 5 [facility] W/[facility] IPSY P &INDWELL STENT INSRT FLUOROSCO 56027 GEOVANNA [place] PY SPX UP 5 [facility] TO 1 INC INC HOUR PHYS/QHP TIME THERAPEUT 64657 GEOVANNA [place] IC 5 [facility] INJECTION INC [place] [address] GEOV[facility]NA [place] INFUSION 5 [facility] THERAPY INC INC PROPHYLAX IS/DX EA HOUR THERAPEUT 96936 GEOVANNA [place] IC 5 [facility] INJECTION [place] [address] GEOVANNA [facility] ABDOMEN & 5 [facility] PELVIS INC INC W/O CONTRAST MATERIAL RADEX 43257 DELL REYES ALL ELBOW 5 MEDICAL COMPLETE IMAGING MINIMUM [address] THORAX 96754 [facility] BARFIELD 5 MEDICAL HANSEL [place] [address] DELL 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 ABDOMEN & 4 MEDICAL SWETA PELVIS IMAGING W/O ASS CONTRAST MATERIAL RADIOLOGI 25465 GEOVANNA Ness EXAM 4 [facility] CHEST 2 INC INC VIEWS FRONTAL&L ATERAL THERAPEUT 19210 GEOVANNA [place] IC 4 [facility] PROPHYLAC INC INC TIC/DX INJECTION SUBQ/[place] [address] [facility] 4 Y Y [employer] [facility] [employer] W/WO DELAYED IMAGES W/KUB ESOPHAGEA 65448 [facility] [address] [facility] STUDY W/INTERP& RPT GASTRIC 13321 [facility] HIPOLITO EMPTYING 3 SWETA SWETA IMAGING STUDY EGD 00534 LONG[place] KALI LONG[place] KALI TRANSORAL 3 BIOPSY 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 L3925 [employer] ORTHOSIS 3 PIP/DIP NONTORSIO N JOINT PREFAB RADEX 27339 [facility] FINGR 3 SWETA SWETA MINIMUM 2 VIEWS THERAPEUT 61321 GEOV[facility]NA [place] IC 3 [facility] PROPHYLAC INC INC TIC/DX INJECTION SUBQ/IM HYSTEROSA 01255 [facility] HIP[facility] LPINGOGRA 3 SWETA SWETA PHY RS&I 11961 SCHULSTAD SCHULSTAD DELIVERY 3 GEE GEE ONLY LIG/TRNSX 50515 HARPEL HARPEL J 3 DEVENDRA DEVENDRA FALOPIAN TUBE DEL/ABDML SURG LOW 741 GEOVANAN AUSTIN CERVICAL 3 [facility] INC INC SECTION 50648 NAHOMY PONCE CONTRACTI 2 DEVENDRA DEVENDRA ON STRESS TEST 54169 MALGORZATA MCGARRY NONSTRESS 2 TRISH TRISH TEST 14391 GEOVANNA UASTIN NONSTRESS 2 [facility] TEST INC INC URNLS DIP 50985 [facility] [place] 2 [facility] STICK/TAB INC [place] [address] GEOVANNA [place] INFUSION 2 [facility] HYDRATION INC INC INITIAL 31 MIN-1 HOUR THERAPEUT 96060 GEOV[facility]NA [place] IC 2 [facility] PROPHYLAC INC INC TIC/DX INJECTION SUBQ/IM 51113 GEOV[facility]NA [place] NONSTRESS 2 [facility] [place] [address] GEOVANNA [place] RETROPERI 2 [facility] TONEAL INC INC REAL TIME W/IMAGE COMPLETE 58943 GEOV[facility]NA [place] NONSTRESS 2 [place] [address] GE[facility] [place] 2 [facility] UTERUS INC INC LIMITED 1/> FETUSES THERAPEUT 38857 GEOV[facility]NA [place] IC 2 [facility] PROPHYLAC INC INC TIC/DX INJECTION SUBQ/IM THERAPEUT 92662 GEOV[facility]NA [place] IC 2 [facility] PROPHYLAC INC INC TIC/DX INJECTION SUBQ/IM RADIOLOGI 14504 DELL 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 C EXAM 2 MEDICAL SWETA CHEST 2 IMAGING VIEWS ASS FRONTAL&L ATERAL NONCOVERE A9270 EVELIA ALTAMIRANO D ITEM OR 2 [facility] SERVICE RADEX 45576 EVELIA ALTAMIRANO FOOT 2 [facility] COMPLETE MINIMUM 3 VIEWS CULTURE 37232 GE[facility]NA [place] BACTERIAL 2 [facility] INC [place] [address] GEOV[facility] [place] 2 [facility] UTERUS INC INC LIMITED 1/> FETUSES US PREG 63546 DELL MCMILLAN UTERUS 2 MEDICAL SWETA REAL TIME IMAGING W/IMAGE ASS DCMTN TRANSVAG URNLS DIP 53444 [facility] [place] 2 [facility] STICK/TAB INC INC LET REAGENT AUTO MICROSCOP Y US PREG 07134 GEOV[facility]NA [place] UTERUS 2 [facility] REAL TIME INC INC W/IMAGE DCMTN TRANSVAG IADNA 51360 BIO BIO HERPES 2 REFERNCE REFERNCE 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 UNDARM 2 OTH THAN WOOD PAIR PAD TIP&HNDGR IP [place] LOWER [address] [facility]IPOL[facility]O EXTREMITY 2 MEDICAL SWETA W/O IMAGING CONTRAST ASS MATERIAL DETERMINA 74338 SCIFRES SCIFRES TION 2 ANG ANG REFRACTIV E STATE OPHTH 41749 SCIFRES SCIFRES MEDICAL 2 ANG ANG XM&EVAL COMPRE NEW PT 1/> VST THERAPEUT 79959 YASMEEN Song IC 2 PROPHYLAC TIC/DX INJECTION SUBQ/IM INJ J0702 YASMEEN Song BETAMETHA 2 SONE ACETATE & PHOSPHATE 3 MG INJECTION J1030 YASMEEN Song 2 METHYLPRE DNISOLONE ACETATE 40 MG URINE 63160 ROSELINE PONCE 2 NAHOMY BERUMEN DEVENDRA TEST VISUAL COLOR CMPRSN METHS URINE 97779 GEOV[facility]NA ASUTIN 2 [facility] TEST INC INC VISUAL COLOR CMPRSN METHS US PREG 87120 GEOVANNA [place] UTERUS 2 [facility] REAL TIME INC INC W/IMAGE DCMTN TRANSVAG GONADOTRO 93212 GEOVANNA [place] PIN 2 [facility] CHORIONIC INC INC QUANTITAT JORY BLOOD 93856 GEOV[facility]NA [place] COUNT 2 [facility] COMPLETE INC INC AUTO&AUTO DIFRNTL WBC URNLS DIP 27216 [facility] [place] 2 [facility] STICK/TAB INC INC LET REAGENT AUTO MICROSCOP Y BLOOD 17477 GE[facility]NA [place] TYPING 2 [facility] SEROLOGIC INC INC RH (D) CULTURE 14626 GE[facility] [place] BACTERIAL 2 [facility] INC INC QUANTTATI VE COLONY COUNT URINE BLOOD 80954 GEOVANNA [place] TYPING 1 [facility] SEROLOGIC [place] INC RH ([place]) [place] [address] GEOVANNA [place] INFUSION 1 [facility] THERAPY INC [place] [address] GEOVANNA [place] INFUSION 1 [facility] THERAPY/P INC INC ROPHYLAXI S /DX 1ST TO 1 HR THERAPEUT 26130 GEOVANNA [place] IC 1 [facility] INJECTION INC INC IV PUSH EACH NEW DRUG BLOOD 24815 GEOVANNA GEOVANNA COUNT 1 [facility] COMPLETE INC INC AUTO&AUTO DIFRNTL WBC TX MISSED 74404 GEOVANNA [place] 1 [facility] [place] [address] GEOVANNAARELY AUSTIN NUCLEOTID 1 [facility] ASE 5'- INC INC BLOOD 43300 GEOVANNA [place] COUNT 1 [facility] HEMOGLOBI INC INC N COLLECTIO 22735 GEOVANNA [place] N VENOUS 1 [facility] BLOOD INC INC VENIPUNCT URE BLOOD 04042 GEOVANNA [place] COUNT 1 [facility] [place] [address] PATHOLOGY PATHOLOGY SURG 1 & & PATHOLOGY CYTOLOGY CYTOLOGY LAB LAB GROSS&JAMESON ROSCOPIC EXAM ANESTHESI 16659 [facility] A 1 ANESTH INCOMPLET OF THE E/MISSED BLUE US PREG 17652 [facility] UTERUS 1 [facility] TRISH REAL TIME CLINIC OF W/IMAGE SHERYL DCMTN TRANSVAG US PREG 61871 [facility] UTERUS 1 HEALTH TRISH REAL TIME CLINIC OF W/IMAGE SHERYL DCMTN TRANSVAG COLLECTIO 54398 GEOVANNA [place] N VENOUS 1 [facility] BLOOD INC INC VENIPUNCT URE GONADOTRO 59768 GEOVANNA [place] PIN 1 [facility] CHORIONIC INC INC QUANTITAT JORY GONADOTRO 38988 GEOVANNA [place] PIN 1 [facility] CHORIONIC INC INC QUANTITAT JORY COLLECTIO 97784 GEOVANNA [place] N VENOUS 1 [facility] BLOOD INC INC VENIPUNCT URE COLLECTIO 75460 GEOV[facility]NA [place] N VENOUS 1 [facility] BLOOD INC INC VENIPUNCT URE GONADOTRO 10420 GEOVANNA [place] PIN 1 [facility] CHORIONIC INC INC QUANTITAT JORY GONADOTRO 51146 GEOV[facility]NA [facility] PIN 1 [facility] CHORIONIC INC INC QUANTITAT JORY COLLECTIO 10894 GE[facility] N VENOUS 1 [facility] BLOOD INC INC VENIPUNCT URE GONADOTRO 96930 GE[facility]NA [place] PIN 1 [facility] CHORIONIC INC INC QUANTITAT JORY BLOOD 50488 GEOVANNA [place] TYPING 1 [facility] SEROLOGIC INC INC ABO BLOOD 54974 GEOVANNA [place] COUNT 1 [facility] COMPLETE INC INC AUTO&AUTO DIFRNTL WBC URNLS DIP 30470 GEOVANNA [place] 1 [facility] STICK/TAB INC INC LET REAGENT AUTO MICROSCOP Y BLOOD 33442 GEOVANNA [place] TYPING 1 [facility] SEROLOGIC INC INC RH (D) US PREG 74472 [facility] UTERUS 1 [facility] TRISH REAL TIME CLINIC OF W/[place] [address] LAB [facility] LAB [facility] BLOOD/URI 1 AMERIC AMERIC C ACID HOLDING HOLDING SEDIMENTA 19783 [facility] TION RATE 1 AMERIC AMERIC RBC HOLDING HOLDING AUTOMATED C-REACTIV 38428 [facility] E PROTEIN 1 AMERIC AMERIC HOLDING HOLDING RHEUMATOI 62978 [facility] D FACTOR 1 AMERIC AMERIC QUANTITAT HOLDING HOLDING JORY BLOOD 04134 [facility]FR[facility] COUNT 1 AMERIC AMERIC COMPLETE HOLDING HOLDING AUTO&AUTO DIFRNTL WBC ANTINUCLE 30606 [facility] LAB [facility] AR 1 AMERIC AMERIC ANTIBODIE HOLDING HOLDING S MODESTO DEEP D9220 THE GUILLERMO SEDATION/ 1 IMPLANT & DON GENERAL ORAL ANESTHESI SURGERY C A-1ST 30 MINUTES SEDIMENTA 05136 GEOVANNA [place] TION RATE 1 [facility] RBC INC INC NON-AUTOM ATED DEEP D9220 THE LAZAR III SEDATION/ 1 IMPLANT & CAROL GENERAL ORAL ANESTHESI SURGERY C A-1ST 30 MINUTES URINE 27546 GEOVANNA [place] 1 [facility] CENTER [place] [address] LABONE OF LABONE OF FERRITIN 1 [facility] COLLECTIO 99581 A C JAMIN MICHELE N VENOUS 1 YASMEEN BERUMEN B[place] [address] [facility] OF IRON 1 [facility] BLOOD 34558 [facility] OF COUNT 1 [facility] COMPLETE AUTO&AUTO DIFRNTL WBC IRON 70826 [facility] OF BINDING 1 [facility] CAPACITY DEEP D9220 THE GUILLERMO SEDATION/ 1 IMPLANT & DON GENERAL ORAL ANESTHESI SURGERY C A-1ST 30 MINUTES ORTHOPANT 35836 THE GUILLERMO OGRAM 1 IMPLANT & DON ORAL SURGERY C CALCULUS 53309 LAB LU[facility]FR[facility] LAB [facility]FR[facility] QUANTITAT 1 AMERIC AMERIC JORY HOLDINGS HOLDINGS CHEMICAL RADEX 18484 [facility] ABDOMEN 1 1 MEDICAL SWETA [place] [address] [facility] [facility] HEAD/BRAI 1 MEDICAL SWETA N W/O IMAGING CONTRAST ASS MATERIAL 3D 13954 [facility] [facility] RENDERING 1 MEDICAL SWETA W/INTERP IMAGING & [place] [address] GEOVANNA [place] INFUSION 1 [facility] THERAPY/P INC INC ROPHYLAXI S /DX 1ST TO 1 HR THERAPEUT 78596 GEOV[facility]NA [place] IC 1 [facility] INJECTION INC INC IV PUSH EACH [place] EGD 59490 [place] KALI TRANSORAL 0 MEDICAL BIOPSY SERV SINGLE/MU FOUNDATIO LTIPLE BLOOD 81983 GEOVANNA [place] COUNT 0 [facility] COMPLETE INC INC AUTO&AUTO DIFRNTL WBC SIMPLE 80225 NELSON WEHRMAN REPAIR 0 EMERGENCY III RACHID SCALP/NEC SERVICES K/AX/ARBEN T/TRUNK 2.5CM/< CLOSURE 8659 GEOVANNA [place] SKIN&SUBC 0 [facility] [place] [address] GEOVANNA [place] INFUSION 0 [facility] THERAPY/P INC INC ROPHYLAXI S /DX 1ST TO 1 HR IM ADM 25117 GEOV[facility]NA [place] PRQ ID 0 [facility] SUBQ/IM INC INC NJXS 1 VACCINE THERAPEUT 55771 GE[facility]NA [place] IC 9 [facility] PROPHYLAC INC INC TIC/[place] INJE[place] SUBQ/[place] [address] GEOVANNA [place] INFUSION 9 [facility] THERAPY/P INC INC ROPHYLAXI S /DX 1ST TO 1 HR BASIC 69356 GEOVANNA [place] METABOLIC 9 [facility] PANEL INC INC CALCIUM TOTAL BLOOD 21904 GE[facility]NA [place] COUNT 9 [facility] COMPLETE INC INC AUTO&AUTO DIFRNTL WBC RADIOLOGI 90721 GEOV[facility]NA [place] C EXAM 9 [facility] CHEST 2 INC INC VIEWS FRONTAL&L ATERAL RADIOLOGI 51157 Grover PENA EXAM 9 MEDICAL JEFF CHEST 2 IMAGING VIEWS ASSOCIATE FRONTAL&L S ATERAL 3D 85456 GEOV[facility]NA [place] RENDERING 8 [facility] W/INTERP INC INC & [place] [address] GEOVANNA [place] HEAD/BRAI 8 [facility] N W/O & INC INC W/CONTRAS T MATERIAL 40353 GEOVANNA [place] TRANSVAGI 8 [facility] NAL INC INC COMPUTER- 15650 GEOVANNA [place] AIDED 8 [facility] DETECTION INC INC SCREENING MAMMOGRAP HY SCREENING 32422 GE[facility] [place] 8 [facility] MAMMOGRAP INC INC HY BILATERAL COLONOSCO 88121 [place] PY FLX DX 8 MEDICAL MEDICAL W/COLLJ SERV SERV SPEC [place] N[place] [address]22 GEOVANNA [place] THER 8 [facility] PROPH/DX INC INC 1ST >1 HR Encounters Encounter Start End Date Code Location Performer Type Date [facility] GEOVANNA Coyle 7 [facility] OUTPATIEN INC [facility] GEOVANNA Coyle 7 [facility] OUTPATIEN INC [facility] - 7 7 [facility] OUTPATIEN E T [facility]ITALS EMERGENCY 48108 GEOVANNA 7 7 [facility] DEPARTMEN INC T VISIT MODERATE SEVERITY HOSPITAL GEOVANNA - 7 7 [facility] OUTPATIEN INC T EMERGENCY 31252 [facility] DEPT 7 7 PHYSICIAN VISIT S, PLLC HIGH SEVERITY& THREAT FUNCJ EMERGENCY 72101 GEOVANNA 7 7 [facility] DEPARTMEN INC T VISIT HIGH/URGE NT SEVERITY HOSPITAL GEOVANNA - 7 7 [facility] OUTPATIEN INC T OFFICE 75488 [facility] PHYSICIAN T VISIT S GROUP 10 MINUTES HOSPITAL GEOVANNA - 6 6 [facility] OUTPATIEN INC T EMERGENCY 40185 GEOVANNA 6 6 [facility] T VISIT LIMITED/M INOR PROB EMERGENCY 59881 GEOVANNA 6 6 [facility] DEPARTMEN INC T VISIT HIGH/URGE NT SEVERITY HOSPITAL GEOVANNA - 6 6 [facility] OUTPATIEN INC T OFFICE 95439 [facility] CHURCH CAROL OUTPATIEN 6 6 MEDICAL T VISIT SERV 25 FOUNDATIO MINUTES N OFFICE 77734 [facility] CHARLES LIS OUTPATIEN 6 6 MEDICAL T VISIT SERV 15 FOUNDATIO MINUTES N OFFICE 30392 L[facility]DRO WEBB OUTPATIEN 6 6 [facility] V[facility] 15 PSC MINUTES HOSPITAL [facility] 6 [facility] - 6 6 [facility] OUTPATIEN INC T OFFICE 57351 [facility] OUTPATIEN 6 6 [facility] 10 PSC MINUTES OFFICE 51081 [facility] GRANTL OUTPATIEN 6 6 PHYSICIAN DEVENDRA T VISIT S GROUP 15 MINUTES OFFICE 92632 [facility] OUTPATIEN 6 6 [facility] 25 PSC MINUTES OFFICE 74880 [facility] HARPEL OUTPATIEN 6 6 PHYSICIAN DEVENDRA T VISIT S GROUP 25 MINUTES OFFICE 06501 [facility] CHURCH CAROL OUTPATIEN 6 6 MEDICAL T VISIT SERV 25 FOUNDATIO MINUTES N HOSPITAL [facility] - 6 6 [facility] OUTPATIEN E T HOSPITALS OFFICE 06824 [facility] 6 PHYSICIAN DEVENDRA T VISIT S GROUP 15 MINUTES HOSPITAL GEOVANNA - 6 6 [facility] GEOVANNA - 6 6 [facility] 6 PHYSICIAN DEVENDRA T VISIT S GROUP 15 MINUTES OFFICE 21755 P[facility]RO CAPPS OUTPATIEN 6 6 MEDICAL MICHELE T VISIT SERV 15 FOUNDATIO MINUTES [facility] UNIVERSIT - 6 6 Y [facility] T OFFICE [address] [facility] OUTPATIEN 6 6 MEDICAL T VISIT SERV 25 FOUNDATIO MINUTES N HOSPITAL GEOVANNA - 6 6 [facility]EN [facility] GEOVANNA - 6 6 [facility] GEOVANNA - 6 6 [facility]PAT[facility] - 6 6 Y [facility] T OFFICE 54143 [facility] 6 PHYSICIAN MAT T NEW 60 S GROUP MINUTES HOSPITAL GE[facility]NA - 6 6 [facility] GEOVANNA - 6 6 [facility] OUTPATIEN [facility] EMERGENCY 25299 GEOVANNA 6 6 [facility] DEPARTMEN INC T VISIT MODERATE SEVERITY HOSPITAL GEOVANNA - [address] [facility] T EMERGENCY 68288 GEOVANNA 6 6 [facility] DEPARTMEN INC T VISIT LOW/MODER SEVERITY OFFICE 62904 GEOVANNA MCKINNEYRON OUTPATIEN 6 6 [facility] 20 [facility] EMERGENCY 46968 GEOVANNA 5 5 [facility] DEPARTMEN [facility] T [facility]ISIT LIMITED/M INOR [facility] GEOVANNA - 5 5 [facility] OUTPATI[facility] T [facility] 42455 GEOVANNA OUTPATIEN 5 5 [facility] 20 INC [facility] GEOVANNA - 5 5 [facility] GEOVANNA - 5 5 [facility] OUTPATIEN [facility] T [facility] 25093 [facility] 5 PHYSICIAN LES [facility] [address] [facility] GEOVANNA - 5 5 [facility] OUTPAT[facility]EN [facility] T OFF[facility] 12845 DEMAR BENZ OUTPATIMAGDIEL 4 4 III ANGIE III [facility] 30 [facility] GEOVANNA - 4 4 [facility] OUTPATIEN [facility] GEOVANNA - 4 4 [facility] OUT[facility] T OFF[facility] 81816 JOE DIAZ OUTPATIEN 4 4 [facility] 10 [facility] UNIVERSIT - 4 4 Y [facility] UNIVERSIT - 4 4 Y [facility] T OFFICE [address] [facility] OUTPATI 4 4 T [facility] 45 [facility] GEOVANNA - 3 3 [facility] OUTPATIEN [facility] Emergency KENIA Palmer MD (ER) 3 10:49 3 11:31 [facility] EMERGENCY 02604 HUHN THO HUHN THO 3 3 DEPARTMEN T VISIT MODERATE SEVERITY OFFICE 50625 Duncan SCHMIDT OUTPATIEN 3 3 YASMEEN MAREI T VISIT PSC 15 MINUTES Inpatient IMP Geovanna Ponce MD (IN) 3 06:00 3 15:00 [facility] GEOVANNA - 3 3 [facility] OFFICE 43874 MUSIC MIKKI [facility]IC [facility]I OUTPATIEN 3 3 T NEW 20 MINUTES HOSPITAL [facility] 3 3 [facility] GEOVANNA [facility] 2 2 [facility] 65763 GEOV[place] 2 2 [facility] V[facility] LOW/MODER [facility]VERITY [facility]PITAL GEOV[facility]NA - 2 2 [facility] GE[facility] - 2 2 [facility] GE[facility] - 2 2 [facility] GE[facility] - 2 2 [facility] - 2 2 [facility] 25206 EVELIA 2 2 [facility] VISIT MODERATE [facility]VERITY EMERGENCY 78103 GEOVANNA 2 2 [facility] V[facility] MODERATE SEVERITY HOSPITAL GEOV[facility]NA - 2 2 [facility] GE[facility] - 2 2 [facility]PATIEN [facility] PERIODIC [id number] ROSELINE BOBBY 2 2 NAHOMY BERUMEN E MED EST PATIENT 40-64YRS OFFICE 49292 ROSELINE PONCE OUTPATIEN 2 2 NAHOMY RAMSAY T VISIT 15 MINUTES HOSPITAL GE[facility] - 2 2 [facility] OUTPATIEN INC T HOSPITAL GE[facility] - 2 2 [facility] OUTPATIEN INC T EMERGENCY [id number] NELSON DIAZ DEPT 2 2 EMERGENCY JAMESON VISIT SERVICES HIGH SEVERITY& THREAT FUNCJ EMERGENCY 73378 GEOVANNA 2 2 [facility] DEPARTMEN INC T VISIT MODERATE SEVERITY OFFICE 65970 ROSELINE PONCE OUTPATIEN 1 1 NAHOMY RAMSAY T NEW 60 MINUTES HOSPITAL GE[facility] - 1 1 [facility] OUTPATIEN [facility] H[facility]PITAL GEOVANNA - 1 1 [facility] OUTPATIEN INC T HOSPITAL [facility] - 1 1 [facility] OUTPATIEN [facility] H[facility]PITAL GEOVANNA - 1 1 [facility] OUTPATIEN INC [facility]OSPITAL GEOVANNA - 1 1 [facility] OUTPATIEN INC T EMERGENCY 83516 [facility]OV[facility] 1 1 [facility] DEPARTMEN INC T VISIT MODERATE SEVERITY EMERGENCY 36151 NELSON DIAS 1 1 EMERGENCY DEPARTMEN SERVICES T VISIT HIGH/URGE NT SEVERITY HOSPITAL [facility] - 1 1 [facility] OUTPATIEN INC T EMERGENCY 83235 NELSON COOL 1 1 EMERGENCY III RACHID DEPARTMEN SERVICES T VISIT HIGH/URGE NT SEVERITY EMERGENCY 41499 [facility] 1 1 [facility] DEPARTMEN INC T VISIT MODERATE SEVERITY [facility]OSPITAL [facility] - 1 1 [facility] OUTPATIEN INC T OFFICE 35678 [place] OUTPATIEN [address] [facility]ENTER MINUTES OFFICE 25204 A C OUTPERRY 1 1 YASMEEN BERUMEN T VISIT [facility] 15 MINUTES OFFICE 07999 A C JAMIN MICHELE OUTPATIEN 1 1 YASMEEN BERUMEN T VISIT PSC 15 MINUTES HOSPITAL [facility] - 1 1 [facility] OUTPATIEN INC T EMERGENCY 77896 [facility] 1 1 [facility] DEPARTMEN INC T VISIT HIGH/URGE NT SEVERITY EMERGENCY 99228 NELSON COOL DEPT 1 1 EMERGENCY III RACHID VISIT SERVICES HIGH SEVERITY& THREAT FUNJ [facility] - 1 1 [facility] OUTPATIEN INC T OFFICE 76922 [place] OUTPATIEN 1 1 MEDICAL Nikita T NEW 45 SERV MINUTES [facility] EMERGENCY 21552 NELSON JAVED DEPT 0 0 EMERGENCY MEDARDO VISIT SERVICES HIGH SEVERITY& THREAT [facility] EMERGENCY [id number] NELSON COOL DEPT 0 0 EMERGENCY III RACHID VISIT SERVICES HIGH SEVERITY& THREAT [facility] EMERGENCY 43849 [facility]NA 0 0 [facility] DEPART[facility] INC T VISIT MODERATE SEVERITY HOSPITAL GEOV[facility]NA - 0 0 [facility] OUTPATIEN INC T EMERGENCY 81380 NELSON COOL 0 0 EMERGENCY III, DEPARTMEN SERVICES ROSELYN T VISIT HIGH/URGE ASSOCIATE NT S SEVERITY OFFICE [id number] NAVIN CERVANTES 0 0 GY VARGHESE W T VISIT ASSOCIATE 15 S OF MINUTES [facility] EMERGENCY 24506 NELSON LOERA, 0 0 EMERGENCY CRUZ DEPARTMEN SERVICES O T VISIT MODERATE ASSOCIATE SEVERITY S EMERGENCY 02320 NELSON DIAZ, 0 0 EMERGENCY ANN S DEPARTMEN SERVICES T VISIT MODERATE ASSOCIATE SEVERITY S EMERGENCY 32668 GEOVANNA 9 9 [facility] DEPARTMEN INC T VISIT MODERATE SEVERITY EMERGENCY 50096 NELSON LOERA, 9 9 EMERGENCY CRUZ DEPARTMEN SERVICES O T VISIT HIGH/URGE ASSOCIATE NT S SEVERITY HOSPITAL [facility] - 9 9 [facility] [place] [place] T OFFICE [address] [facility] NAVYA [facility] 9 9 FAMILY RENETTA T VISIT CARE 15 CLINIC MINUTES [facility] GEOVANNA - 8 8 [facility] [place] INC T OFFICE 63457 DERMATOLO AYANNA [facility] 8 8 GY BEATRICE P T VISIT ASSOCIATE 15 S OF MINUTES [facility] GEOVANNA - 8 8 [facility] [place] [place] T OFFICE [address] [place] [facility] 8 8 MEDICAL MEDICAL T VISIT SERV SERV 25 FOUNDATIO FOUNDATIO MINUTES
--- OUTSIDE RECORDS SUMMARY | 2017-03-22 03:47 | External Medical Summary Rpt ---
Author Author , KENNETH Organization KENNETH Address Unknown Phone [email or web address] Care Team Providers Care Commercial Review Appraiser Name Role Phone A Grover ARANA MD [...] LAZAR III CAROL, LAZAR Unavailable Unavailable III RENTETA HERNANDEZ, Unavailable Unavailable RENETTA SINGH HARPEL, HARPEL Unavailable Unavailable HARPEL DEVENDRA, HARPEL Unavailable Unavailable DEVENDRA HARPEL DEVENDRA, HARPEL Unavailable Unavailable DEVENDRA [facility] Unavailable Unavailable S[facility]Y, [facility] Unavailable Unavailable S[facility]Y, [facility] Unavailable Unavailable INC, [facility] Unavailable Unavailable HOSPITAL, [facility] Unavailable Unavailable HOSPITAL P, [facility], Unavailable Unavailable [facility] MCKINLEY HALL, MCKINLEY HALL Unavailable Unavailable HUHN THO, HUHN THO Unavailable Unavailable HUHN THO, HUHN THO Unavailable Unavailable TELLO MEDARDO, TELLO Unavailable Unavailable MEDARDO [facility], [facility] KILPELA JEA, KILPELA Unavailable [...] DWI MICHEL ANG, MICHEL ANG Unavailable Unavailable [facility] Unavailable Unavailable SERVICES, [facility] GUILLERMO DON, Unavailable Unavailable GUILLERMO DON MERSACK, BEATRICE P, Unavailable Unavailable MERSACK, BEATRICE P BHASKAR RACHID, BHASKAR RASHID Unavailable Unavailable JAMIN MICHELE, JAMIN MICHELE Unavailable Unavailable JAMIN MICHELE, JAMIN MICHELE Unavailable Unavailable MUSIC MIKKI, MUSIC MIKKI Unavailable Unavailable MUSIC MIKKI, MUSIC MIKKI Unavailable Unavailable [facility] Unavailable Unavailable [facility], [facility], Unavailable Unavailable PLL[facility], [facility], [...] ANG SCIFRES ANG, SCIFRES Unavailable Unavailable ANG ARCAELI LIS, ARACELI LIS Unavailable Unavailable SHEELA MAT, Unavailable Unavailable SHEELA MAT SOLUNA BARNETTCRUZ O, Unavailable Unavailable LUNA LOERAATUNDE O BEAR SIFUENT[facility] Unavailable Unavailable [facility] Unavailable Unavailable [facility], [facility] Unavailable Unavailable [facility]PITALS, [facility], Unavailable Unavailable [facility] WEHRMAN III RACHID, Unavailable Unavailable [...] 2016 Problems Code Diagnosis DOS Provider Status [id number] EMBOLISM & 12-07-2016 [facility]B [facility] SUPERFICIAL INC VEINS RIGHT LW EXT [id number] PAIN IN 12-07-2016 [facility] [id number] ACUTE EMBO 12-06-2016 [facility] THROMB UNS [facility] DEEP VNS RT INC PROX LOW EXT K219 GASTRO-ESOP 12-06-2016 [facility] H REFLUX [facility] DISEASE INC WITHOUT ESOPHAGITIS Z720 TOBACCO USE 12-06-2016 [facility] INC P47168 UNSPECIFIED 11-25-2016 [facility] ED J440 COPD WITH 10-22-2016 [facility] RESPIRATORY INFECTION J441 CHRONIC 10-22-2016 [facility] OBSTRUCTIVE [facility] PULMONARY INC DZ W/EXACERBAT ION R05 COUGH 10-22-2016 [facility] R079 CHEST PAIN 10-22-2016 [facility] UNSPECIFIED [facility] S34933 PERSONAL 10-22-2016 [facility], NICOTINE PLLC DEPENDENCE J42 UNSPECIFIED 09-14-2016 [facility] CHRONIC [facility] BRONCHITIS INC R0989 OTH SPEC SX 09-14-2016 [facility] SIGNS [facility]ICAL INVLV THE IMAGING ASS CIRC & RESP SYS N951 MENOPAUSAL 07-09-2016 [facility] CLIMACTERIC GROUP STATES R0781 PLEURODYNIA 04-05-2016 [facility] I10 ESSENTIAL 03-29-2016 [facility] PRIMARY [facility] HYPERTENSIO INC N J449 CHRONIC 03-29-2016 [facility] OBSTRUCTIVE [facility] PULMONARY INC DISEASE UNS [id number] CONTUSION 03-29-2016 [facility] RT FRONT [facility] WALL THORAX INC INITIAL ENCOUNTER [id number] UNSPECIFIED 03-29-2016 [facility] IN[facility] OF MEDICAL THORAX IMAGING ASS INITIAL ENCOUNTER J209 ACUTE 02-15-2016 [facility]IS [facility] R0602 SHORTNESS 02-15-2016 [facility] IM[facility] E871 HYPO-OSMOLA 02-12-2016 [facility] LITY AND [facility] HYPONATREMI INC A Z23 ENCOUNTER 02-12-2016 [facility] FOR [facility] IMMUNIZATIO INC N K224 DYSKINESIA 02-11-2016 [facility] SERV ESOPHAGUS FOUNDATION K2270 BARRETTS 02-11-2016 [facility] ESOPHAGUS SERV WITHOUT FOUNDATION DYSPLASIA R12 HEARTBURN 02-11-2016 [facility] SERV [facility] N3020 OTHER 01-21-2016 [facility] [place] PSC WITHOUT HEMATURIA R300 DYSURIA 01-21-2016 [facility] PSC R312 OTHER 01-21-2016 [facility]CROSCOPIC [place] [facility]EM[facility] PSC N3021 OTHER 12-31-2015 [facility] CYSTITIS PSC WITH HEMATURIA N342 OTHER 12-31-2015 [facility] PSC K660 PERITONEAL 12-23-2015 [facility] ADHESIONS PHYSICIANS POSTPROC GROUP POSTINFECTI ON N736 FEMALE 12-23-2015 [facility] PELVIC PHYSICIANS PERITONEAL GROUP ADHESIONS POSTINFECTI VE N8320 UNSPECIFIED 12-23-2015 [facility] OVARIAN PHYSICIANS CYSTS GROUP R102 PELVIC AND 12-23-2015 [facility] PERINEAL PHYSICIANS PAIN GROUP B9689 OT SPEC 12-19-2015 [facility] BACTERIAL PHYSICIANS AGNT CAUSE GROUP DZ CLASSIFIED ELSW N760 ACUTE 12-19-2015 [facility] VAGINITIS PHYSICIANS GROUP N341 NONSPECIFIC 12-10-2015 [facility]ITIS [facility] PSC Z8719 PERSONAL 11-21-2015 [place] [facility] HISTORY SERV OTHER FOUNDATION DISEASES DIGESTIVE SYSTEM R928 OTH ABNORM 11-12-2015 [facility] & [facility] INCONCLUSIV INC E FIND ON DX IMAG BREAST N830 FOLLICULAR 11-07-2015 [facility] CYST OF MEDICAL OVARY IMAGING ASS R309 PAINFUL 11-07-2015 [facility] MICTURITION [facility] UNSPECIFIED R918 OTHER 11-04-2015 [facility] ABNORMAL FINDING OF LUNG FIELD N390 URINARY 11-03-2015 [facility] TRACT PHYSICIANS INFECTION GROUP SITE NOT SPECIFIED R0609 OTHER FORMS 10-30-2015 [place] [facility] OF DYSPNEA SERV FOUNDATION Z539 PROCEDURE & 10-24-2015 [facility] NOT CARRIED OUT UNS REASON K449 DIAPHRAGMAT 10-22-2015 [place] [facility] IC HERNIA SERV W/O FOUNDATION OBSTRUCTION OR GANGRENE E789 DISORDER OF 10-13-2015 [facility] LIPOPROTEIN INC METABOLISM UNSPECIFIED Z8679 PERSONAL 10-13-2015 [place] HISTORY OTH [facility] DISEASES INC CIRCULATORY SYSTEM E785 HYPERLIPIDE 10-09-2015 [place] REMI [facility] UNSPECIFIED INC I340 NONRHEUMATI 09-30-2015 [facility] MITRAL SERV VALVE FOUNDATION INSUFFICIEN CY I351 NONRHEUMATI 09-30-2015 [place] [facility] AORTIC SERV VALVE FOUNDATION INSUFFICIEN CY I361 NONRHEUMATI 09-30-2015 [place] [facility] TRICUSPID SERV VALVE FOUNDATION INSUFFICIEN CY Z8632 PERSONAL 09-25-2015 [facility] HISTORY OF PHYSICIANS GESTATIONAL GROUP DIABETES J069 ACUTE UPPER 07-22-2015 [facility] RESPIRATORY INC INFECTION UNSPECIFIED J0190 ACUTE 06-24-2015 [place] SINUSITIS [facility] N200 CALCULUS OF 04-29-2015 [place] KIDNEY [facility] INC N201 CALCULUS OF 04-29-2015 [place] URETER [facility] P N202 CALCULUS OF 04-29-2015 [place] KIDNEY MEDICAL WITH IMAGING ASS CALCULUS OF URETER N1330 UNSPECIFIED 04-28-2015 [facility] HYDRONEPHRO IMAGING ASS SIS 87377 PAIN IN 12-21-2014 [facility] [facility], MEDICAL UPPER ARM IMAGING ASS 9593 INJURY 12-21-2014 [place] OTHER&UNSPE MEDICAL CIFIED IMAGING ASS [employer]&WRI ST 3899 UNSPECIFIED 06-18-2014 [facility] HEARING PHYSICIAN LOSS PRACTICE L 7856 ENLARGEMENT 06-14-2014 [place] OF LYMPH MEDICAL NODES IMAGING ASS 01757 OTHER 06-14-2014 [place] NONSPECIFIC MEDICAL ABNORMAL IMAGING ASS FINDING OF LUNG FIELD 95214 LOC 05-23-2014 DEMAR OSTEOARTHRO III ANGIE S NOT SPEC PRIM/SEC OTH SPEC SITE 4019 UNSPECIFIED 11-26-2013 [facility] ESSENTIAL [facility] HYPERTENSIO INC N 486 PNEUMONIA, 11-26-2013 [facility] ORGANISM [facility] UNSPECIFIED INC 37448 ASTHMA, 11-26-2013 [facility] UNSPECIFIED [facility] , INC UNSPECIFIED STATUS 5601 PARALYTIC 11-26-2013 [facility] ILEUS [facility] INC 14359 OTHER 11-26-2013 [facility] SPECIFIED MEDICAL DISORDER OF IMAGING ASS INTESTINES 12695 ABDOMINAL 11-26-2013 [facility] PAIN OTHER MEDICAL SPECIFIED IMAGING ASS SITE 13066 OTHER 11-26-2013 [facility] DIGESTIVE [facility] SYSTEM INC COMPLICATIO NS V148 PERSONAL 11-26-2013 [facility] HISTORY [facility] ALLERGY OTH INC SPEC MEDICINAL AGTS 5990 URINARY 11-25-2013 [facility] TRACT [facility] INFECTION INC SITE NOT SPECIFIED V1582 PERS HX 11-25-2013 [facility] TOBACCO USE [facility] PRESENTING INC [facility] 84496 UNSPECIFIED 08-22-2013 [facility] SLEEP DISTURBANCE 47796 ESOPHAGEAL 08-07-2013 [facility] 5533 DIAPHRAGMAT 08-07-2013 [facility] MENTION OBSTRUCTION /GANGREN 39336 BARRETTS 07-10-2013 [facility] 74114 ABDOMINAL 03-27-2013 [facility] PAIN, SWETA UNSPECIFIED SITE 82045 ATROPHIC 03-26-2013 [facility] GASTRITIS WITHOUT MENTION OF HEMORRHAGE 10486 PAIN IN 12-18-2012 [employer] JOINT, HAND [...] NEOPLASM OF SKIN OF TRUNK EXCEPT SCROTUM 59762 INFLAMED 09-14-2012 MUSIC MI[facility]I SEBORRHEIC KERATOSIS 7089 UNSPECIFIED 09-14-2012 [facility] URTICARIA V2651 TUBAL 08-08-2012 [facility] LIGATION SWETA STERILIZATI ON STATUS 80766 ABNORMAL 06-20-2012 [facility] MATERNAL [facility] GLUCOSE INC TOLERANCE W/DELIVERY 09555 PREV C/S 06-20-2012 BRITTANY VIGIL GEE W/WO MENTION ANTPRTM COND V252 STERILIZATI 06-20-2012 [place] ON GEE V270 OUTCOME OF 06-20-2012 [facility] DELIVERY GEE SINGLE LIVEBORN V221 SUPERVISION 05-26-2012 [facility] DEVENDRA OF OTHER NORMAL V286 SCREENING 05-26-2012 [place] [address] THREATENED 05-24-2012 [facility] PREMAT[facility] LABOR ANTEPARTUM 17824 OTHER 04-29-2012 [facility] SPECIFED [facility] COMPLICATIO INC N ANTEPARTUM 05899 ABNORMAL 04-20-2012 [facility] MATERNAL [facility] GLUCOSE INC TOLERANCE ANTEPARTUM 7080 ALLERGIC 04-20-2012 [facility] URTICARIA [facility] INC V222 04-20-2012 [facility] STATE, [facility] INCIDENTAL INC 64544 DECR 03-29-2012 [facility] MOVMNTS [facility] MGMT MOTH INC ANTPRTM COND/COMP 68148 OTHER 03-28-2012 [place] SPECIFIED MEDICAL DISORDER OF IMAGING ASS KIDNEY AND URETER 7242 LUMBAGO 03-28-2012 [facility] INC 4660 ACUTE 02-15-2012 [facility] BRONCHITIS [facility] INC 52351 OTHER 01-29-2012 [place] DISEASES OF MEDICAL LUNG NOT IMAGING ASS ELSEWHERE CLASSIFIED 07354 SPRAIN AND 12-25-2011 [facility] MEM STRAIN OF HOSP UNSPECIFIED SITE OF FOOT 17548 CONTUSION 12-25-2011 [facility] MEM OF SHOULDER HOSP REGION 29830 CONTUSION 12-25-2011 [facility] MEM OF FOOT HOSP V2382 SUPERVISION 11-29-2011 NAHOMY RAMSAY HIGH-RISK [place] A [address] [facility] CURRENT 11-24-2011 [place] RASHID MAT CONDS CLASSIFIABL [...] JAMIN MICHELE IN OTHER SPECIFIED SITES KNEE&LEG 90913 CONTUSION 09-08-2011 JAMIN MICHELE OF HIP 18109 CONTUSION 09-08-2011 JAMIN MICHELE OF LOWER LEG 20622 CONTUSION 09-08-2011 JAMIN MICHELE OF KNEE 96692 PAIN IN 09-05-2011 [place] JOINT MEDICAL PELVIC IMAGING ASS REGION AND THIGH 78338 SWELLING OF 09-05-2011 [facility] LIMB [facility] 8439 SPRAIN&STRA 09-05-2011 [facility] IN OF EMERGENCY UNSPECIFIED SERVICES SITE OF HIP&THIGH 8449 SPRAIN&STRA 09-05-2011 [facility] IN OF EMERGENCY UNSPECIFIED SERVICES SITE OF KNEE&LEG 79944 UNSPECIFIED 09-05-2011 [facility] SITE OF ANKLE SPRAIN AND STRAIN E8859 FALL FROM 09-05-2011 [facility] OTHER EMERGENCY SLIPPING SERVICES TRIPPING OR STUMBLING E8889 UNSPECIFIED 09-05-2011 [facility] FALL [facility] V720 EXAMINATION 08-13-2011 SCIFRES ANG OF EYES AND VISION 26071 MIGRAINE 07-29-2011 LAZAR LARISSA UNSP W/O INTRACT W/O STATUS MIGRAINOSUS 7245 UNSPECIFIED 07-29-2011 LAZAR LARISSA BACKACHE 7821 RASH AND 07-28-2011 ARANA A OTHER NONSPECIFIC SKIN ERUPTION V2509 OTH GENERAL 07-15-2011 ROSELINE COREA MD CNSL&ADVICE CONTRACEPT MANAGEMENT V7241 07-15-2011 ROSELINE Kendrick EXAMINATION NAHOMY BERUMEN OR TEST NEGATIVE RESULT 632 MISSED 07-01-2011 PATHOLOGY & CYTOLOGY LAB 94864 UNSPEC 06-26-2011 WEHRMAN III HEMORRHAGE RACHID EARLY ANTEPARTUM 26469 MATERNAL 2011 NAHOMY ESCOBAR MD ANTEPARTUM 37738 SPOTTING 2011 ROSELINE COREA MD ANTEPARTUM COND/COMP 60278 THREATENED 06-19-2011 [facility] , EMERGENCY ANTEPARTUM SERVICES V220 SUPERVISION 03-11-2011 [facility] OF NORMAL [facility] FIRST INC 2859 UNSPECIFIED 02-20-2011 [facility] ANEMIA [facility] INC 6238 OTHER 02-20-2011 [facility] SPECIFIED EMERGENCY NONINFLAMMA SERVICES TORY DISORDER [place] 28341 PAIN IN 01-21-2011 LAB LUIS ALFREDO JOINT, [employer] HOLDING SITES 5210 DENTAL 01-14-2011 THE IMPLANT CARIES & ORAL SURGERY C 06503 PAIN IN 01-12-2011 [facility] JO[facility], [facility] LOWER LEG INC 94916 PAIN IN 01-12-2011 [facility], [facility] ANKLE AND INC FOOT 21250 UNSPECIFIED 01-12-2011 [facility]INT EMERGENCY DISORDER OF SERVICES MULTIPLE SITES 2662 OTHER 11-19-2010 [facility] CO [facility] S V2689 OTHER 11-19-2010 [facility] CO SPECIFIED HEALTH PROCREATIVE CENTER MANAGEMENT 2809 UNSPECIFIED 11-03-2010 [facility] OF [facility] ANEMIA 21630 RESTLESS 11-03-2010 A Grover HOFF MD PSC SYNDROME 34754 OTHER 11-03-2010 [facility] [place] INC FATIGUE 7831 ABNORMAL 11-03-2010 LABONE OF WEIGHT GAIN [place] INC 84381 TOOTH 09-10-2010 THE IMPLANT BROKEN FX & ORAL DUE TO SURGERY C TRAUMA W/O MENTION COMP 5920 CALCULUS OF 08-21-2010 LAB LUIS ALFREDO KIDNEY [employer] 14857 UNSPECIFIED 08-18-2010 [place] [facility] CONSTIPATIO IMAGING ASS N 7840 HEADACHE 08-15-2010 [facility] 7945 NONSPECIFIC 07-17-2010 [place] MEDICAL ABNORM SERV RESULTS FOUNDATIO THYROID FUNCT STUDY 60444 ABDOMINAL 05-05-2010 [facility] PAIN, EMERGENCY EPIGASTRIC SERVICES 7802 SYNCOPE AND 01-03-2010 [facility] [place] COLLAPSE EMERGENCY SERVICES 8910 OPEN WOUND 01-03-2010 [facility] KNEE EMERGENCY LEG&ANK SERVICES WITHOUT MENTION COMP V065 NEED 01-03-2010 [facility] PROPHYLACTI [facility] C INC VACCINATION W/TETANUS-D [facility] 8488 OTHER 11-24-2009 [facility] SPECIFIED EMERGENCY SITES OF SERVICES SPRAINS AND ASSOCIATES STRAINS 6918 OTHER 09-04-2009 DERMATOLOGY ATOPIC ASSOCIATES DERMATITIS OF AND RELATED [facility] CONDITIONS PSC 6989 UNSPECIFIED 09-04-2009 [facility]ERMATOLOG[facility] PRURITIC ASSOCIATES DISORDER OF [place], PSC 6929 CONTACT 08-19-2009 [facility] DERMATITIS& EMERGENCY OTHER SERVICES ECZEMA DUE ASSOCIATES UNSPEC CAUSE 1330 SCABIES 08-14-2009 [facility]ENC[facility] SERVICES ASSOCIATES 490 BRONCHITIS 04-17-2009 [facility] NOT EMERGENCY SPECIFIED SERVICES ACUTE OR ASSOCIATES CHRONIC 7862 COUGH 04-17-2009 [facility] 47096 FEVER 04-10-2009 [place] UNSPECIFIED MEDICAL IMAGING ASSOCIATES 29540 UNSPECIFIED 02-25-2009 [facility] 9075 DYSMENORRHE 04-17-2008 [facility] A [facility] INC V7612 OTHER 04-17-2008 [facility] SCREENING [facility] MAMMOGRAM INC 7061 OTHER ACNE 08-02-2007 [facility] [place] PSC 29676 LOSS OF 07-10-2007 [place] [facility] 25747 ABDOMINAL 07-10-2007 [place] [facility] PA[facility], SERV GENERALIZED FOUNDAT[facility] 79151 REFLUX 06-19-2007 [place] [facility] ESOPHAGITIS SERV [facility] Immunization Name Date Rout CVX Reac Dose Comm Prov Is Faci e tion ent ider Refu lity Give sed n PPSV 09-0 33 TAY No TAY 23 2-20 CED CED VACC 16 MEM MEM INE 2 HOSP HOSP YRS INC INC OR JAYDA Kendrick FOR SUBQ /IM USE Procedures Procedure DOS Code Location Performer Comment DUP-SCAN 71517 [facility] [place] XTR VEINS 7 MEM H[facility] INC INC [facility] L/[facility] G0463 [facility] [place] OUTPATIEN 7 MEM H[facility] MEM [facility]OS[facility] T CLIN INC INC VISIT ASSESS & MGMT PT PULMONARY 01825 [place] [facility] STRESS 7 [place] [address] [place] [facility] DIFFUSING 7 MEDICAL CAPACITY SERV FOUNDAT[facility] N SPMTRY 16062 [place] [facility] W/VC 7 MEDICAL EXPIRATOR SERV Y LEONCIO FOUNDATIO W/WO MXML N VOL VNTJ PLETHYSMO 14134 [place] [facility] GRAPHY 7 MEDICAL LUNG SERV VOLUMES FOUNDATIO W/WO N AIRWAY RESIST CT THORAX 62973 [facility]IT[facility] ACCESS HOSPITAL W/O 7 HEALTHCAR HEALTHCAR CONTRAST E E MATERIAL [facility] CULTURE 70180 [facility] [place] BACTERIAL 7 [facility] H[facility] BLOOD INC INC AEROBIC W/ID ISOLATES RADIOLOGI 69844 [facility] C EXAM 7 [facility] CHEST 2 INC INC VIEWS FRONTAL&[place] [address] [facility] [place] STREPTOCO 7 [facility] [place] [address] [facility] [place] TROPONIN 7 [facility] QUANTITAT INC INC JORY BLOOD 20519 [facility] [place] COUNT 7 [facility] COMPLETE INC INC AUTO&AUTO DIFRNTL WBC CREATINE 89217 [facility] [place] KINASE MB 7 MEM HOSP [place] [address] [facility] [place] LACTATE 7 [facility] INC INC ECG 46493 [facility] [place] ROUTINE 7 MEM HOSP [facility] ECG INC INC W/LEAST 12 LDS TRCG ONLY W/O I&R THER 94048 [facility] [place] PROPH/DX 7 MEM H[facility]P [facility] NJX IV INC INC PUSH SINGLE/1S T SBST/DRUG IAADI 99594 [facility] [place] INFLUENZA 7 MEM HOSP [facility] B VIRUS INC INC IAADI 77810 [facility] [place] INFFLUENZ 7 MEM H[facility] A A VIRUS INC INC COMPREHEN 43492 [facility] [place] SIVE 7 MEM H[facility]P [facility] METABOLIC INC INC PANEL PRESSURIZ 53595 [facility] [place] ED/NONPRE 7 MEM HOSP MEM [facility]OS[facility] SSURIZED INC INC INHALATIO N TREATMENT THERAPEUT 51216 [facility] [place] IC 7 MEM HOSP [facility] INJECTION INC INC IV PUSH EACH NEW DRUG CREATINE 76331 [facility] [place] KINASE 7 MEM HOSP [facility] TOTAL INC INC COMPREHEN 61827 [facility] [place] SIVE 7 MEM HOSP [facility] METABOLIC INC INC PANEL THERAPEUT 95802 [facility] [place] IC 7 [facility] H[facility] INJECTION INC INC IV PUSH EACH NEW DRUG PRESSURIZ 22032 [facility] [place] ED/NONPRE 7 MEM HOSP MEM HOS[facility] SSURIZED INC INC INHALATIO N TREATMENT THER 00174 [facility] [place] PROPH/DX 7 MEM HOSP [facility]OS[facility] NJX IV INC INC PUSH SINGLE/1S T SBST/DRUG CREATINE 67699 [facility] [place] KINASE 7 MEM HOSP [facility] TOTAL INC INC ECG 06654 [facility] [place] ROUTINE 7 MEM HOSP MEM [facility]OS[facility] ECG INC INC W/LEAST 12 LDS TRCG ONLY W/O I&R CREATINE 24527 [facility] [place] KINASE MB 7 MEM HOSP [place] [address] [facility] [place] TROPONIN 7 MEM H[facility] QUANTITAT INC INC JORY RADIOLOGI 78774 [facility] [place] C EXAM 7 MEM HOSP MEM HOS[facility] CHEST 2 INC INC VIEWS FRONTAL&L ATERAL BLOOD 38748 [facility] [place] COUNT 7 [facility] H[facility] COMPLETE INC INC AUTO&AUTO DIFRNTL WBC CT THORAX 49909 DELL MCMILLAN W/O 6 MEDICAL SWETA CONTRAST IMAGING MATERIAL ASS RADEX 25120 [facility] [place] RIBS UNI 6 [facility]P [facility] W/POSTERO INC INC ANT CH MINIMUM 3 VIEWS RADIOLOGI 12958 DELL BARFIELD C 6 MEDICAL EXAMINATI IMAGING ON CHEST ASS SINGLE VIEW FRONTAL ECG 47213 [facility] JETER JR ROUTINE 6 [facility] W/LEAST P 12 LDS I&R ONLY PRESSURIZ 31096 [facility] [place] ED/NONPRE 6 [facility] SSURIZED INC INC INHALATIO N TREATMENT ADMINISTR G0009 [facility] [place] ATION OF 6 [facility] PNEUMOCOC INC INC KEERTHI VACCINE COLLECTIO 89575 [facility] [place] N VENOUS 6 [facility] BLOOD INC INC VENIPUNCT URE BASIC 06509 [facility] [place] METABOLIC 6 [facility]OS[facility] PANEL INC INC CALCIUM TOTAL PPSV23 36340 [facility] [place] VACCINE 2 6 MEM H[facility] YRS OR INC INC OLDER FOR SUBQ/IM USE HOSPITAL G0378 [facility] [place] OBSERVATI 6 [facility] ON INC INC SERVICE PER HOUR BLOOD 17858 [facility] [place] COUNT 6 [facility] COMPLETE INC INC AUTO&AUTO DIFRNTL WBC TOBACCO 52285 [facility] [place] USE 6 [facility] CESSATION INC INC INTERMEDI ATE 3-10 MINUTES HOSPITAL G0378 [facility] [place] OBSERVATI 6 [facility] ON INC INC SERVICE PER HOUR RADIOLOGI 33274 [facility] [place] C EXAM 6 [facility] H[facility] MEM [facility]OS[facility] CHEST 2 INC INC VIEWS FRONTAL&L ATERAL BLOOD 73771 [facility] [place] GASES ANY 6 MEM H[facility]OS[facility] INC INC COMBINATI ON PH PCO2 PO2 CO2 HCO3 BLOOD 61778 [facility] [place] COUNT 6 [facility]OS[facility] COMPLETE INC INC AUTO&AUTO DIFRNTL WBC THER 39679 [facility] [place] PROPH/DX 6 [facility] NJX IV INC INC PUSH SINGLE/1S T SBST/DRUG COMPREHEN 21961 [facility] [place] SIVE 6 [facility] METABOLIC INC INC PANEL PRESSURIZ 01402 [facility] [place] ED/NONPRE 6 [facility] HOS[facility] SSURIZED INC INC INHALATIO N TREATMENT ESOPHAGOG 54585 [place] RANJIT MEDINA ASTRODUOD 6 MEDICAL ENOSCOPY SERV TRANSORAL FOUNDATIO N DIAGNOSTI C INJECTION J2704 [facility] PROPOFOL 6 Y Y 10 MG [facility] ANE [address] TRANSURET 6 A HRAL ASSOCIATE W/URETHRO S PSC CYSTOSCOP Y NOS CYSTO 88902 [facility] CALIBRATI 6 [place] [facility] URTL PSC STRIX/MICHELE NOSIS COLLECTIO 83575 [facility] [place] N VENOUS 6 [facility] BLOOD INC INC VENIPUNCT URE ANESTHESI 07906 [facility] ROD HANSEL A 6 ANESTH INTRAPERI OF THE TONEAL BLUE LOWER ABD W/LAPS NOS INJECTION J2710 [facility] [place] 6 [facility] NEOSTIGMI INC INC NE METHYLSUL FATE UP TO 0.5 MG INJECTION J0131 [facility] [place] 6 [facility] ACETAMINO INC INC PHEN 10 MG LAPAROSCO 78667 [facility] [place] PY W/RMVL 6 [facility] ADNEXAL INC INC STRUCTURE S INJECTION J2405 [facility] [place] 6 [facility] ONDANSETR INC INC ON HCL PER 1 MG BLOOD 35781 [facility] [place] COUNT 6 [facility] HEMATOCRI INC INC T BLOOD 69421 [facility] [place] COUNT 6 [facility] HEMOGLOBI INC INC N EGD 10734 [place] S[facility] RAFAEL TRANSORAL 6 MEDICAL BIOPSY SERV SINGLE/MU FOUNDATIO LTIPLE N ESOPHAGEA 23726 [place] L 6 [facility] HOSPITALS W/INTERP& RPT ESOPHGL 52400 [facility] ZUNIGA FUNCJ 6 MEDICAL G-ESOP SERV RFLX IMPD FOUNDATIO ELTRD N PROLNG DIAGNOSTI [id number] [facility] [place] C 6 [facility] MAMMOGRAP INC INC HY INCL CAD [place]; [place] [address] DELL MCMILLAN TRANSVAGI 6 MEDICAL SWETA NAL IMAGING ASS [facility] THORAX 36711 [facility] W/O 6 Y Y [facility] MATERIAL URINLS 97982 [facility] HARPEL DIP 6 PHYSICIAN DEVENDRA STICK/TAB S GROUP LET REAGNT NON-AUTO MICRSCPY ANES 18949 [facility]ITE CHR UPPER GI 6 LT ENDOSCOPY ANESTHESI PROXIMAL A PSC TO DUODENUM ESOPHAGEA 49509 [facility] 6 Y Y [facility] STUDY W/INTERP& RPT ECG 33062 [facility] [place] ROUTINE 6 [facility] ECG INC INC W/LEAST 12 LDS TRCG ONLY W/O I&R ECG 69839 [facility] SHEELA ROUTINE 6 PHYSICIAN MAT ECG S GROUP W/LEAST 12 LDS I&R ONLY CV STRS 37208 [facility] CAROL TST 6 PHYSICIAN XERS&/OR S GROUP RX CONT ECG W/O I&R CV STRS 94772 [facility] [place] TST 6 [facility] XERS&/OR INC INC RX CONT ECG TRCG ONLY ECHO 61757 P[facility]RO SIFUENTES TTHRC R-T 6 MEDICAL 2D SERV W/WOM-MOD FOUNDATIO E COMPL N SPEC&[place] [address] P[facility] JANUSZ TRACT 6 MEDICAL UPPER SERV W/WO FOUNDATIO DELAYED N IMAGES W/KUB ECG 46738 [facility] [place] ROUTINE 6 [facility] ECG INC INC W/LEAST 12 LDS TRCG ONLY W/O I&R ECG 31314 [facility] [place] ROUTINE 6 [facility] ECG INC INC W/LEAST 12 LDS TRCG ONLY W/O I&R RADIOLOGI 68038 DELL ERIC Ness 6 MEDICAL EXAMINATI IMAGING ON CHEST ASS SINGLE VIEW FRONTAL ECG 78587 [facility] JR ROUTINE 6 [facility] W/LEAST P 12 LDS I&R ONLY FIBRIN 07040 [facility] [place] DGRADJ 6 [facility] PRODUCTS INC INC D-DIMER QUAL/SEMI HANNA COMPREHEN 94999 GEOVANNA [place] SIVE 6 [facility] METABOLIC INC INC PANEL CREATINE 47525 GEOVANNA [place] KINASE 6 [facility] [place] [address] GEOVANNA A[place] TROPONIN 6 [facility] QUANTITAT INC INC JORY CREATINE 46611 GEOVANNA [place] KINASE MB 6 [facility] FRACTION INC INC ONLY BLOOD 78127 GEOVANNA [place] COUNT 6 [facility] COMPLETE INC INC AUTO&AUTO DIFRNTL WBC FLUOROSCO 78388 GEOVANNA [place] PY SPX UP 5 [facility] TO 1 INC INC HOUR PHYS/QHP TIME THERAPEUT 97026 GEOV[place]NA [place] IC 5 [facility] INJECTION INC INC IV PUSH EACH NEW DRUG RADEX 86103 [facility] 1 5 MEDICAL HANSEL IMAGING ANTEROPOS ASS TERIOR VIEW CYSTO/URE 02800 GEOVANNA WEBB TERO 5 [facility] IPSY [place] &[place] [address] GEOVANNA [place] INFUSION 5 [facility] THERAPY INC [place] [address] GEOV[place]NA [place] ABDOMEN & 5 [facility] PELVIS INC INC W/O CONTRAST MATERIAL THERAPEUT 20061 GEOV[place]NA [place] IC 5 [facility] INJECTION INC INC IV PUSH EACH NEW DRUG RADEX 39602 [place] REYES ALL ELBOW 5 MEDICAL COMPLETE IMAGING MINIMUM [address] THORAX 30692 [place] DIANESARIKE 5 MEDICAL HANSEL W/[place] [address] [place] [facility] ABDOMEN & 4 MEDICAL SWETA PELVIS IMAGING W/O ASS CONTRAST MATERIAL THERAPEUT 30875 GEOV[place]NA [place] IC 4 [facility] PROPHYLAC INC INC TIC/DX INJECTION SUBQ/IM RADIOLOGI 50279 GEOVANNA [place] C EXAM 4 [facility] CHEST 2 INC INC VIEWS FRONTAL&[place] [address] [facility] 4 Y Y [facility] W/WO DELAYED IMAGES W/KUB ESOPHAGEA 11373 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 L3925 [employer] ORTHOSIS 3 PIP/DIP NONTORSIO N JOINT PREFAB RADEX 99632 [facility] FINGR 3 SWETA SWETA MINIMUM 2 VIEWS THERAPEUT 48726 GEOV[place]NA [place] IC 3 [facility] PROPHYLAC INC INC TIC/DX INJECTION SUBQ/IM HYSTEROSA 16216 [facility] HIP[facility] LPINGOGRA 3 SWETA SWETA PHY RS&I LOW 741 GEOVANNA [place] CERVICAL 3 [facility] INC INC SECTION LIG/TRNSX 66890 HARPEL HARPEL J 3 DEVENDRA DEVENDRA FALOPIAN TUBE DEL/ABDML SURG 86037 SCHULSTAD SCHULSTAD DELIVERY 3 GEE GEE ONLY 89213 HARPEL HARPEL CONTRACTI 2 DEVENDRA DEVENDRA ON STRESS TEST 50143 MALGORZATA MCGARRY NONSTRESS 2 TRISH TRISH TEST 67882 GEOV[place]NA [place] NONSTRESS 2 [facility] TEST INC INC URNLS DIP 85622 GE[facility] [place] 2 [facility] STICK/TAB INC [place] [address] GEOV[place]NA [place] INFUSION 2 [facility] HYDRATION INC INC INITIAL 31 MIN-1 HOUR THERAPEUT 33047 GE[place] IC 2 [facility] PROPHYLAC INC INC TIC/DX INJECTION SUBQ/IM 31737 GEOV[place]NA [place] NONSTRESS 2 [facility] TEST INC INC 93346 GEOV[place]NA [place] NONSTRESS 2 [facility] TEST INC INC THERAPEUT 70283 GEOVANNA [place] IC 2 [facility] PROPHYLAC INC INC TIC/[place] INJECTION SUBQ/[place] [address] GEOV[facility]NA [place] 2 [facility] UTERUS INC INC LIMITED 1/> [place] [address] GEOVANNA [place] RETROPERI 2 [facility] TONEAL INC INC REAL TIME W/IMAGE COMPLETE THERAPEUT 93818 GEOV[place]NA [place] IC 2 [facility] PROPHYLAC INC INC TIC/DX INJECTION SUBQ/IM RADIOLOGI 25128 DELL SALAZARCHER C EXAM 2 MEDICAL SWETA CHEST 2 IMAGING VIEWS ASS FRONTAL&L ATERAL RADEX 90384 EVELIA ALTAMIRANO FOOT 2 [facility] COMPLETE MINIMUM 3 VIEWS NONCOVERE A9270 EVELIA ALTAMIRANO D ITEM OR 2 [place] [address] GEOV[place]NA [place] 2 [facility] UTERUS INC INC LIMITED 1/> FETUSES [place] PREG 03022 DELL MCMILLAN UTERUS 2 MEDICAL SWETA REAL TIME IMAGING W/IMAGE ASS DCMTN TRANSVAG URNLS DIP 16649 [facility] [place] 2 [facility] STICK/TAB INC INC LET REAGENT AUTO MICROSCOP Y CULTURE 24448 GEOV[place]NA [place] BACTERIAL 2 [facility] INC INC QUANTTATI VE COLONY COUNT URINE US PREG 35621 GEOVANNA [place] UTERUS 2 [facility] REAL TIME INC INC W/IMAGE DCMTN TRANSVAG IADNA 25988 BIO BIO LANDY 2 REFERNCE REFERNCE SPECIES LABORATOR LABORATOR AMPLIFIED IES IES PROBE TQ IADNA 74222 BIO BIO GARDNEREL 2 REFERNCE REFERNCE LA LABORATOR LABORATOR VAGINALIS IES IES AMPLIFIED PROBE TQ IADNA 07933 BIO BIO HERPES 2 REFERNCE REFERNCE SOMPLX LABORATOR LABORATOR VIRUS IES IES AMPLIFIED PROBE TQ IADNA NOS 53917 BIO BIO 2 REFERNCE REFERNCE AMPLIFIED LABORATOR LABORATOR PROBE TQ IES IES EACH ORGANISM [facility] E0114 [facility] NABIL L.P. UNDARM 2 OTH THAN WOOD PAIR PAD TIP&HNDGR IP CT LOWER 83605 DELL HIPOLITO EXTREMITY 2 MEDICAL SWETA W/O IMAGING CONTRAST ASS MATERIAL OPHTH 24142 SCIFRES SCIFRES MEDICAL 2 ANG ANG XM&EVAL COMPRE NEW PT 1/> VST DETERMINA 31253 SCIFRES SCIFRES TION 2 ANG ANG REFRACTIV E STATE THERAPEUT 29874 YASMEEN Song IC 2 PROPHYLAC TIC/DX INJECTION SUBQ/IM INJ J0702 YASMEEN Song BETAMETHA 2 SONE ACETATE & PHOSPHATE 3 MG INJECTION J1030 YASMEEN ARANA Duncan 2 METHYLPRE DNISOLONE ACETATE 40 MG URINE 61314 ROSELINE COREA 2 NAHOMY BERUMEN DEVENDRA TEST VISUAL COLOR CMPRSN METHS URINE 54197 GE[facility] [place] 2 [facility] TEST INC INC VISUAL COLOR CMPRSN METHS US PREG 57776 GEOVANNA [place] UTERUS 2 [facility] REAL TIME INC INC W/IMAGE DCMTN TRANSVAG URNLS DIP 74887 GE[facility] 2 [facility] STICK/TAB INC INC LET REAGENT AUTO MICROSCOP Y BLOOD 59547 GEOVANNA [place] TYPING 2 [facility] SEROLOGIC INC INC RH (D) CULTURE 37764 GEOV[place]NA [place] BACTERIAL 2 [facility] INC INC QUANTTATI VE COLONY COUNT URINE GONADOTRO 94220 GEOVANNA [place] PIN 2 [facility] CHORIONIC INC INC QUANTITAT JORY BLOOD 42725 GE[place]NA [place] COUNT 2 [facility] COMPLETE INC INC AUTO&AUTO DIFRNTL WBC BLOOD 43345 GE[facility]NA [place] COUNT 1 [facility] COMPLETE INC INC AUTO&[place] [address] GEOV[place]NA [place] NUCLEOTID 1 [facility] ASE 5'- INC INC BLOOD 85383 GEOV[place]NA [place] COUNT 1 [facility] HEMOGLOBI INC INC N BLOOD 17251 GEOV[place]NA [place] COUNT 1 [facility] HEMATOCRI INC INC T TX MISSED 75444 GEOVANNA [place] 1 [facility] FIRST [place] [address] PATHOLOGY PATHOLOGY SURG 1 & & PATHOLOGY CYTOLOGY CYTOLOGY LAB LAB GROSS&JAMESON ROSCOPIC EXAM ANESTHESI 72197 [facility] Song 1 ANESTH INCOMPLET OF THE E/MISSED BLUE COLLECTIO 38475 GEOVANNA [place] N VENOUS 1 [facility] BLOOD INC INC VENIPUNCT URE BLOOD 68602 GEOVANNA [place] TYPING 1 [facility] SEROLOGIC INC INC RH (D) [place] [address] GEOVANNA [place] INFUSION 1 [facility] THERAPY/P INC INC ROPHYLAXI S /DX 1ST TO 1 HR THERAPEUT 53877 GEOVANNA [place] IC 1 [facility] INJECTION INC [place] [address] GEOVANNA [place] INFUSION 1 [facility] THERAPY INC INC PROPHYLAX IS/DX [place] PREG 95085 [facility] UTERUS 1 [facility] TRISH REAL TIME CLINIC OF W/IMAGE SHERYL DCMTN TRANSVAG US PREG 96407 [facility] UTERUS 1 [facility] TR[facility] REAL TIME CLINIC OF W/IMAGE SHERYL DCMTN TRANSVAG GONADOTRO 13053 GEOVANNA [place] PIN 1 [facility] CHORIONIC INC INC QUANTITAT JORY COLLECTIO 79219 GEOV[place]NA [place] N VENOUS 1 [facility] BLOOD INC INC VENIPUNCT URE COLLECTIO 75052 GEOV[place]NA [place] N VENOUS 1 [facility] BLOOD INC INC VENIPUNCT URE GONADOTRO 45837 GEOVANNA [place] PIN 1 [facility] CHORIONIC INC INC QUANTITAT JORY GONADOTRO 13209 GEOVANNA [place] PIN 1 [facility] CHORIONIC INC INC QUANTITAT JORY COLLECTIO 71860 GEOV[place]NA [place] N VENOUS 1 [facility] BLOOD INC INC VENIPUNCT URE COLLECTIO 60853 GEOVANNA [place] N VENOUS 1 [facility] BLOOD INC INC VENIPUNCT URE GONADOTRO 96459 GEOVANNA [place] PIN 1 [facility] CHORIONIC INC INC QUANTITAT JORY GONADOTRO 65052 GEOV[place]NA [place] PIN 1 [facility] CHORIONIC INC INC QUANTITAT JORY BLOOD 99898 GEOVANNA [place] TYPING 1 [facility] SEROLOGIC INC INC RH (D) URNLS DIP 93027 GEOVANNA [place] 1 [facility] STICK/TAB INC INC LET REAGENT AUTO MICROSCOP Y BLOOD 34747 GEOVANNA [place] TYPING 1 [facility] SEROLOGIC INC INC ABO BLOOD 15604 GEOVANNA [place] COUNT 1 [facility] COMPLETE INC INC AUTO&AUTO DIFRNTL WBC US PREG 77600 [facility] UTERUS 1 [facility] TRISH REAL TIME CLINIC OF W/IMAGE SHERYL DCMTN TRANSVAG ANTINUCLE 00381 [facility] AR 1 AMERIC AMERIC ANTIBODIE HOLDING HOLDING S MODESTO BLOOD 06901 LAB [facility] LAB [facility] ALFR[facility]O COUNT 1 AMERIC AMERIC COMPLETE HOLDING HOLDING AUTO&[place] [address] LAB [facility] LAB [facility] BLOOD/URI 1 AMERIC AMERIC C ACID HOLDING HOLDING SEDIMENTA 74892 [facility] LAB [facility] TION RATE 1 AMERIC AMERIC RBC HOLDING HOLDING AUTOMATED C-REACTIV 44350 [facility] E PROTEIN 1 AMERIC AMERIC HOLDING HOLDING RHEUMATOI 40745 [facility] D FACTOR 1 AMERIC AMERIC QUANTITAT HOLDING HOLDING JORY DEEP D9220 THE GUILLERMO SEDATION/ 1 IMPLANT & DON GENERAL ORAL ANESTHESI SURGERY C A-1ST 30 MINUTES SEDIMENTA 70055 GEOVANNA [place] TION RATE 1 [facility] RBC INC INC NON-AUTOM ATED DEEP D9220 THE LAZAR III SEDATION/ 1 IMPLANT & CAROL GENERAL ORAL ANESTHESI SURGERY C A-1ST 30 MINUTES URINE 14919 GEOVANNA [place] 1 [facility] VISUAL COLOR CMPRSN METHS COLLECTIO 89069 Duncan NEVILLE MICHELE N VENOUS 1 YASMEEN BERUMEN B[place] [address] [facility] FERRITIN 1 [place] [address] [facility] IRON 1 [facility] BLOOD 32990 [facility] COUNT 1 [facility] COMPLETE AUTO&AUTO DIFRNTL WBC IRON 68285 [facility] BINDING 1 [facility] CAPACITY DEEP D9220 THE GUILLERMO SEDATION/ 1 IMPLANT & DON GENERAL ORAL ANESTHESI SURGERY C A-1ST 30 MINUTES ORTHOPANT 61071 THE GUILLERMO OGRAM 1 IMPLANT & DON ORAL SURGERY C CALCULUS 38470 LAB LUIS ALFREDO LAB LUIS ALFREDO QUANTITAT 1 AMERIC AMERIC JORY HOLDINGS HOLDINGS CHEMICAL RADEX 71668 [place] [facility] ABDOMEN 1 1 MEDICAL SWETA IMAGING ANTEROPOS ASS TERIOR VIEW 3D 68365 [place] [facility] RENDERING 1 MEDICAL SWETA W/INTERP IMAGING & [place] [address] [place] [facility] HEAD/BRAI 1 MEDICAL SWETA N W/[place] [address] GEOVANNA [place] INFUSION 1 [facility] THERAPY/P INC INC ROPHYLAXI S /DX 1ST TO 1 HR THERAPEUT 04629 GEOVANNA [place] IC 1 [facility] INJECTION INC INC IV PUSH EACH NEW DRUG EGD 25543 [place] KALI TRANSORAL 0 MEDICAL BIOPSY SERV SINGLE/MU FOUNDATIO LTIPLE IM ADM 55591 GEOVANNA [place] PRQ ID 0 [facility] SUBQ/IM INC INC NJXS 1 VACCINE BLOOD 79950 GEOV[place]NA [place] COUNT 0 [facility] COMPLETE INC INC AUTO&AUTO DIFRNTL WBC CLOSURE 8659 GEOVANNA [place] SKIN&SUBC 0 [facility] [place] [address] GEOVANNA [place] INFUSION 0 [facility] THERAPY/P INC INC ROPHYLAXI S /DX 1ST TO 1 HR SIMPLE 44752 NELSON WEHRMAN REPAIR 0 EMERGENCY III RACHID SCALP/NEC SERVICES K/AX/ARBEN T/TRUNK 2.5CM/< BASIC 73085 GEOVANNA [place] METABOLIC 9 [facility] PANEL INC INC CALCIUM TOTAL THERAPEUT 76254 GE[facility]NA [place] IC 9 [facility] PROPHYLAC INC INC TIC/[place] IN[place] SUBQ/[place] [address] GEOVANNA [place] INFUSION 9 [facility] THERAPY/P INC INC ROPHYLAXI S /DX 1ST TO 1 HR BLOOD 45940 GEOVANNA [place] COUNT 9 [facility] COMPLETE INC INC AUTO&AUTO DIFRNTL WBC RADIOLOGI 45049 GEOVANNA [place] C EXAM 9 [facility] CHEST 2 INC INC VIEWS FRONTAL&L ATERAL RADIOLOGI 19749 DELL MCMILLAN C EXAM 9 MEDICAL JEFF CHEST 2 IMAGING VIEWS ASSOCIATE FRONTAL&[place] [address] GEOVANNA [place] HEAD/BRAI 8 [facility] N W/O & INC INC W/CONTRAS T MATERIAL SCREENING 38378 [facility] [place] 8 [facility] MAMMOGRAP INC INC HY BILATERAL 3D 28187 GEOV[place]NA [place] RENDERING 8 [facility] W/INTERP INC INC & [place] [address] GEOVANNA [place] TRANSVAGI 8 [facility] NAL INC INC COMPUTER- 84938 GEOVANNA [place] AIDED 8 [facility] DETECTION INC [place]FS [address]90[address] GEOVANNA [place] THER 8 [facility] PROPH/DX INC INC 1ST >1 HR COLONOSCO 24916 [place] PY FLX DX 8 MEDICAL MEDICAL W/COLLJ SERV SERV SPEC WHEN FOUNDATIO FOUNDATIO PFRMD Encounters Encounter Start End Date Code Location Performer Type Date [facility] GEOVANNA Coyle 7 [facility] OUTPATIEN INC [facility] GEOVANNA Coyle 7 [facility] 7 7 [facility] GEOVANNA Coyle 7 [facility] OUTPATIEN INC T EMERGENCY 85176 GEOVANNA Coyle 7 [facility] DEPARTMEN INC T VISIT MODERATE SEVERITY EMERGENCY 83873 HARJINDER DIAZ DEPT 7 7 PHYSICIAN VISIT S, PLLC HIGH SEVERITY& THREAT FUNCJ EMERGENCY 18169 GEOVANNA 7 7 [facility] HIGH/URGE NT SEVERITY HOSPITAL GEOVANNA - 7 7 [facility] OUTPATIEN [facility] T OFFICE 77829 [facility] HARPEL OUTPATIEN 7 7 PHYSICIAN T VISIT S GROUP 10 MINUTES EMERGENCY 61374 GEOVANNA 6 6 [facility] T VISIT LIMITED/M [facility] GEOVANNA - 6 6 [facility] OUTPATIEN [facility] T EMERGENCY 55799 GEOVANNA 6 6 [facility] T VISIT HIGH/URGE NT SEVERITY HOSPITAL GEOVANNA - 6 6 [facility] OUTPATIEN INC T OFFICE 87395 [place] ARACELI LIS OUTPATIEN 6 6 MEDICAL T VISIT SERV 15 FOUNDATIO MINUTES N OFFICE 49348 [facility] OUTPATIEN 6 6 MEDICAL T VISIT SERV 25 FOUNDATIO MINUTES N OFFICE 61457 [facility] 6 6 [facility] 15 PSC MINUTES [facility] - 6 [facility] OUTPATIEN INC T OFFICE 28512 [facility] 6 6 [facility] 10 PSC MINUTES OFFICE 54526 [facility] HARPEL OUTPATIEN 6 6 PHYSICIAN DEVENDRA T VISIT S GROUP 15 MINUTES OFFICE 97499 [facility] 6 6 [facility] 25 PSC MINUTES OFFICE 52422 [facility] HARPE[facility] OUTPATIEN 6 6 PHYSICIAN DEVENDRA T VISIT S GROUP 25 MINUTES OFFICE 35915 [facility] MEDICAL T VISIT SERV 25 FOUNDATIO MINUTES [facility]OSP[facility] - 6 6 [facility] 29157 [facility] 6 6 PHYSICIAN DEVENDRA T VISIT S GROUP 15 MINUTES HOSPITAL GEOVANNA - 6 6 [facility] GEOVANNA - 6 6 [facility]PATIEN [facility] 6 [facility] 28417 [facility] 6 6 PHYSICIAN DEVENDRA T VISIT S GROUP 15 MINUTES OFFICE 83239 [facility] 6 6 MEDICAL MICHELE T VISIT SERV 15 FOUNDATIO MINUTES [facility]ERS[facility] - 6 6 [facility] 22069 [facility] 6 6 MEDICAL T VISIT SERV 25 FOUNDATIO MINUTES HOSPITAL GEOVANNA - 6 6 [facility] OUTPATIEN [facility] GEOVANNA - 6 6 [facility] OUTPATIEN [facility] GEOVANNA - 6 6 [facility] - 6 6 [facility] - 6 6 [facility] OFFICE 44144 [facility] SHEELA OUTPATIEN 6 6 PHYSICIAN YU T NEW 60 S GROUP MINUTES EMERGENCY 23282 GEOVANNA 6 6 [facility] DEPARTMEN [facility] VISIT MODERATE SEVERITY HOSPITAL GEOVANNA - 6 6 [facility] OUTPATIEN [facility] GEOVANNA - 6 6 [facility] EMERGENCY 96832 GEOVANNA 6 6 [facility] T VISIT LOW/MODER SEVERITY OFFICE 85595 GEOVANNA ROLANDO OUTPATIEN 6 6 [facility] 20 [facility] EMERGENCY 10175 GEOVANNA 5 5 [facility] T VISIT LIMITED/M INOR [facility] GEOVANNA - 5 5 [facility] OUTPATIEN [facility] T [facility] 42337 GEOVANNA OUTPATIEN [address] [facility] 20 INC [facility] GEOVANNA - 5 5 [facility] OUTPATIEN [facility] GEOVANNA - 5 5 [facility] OUTPATIEN [facility] T OFF[facility] 13694 [facility] [address] [facility] 30 [facility]ICE [facility] GEOVANNA - 5 5 [facility] OUTPATIEN [facility] T OFFICE 95708 DEMAR BENZ, OUTPATIEN 4 4 III ANGIE III ANGIE [facility] 30 [facility] GEOVANNA - 4 4 [facility] OUTPATIEN [facility] GEOVANNA - 4 4 [facility] OUTPATIEN [facility] T [facility] 61554 JOE [facility] OUTPATIEN 4 4 [facility] 10 MINUTES [facility] - 4 4 [facility] 18812 RANJIT CHUR[facility] OUTPATIEN 4 4 T [facility] 45 MINUTES [facility] GEOV[facility]NA - 3 3 [facility] EMERGENCY 16465 HUHN THO HUHN THO 3 3 [facility] T VISIT MODERATE SEVERITY OFFICE 73601 Duncan HOLDEN 3 3 YASMEEN MARIE T VISIT PSC 15 MINUTES HOSPITAL GE[facility]NA - 3 3 [facility] OFFICE 42596 MUSIC MIKKI MUSIC MIKKI OUTPATIEN 3 3 T NEW 20 MINUTES HOSPITAL GE[facility]ANNA - 3 3 [facility] GEOVANNA - 2 2 [facility]PATI[facility] EMERGENCY 59042 GEOVANNA 2 2 [facility] T VISIT LOW/MODER SEVERITY HOSPITAL GEOVANNA - 2 2 [facility] OUTPATIEN [facility] GEOVANNA - 2 2 [facility] OUT[facility] GEOVANNA - 2 2 [facility] GEOVANNA - 2 2 [facility] EMERGENCY 12182 EVELIA 2 2 [facility] T VISIT MODERATE SEVERITY HOSPITAL EVELIA - 2 2 [facility] GE[facility] - 2 2 [facility] EMERGENCY 12171 GEOVANNA 2 2 [facility] T VISIT MODERATE SEVERITY HOSPITAL GEOVANNA - 2 2 [facility] PERIODIC 43266 ROSELINE Kendrick PREVENTIV 2 2 NAHOMY BERUMEN E MED EST PATIENT 40-64YRS OFFICE 68888 ROSELINE COREA OUTPATIEN 2 2 NAHOMY BERUMEN DEVENDRA VISIT 15 MINUTES HOSPITAL [facility] - 2 2 [facility] EMERGENCY 54186 NELSON DIAZ DEPT 2 2 EMERGENCY JAMESON VISIT SERVICES HIGH SEVERITY& THREAT FUN EMERGENCY 57081 GE[facility]NA 2 2 [facility] T VISIT MODERATE SEVERITY HOSPITAL [facility] - 2 2 [facility] OFFICE 84857 ROSELINE [place] OUTPATIEN 1 1 NAHOMY RAMSAY T [facility] 60 MINUTES HOSPITAL [facility] 1 1 [facility] OUTPATIEN INC [facility] - 1 1 [facility] - 1 1 [facility] - 1 1 [facility] - 1 1 [facility]IEN [facility] - 1 1 [facility] OUTPATIEN INC EMERGENCY 62943 GEOV[facility]NA 1 1 [facility] DEPARTMEN INC T VISIT MODERATE SEVERITY EMERGENCY 49250 NELSON DIAS 1 1 EMERGENCY DEPARTMEN SERVICES T VISIT HIGH/URGE NT SEVERITY HOSPITAL [facility] - 1 1 [facility] OUTPATIEN INC T EMERGENCY 96770 GEOVANNA 1 1 [facility] DEPARTMEN INC T VISIT MODERATE SEVERITY EMERGENCY 73785 NELSON COOL 1 1 EMERGENCY III RACHID DEPARTMEN SERVICES T VISIT HIGH/URGE NT SEVERITY OFFICE 58561 [place] OUTPATIEN [address] MINUTES OFFICE 82543 A C OUTPATIEN 1 1 YASMEEN BERUMEN T VISIT [facility] 15 MINUTES OFFICE 05379 A C JAMIN MICHELE OUTPATIEN 1 1 YASMEEN BERUMEN T VISIT [facility] 15 MINUTES HOSPITAL GE[facility] - 1 1 [facility] OUTPATIEN INC T EMERGENCY 10298 [facility] 1 1 [facility] DEPARTMEN INC T VISIT HIGH/URGE NT SEVERITY EMERGENCY 04670 NELSON COOL DEPT 1 1 EMERGENCY III RACHID VISIT SERVICES HIGH SEVERITY& THREAT [facility] GEOVANNA - 1 1 [facility] OUTPATIEN INC T OFFICE 43331 [place] OUTPATIEN 1 1 MEDICAL L T NEW 45 SERV MINUTES [facility] EMERGENCY 86070 NELSON JAVED DEPT 0 0 EMERGENCY MEDARDO VISIT SERVICES HIGH SEVERITY& THREAT [facility] EMERGENCY 85179 NELSON COOL DEPT 0 0 EMERGENCY III RACHID VISIT SERVICES HIGH SEVERITY& THREAT [facility] GEOVANNA - 0 0 [facility] OUTPATIEN INC T EMERGENCY 20768 [facility] 0 0 [facility] DEPARTMEN INC T VISIT MODERATE SEVERITY EMERGENCY 15097 NELSON COOL 0 0 EMERGENCY III, DEPARTMEN SERVICES ROSELYN T VISIT HIGH/URGE ASSOCIATE NT S SEVERITY OFFICE 18745 NAVIN CERVANTES 0 0 GY VARGHESE W T VISIT ASSOCIATE 15 S OF MINUTES [facility] EMERGENCY 56095 NELSON LOERA, 0 0 EMERGENCY CRUZ DEPARTMEN SERVICES O T VISIT MODERATE ASSOCIATE SEVERITY S EMERGENCY 85203 NELSON DIAZ, 0 0 EMERGENCY ANN S DEPARTMEN SERVICES T VISIT MODERATE ASSOCIATE SEVERITY S EMERGENCY 26535 [facility] 9 9 [facility] DEPARTMEN INC T VISIT MODERATE SEVERITY [facility]OSPITAL [facility] - 9 9 [facility] OUTPATIEN INC T EMERGENCY 00631 NELSON LOERA, 9 9 EMERGENCY CRUZ DEPARTMEN SERVICES O T VISIT HIGH/URGE ASSOCIATE NT S SEVERITY OFFICE 24264 NAVIN CHAHAL 9 9 FAMILY R[place] T VISIT CARE 15 CLINIC MINUTES [facility] GEOVANNA - 8 8 [facility] OUTPATIEN INC T OFFICE 04927 NAVIN FLANNERY 8 8 GY BEATRICE P T VISIT ASSOCIATE 15 S OF MINUTES [facility] GEOVANNA - 8 8 [facility] OUTPATIEN INC T OFFICE 04588 [place] OUTSERGEI 8 8 MEDICAL MEDICAL T VISIT SERV SERV 25 FOUNDATIO FOUNDATIO MINUTES
--- OUTSIDE RECORDS SUMMARY | 2017-03-22 03:47 | External Medical Summary Rpt ---
Author Author , KENNETH Organization KENNETH Address Unknown Phone [email or web address] Care Team Providers Care Food Service Specialist Name Role Phone A Grover ARANA MD [...] DEVENDRA HARPEL DEVENDRA, HARPEL Unavailable Unavailable DEVENDRA [facility] Unavailable Unavailable [place] Unavailable Unavailable [place], [facility] Unavailable Unavailable INC, [facility] Unavailable Unavailable [facility]PITAL, [facility] Unavailable Unavailable HOSPITAL P, [facility], [facility]available Unavailable [facility], [facility] Unavailable Unavailable [facility] TH[facility], [facility]HN THO Unavailable Unavailable [facility], HUHN THO Unavailable Unavailable TELLO MEDARDO, TELLO Unavailable Unavailable MEDARDO [facility] Un[facility] Unavailable [facility], [facility] KILPELA JEA, KILPELA [...] DWI MICHEL ANG, MICHEL ANG Unavailable Unavailable [facility] Unavailable Unavailable SERVICES, [facility] GUILLERMO DON, Unavailable Unavailable GUILLERMO DON MERSACK, BEATRICE P, Unavailable Unavailable MERSACK, BEATRICE P BHASKAR RACHID, BHASKAR RASHID Unavailable Unavailable JAMIN MICHELE, JAMIN MICHELE Unavailable Unavailable JAMIN MICHELE, JAMIN MICHELE Unavailable Unavailable MUSIC MIKKI, MUSIC MIKKI Unavailable Unavailable MUSIC MIKKI, MUSIC MIKKI Unavailable Unavailable [facility] Unavailable Unavailable [facility], Unavailable Unavailable PLL[facility], [facility], [...] THE IMPLANT & ORAL SURGERY C [facility] Unavailable Unavailable [facility], [facility], Unavailable Unavailable [facility] WEHRMAN III RACHID, Unavailable Unavailable WEHRMAN [...] 2016 Problems Code Diagnosis DOS Provider Status [id number] EMBOLISM & 12-07-2016 [facility] TH[facility]B [facility] SUPERFICIAL INC VEINS RIGHT LW EXT [id number] PAIN IN 12-07-2016 [facility] [place]G [facility] [id number] ACUTE EMBO 12-06-2016 [facility] TH[facility]B UNS [facility] DEEP VNS RT INC PROX LOW EXT K219 GASTRO-ESOP 12-06-2016 [facility] H REFLUX [facility] DISEASE INC WITHOUT ESOPHAGITIS Z720 TOBACCO USE 12-06-2016 [facility] INC S45301 UNSPECIFIED 11-25-2016 [facility] ED J440 COPD WITH 10-22-2016 [facility] RESPIRATORY INFECTION J441 CHRONIC 10-22-2016 [facility] OBSTRUCTIVE [facility] PULMONARY INC DZ W/EXACERBAT ION R05 COUGH 10-22-2016 [facility] R079 CHEST PAIN 10-22-2016 [facility] [place] UNSPECIFIED [facility]ICAL [facility]ING ASS V76936 PERSONAL 10-22-2016 [facility] HISTORY OF PHYSIC[facility], NICOTINE PLLC DEPENDENCE J42 UNSPECIFIED 09-14-2016 [facility] CHRONIC [facility] BRONCHITIS INC R0989 OTH SPEC SX 09-14-2016 [facility] [place] & SIGNS MEDICAL INVLV THE IMAGING ASS CIRC & RESP SYS N951 MENOPAUSAL 07-09-2016 [facility] CLIMACTERIC GROUP STATES R0781 PLEURODYNIA 04-05-2016 [facility] I10 ESSENTIAL 03-29-2016 [facility] PRIMARY [facility] HYPERTENSIO INC N J449 CHRONIC 03-29-2016 [facility] OBSTRUCTIVE [facility] PULMONARY INC DISEASE UNS [id number] CONTUSION 03-29-2016 [facility] RT FRONT [facility] WALL THORAX INC INITIAL ENCOUNTER [id number] UNSPECIFIED 03-29-2016 [facility] INJURY OF MEDICAL THORAX IMAGING ASS INITIAL ENCOUNTER J209 ACUTE 02-15-2016 [facility] BRONCHITIS [facility] P R0602 SHORTNESS 02-15-2016 [facility] BREATH MEDICAL IMAGING ASS E871 HYPO-OSMOLA 02-12-2016 [facility] LITY AND [facility] HYPONATREMI INC A Z23 ENCOUNTER 02-12-2016 [facility] FOR [facility] IMMUNIZATIO INC N K224 DYSKINESIA 02-11-2016 [place] [facility] SERV ESOPHAGUS [facility]OUND[facility] K2270 BARRETTS 02-11-2016 [place] [facility] ESOP[facility]AG[place] SERV WITHOUT FOUNDATION DYSPLASIA R12 HEARTBURN 02-11-2016 [place] [facility] N3020 OTHER 01-21-2016 [facility] WITHOUT HEMATURIA R300 DYSURIA 01-21-[address] [facility] PSC R312 OTHER 01-21-2016 NEW MICROSCOPIC [facility] PSC N3021 OTHER 12-31-2015 [facility] CYSTITIS [facility] WITH HEMATURIA N342 OTHER 12-31-2015 [address]IS [facility] PSC K660 PERITONEAL 12-23-2015 [facility] ADHESIONS PHYSICIANS POSTPROC GROUP POSTINFECTI ON N736 FEMALE 12-23-2015 [facility] PELVIC PHYSICIANS PERITONEAL GROUP ADHESIONS POSTINFECTI VE N8320 UNSPECIFIED 12-23-2015 [facility] OVARIAN PHYSICIANS CYSTS GROUP R102 PELVIC AND 12-23-2015 [facility] PERINEAL PHYSICIANS PAIN GROUP B9689 OT SPEC 12-19-2015 [facility] BACTERIAL PHYSICIANS AGNT CAUSE GROUP DZ CLASSIFIED ELSW N760 ACUTE 12-19-2015 [facility] VAGINITIS PHYSICIANS GROUP N341 NONSPECIFIC 12-10-[address] [facility] PSC Z8719 PERSONAL 11-21-2015 [place] [facility] SERV OTHER FOUNDATION DISEASES DIGESTIVE SYSTEM R928 OTH ABNORM 11-12-2015 [facility] & [facility] INCONCLUSIV INC E FIND ON DX IMAG BREAST N830 FOLLICULAR 11-07-2015 [facility] [place] CYST OF MEDICAL OVARY IMAGING ASS R309 PAINFUL 11-07-2015 [facility] [place] MICTURITION [facility]ICAL IM[facility]ING ASS UNSPECIFIED R918 OTHER 11-04-2015 [facility] ABNORMAL FINDING OF LUNG FIELD N390 URINARY 11-03-2015 [facility] TRACT PHYSICIANS INFECTION GROUP SITE NOT SPECIFIED R0609 OTHER FORMS 10-30-2015 [place] [facility] OF DYSPNEA SERV FOUNDATION Z539 PROCEDURE & 10-24-2015 [facility] NOT CARRIED OUT UNS REASON K449 DIAPHRAGMAT 10-22-2015 [place] [facility] HERNIA SERV W/O FOUNDATION OBSTRUCTION OR GANGRENE E789 DISORDER OF 10-13-2015 [facility] LIPOPROTEIN INC METABOLISM UNSPECIFIED Z8679 PERSONAL 10-13-2015 [facility] HISTORY OTH [facility] DISEASES INC CIRCULATORY SYSTEM E785 HYPERLIPIDE 10-09-2015 [facility] REMI [facility] UNSPECIFIED INC I340 NONRHEUMATI 09-30-2015 [place] [facility] MITRAL SERV VALVE FOUNDATION INSUFFICIEN CY I351 NONRHEUMATI 09-30-2015 [place] [facility] AORTIC SERV VALVE FOUNDATION INSUFFICIEN CY I361 NONRHEUMATI 09-30-2015 [place] [facility] TRICUSPID SERV VALVE FOUNDATION INSUFFICIEN CY Z8632 PERSONAL 09-25-2015 [facility] HISTORY OF PHYSICIANS GESTATIONAL GROUP DIABETES J069 ACUTE UPPER 07-22-2015 [facility] H[facility] RESPIRATORY INC INFECTION UNSPECIFIED J0190 ACUTE 06-24-2015 [facility] SINUSITIS [facility] N200 CALCULUS OF 04-29-2015 [facility] KIDNEY [facility] INC N201 CALCULUS OF 04-29-2015 [place] URETER [facility] P N202 CALCULUS OF 04-29-2015 [place] KIDNEY MEDICAL WITH IMAGING ASS CALCULUS OF URETER N1330 UNSPECIFIED 04-28-2015 [facility] HYDRONEPHRO IMAGING ASS SIS 71664 PAIN IN 12-21-2014 [place] JOINT, MEDICAL UPPER ARM IMAGING ASS 9593 INJURY 12-21-2014 [place] [place] OTHER&UNSPE MEDICAL CIFIED IMAGING ASS [facility] [employer]&WRI ST 3899 UNSPECIFIED 06-18-2014 [facility] HEARING PHYSICIAN LOSS PRACTICE L 7856 ENLARGEMENT 06-14-2014 [place] OF LYMPH MEDICAL NODES IMAGING ASS 89851 OTHER 06-14-2014 [place] NONSPECIFIC MEDICAL ABNORMAL IMAGING ASS FINDING OF LUNG FIELD 93922 LOC 05-23-2014 DEM[facility] OSTEOARTHRO III ANGIE S NOT SPEC PRIM/SEC OTH SPEC SITE 4019 UNSPECIFIED 11-26-2013 [facility] ESSENTIAL [facility] HYPERTENSIO INC N 486 PNEUMONIA, 11-26-2013 [facility] ORGANISM [facility] UNSPECIFIED INC 11493 ASTHMA, 11-26-2013 [facility] UNSPECIFIED [facility] , INC UNSPECIFIED STATUS 5601 PARALYTIC 11-26-2013 [facility] ILEUS [facility] INC 38366 OTHER 11-26-2013 [facility] SPECIFIED MEDICAL DISORDER OF IMAGING ASS INTESTINES 63802 ABDOMINAL 11-26-2013 [facility] PAIN OTHER MEDICAL SPECIFIED IMAGING ASS SITE 44163 OTHER 11-26-2013 [facility] DIGESTIVE [facility] SYSTEM INC COMPLICATIO NS V148 PERSONAL 11-26-2013 [facility] HISTORY [facility] ALLERGY OTH INC SPEC MEDICINAL AGTS 5990 URINARY 11-25-2013 [facility] TRACT [facility] INFECTION INC SITE NOT SPECIFIED V1582 PERS HX 11-25-2013 [facility] TOBACCO USE [facility] PRESENTING INC [facility] 56734 UNSPECIFIED 08-22-2013 [facility] SLEEP DISTURBANCE 05890 ESOPHAGEAL 08-07-2013 [facility] 5533 DIAPHRAGMAT 08-07-2013 [facility] W[facility]O HOSPITAL MENTION OBSTRUCTION /GANGREN 53846 BARRETTS 07-10-2013 [facility] 87097 ABDOMINAL 03-27-2013 [facility] PAIN, SWETA UNSPECIFIED SITE 75061 ATROPHIC 03-26-2013 [facility] GASTRITIS WITHOUT MENTION OF HEMORRHAGE 06837 PAIN IN 12-18-2012 [employer] JOINT, HAND [...] NEOPLASM OF SKIN OF TRUNK EXCEPT SCROTUM 75929 INFLAMED 09-14-2012 MUSIC MI[facility]I SEBORRHEIC KERATOSIS 7089 UNSPECIFIED 09-14-2012 [facility] URTICARIA V2651 TUBAL 08-08-2012 [facility] LIGATION SWETA STERILIZATI ON STATUS 22667 ABNORMAL 06-20-2012 [facility] MATERNAL [facility] GLUCOSE INC TOLERANCE W/DELIVERY 44516 PREV C/S 06-20-2012 BRITTANY VIGIL GEE W/WO MENTION ANTPRTM COND V252 STERILIZATI 06-20-2012 [facility] ON GEE V270 OUTCOME OF 06-20-2012 [facility] DELIVERY GEE SINGLE LIVEBORN V221 SUPERVISION 05-26-2012 [facility] DEVENDRA OF OTHER NORMAL V286 SCREENING 05-26-2012 [place] [address] THREATENED 05-24-2012 [facility] ANTEPARTUM 98769 OTHER 04-29-2012 [facility] SPECIFED [facility] COMPLICATIO INC N ANTEPARTUM 50217 ABNORMAL 04-20-2012 [facility] MATERNAL [facility] GLUCOSE INC TOLERANCE ANTEPARTUM 7080 ALLERGIC 04-20-2012 [facility] URTICARIA [facility] INC V222 04-20-2012 [facility] STATE, [facility] INCIDENTAL INC 36933 DECR 03-29-2012 [facility] MOVMNTS [facility] MGMT MOTH INC ANTPRTM COND/COMP 04700 OTHER 03-28-2012 [place] SPECIFIED MEDICAL DISORDER OF IMAGING ASS KIDNEY AND URETER 7242 LUMBAGO 03-28-2012 [facility] INC 4660 ACUTE 02-15-2012 [facility] BRONCHITIS [facility] INC 03478 OTHER 01-29-2012 [place] DISEASES OF MEDICAL LUNG NOT IMAGING ASS ELSEWHERE CLASSIFIED 18088 SPRAIN AND 12-25-2011 [facility] STRAIN OF HOSP UNSPECIFIED SITE OF FOOT 77945 CONTUSION 12-25-2011 [facility] MEM OF SHOULDER HOSP REGION 16948 CONTUSION 12-25-2011 [facility] MEM OF FOOT HOSP V2382 SUPERVISION 11-29-2011 NAHOMY RAMSAY HIGH-RISK [place]ULT[place]RA[place]ID A 46398 [facility] CURRENT 11-24-2011 [place] RASHID MAT CONDS CLASSIFIABL [...] JAMIN MICHELE IN OTHER SPECIFIED SITES KNEE&LEG 35659 CONTUSION 09-08-2011 JAMIN MICHELE OF HIP 22337 CONTUSION 09-08-2011 JAMIN MICHELE OF LOWER LEG 59180 CONTUSION 09-08-2011 JAMIN MICHELE OF KNEE 75832 PAIN IN 09-05-2011 [place] JOINT MEDICAL PELVIC IMAGING ASS REGION AND THIGH 91706 SWELLING OF 09-05-2011 [place] [place] LIMB MEDICAL [facility] ASS 8439 SPRAIN&STRA 09-05-2011 [facility] IN OF EMERGENCY UNSPECIFIED SERVICES SITE OF HIP&THIGH 8449 SPRAIN&STRA 09-05-2011 [facility] IN OF EMERGENCY UNSPECIFIED SERVICES SITE OF KNEE&LEG 41851 UNSPECIFIED 09-05-2011 [facility] SITE OF ANKLE SPRAIN AND STRAIN E8859 FALL FROM 09-05-2011 [facility] OTHER EMERGENCY SLIPPING SERVICES TRIPPING OR STUMBLING E8889 UNSPECIFIED 09-05-2011 [place] FALL MEDICAL IM[facility]ING ASS V720 EXAMINATION 08-13-2011 [facility] ANG OF EYES AND VISION 42926 MIGRAINE 07-29-2011 LAZAR LARISSA UNSP W/O INTRACT W/O STATUS MIGRAINOSUS 7245 UNSPECIFIED 07-29-2011 LAZAR LARISSA BACKACHE 7821 RASH AND 07-28-2011 ARANA A OTHER NONSPECIFIC SKIN ERUPTION V2509 OTH GENERAL 07-15-2011 ROSELINE COREA MD CNSL&ADVICE CONTRACEPT MANAGEMENT V7241 07-15-2011 ROSELINE Kendrick EXAMINATION NAHOMY BERUMEN OR TEST NEGATIVE RESULT 632 MISSED 07-01-2011 PATHOLOGY & CYTOLOGY LAB 46942 UNSPEC 06-26-2011 WEHRMAN III HEMORRHAGE RACHID EARLY ANTEPARTUM 88110 MATERNAL 2011 NAHOMY ESCOBAR MD ANTEPARTUM 93468 SPOTTING 2011 ROSELINE COREA MD ANTEPARTUM COND/COMP 53629 THREATENED 06-19-2011 [facility] , EMERGENCY ANTEPARTUM SERVICES V220 SUPERVISION 03-11-2011 [facility] OF NORMAL [facility] FIRST INC 2859 UNSPECIFIED 02-20-2011 [facility] ANEMIA [facility] INC 6238 OTHER 02-20-2011 [facility] SPECIFIED EMERGENCY NONINFLAMMA SERVICES TORY DISORDER VAGINA 32943 PAIN IN 01-21-2011 LAB LUIS ALFR[facility]O JOINT, AMERIC MULTIPLE HOLDING SITES 5210 DENTAL 01-14-2011 THE IMPLANT CARIES & ORAL SURGERY C 96555 PAIN IN 01-12-2011 [facility] JO[facility], [facility] LOWER LEG INC 86029 PAIN IN 01-12-2011 [facility] JO[facility], [facility] ANKLE AND INC FOOT 21215 UNSPECIFIED 01-12-2011 [facility] JOINT EMERGENCY DISORDER OF SERVICES MULTIPLE SITES 2662 OTHER 11-19-2010 [facility] CO B-[facility]PLEX [facility]ICIENCIE C[facility] S V2689 OTHER 11-19-2010 [facility] CO SPECIFIED HEALTH PROCREATIVE CENTER MANAGEMENT 2809 UNSPECIFIED 11-03-2010 [facility] DEFICIENCY ANEMIA 22833 RESTLESS 11-03-2010 A Grover HOFF MD PSC SYNDROME 51189 OTHER 11-03-2010 [facility] [place] INC FATIGUE 7831 ABNORMAL 11-03-2010 [facility] WEIGHT [place] INC 50523 TOOTH 09-10-2010 THE IMPLANT BROKEN FX & ORAL DUE TO SURGERY C TRAUMA W/O MENTION COMP 5920 CALCULUS OF 08-21-2010 LAB LUIS ALFREDO KIDNEY [employer] 01038 UNSPECIFIED 08-18-2010 [place] [facility] CONSTIPATIO IMAGING ASS N 7840 HEADACHE 08-15-2010 [facility] [place] 7945 NONSPECIFIC 07-17-2010 [place] [facility] ABNORM SERV RESULTS FOUNDATIO THYROID FUNCT STUDY 85726 ABDOMINAL 05-05-2010 [facility] PAIN, EMERGENCY EPIGASTRIC SERVICES 7802 SYNCOPE AND 01-03-2010 [facility] COLLAPSE EMERGENCY SERVICES 8910 OPEN WOUND 01-03-2010 [facility] KNEE EMERGENCY LEG&ANK SERVICES WITHOUT MENTION COMP V065 NEED 01-03-2010 [facility] PROPHYLACTI [facility] C INC VACCINATION W/TETANUS-D [facility] 8488 OTHER 11-24-2009 [facility] SPECIFIED EMERGENCY SITES OF SERVICES SPRAINS AND ASSOCIATES STRAINS 6918 OTHER 09-04-2009 DERMATOLOGY ATOPIC ASSOCIATES DERMATITIS OF AND RELATED [facility] CONDITIONS PSC 6989 UNSPECIFIED 09-04-2009 DERMATOLOGY PRURITIC ASSOCIATES DISORDER OF [place], PSC 6929 CONTACT 08-19-2009 [facility] DERMATITIS& EMERGENCY OTHER SERVICES ECZEMA DUE ASSOCIATES UNSPEC CAUSE 1330 SCABIES 08-14-2009 [facility] ASSOCIATES 490 BRONCHITIS 04-17-2009 [facility] NOT EMERGENCY SPECIFIED SERVICES ACUTE OR ASSOCIATES CHRONIC 7862 COUGH 04-17-2009 [place] [place] [facility] 48597 FEVER 04-10-2009 [place] UNSPECIFIED MEDICAL IMAGING ASSOCIATES 86434 UNSPECIFIED 02-25-2009 [facility] 4539 DYSMENORRHE 04-17-2008 [facility] A [facility] INC V7612 OTHER 04-17-2008 [facility] SCREENING [facility] MAMMOGRAM INC 7061 OTHER ACNE 08-02-2007 [facility] [place], PSC 25971 LOSS OF 07-10-2007 [place] [facility] 52881 ABDOMINAL 07-10-2007 [place] [facility] PA[place], SERV GENERALIZED FOUNDAT[facility] 98526 REFLUX 06-19-2007 [place] [facility] ESOPHAGITIS SERV [facility]AT[facility] Immunization Name Date Rout CVX Reac Dose Comm Prov Is Faci e tion ent ider Refu lity Give sed n PPSV 09-0 33 TAY No TAY 23 2-20 CED CED VACC 16 MEM MEM INE 2 HOSP HOSP YRS INC INC OR JAYDA Kendrick FOR SUBQ /IM USE Procedures Procedure DOS Code Location Performer Comment DUP-SCAN 45432 [facility] [place] XTR VEINS 7 MEM H[facility] INC INC [facility] L/[facility] G0463 [facility] OUTPATIEN 7 MEM H[facility] MEM [facility] T CLIN INC INC VISIT ASSESS & MGMT PT PULMONARY 72428 [place] [facility] STRESS 7 [place] [address] [place] [facility] DIFFUSING 7 MEDICAL CAPACITY SERV FOUNDAT[place] N SPMTRY 70078 [place] [facility]EL W/VC 7 MEDICAL EXPIRATOR SERV Y LEONCIO FOUNDATIO W/WO MXML N VOL VNTJ PLETHYSMO 88582 [place] [facility] GRAPHY 7 MEDICAL LUNG SERV VOLUMES FOUNDATIO W/WO N AIRWAY RESIST CT THORAX 41187 [facility] W/O 7 HEALTHCAR HEALTHCAR CONTRAST E E MATERIAL [facility] CULTURE 73802 [facility] [place] BACTERIAL 7 MEM H[facility] BLOOD INC INC AEROBIC W/ID ISOLATES RADIOLOGI 88736 [facility] C EXAM 7 MEM HOSP [facility] CHEST 2 INC INC VIEWS FRONTAL&[place] [address] [facility] STREPTOCO 7 [facility] [place] [address] [facility] [place] TROPONIN 7 MEM HOSP [facility] QUANTITAT INC INC JORY BLOOD 00732 [facility] [place] COUNT 7 [facility] H[facility] COMPLETE INC INC AUTO&AUTO DIFRNTL WBC CREATINE 38269 [facility] KINASE MB 7 MEM HOSP [place] [address] [facility] LACTATE 7 [facility] H[facility]OS[facility] INC INC ECG 52495 [facility] [place] ROUTINE 7 MEM [facility] ECG INC INC W/LEAST 12 LDS TRCG ONLY W/O I&R THER 38220 [facility] PROPH/DX 7 MEM H[facility]P [facility] NJX IV INC INC PUSH SINGLE/1S T SBST/DRUG IAADI 40573 [facility] INFLUENZA 7 MEM H[facility] B VIRUS INC INC IAADI 06676 [facility] INFFLUENZ 7 MEM [facility] A A VIRUS INC INC COMPREHEN 06635 [facility] SIVE 7 MEM H[facility]P [facility] METABOLIC INC INC PANEL PRESSURIZ 23409 [facility] [place] ED/NONPRE 7 MEM HOSP MEM HOSP SSURIZED INC INC INHALATIO N TREATMENT THERAPEUT 81102 [facility] [place] IC 7 MEM H[facility]P MEM HOSP INJECTION INC INC IV PUSH EACH NEW DRUG CREATINE 68813 [facility] [place] KINASE 7 MEM HOSP MEM [facility]OS[facility] TOTAL INC INC COMPREHEN 71243 [facility] [place] SIVE 7 MEM H[facility]OS[facility] METABOLIC INC INC PANEL THERAPEUT 30146 [facility] [place] IC 7 [facility]OS[facility] INJECTION INC INC IV PUSH EACH NEW DRUG PRESSURIZ 79027 [facility] [place] ED/NONPRE 7 MEM HOSP MEM HOSP SSURIZED INC INC INHALATIO N TREATMENT THER 02992 [facility] [place] PROPH/DX 7 MEM HOSP MEM [facility]OS[facility] NJX IV INC INC PUSH SINGLE/1S T SBST/DRUG CREATINE 67792 [facility] [place] KINASE 7 [facility] H[facility]P [facility] TOTAL INC INC ECG 62438 [facility] [place] ROUTINE 7 [facility] ECG INC INC W/LEAST 12 LDS TRCG ONLY W/O I&R CREATINE 94416 [facility] KINASE MB 7 MEM HOSP [place] [address] [facility] [place] TROPONIN 7 MEM H[facility] QUANTITAT INC INC JORY RADIOLOGI 21448 [facility] [place] C EXAM 7 MEM HOSP MEM HOSP CHEST 2 INC INC VIEWS FRONTAL&L ATERAL BLOOD 10410 [facility] [place] COUNT 7 MEM H[facility] MEM [facility]OS[facility] COMPLETE INC INC AUTO&AUTO DIFRNTL WBC CT THORAX 05655 DELL MCMILLAN W/O 6 MEDICAL SWETA CONTRAST IMAGING MATERIAL ASS RADEX 02845 [facility] RIBS UNI 6 MEM HOSP [facility]OS[facility] W/POSTERO INC INC ANT CH MINIMUM 3 VIEWS RADIOLOGI 52276 DELL BARFIELD C 6 MEDICAL EXAMINATI IMAGING ON CHEST ASS SINGLE VIEW FRONTAL ECG 00183 [facility] JETER JR ROUTINE 6 [facility] W/LEAST P 12 LDS I&R ONLY PRESSURIZ 94524 [facility] [place] ED/NONPRE 6 [facility] SSURIZED INC INC INHALATIO N TREATMENT ADMINISTR G0009 [facility] ATION OF 6 [facility] PNEUMOCOC INC INC KEERTHI VACCINE COLLECTIO 99328 [facility] N VENOUS 6 [facility] BLOOD INC INC VENIPUNCT URE BASIC 77463 [facility] METABOLIC 6 [facility] MEM HOSP PANEL INC INC CALCIUM TOTAL PPSV23 37994 [facility] VACCINE 2 6 MEM H[facility] MEM HOSP YRS OR INC INC OLDER FOR SUBQ/IM USE HOSPITAL G0378 [facility] OBSERVATI 6 MEM H[facility] ON INC INC SERVICE PER HOUR BLOOD 97568 [facility] COUNT 6 [facility]OS[facility] COMPLETE INC INC AUTO&AUTO DIFRNTL WBC TOBACCO 39760 [facility] USE 6 [facility] CESSATION INC INC INTERMEDI ATE 3-10 MINUTES HOSPITAL G0378 [facility] OBSERVATI 6 [facility] ON INC INC SERVICE PER HOUR RADIOLOGI 63340 [facility] [place] C EXAM 6 [facility] H[facility] MEM HOSP CHEST 2 INC INC VIEWS FRONTAL&L ATERAL BLOOD 26622 [facility] GASES ANY 6 [facility] H[facility]OS[facility] INC INC COMBINATI ON PH PCO2 PO2 CO2 HCO3 BLOOD 39083 [facility] [place] COUNT 6 [facility]OS[facility] COMPLETE INC INC AUTO&AUTO DIFRNTL WBC THER 82626 [facility] PROPH/DX 6 [facility] NJX IV INC INC PUSH SINGLE/1S T SBST/DRUG COMPREHEN 48383 [facility] SIVE 6 [facility] METABOLIC INC INC PANEL PRESSURIZ 73166 [facility] ED/NONPRE 6 MEM H[facility] MEM HOS[facility] SSURIZED INC INC INHALATIO N TREATMENT ESOPHAGOG 61468 [place] RANJIT MED[place] ASTRODUOD 6 MEDICAL ENOSCOPY SERV TRANSORAL FOUNDATIO N DIAGNOSTI C INJECTION J2704 [facility] PROPOFOL 6 Y Y 10 MG [facility] ANE [address] TRANSURET 6 A HRAL ASSOCIATE W/URETHRO S PSC CYSTOSCOP Y NOS CYSTO [address]20 [facility] CALIBRATI 6 [place] [facility] URTL PSC STRIX/MICHELE NOSIS COLLECTIO 25945 [facility] [place] N VENOUS 6 [facility] BLOOD INC INC VENIPUNCT URE ANESTHESI 36023 [facility] ROD HANSEL A 6 ANESTH INTRAPERI OF THE TONEAL BLUE LOWER ABD W/LAPS NOS INJECTION J2710 [facility] [place] 6 [facility] NEOSTIGMI INC INC NE METHYLSUL FATE UP TO 0.5 MG INJECTION J0131 [facility] [place] 6 [facility] ACETAMINO INC INC PHEN 10 MG LAPAROSCO 37310 [facility] [place] PY W/RMVL 6 [facility] ADNEXAL INC INC STRUCTURE S INJECTION J2405 [facility] [place] 6 [facility] ONDANSETR INC INC ON HCL PER 1 MG BLOOD 60496 [facility] [place] COUNT 6 [facility] HEMATOCRI INC INC T BLOOD 11227 [facility] [place] COUNT 6 [facility] HEMOGLOBI INC INC N EGD 38377 [place] SEN RAFAEL TRANSORAL 6 MEDICAL BIOPSY SERV SINGLE/MU FOUNDATIO LTIPLE N ESOPHAGEA 10025 [place] L 6 [facility] E E STUDY [facility]OSPITALS HOSPITALS W/INTERP& RPT ESOPHGL 51601 PEDRO ZUNIGA FUNCJ 6 MEDICAL G-ESOP SERV RFLX IMPD FOUNDATIO ELTRD N PROLNG DIAGNOSTI [id number] [facility] [place] C 6 [facility] MAMMOGRAP INC INC HY [place] [address] DELL MCMILLAN TRANSVAGI 6 MEDICAL SWETA NAL IMAGING ASS CT THORAX 58497 [facility] W/O 6 Y Y [facility] MATERIAL URINLS 87684 [facility] DIP 6 PHYSICIAN DEVENDRA STICK/TAB S GROUP LET REAGNT NON-AUTO MICRSCPY ANES 23494 [facility] CH[facility] UPPER GI 6 LT ENDOSCOPY ANESTHESI PROXIMAL A PSC TO DUODENUM ESOPHAGEA 44930 [facility] 6 Y Y [facility] STUDY W/INTERP& RPT ECG 73994 [place] [place] ROUTINE 6 [facility] ECG INC INC W/LEAST 12 LDS TRCG ONLY W/O I&R ECG 90658 [facility] ROUTINE 6 PHYSICIAN MAT ECG S GROUP W/LEAST 12 LDS I&R ONLY CV STRS 93387 [facility] CAROL TST 6 PHYSICIAN XERS&/OR S GROUP RX CONT ECG W/O I&R CV STRS 49260 [facility] [place] TST 6 [facility] XERS&/OR INC INC RX CONT ECG TRCG ONLY ECHO 42117 PEDRO SIFUENTES TTHRC R-T 6 MEDICAL 2D SERV W/WOM-MOD FOUNDATIO E COMPL N SPEC&[place] [address] PEDRO JANUSZ TRACT 6 MEDICAL UPPER SERV W/WO FOUNDATIO DELAYED N IMAGES W/KUB ECG 87039 [facility] [place] ROUTINE 6 [facility] ECG INC INC W/LEAST 12 LDS TRCG ONLY W/O I&R ECG 30187 [facility] [place] ROUTINE 6 [facility] ECG INC INC W/LEAST 12 LDS TRCG ONLY W/O I&R RADIOLOGI 74317 DELL ERIC Ness 6 MEDICAL EXAMINATI IMAGING ON CHEST ASS S[place] FRONTAL ECG 68635 GE[facility]NA JETER JR ROUTINE 6 [facility] W/LEAST P 12 LDS I&R ONLY FIBRIN 14292 [place] DGRADJ 6 [facility] PRODUCTS INC INC D-DIMER QUAL/SEMI HANNA COMPREHEN 07645 [place] SIVE 6 [facility] METABOLIC INC INC PANEL CREATINE 76294 GEOVANNA AUSTIN KINASE 6 [facility] [place] [address] GEOVANNA AUSTIN TROPONIN 6 [facility] QUANTITAT INC INC JORY CREATINE 12861 GEOVANNA AUSTIN KINASE MB 6 [facility] FRACTION INC INC ONLY BLOOD 02703 GEOVANNA [place] COUNT 6 [facility] COMPLETE INC INC AUTO&AUTO DIFRNTL WBC FLUOROSCO 05022 GEOVANNA [place] PY SPX UP 5 [facility] TO 1 INC INC HOUR PHYS/QHP TIME THERAPEUT 82304 GEOVANNA [place] IC 5 [facility] INJECTION INC INC IV PUSH EACH NEW DRUG RADEX 55109 [place] [facility] A[facility] 1 5 MEDICAL HANSEL IMAGING ANTEROPOS ASS TERIOR VIEW CYSTO/URE 65200 GEOVANNA WEBB TERO 5 [facility] IPSY [place] &[place] [address] GEOV[place]NA [place] INFUSION 5 [facility] THERAPY INC [place] [address] GEOV[place]NA [place] ABDOMEN & 5 [facility] PELVIS INC INC W/O CONTRAST MATERIAL THERAPEUT 65622 GEOVANNA [place] IC 5 [facility] INJECTION INC INC IV PUSH EACH NEW DRUG RADEX 04433 [place] REYES ALL ELBOW 5 MEDICAL COMPLETE IMAGING MINIMUM [address] THORAX 70955 [place] DIANESARIKE 5 MEDICAL HANSEL W/[place] [address] [place] [facility] ABDOMEN & 4 MEDICAL SWETA PELVIS IMAGING W/O ASS CONTRAST MATERIAL THERAPEUT 35342 GEOV[place]NA [place] IC 4 [facility] PROPHYLAC INC INC TIC/DX INJECTION SUBQ/IM RADIOLOGI 67354 GEOVANNA [place] C EXAM 4 [facility] CHEST 2 INC INC VIEWS FRONTAL&[place] [address] [facility] 4 Y Y [facility] W/WO DELAYED IMAGES W/KUB ESOPHAGEA 18499 [facility] 4 Y Y [facility] STUDY W/INTERP& RPT GASTRIC 96267 HIPOLITO HIPOLITO EMPTYING 3 SWETA SWETA IMAGING STUDY EGD 74975 [place] KALI [place] KALI TRANSORAL 3 BIOPSY 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 L3925 [employer] ORTHOSIS 3 PIP/DIP NONTORSIO N JOINT PREFAB RADEX 62352 HIP[facility] HIPOLITO FINGR 3 SWETA SWETA MINIMUM 2 VIEWS THERAPEUT 97478 GE[facility] [place] IC 3 [facility] PROPHYLAC INC INC TIC/DX INJECTION SUBQ/IM HYSTEROSA 54827 HIPOLITO HIPOLITO LPINGOGRA 3 SWETA SWETA PHY RS&I LOW 741 GEOVANNA [place] CERVICAL 3 [facility] INC INC SECTION LIG/TRNSX 84994 HARPEL HARPEL J 3 DEVENDRA DEVENDRA FALOPIAN TUBE DEL/ABDML SURG 25206 SCHULSTAD SCHULSTAD DELIVERY 3 GEE GEE ONLY 05309 HARPEL HARPEL CONTRACTI 2 DEVENDRA DEVENDRA ON STRESS TEST 17042 MALGORZATA MCGARRY NONSTRESS 2 TRISH TRISH TEST 60784 GEOV[place]NA [place] NONSTRESS 2 [facility] TEST INC INC URNLS DIP 65081 GE[facility] 2 [facility] STICK/TAB INC [place] [address] GEOV[place] INFUSION 2 [facility] HYDRATION INC INC INITIAL 31 MIN-1 HOUR THERAPEUT 42205 GE[place] IC 2 [facility] PROPHYLAC INC INC TIC/DX INJECTION SUBQ/IM 61697 GEOV[place]NA [place] NONSTRESS 2 [facility] TEST INC INC 57741 GEOV[place]NA [place] NONSTRESS 2 [facility] TEST INC INC THERAPEUT 39022 GEOV[place] IC 2 [facility] PROPHYLAC INC INC TIC/[place] INJECTION SUBQ/[place] [address] GE[place] 2 [facility] UTERUS INC INC LIMITED 1/> [place] [address] GEOV[place]NA [place] RETROPERI 2 [facility] TONEAL INC INC REAL TIME W/IMAGE COMPLETE THERAPEUT 87534 GE[place] IC 2 [facility] PROPHYLAC INC INC TIC/DX INJECTION SUBQ/IM RADIOLOGI 03251 DELL SALAZARCHER C EXAM 2 MEDICAL SWETA CHEST 2 IMAGING VIEWS ASS FRONTAL&L ATERAL RADEX 37420 EVELIA ALTAMIRANO FOOT 2 [facility] COMPLETE MINIMUM 3 VIEWS NONCOVERE A9270 EVELIA ALTAMIRANO D ITEM OR 2 [place] [address] GE[place] [place] 2 [facility] UTERUS INC INC LIMITED 1/> [place]ETUSES [place] PREG 31471 DELL MCMILLAN UTERUS 2 MEDICAL SWETA REAL TIME IMAGING W/IMAGE ASS DCMTN TRANSVAG URNLS DIP 30859 [facility] [place] 2 [facility] STICK/TAB INC INC LET REAGENT AUTO MICROSCOP Y CULTURE 19561 GEOV[place]NA [place] BACTERIAL 2 [facility] INC INC QUANTTATI VE COLONY COUNT URINE US PREG 12496 GEOVANNA A[place]IN UTERUS 2 [facility] REAL TIME INC INC W/IMAGE DCMTN TRANSVAG IADNA 05681 BIO BIO LANDY 2 REFERNCE REFERNCE SPECIES LABORATOR LABORATOR AMPLIFIED IES IES PROBE TQ IADNA 23014 BIO BIO GARDNEREL 2 REFERNCE REFERNCE LA LABORATOR LABORATOR VAGINALIS IES IES AMPLIFIED PROBE TQ IADNA 23718 BIO BIO HERPES 2 REFERNCE REFERNCE SOMPLX LABORATOR LABORATOR VIRUS IES IES AMPLIFIED PROBE TQ IADNA NOS 10457 BIO BIO 2 REFERNCE REFERNCE AMPLIFIED LABORATOR LABORATOR PROBE TQ IES IES EACH ORGANISM [facility] E0114 NABIL L.P. NABIL L.P. UNDARM 2 OTH THAN WOOD PAIR PAD TIP&HNDGR IP CT LOWER 82653 DELL HIPOLITO EXTREMITY 2 MEDICAL SWETA W/O IMAGING CONTRAST ASS MATERIAL OPHTH 54060 SCIFRES SCIFRES MEDICAL 2 ANG ANG XM&EVAL COMPRE NEW PT 1/> VST DETERMINA 50536 SCIFRES SCIFRES TION 2 ANG ANG REFRACTIV E STATE THERAPEUT 52363 YASMEEN Song IC 2 PROPHYLAC TIC/DX INJECTION SUBQ/IM INJ J0702 YASMEEN Song BETAMETHA 2 SONE ACETATE & PHOSPHATE 3 MG INJECTION J1030 YASMEEN ARANA Duncan 2 METHYLPRE DNISOLONE ACETATE 40 MG URINE 94504 ROSELINE COREA 2 NAHOMY BERUMEN DEVENDRA TEST VISUAL COLOR CMPRSN METHS URINE 38135 [facility] [place] 2 [facility] TEST INC INC VISUAL COLOR CMPRSN METHS US PREG 29277 GEOVANNA [place] UTERUS 2 [facility] REAL TIME INC INC W/IMAGE DCMTN TRANSVAG URNLS DIP 72130 GE[facility] [place] 2 [facility] STICK/TAB INC INC LET REAGENT AUTO MICROSCOP Y BLOOD 51845 GEOVANNA [place] TYPING 2 [facility] SEROLOGIC INC INC RH (D) CULTURE 12857 GEOV[place]NA [place] BACTERIAL 2 [facility] INC INC QUANTTATI VE COLONY COUNT URINE GONADOTRO 24172 GEOVANNA [place] PIN 2 [facility] CHORIONIC INC INC QUANTITAT JORY BLOOD 91398 GEOV[place]NA [place] COUNT 2 [facility] COMPLETE INC INC AUTO&AUTO DIFRNTL WBC BLOOD 71942 GEOV[place]NA [place] COUNT 1 [facility] COMPLETE INC INC AUTO&[place] [address] GEOVANNA [place] NUCLEOTID 1 [facility] ASE 5'- INC INC BLOOD 27773 GEOV[place]NA [place] COUNT 1 [facility] HEMOGLOBI INC INC N BLOOD 75710 GEOV[place]NA [place] COUNT 1 [facility] HEMATOCRI INC INC T TX MISSED 17249 GEOVANNA [place] 1 [facility] FIRST [place] [address] PATHOLOGY PATHOLOGY SURG 1 & & PATHOLOGY CYTOLOGY CYTOLOGY LAB LAB GROSS&JAMESON ROSCOPIC EXAM ANESTHESI 28493 [facility] Song 1 ANESTH INCOMPLET OF THE E/MISSED BLUE COLLECTIO 26357 GEOVANNA [place] N VENOUS 1 [facility] BLOOD INC INC VENIPUNCT URE BLOOD 71689 GEOVANNA [place] TYPING 1 [facility] SEROLOGIC INC INC RH (D) [place] [address] GEOVANNA [place] INFUSION 1 [facility] THERAPY/P INC INC ROPHYLAXI S /DX 1ST TO 1 HR THERAPEUT 12154 GEOVANNA [place] IC 1 [facility] INJECTION [place] [address] GEOVANNA [place] INFUSION 1 [facility] THERAPY INC INC PROPHYLAX IS/DX [place] PREG 92395 [facility] UTERUS 1 [facility] TRISH REAL TIME CLINIC OF W/IMAGE SHERYL DCMTN TRANSVAG US PREG 67093 [facility] UTERUS 1 [facility] TRISH REAL TIME CLINIC OF W/IMAGE SHERYL DCMTN TRANSVAG GONADOTRO 26717 GEOVANNA [place] PIN 1 [facility] CHORIONIC INC INC QUANTITAT JORY COLLECTIO 56548 GEOV[place]NA [place] N VENOUS 1 [facility] BLOOD INC INC VENIPUNCT URE COLLECTIO 17243 GEOVANNA [place] N VENOUS 1 [facility] BLOOD INC INC VENIPUNCT URE GONADOTRO 45505 GEOVANNA A[place]IN PIN 1 [facility] CHORIONIC INC INC QUANTITAT JORY GONADOTRO 28689 GEOVANNA [place] PIN 1 [facility] CHORIONIC INC INC QUANTITAT JORY COLLECTIO 74848 GEOV[place]NA [place] N VENOUS 1 [facility] BLOOD INC INC VENIPUNCT URE COLLECTIO 40494 GEOVANNA [place] N VENOUS 1 [facility] BLOOD INC INC VENIPUNCT URE GONADOTRO 28767 GEOVANNA [place] PIN 1 [facility] CHORIONIC INC INC QUANTITAT JORY GONADOTRO 66372 GEOV[place]NA [place] PIN 1 [facility] CHORIONIC INC INC QUANTITAT JORY BLOOD 16372 GEOV[place]NA [place] TYPING 1 [facility] SEROLOGIC INC INC RH (D) URNLS DIP 33949 GEOVANNA [place] 1 [facility] STICK/TAB INC INC LET REAGENT AUTO MICROSCOP Y BLOOD 14554 GEOVANNA [place] TYPING 1 [facility] SEROLOGIC INC INC ABO BLOOD 58025 GEOVANNA [place] COUNT 1 [facility]OS[facility] COMPLETE INC INC AUTO&AUTO DIFRNTL WBC US PREG 63183 [facility] UTERUS 1 [facility] TR[facility] REAL TIME CLINIC OF W/IMAGE SHERYL DCMTN TRANSVAG ANTINUCLE 37140 [facility] LAB [facility] AR 1 AMERIC AMERIC ANTIBODIE HOLDING HOLDING S MODESTO BLOOD 69159 LAB [facility] ALFR[facility] LAB LUIS ALFREDO COUNT 1 AMERIC AMERIC COMPLETE HOLDING HOLDING AUTO&[place] [address] LAB LU[facility] ALFR[facility] LAB LUIS ALFREDO BLOOD/URI 1 AMERIC AMERIC C ACID HOLDING HOLDING SEDIMENTA 90225 LAB [facility] LAB [facility] ALFR[facility] TION RATE 1 AMERIC AMERIC RBC HOLDING HOLDING AUTOMATED C-REACTIV 03293 LAB [facility] LAB [facility] E PROTEIN 1 AMERIC AMERIC HOLDING HOLDING RHEUMATOI 88082 LAB [facility] LAB [facility] AL[facility] D FACTOR 1 AMERIC AMERIC QUANTITAT HOLDING HOLDING JORY DEEP D9220 THE GUILLERMO SEDATION/ 1 IMPLANT & DON GENERAL ORAL ANESTHESI SURGERY C A-1ST 30 MINUTES SEDIMENTA 73755 GEOVANNA [place] TION RATE 1 [facility] RBC INC INC NON-AUTOM ATED DEEP D9220 THE LAZAR III SEDATION/ 1 IMPLANT & CAROL GENERAL ORAL ANESTHESI SURGERY C A-1ST 30 MINUTES URINE [address] [facility] CENTER VISUAL COLOR CMPRSN METHS COLLECTIO 06785 Duncan NEVILLE MICHELE N VENOUS 1 YASMEEN BERUMEN B[place] [address] [facility] FERRITIN 1 [place] [address] [facility] IRON 1 [facility] BLOOD 43096 [facility] COUNT 1 [facility] COMPLETE AUTO&AUTO DIFRNTL WBC IRON 09524 [facility] BINDING 1 [facility] CAPACITY DEEP D9220 THE GUILLERMO SEDATION/ 1 IMPLANT & DON GENERAL ORAL ANESTHESI SURGERY C A-1ST 30 MINUTES ORTHOPANT 50434 THE GUILLERMO OGRAM 1 IMPLANT & DON ORAL SURGERY C CALCULUS 81177 LAB LUIS ALFREDO LAB LUIS ALFREDO QUANTITAT 1 AMERIC AMERIC JORY HOLDINGS HOLDINGS CHEMICAL RADEX 74755 [place] [facility] ABDOMEN 1 1 MEDICAL SWETA IMAGING ANTEROPOS ASS TERIOR VIEW 3D 14376 [place] [facility] RENDERING 1 MEDICAL SWETA W/INTERP IMAGING & [place] [address] [place] [facility] HEAD/BRAI 1 MEDICAL SWETA N W/[place] [address] GEOVANNA [place] INFUSION 1 [facility] THERAPY/P INC INC ROPHYLAXI S /DX 1ST TO 1 HR THERAPEUT 19011 GEOV[place]NA [place] IC 1 [facility] INJECTION INC INC IV PUSH EACH NEW DRUG EGD 07097 [place] KALI TRANSORAL 0 MEDICAL BIOPSY SERV SINGLE/MU FOUNDATIO LTIPLE IM ADM 86236 GEOVANNA [place] PRQ ID 0 [facility] SUBQ/IM INC INC NJXS 1 VACCINE BLOOD 81204 GEOV[place]NA [place] COUNT 0 [facility] COMPLETE INC INC AUTO&AUTO DIFRNTL WBC CLOSURE 8659 GEOVANNA [place] SKIN&SUBC 0 [facility] [place]ANE[place] [address] GEOVANNA [place]UST[place] INFUSION 0 [facility] THERAPY/P INC INC ROPHYLAXI S /DX 1ST TO 1 HR SIMPLE 92684 NELSON WEHRMAN REPAIR 0 EMERGENCY III RACHID SCALP/NEC SERVICES K/AX/ARBEN T/TRUNK 2.5CM/< BASIC 03236 GEOVANNA [place] METABOLIC 9 [facility] PANEL INC INC CALCIUM TOTAL THERAPEUT 42659 GEOV[place]NA [place] IC 9 [facility] PROPHYLAC INC INC TIC/DX INJECTION SUBQ/[place] [address] GEOVANNA [place] INFUSION 9 [facility] THERAPY/P INC INC ROPHYLAXI S /DX 1ST TO 1 HR BLOOD 76345 GEOVANNA [place] COUNT 9 [facility] COMPLETE INC INC AUTO&AUTO DIFRNTL WBC RADIOLOGI 63130 GEOVANNA [place] C EXAM 9 [facility] CHEST 2 INC INC VIEWS FRONTAL&L ATERAL RADIOLOGI 77398 DELL MCMILLAN C EXAM 9 MEDICAL JEFF CHEST 2 IMAGING VIEWS ASSOCIATE FRONTAL&[place] [address] GEOVANNA [place] HEAD/BRAI 8 [facility] N W/O & INC INC W/CONTRAS T MATERIAL SCREENING 29202 GE[facility] 8 [facility] MAMMOGRAP INC INC HY BILATERAL 3D 03990 GEOVANNA [place] RENDERING 8 [facility] W/INTERP INC INC & [place] [address] GEOVANNA AUSTIN TRANSVAGI 8 [facility] NAL INC INC COMPUTER- 10044 GEOV[facility]NA [place] AIDED 8 [facility] DETECTION INC [place] [address] GEOVANNA [place]UST[place] THER 8 [facility] PROPH/DX INC INC 1ST >1 HR COLONOSCO 68962 [place] PY FLX DX 8 MEDICAL MEDICAL W/COLLJ SERV SERV SPEC WHEN FOUNDATIO FOUNDATIO PFRMD Encounters Encounter Start End Date Code Location Performer Type Date [facility] GEOVANNA Coyle 7 [facility] OUTPATIEN INC [facility] GEOVANNA Coyle 7 [facility] OUTPATIEN INC [facility] 7 7 [facility]PATIEN E [facility] GEOVANNA Coyle 7 [facility] OUTPATIEN INC T EMERGENCY 37280 GEOVANNA Coyle 7 [facility] DEPARTMEN INC T VISIT MODERATE SEVERITY EMERGENCY 49214 HARJINDER DIAZ DEPT 7 7 PHYSICIAN VISIT S, PLLC HIGH SEVERITY& THREAT FUNCJ EMERGENCY 99959 GEOVANNA 7 7 [facility] HIGH/URGE NT SEVERITY HOSPITAL GEOVANNA - 7 7 [facility] OUTPATIEN [facility] T OFFICE 32351 [facility] OUTPATI[facility] 7 7 PHYSICIAN T VISIT S GROUP 10 MINUTES EMERGENCY 83112 GEOVANNA 6 6 [facility] VIS[facility] LIMITED/M [facility] GEOVANNA - 6 6 [facility] OUTPATIEN [facility] T EMERGENCY 99839 GEOVANNA 6 6 [facility]IS[facility] HIGH/URGE NT SEVERITY HOSPITAL GEOVANNA - 6 6 [facility] OUTPATIEN INC T OFFICE 92461 [place] ARACELI LIS OUTPATIEN 6 6 MEDICAL T VISIT SERV 15 FOUNDATIO MINUTES N OFFICE 48130 [facility] OUTPATIEN 6 6 MEDICAL T VISIT SERV 25 FOUNDATIO MINUTES N OFFICE 08702 [facility] 6 6 [facility] 15 PSC MINUTES [facility] OUTPATIEN INC T OFFICE 63779 [facility] 6 6 [facility] 10 PSC MINUTES OFFICE 41102 [facility] OUTPAT[facility] 6 6 PHYSICIAN DEVENDRA T VISIT S GROUP 15 MINUTES OFFICE 14741 [facility] OUTPAT[facility]EN 6 6 [facility] 25 PSC MINUTES OFFICE 10730 [facility] OUTPAT[facility] 6 6 PHYSICIAN DEVENDRA T VISIT S GROUP 25 MINUTES OFFICE 25274 [facility] MEDICAL T VISIT SERV 25 FOUNDATIO MINUTES HOSPITAL [facility] - 6 6 [facility] PHYSICIAN DEVENDRA T VISIT S GROUP 15 MINUTES HOSPITAL GEOVANNA - 6 6 [facility]PATIEN [facility]PITAL GEOVANNA - 6 6 [facility] OUTPATIEN [facility] - 6 6 [facility] 05158 [facility] 6 6 PHYSICIAN DEVENDRA T VISIT S GROUP 15 MINUTES OFFICE 31149 [facility] 6 6 MEDICAL MICHELE T VISIT SERV 15 FOUNDATIO MINUTES [facility] - 6 6 [facility] 34188 [facility] 6 6 MEDICAL T VISIT SERV 25 FOUNDATIO MINUTES HOSPITAL GEOVANNA - 6 6 [facility] OUTPATIEN [facility] GEOVANNA - 6 6 [facility] OUTPATIEN [facility] GEOVANNA - 6 6 [facility] OUTPATIEN [facility]OSP[facility] UN[facility]ERS[facility] - 6 6 [facility] GE[facility] - 6 6 [facility]PATIEN [facility] OFFICE 07398 [facility] OUTPATIEN 6 6 PHYSICIAN YU T NEW 60 S GROUP MINUTES EMERGENCY 02518 GEOVANNA 6 6 MEM [facility] DEPARTMEN [facility] VISIT MODERATE SEVERITY HOSPITAL GEOVANNA - 6 6 [facility] OUTPATIEN [facility] GEOVANNA - 6 6 [facility] OUTPATIEN [facility] EMERGENCY 29982 GEOVANNA 6 6 [facility] VISIT LOW/MODER SEVERITY OFFICE 63850 GEOVANNA ROLANDO OUTPATIEN 6 6 [facility] 20 [facility] EMERGENCY 94216 GEOVANNA 5 5 [facility] T VISIT LIMITED/M [facility] GEOVANNA - 5 5 [facility] OUTPATIEN [facility] T OFFICE 36954 GEOVANNA OUTPATIEN 5 5 [facility] 20 INC [facility] GEOVANNA - 5 5 [facility] OUTPATIEN [facility] GEOVANNA - 5 5 [facility] OUTPATIEN [facility] T OFFICE 62693 OBED GOMES [facility] 5 5 [facility]ICIAN [facility] 30 PRACTICE [facility] GEOVANNA - 5 5 [facility] OUTPATIEN [facility] T OFFICE 53351 DEMAR BENZ, OUTPATIEN 4 4 III ANGIE III ANGIE [facility] 30 [facility] GEOVANNA - 4 4 [facility] OUTPATIEN [facility] GEOVANNA - 4 4 [facility] OUTPATIEN [facility] T OFF[facility] 30857 JOE [facility] OUTPATIEN 4 4 [facility] 10 MINUT[facility]ERS[facility] - 4 4 [facility] 88254 RANJIT CHURCH [facility] OUTPATIEN 4 4 [facility] 45 MINUTES [facility] GEOVANNA - 3 3 [facility] OUTPATIEN [facility] EMERGENCY 20775 HUHN THO HUHN THO 3 3 [facility] V[facility] MOD[facility]ATE SEVERITY OFFICE 70140 Duncan HOLDEN 3 3 YASMEEN MARIE T VISIT PSC 15 MINUTES HOSPITAL GEOVANNA - 3 3 [facility] OUTPATIEN [facility] OFFICE 48256 MUSIC MIKKI MUSIC MI[facility]I OUTPATIEN 3 3 T NEW 20 MINUTES HOSPITAL GEOVANNA - 3 3 [facility]PATIENT [facility] GEOVANNA - 2 2 [facility] OUTPATIEN [facility] EMERGENCY 38974 GEOVANNA 2 2 [facility] T VISIT LOW/MODER SEVERITY HOSPITAL GEOVANNA - 2 2 [facility] OUTPATIEN [facility] GEOVANNA - 2 2 [facility] GEOVANNA - 2 2 [facility]PATI[facility] GEOVANNA - 2 2 [facility] EMERGENC[facility] 15144 EVELIA 2 2 [facility] T VISIT MODERATE SEVERITY HOSPITAL EVELIA - 2 2 [facility] GE[facility] - 2 2 [facility]PATIEN [facility] EMERGENCY 78543 [place] 2 2 [facility] T VISIT MODERATE SEVERITY HOSPITAL [facility] - 2 2 [facility] OUTPATIEN [facility] PERIODIC 27994 ROSELINE Kendrick PREVENTIV 2 2 NAHOMY BERUMEN E MED EST PATIENT 40-64YRS OFFICE 46950 ROSELINE [place] OUTPATIEN 2 2 [facility] BERUMEN DEVENDRA VISIT 15 MINUTES HOSPITAL [facility] - 2 2 [facility] OUTPATIEN [facility] EMERGENCY 32497 NELSON DIAZ DEPT 2 2 EMERGENCY JAMESON VISIT SERVICES HIGH SEVERITY& THREAT FUN EMERGENCY 84067 GEOV[facility]NA 2 2 [facility] T VISIT MODERATE SEVERITY HOSPITAL [facility] - 2 2 [facility] OUTPATIEN [facility] OFFICE 79694 ROSELINE [place] OUTPATIEN 1 1 NAHOMY RAMSAY T [facility] 60 MINUTES HOSPITAL GE[facility]NA [facility] 1 1 [facility]PATI[facility] [place] - 1 1 [facility] OUTPATIEN INC HOSP[facility] GE[place] [facility] 1 1 [facility]PATI[facility] - 1 1 [facility] - 1 1 [facility] - 1 1 [facility] OUTPATIEN INC EMERGENCY 69405 GEOV[place]NA 1 1 [facility] DEPARTMEN INC T VISIT MODERATE SEVERITY EMERGENCY 01659 NELSON DIAS 1 1 EMERGENCY DEPARTMEN SERVICES T VISIT HIGH/URGE NT SEVERITY HOSPITAL GEOV[facility]NA - 1 1 [facility] OUTPATIEN INC T EMERGENCY 13841 GEOVAN[place] 1 1 [facility] DEPARTMEN INC T VISIT MODERATE SEVERITY EMERGENCY 42313 NELSON COOL 1 1 EMERGENCY III RACHID DEPARTMEN SERVICES T VISIT HIGH/URGE NT SEVERITY OFFICE 12870 [place]OV[place]NA [place] OUTPATIEN [address] MINUTES OFFICE 32202 A C OUTPATIEN 1 1 YASMEEN BERUMEN T VISIT [facility] 15 MINUTES OFFICE 84886 A C JAMIN MICHELE OUTPATIEN 1 1 YASMEEN BERUMEN T VISIT [facility] 15 MINUTES HOSPITAL [facility] - 1 1 [facility] OUTPATIEN INC T EMERGENCY 72451 [facility] 1 1 [facility] DEPARTMEN INC T VISIT HIGH/URGE NT SEVERITY EMERGENCY 65168 NELSON COOL DEPT 1 1 EMERGENCY III RACHID VISIT SERVICES HIGH SEVERITY& THREAT [facility] GEOVANNA - 1 1 [facility] OUTPATIEN INC T OFFICE 41578 [place] OUTPATIEN 1 1 MEDICAL L T NEW 45 SERV MINUTES [facility] EMERGENCY 84199 NELSON JAVED DEPT 0 0 EMERGENCY MEDARDO VISIT SERVICES HIGH SEVERITY& THREAT [facility] EMERGENCY 87187 NELSON COOL DEPT 0 0 EMERGENCY III RACHID VISIT SERVICES HIGH SEVERITY& THREAT [facility] GEOVANNA - 0 0 [facility] OUTPATIEN INC T EMERGENCY 40300 [facility] 0 0 [facility] DEPARTMEN INC T VISIT MODERATE SEVERITY EMERGENCY 27093 NELSON COOL 0 0 EMERGENCY III, DEPARTMEN SERVICES ROSELYN T VISIT HIGH/URGE ASSOCIATE NT S SEVERITY OFFICE 45892 NAVIN CERVANTES 0 0 GY VARGHESE W T VISIT ASSOCIATE 15 S OF MINUTES [facility] EMERGENCY 39667 NELSON LOERA, 0 0 EMERGENCY [facility] DEPARTMEN SERVICES O T VISIT MODERATE ASSOCIATE SEVERITY S EMERGENCY 20432 NELSON DIAZ, 0 0 EMERGENCY ANN S DEPARTMEN SERVICES T VISIT MODERATE ASSOCIATE SEVERITY S EMERGENCY 01143 [facility] 9 9 [facility] DEPART[facility] INC T VISIT MODERATE SEVERITY [facility]OSPITAL [facility] - 9 9 [facility] OUTPATIEN INC T EMERGENCY 24456 NELSON LOERA, 9 9 EMERGENCY [facility] DEPARTMEN SERVICES O T VISIT HIGH/URGE ASSOCIATE NT S SEVERITY OFFICE 98112 NAVIN CHAHAL 9 9 FAMILY RENETTA T VISIT CARE 15 CLINIC MINUTES [facility] GEOVANNA - 8 8 [facility] OUTPATIEN INC T OFFICE 72326 NAVIN FLANNERY 8 8 GY BEATRICE P T VISIT ASSOCIATE 15 S OF MINUTES [facility] GEOVANNA - 8 8 [facility] OUTPATIEN INC T OFFICE 68373 [place] OUTSERGEI 8 8 MEDICAL MEDICAL T VISIT SERV SERV 25 FOUNDATIO FOUNDATIO MINUTES
--- OUTSIDE RECORDS SUMMARY | 2017-03-22 03:48 | External Medical Summary Rpt ---
Demographics Preferred Language Tajik Marital Status Unknown Quaker Affiliation Unknown Race Unknown Ethnic Group Unknown Author Author DIANE Address Unknown Phone Immunization No patient found.
--- OUTSIDE RECORDS SUMMARY | 2017-03-22 03:48 | External Medical Summary Rpt ---
[...] been Serum or defined Plasma by the [place] ofMedicin e and an Endocrine Society practice [...] 2010; 96(7):191 1-30.Perf ormed at: - [facility] [address] [id number] Pharmacy Cashier: Jalen Coreas PhD, Phone: [phone] CBC W Auto Differential panel in [...]
--- OUTSIDE RECORDS SUMMARY | 2017-03-22 03:48 | External Medical Summary Rpt ---
[...] been Serum or defined Plasma by the [place] ofMedicin e and an Endocrine Society practice [...] 2010; 96(7):191 1-30.Perf ormed at: - [facility] [address] [id number] Spoke Maker: Jalen Coreas PhD, Phone: [phone] CBC W Auto Differential panel in [...]
--- OUTSIDE RECORDS SUMMARY | 2017-03-22 03:48 | External Medical Summary Rpt ---
Demographics Preferred Language Setswana Marital Status Unknown Mosque Affiliation Unknown Race Unknown Ethnic Group Unknown Author Author DIANE Address Unknown Phone Immunization No patient found.
== END 2017-02-25 11:40 | disposition home or self-care (01) ==
LOC: ER 18:19 → 2ND 20:06
PROVIDERS: Emergency Medicine
DX: J44.1 Chronic obstructive pulmonary disease with (acute) exacerbation (principal); G43.909 Migraine, unspecified, not intractable, without status migrainosus; R01.1 Cardiac murmur, unspecified; R91.8 Other nonspecific abnormal finding of lung field; F17.210 Nicotine dependence, cigarettes, uncomplicated; F31.9 Bipolar disorder, unspecified; Z79.890 Hormone replacement therapy; Z79.899 Other long term (current) drug therapy
CPT/HCPCS: G0378

== ENCOUNTER → 2017-03-04 | Outpatient (CLI) | payer MEDICARE, MEDICAID ==
[~2017-03-04] MED LIST changes: +BUPROPION HCL200 M1 PO
[2017-03-04 12:58] LABS: HEMOGLOBIN 12.1 g/dL (12.2-16.2); LYMPH # 3.1 K/mm3 (0.7-4.5); LYMPH % 26.5 % (10-50.0)
[2017-03-04 13:13] LABS: BUN 17 mg/dL (7-18)
[2017-03-04 13:19] LABS: GFR (ESTIMATED) 68 ML/MIN (59-)
[2017-03-04 14:30] LABS: NEUTROPHILS 78 % (42-76)
== END ==
LOC: LAB 12:40
PROVIDERS: Nurse Practitioner Family
DX: R53.83 Other fatigue (principal); E78.5 Hyperlipidemia, unspecified; M79.7 Fibromyalgia; Z79.899 Other long term (current) drug therapy

== ENCOUNTER → 2017-03-16 | Outpatient (CLI) | payer MEDICARE, MEDICAID ==
--- NOTE | 2017-03-17 15:26 | RADIOLOGY REPORT PS360 ---
History and Indications: Hyperlipidemia chronic tobacco use chest pain and shortness of breath Procedure: Patient received a 0.4 mg of Lexiscan, resting heart rate was 56 bpm, resting blood pressure 136/70, with Lexiscan maximum heart rate achieved was 91 bpm is less than 85% of the maximum predicted heart rate and a blood pressure was 108/48. The scan patient complained of chest pressure and tightness Electrocardiogram: Resting electrocardiogram showed sinus bradycardia nonspecific ST-T changes, with Lexiscan there is less than 1.[address] segment depression noted from the baseline EKG. The EKG portion of the Lexiscan Myoview is nondiagnostic. Cardiac stress and resting SPECT images: Cardiac stress and resting SPECT images were obtained using technetium 99 Myoview 10.1 mCi at rest and 30.4 mCi at stress, gated SPECT further analysis of segmental wall motion and calculation of the ejection fraction also done. Cardiac stress and rest SPECT images show a mild fixed defect anteroseptally with normal contractility in the gated SPECT is likely secondary to soft tissue attenuation, no reversible ischemia seen. Computer derived ejection fraction is 62% with no obvious regional wall motion abnormality. Right ventricle is normal size and contractility. Conclusion: 1. The EKG portion of the Lexiscan Myoview is nondiagnostic. 2. No obvious scintigraphic evidence of reversible ischemia seen, computer derived ejection fraction is 62% with no obvious regional wall motion abnormality, right ventricle is normal size and contractility.
== END ==
LOC: RAD 06:30
DX: R07.9 Chest pain, unspecified (principal); R06.02 Shortness of breath; R01.1 Cardiac murmur, unspecified; I73.00 Raynaud's syndrome without gangrene
CPT/HCPCS: A9502; J2785

== ENCOUNTER → 2017-03-23 | Outpatient (CLI) | payer MEDICARE, MEDICAID | LOC: RT 14:00 | DX: J44.9 Chronic obstructive pulmonary disease, unspecified (principal) ==

== ENCOUNTER 2017-03-31 07:33 | Day surgery (SDC) | payer MEDICARE, MEDICAID ==
[2017-03-31 08:56] LABS: HEMOGLOBIN 10.8 g/dL (12.2-16.2); LYMPH # 3.1 K/mm3 (0.7-4.5); LYMPH % 41.6 % (10-50.0)
[2017-03-31 09:13] LABS: BUN 12 mg/dL (7-18)
[2017-03-31 09:14] LABS: GFR (ESTIMATED) 68 ML/MIN (59-)
--- NOTE | 2017-03-31 13:35 | RADIOLOGY REPORT PS360 ---
CARDIAC CATHETERIZATION DATE OF CATHETERIZATION:03/31/2017 10:58 AM PROCEDURES: 1. Left heart catheterization 2. Left ventriculogram 3. Selective coronary angiogram 4. FFR to the LAD 5. Drug-eluting stent deployment to the mid LAD INDICATION FOR TEST: 1. Coronary artery disease 2. Angina pectoris class III 3. Ischemic response to adenosine 0.79 Informed consent was obtained prior to the procedure. COMPLICATIONS: see report ESTIMATED BLOOD LOSS: Less than 10 ml. TECHNIQUE: One percent lidocaine used to anesthetize the right anterior aspect of the wrist. The right radial artery was accessed via the Seldinger technique. A 6 Tunisian sheath was placed in the right radial artery. 2.5 mg of verapamil, 800 mcg of nitroglycerin and 5000 U Heparin were given through the arterial sheath. A trap catheter was used to perform left heart catheterization left ventriculogram and selective coronary angiography. At the end of the diagnostic angiogram and additional 2000 units of heparin was administered intravenously creating an ACT of 282 seconds. An additional 2000 units of heparin was then administered intravenously. An [employer] left guide catheter was placed in the ascending aorta and an FFR wire was normalized. The guide catheter was used intubate the left main artery and the wire was placed in the LAD. Adenosine was infused in the FFR index dropped to 0.79. At this point it was stopped rather than actually achieving a true larry given its already positive ischemic response. A 2.75 x 18 mm drug-eluting resolute [place] stent was deployed at 18 duarte. A very small localized perforation was seen angiographically therefore the balloon was placed back across the stent and deployed at 4 duarte for 4 minutes. Repeat angiography demonstrated there was no propagation of the perforation in the vessel had sealed. An additional 2.5 x 8 mm resolute Angel stent was deployed at 15 duarte and the balloon was then brought back and deployed at 20 and order to mesh the 2 stents. An additional 700 micrograms of intracoronary nitroglycerin was administered. Excellent angiographic results were obtained with LORENA-3 flow down the vessel before and after the procedure. The bedside echo was obtained while patient was still in the Foundry Engineer which demonstrated no pericardial effusion. The sheath was removed good hemostasis was achieved using TR banding patient was transferred to the postop holding area in stable condition ANGIOGRAPHIC RESULTS: 1. The left main artery normal 2. The left anterior descending artery is proximally normal and has a mid vessel 60-70% concentric stenosis 3. The circumflex artery is a dominant vessel and normal 4. The right coronary artery small vestigial and normal 5. The SLATER ventriculogram reveals normal 65% 6. The left ventricular end-diastolic pressure 10 mmHg IMPRESSION: 1. Hemodynamically severe mid LAD lesion which creates an FFR index of at least 0.79 2. Successful stenting of the mid LAD hemodynamically severe disease reduced to 0% with 2 drug-eluting stents 3. Normal ejection fraction 4. Normal left ventricular end-diastolic pressure PLAN: 1. Brilinta and aspirin 2. Imdur 30 mg daily 3. LDL less than 55 4. Avoidance of tobacco products 5. Cardiac rehabilitation 6. Risk factor modification
[2017-03-31 15:55] VITALS: BP 121/71
--- NOTE | 2017-03-31 16:33 | RADIOLOGY REPORT PS360 ---
PROCEDURE: INDICATIONS FOR THE TEST: Chest painX COPDX Heart Murmur Tobacco Smoking Palpitations Fatigue Syncope Edema Hypertension Diabetes Mellitus Rheumatic Fever SOBXDOE Obesity Hyperlipidemia Family History HD Additional History ON CATH TABLE ECHO TO CHECK FOR EFFUSION LIMITED EXAM PATIENT INFORMATION HEIGHT: 65 WEIGHT:145 GENDER: Female B/P:120/70 2-D/M-MODE INTERPRETATION: 2-D MEASUREMENTS OBSERVED VALUES IN CMS Right Ventricular Dimension (RVDd) Interventricular Septum (Thickness)(IVsd) Left Ventricular Internal Dimensions(LVIDd) Left Ventricular Posterior Wall (Thickness)(LVPWd) Aortic Root Aortic Cusp Separation Left Atrial Dimensions (LAD) 2D 1. Limited study was performed to exclude presence of pericardial effusion. 2. Left atrium is mildly enlarged, left ventricle is normal size, there is no concentric left ventricular hypertrophy, visually estimated ejection fraction 55% with no obvious regional wall motion abnormality. 3. The right atrium and right ventricle are relatively normal size and function. 4. The aortic valve is minimally thickened and fibrosed. 5. The mitral and tricuspid valve leaflets are minimally thickened. 6. The pulmonic valve is poorly visualized. 7. No significant pericardial effusion noted. DOPPLER INTERROGATION: Doppler interrogation of the aortic, mitral and tricuspid valvular presence of mild aortic, mild mitral and tricuspid regurgitation. CONCLUSION: 1. Limited study performed 2. Mildly enlarged left atrium, normal left ventricular size, visually estimated ejection fraction 55% with no obvious regional wall motion abnormality. 3. Mild aortic, mild mitral and tricuspid regurgitation. 4. No significant pericardial effusion noted.
[2017-03-31 16:55] VITALS: BP 141/78
[2017-03-31 17:55] VITALS: BP 135/75
[2017-03-31 20:00] VITALS: BP 125/65
[2017-04-01 02:00] VITALS: BP 120/64
== END 2017-03-31 15:17 | disposition home or self-care (01) ==
LOC: CATHLAB 07:33
PROVIDERS: Internal Medicine
PROC: 027034Z Dilation of Coronary Artery, One Artery with Drug-eluting Intraluminal Device, Percutaneous Approach (ICD-10-PCS; 2017-03-31)
PROC: B2111ZZ Fluoroscopy of Multiple Coronary Arteries using Low Osmolar Contrast (ICD-10-PCS; 2017-03-31)
PROC: B2151ZZ Fluoroscopy of Left Heart using Low Osmolar Contrast (ICD-10-PCS; 2017-03-31)
PROC: 4A033BC Measurement of Arterial Pressure, Coronary, Percutaneous Approach (ICD-10-PCS; 2017-03-31)
PROC: 4A023N7 Measurement of Cardiac Sampling and Pressure, Left Heart, Percutaneous Approach (ICD-10-PCS; principal; 2017-03-31 08:30)
DX: I25.119 Atherosclerotic heart disease of native coronary artery with unspecified angina pectoris (principal); Z72.0 Tobacco use; R06.09 Other forms of dyspnea; R07.9 Chest pain, unspecified; J44.9 Chronic obstructive pulmonary disease, unspecified; I73.00 Raynaud's syndrome without gangrene
CPT/HCPCS: C1725; C1769; C1876; J0153; J1644; Q9967

== ENCOUNTER → 2017-04-20 | Outpatient (CLI) | payer MEDICARE ==
--- NOTE | 2017-04-20 11:55 | RADIOLOGY REPORT PS360 ---
CHEST(2 VIEWS-NOT PORTABLE) HISTORY: RESTING DYSPNEA,CAD,COPD,HLD ORDERING PHYSICIAN: KENDAL PEREZ MD PATIENT AGE: 46 years COMPARISON: 02/23/2017 FINDINGS: The cardiomediastinal silhouette and pulmonary vascularity are within normal limits. No lobar consolidation or collapse. There is a faint nodular density in the right midlung at 6 mm and in the left midlung at 6 mm. Nodules are unchanged. Bilateral pulmonary nodules were noted on the older CT scan of 04/05/2016.. Coronary artery stent present. Mild kyphosis of the thoracic spine. IMPRESSION: No change with no acute finding. No change bilateral pulmonary nodules
== END ==
LOC: RAD 10:33
DX: R06.00 Dyspnea, unspecified (principal); I25.10 Atherosclerotic heart disease of native coronary artery without angina pectoris; J44.9 Chronic obstructive pulmonary disease, unspecified; E78.5 Hyperlipidemia, unspecified

== ENCOUNTER → 2017-04-25 | Outpatient (CLI) | payer MEDICARE ==
[2017-04-26 04:38] LABS: Iron 50 ug/dL (27-159); Iron Saturation 11 % (15-55); UIBC 426 ug/dL (131-425)
== END ==
LOC: LAB 13:26
PROVIDERS: Nurse Practitioner Family
DX: R53.83 Other fatigue (principal); Z79.899 Other long term (current) drug therapy; Z95.5 Presence of coronary angioplasty implant and graft; I10 Essential (primary) hypertension; E78.5 Hyperlipidemia, unspecified; J44.9 Chronic obstructive pulmonary disease, unspecified

== ENCOUNTER 2017-05-23 09:48 | Emergency (ER) | payer MEDICARE ==
[~2017-05-23] VITALS: Ht 165.1 cm; Wt 68.0 kg
--- OUTSIDE RECORDS SUMMARY | 2017-05-23 09:56 | External Medical Summary Rpt | CCD ---
Author Author , KENNETH COOPER Address Unknown Phone [email or web address] Care Team Providers Care Manager Perioperative Name Role Phone [facility], [facility] Purpose Continuity of Care Document - 09-29-2012 through 2016 Problems Code Diagnosis DOS Provider Status [id number] Postoperati [facility] E55.9 VITAMIN D DEFICIENCY, UNSPECIFIED E78.5 HYPERLIPIDE REMI, UNSPECIFIED F17.200 NICOTINE DEPENDENCE, UNSPECIFIED , UNCOMPLICAT ED J06.9 ACUTE UPPER RESPIRATORY INFECTION, UNSPECIFIED J18.9 PNEUMONIA, UNSPECIFIED ORGANISM J20.9 ACUTE BRONCHITIS, UNSPECIFIED J44.0 CHRONIC OBSTRUCTIVE PULMON DISEASE W ACUTE LOWER RESP INFCT J44.1 CHRONIC OBSTRUCTIVE PULMONARY DISEASE W (ACUTE) EXACERBATIO N K91.3 POSTPROCEDU RAL INTESTINAL OBSTRUCTION K91.30 POSTPROC INTESTINAL OBST, UNSP TO PARTIAL VERSUS COMPLETE M54.9 DORSALGIA, UNSPECIFIED N20.0 CALCULUS OF KIDNEY N20.1 CALCULUS OF URETER N23 UNSPECIFIED RENAL COLIC 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) R05 COUGH R06.00 DYSPNEA, UNSPECIFIED R07.89 OTHER CHEST PAIN R07.9 CHEST PAIN, UNSPECIFIED R31.9 HEMATURIA, UNSPECIFIED R53.83 OTHER FATIGUE R73.9 HYPERGLYCEM IA, UNSPECIFIED S20.211A CONTUSION OF RIGHT FRONT WALL OF THORAX, INITIAL ENCOUNTER S53.402A UNSPECIFIED SPRAIN OF LEFT ELBOW, INITIAL ENCOUNTER Z12.31 ENCNTR SCREEN MAMMOGRAM FOR MALIGNANT NEOPLASM OF BREAST Allergies, Adverse Reactions, Alerts Type Drug Allergy Adverse Reaction to Substance Substance Reaction Severity Naproxen THROAT Unknown SWELLING/ITCHING Ibuprofen I-ITCHING Intermediate Sumatriptan MUSCLE STIFFNESS Intermediate Medications Na ND Rx Da Fi Fi [...] er 23 0 Ac ti AL ve AK 00 04 2 No OM 64 -1 [...] ve /M L CA RP UJ CT Vital Signs 12-18-2012 11:31 Name Value Interpretat [...] Order Detail nces retati t Range on Iron and TIBC (04-25-2017 08:55) Unsatur = 426 131-425 complet ated 017 ug/dL ed iron 08:55 binding capacit y measur Serum = 476 250-450 complet or 017 ug/dL ed plasma 08:55 iron binding capacit y me Serum = 11 % 15-55 complet or 017 ed plasma 08:55 iron saturat ion measure m Comment: Performed at: [facility] Comment: [id number], [place] [id number] Comment: Mechanical Specialist: Jalen Coreas PhD, Phone: [phone] Iron, = 50 27-159 complet serum 017 ug/dL ed 08:55 Serum or plasma ferritin measurement (ne (04-25-2017 08:55) Serum = 15 8-388 complet or 017 ng/mL ed plasma 08:55 ferriti n measure ment (ne Liver function panel (04-21-2017 12:30) Protein = 7.6 6.4-8.2 complet total 017 gm/dL ed ser/niyah 12:30 s ALT = 17 12-78 complet (SGPT) 017 U/L ed ser/niyah 12:30 s Serum = 14 15-37 complet or 017 U/L ed plasma 12:30 asparta te aminotr ansfera Serum = 0.2 0.2-1.0 complet or 017 mg/dL ed plasma 12:30 total bilirub in measure m Serum = 0.12 0-0.9 complet or 017 mg/dL ed plasma 12:30 indirec t bilirub in measu Bilirub = 0.08 0.0-0.2 complet in 017 mg/dL ed direct 12:30 Serum = 115 46-116 complet or 017 U/L ed plasma 12:30 alkalin e phospha tase cassandra Serum = 4.2 3.4-5.0 complet or 017 gm/dL ed plasma 12:30 albumin measure ment ([facility] Serum or plasma creatine kinase measurem (04-21-2017 12:30) Serum = 82 26-192 complet or 017 U/L ed plasma 12:30 creatin e kinase measure m Activated clotting time (03-31-2017 11:17) Activat > 400 74-125 complet ed 017 SEC ed clottin 11:17 g time Activated clotting time (03-31-2017 11:05) Activat = 282 74-125 complet ed 017 SEC ed clottin 11:05 g time Basic metabolic panel (03-31-2017 08:20) Serum 03-31- = 132 136-145 complet sodium 017 mmoL/L ed measure 08:20 ment Serum 2 = 3.3 3.5-5.1 complet potassi 017 mmoL/L ed um 08:20 measure ment Serum = 84 74-106 complet or 017 mg/dL ed plasma 08:20 glucose measure ment (mas Estimat = 68 59- complet ed 017 ML/MIN ed glomeru 08:20 lar filtrat ion rate (GF Comment: REFERENCE RANGE: >60 ML/MIN/1.73 SQUARE METERS Comment: If this patient is -Colombian, then multiply the Comment: result by 1.210. Serum = 0.9 0.55-1. complet or 017 mg/dL 02 ed plasma 08:20 creatin ine measure ment ( Carbon = 27 21.0-32 complet dioxide 017 mmoL/L .0 ed 08:20 measure ment Serum = 100 98-107 complet or 017 mmoL/L ed plasma 08:20 chlorid e measure ment (mo Serum = 8.6 8.5-10. complet or 017 mg/dL 1 ed plasma 08:20 calcium measure ment (mas Serum = 12 7-18 complet or 017 mg/dL ed plasma 08:20 urea nitroge n measure men CBC w auto diff (03-31-2017 08:20) Blood = 7.4 4.8-10. complet leukocy 017 K/MM3 8 ed woody 08:20 count (number /volume ) Automat = 14.4 11.5-17 complet ed 017 % .5 ed erythro 08:20 cyte distrib ution width Red = 3.86 4.2-5.4 complet blood 017 M/mm3 ed cell 08:20 count Blood = 274 142-424 complet platele 017 K/mm3 ed t count 08:20 Automat = 8.3 7.4-10. complet ed 017 fl 4 ed blood 08:20 platele t mean volume cassandra Colbert % = 6.8 % 1.7-9.3 complet 017 ed 08:20 Absolut = 0.5 0.1-1.0 complet e 017 K/mm3 ed monocyt 08:20 e count Automat = 86.1 82.2-97 complet ed 017 fl .8 ed erythro 08:20 cyte mean corpusc ular v Automat = 32.5 31.8-35 complet ed 017 g/dl .4 ed erythro 08:20 cyte mean corpusc ular h Mean = 28.0 27-31.2 complet corpusc 017 pg ed ular 08:20 hemoglo bin (MCH) determ Lymphoc = 41.6 10-50.0 complet yte 017 % ed count, 08:20 blood, automat ed Absolut = 3.1 0.7-4.5 complet e 017 K/mm3 ed lymphoc 08:20 yte count Blood = 10.8 12.2-16 complet hemoglo 017 g/dL .2 ed bin 08:20 measure ment (mass/v olum Blood = 33.2 37.0-47 complet hematoc 017 % .0 ed rit 08:20 (volume fractio n) Granulo = 46.4 37.0-80 complet cyte 017 % .0 ed percent 08:20 age Blood = 3.4 1.8-7.8 complet granulo 017 K/mm3 ed cytes 08:20 automat ed count (numb Automat = 4.7 % 0.1-12. complet ed 017 0 ed blood 08:20 eosinop hils/10 0 leukocy t Automat = 0.4 0.0-0.4 complet ed 017 K/mm3 ed blood 08:20 eosinop hil count Baso % = 0.5 % 0.1-2.0 complet 017 ed 08:20 Automat = 0.0 0-0.2 complet ed 017 K/MM3 ed blood 08:20 basophi l count (count/ vo Comprehensive metabolic panel (03-25-2017 09:35) Serum 2 = 106 46-116 complet or 017 U/L ed plasma 09:35 alkalin e phospha tase cassandra Serum = 4.1 3.4-5.0 complet or 017 gm/dL ed plasma 09:35 albumin measure ment (mas Serum = 1.2 1.1-1.8 complet or 017 ed plasma 09:35 albumin /globul in mass ra Protein = 7.5 6.4-8.2 complet total 017 gm/dL ed ser/niyah 09:35 s ALT = 17 12-78 complet (SGPT) 017 U/L ed ser/niyah 09:35 s Serum = 15 15-37 complet or 017 U/L ed plasma 09:35 asparta te aminotr ansfera Serum = 130 136-145 complet sodium 017 mmoL/L ed measure 09:35 ment Serum = 4.4 3.5-5.1 complet potassi 017 mmoL/L ed um 09:35 measure ment Serum = 78 74-106 complet or 017 mg/dL ed plasma 09:35 glucose measure ment (mas Serum = 3.4 1.3-3.2 complet globuli 017 gm/dL ed n 09:35 measure ment (mass/v olume) Estimat = 68 59- complet ed 017 ML/MIN ed glomeru 09:35 lar filtrat ion rate (GF Comment: REFERENCE RANGE: >60 ML/MIN/1.73 SQUARE METERS Comment: If this patient is -Colombian, then multiply the Comment: result by 1.210. Serum = 0.9 0.55-1. complet or 017 mg/dL 02 ed plasma 09:35 creatin ine measure ment ( Carbon = 24 21.0-32 complet dioxide 017 mmoL/L .0 ed 09:35 measure ment Serum 2 = 96 98-107 complet or 017 mmoL/L ed plasma 09:35 chlorid e measure ment (mo Serum = 8.9 8.5-10. complet or 017 mg/dL 1 ed plasma 09:35 calcium measure ment (mas Serum = 15 7-18 complet or 017 mg/dL ed plasma 09:35 urea nitroge n measure men Serum = 0.2 0.2-1.0 complet or 017 mg/dL ed plasma 09:35 total bilirub in measure m CBC w auto diff (03-25-2017 09:35) Blood = 8.4 4.8-10. complet leukocy 017 K/MM3 8 ed woody 09:35 count (number /volume ) Automat = 14.3 11.5-17 complet ed 017 % .5 ed erythro 09:35 cyte distrib ution width Red = 4.29 4.2-5.4 complet blood 017 M/mm3 ed cell 09:35 count Blood = 357 142-424 complet platele 017 K/mm3 ed t count 09:35 Automat = 9.1 7.4-10. complet ed 017 fl 4 ed blood 09:35 platele t mean volume cassandra Colbert % = 7.4 % 1.7-9.3 complet 017 ed 09:35 Absolut = 0.6 0.1-1.0 complet e 017 K/mm3 ed monocyt 09:35 e count Automat = 86.6 82.2-97 complet ed 017 fl .8 ed erythro 09:35 cyte mean corpusc ular v Automat = 32.0 31.8-35 complet ed 017 g/dl .4 ed erythro 09:35 cyte mean corpusc ular h Mean = 27.7 27-31.2 complet corpusc 017 pg ed ular 09:35 hemoglo bin (MCH) determ Lymphoc = 36.1 10-50.0 complet yte 017 % ed count, 09:35 blood, automat ed Absolut = 3.0 0.7-4.5 complet e 017 K/mm3 ed lymphoc 09:35 yte count Blood = 11.9 12.2-16 complet hemoglo 017 g/dL .2 ed bin 09:35 measure ment (mass/v olum Blood = 37.1 37.0-47 complet hematoc 017 % .0 ed rit 09:35 (volume fractio n) Granulo = 51.6 37.0-80 complet cyte 017 % .0 ed percent 09:35 age Blood = 4.4 1.8-7.8 complet granulo 017 K/mm3 ed cytes 09:35 automat ed count (numb Automat = 4.5 % 0.1-12. complet ed 017 0 ed blood 09:35 eosinop hils/10 0 leukocy t Automat = 0.4 0.0-0.4 complet ed 017 K/mm3 ed blood 09:35 eosinop hil count Baso % = 0.4 % 0.1-2.0 complet 017 ed 09:35 Automat = 0.0 0-0.2 complet ed 017 K/MM3 ed blood 09:35 basophi l count (count/ vo Glucose BldC Glucomtr-[facility] (09-29-2012 18:20) Glucose 09-29-2 201 70-110 complet BldC 013 mg/dl ed Glucomt 18:20 r-[facility] URINALYSIS/COMPLETE (09-29-2012 09:15) URINE 09-29-2 YELLOW YELLOW complet COLOR 013 ed 09:15 URINE 09-29-2 CLEAR CLEAR complet APPEARA 013 ed NCE 09:15 URINE 09-29-2 NEGATIV NEG complet GLUCOSE 013 E ed - 09:15 DIPSTIC K URINE 09-29-2 NEGATIV NEG complet BILIRUB 013 E ed IN - 09:15 DIPSTIC K URINE 09-29-2 NEGATIV NEG complet KETONE 013 E mg/dL ed 09:15 URINE 09-29-2 1.015 1.005-1 complet SPECIFI 013 UNK .030 ed C 09:15 GRAVITY URINE 09-29-2 1+ NEG complet BLOOD 013 ed 09:15 URINE 09-29-2 6.5 UNK 5.0-8.5 complet PH 013 ed 09:15 URINE 09-29-2 NEGATIV NEG complet PROTEIN 013 E mg/dL ed - 09:15 DIPSTIC K URINE 04-19-2 0.2 NEG complet UROBILI 013 E.U./dL ed NOGEN - 09:15 DIPSTIC K URINE NEGATIV NEG complet NITRATE 013 E ed - 09:15 DIPSTIC K URINE NEGATIV NEG complet LEUK 013 E ed ESTERAS 09:15 E URINE 3-5 0 complet RBC 013 rbc/hpf ed 09:15 URINE 3-5 0-5 complet SQUAMOU 013 #/hpf ed S CELLS 09:15 Encounters Encounter Start End Date Code Location Performer Type Date Emergency KENIA Palmer MD (ER) 3 10:49 3 11:31 [facility] Inpatient JENNIFER Ponce MD ([place]) 3 06:00 3 15:00 [facility].
--- OUTSIDE RECORDS SUMMARY | 2017-05-23 09:56 | External Medical Summary Rpt | CCD ---
Author Author , KENNETH COOPER Address Unknown Phone [email or web address] Care Team Providers Care Factory Assembler Name Role Phone [facility], [facility] Purpose Continuity of Care Document - 09-29-2012 through 2016 Problems Code Diagnosis DOS Provider Status [id number] Postoperati [facility] E55.9 VITAMIN D DEFICIENCY, UNSPECIFIED E78.5 HYPERLIPIDE [...] er 23 0 Ac ti AL ve MA 00 04 2 No OM 64 -1 [...] saturat ion measure m Comment: Performed at: [facility] Comment: [id number], [place] [id number] Comment: Drop Forger: Jalen Coreas PhD, Phone: [phone] Iron, = 50 27-159 complet serum 017 ug/dL ed 08:55 Serum or plasma ferritin measurement (sd (04-25-2017 08:55) Serum = 15 8-388 complet or 017 ng/mL ed plasma 08:55 ferriti n measure ment (sd Liver function panel (04-21-2017 12:30) Protein = [...] gm/dL ed plasma 12:30 albumin measure ment ([facility] Serum or plasma creatine kinase measurem (04-21-2017 [...] SQUARE METERS Comment: If this patient is -Ghanaian, then multiply the Comment: result by 1.210. [...] blood 08:20 platele t mean volume cassandra Robeson % = 6.8 % 1.7-9.3 complet 017 [...] SQUARE METERS Comment: If this patient is -Ghanaian, then multiply the Comment: result by 1.210. [...] blood 09:35 platele t mean volume cassandra Robeson % = 7.4 % 1.7-9.3 complet 017 [...] basophi l count (count/ vo Glucose BldC Glucomtr-[facility] (09-29-2012 18:20) Glucose 09-29-2 201 70-110 complet BldC 013 mg/dl ed Glucomt 18:20 r-[facility] URINALYSIS/COMPLETE (09-29-2012 09:15) URINE 09-29-2 YELLOW YELLOW [...] Palmer MD (ER) 3 10:49 3 11:31 [facility] Inpatient JENNIFER Ponce MD ([place]) 3 06:00 3 15:00 [facility].
--- OUTSIDE RECORDS SUMMARY | 2017-05-23 09:57 | External Medical Summary Rpt | CCD ---
Demographics Preferred Language Mongolian Marital Status Unknown Pentecostalism Affiliation Unknown Race Unknown Ethnic Group Unknown Author Author DIANE Address Unknown Phone Purpose Continuity of Care Document - through 2016
--- OUTSIDE RECORDS SUMMARY | 2017-05-23 09:57 | External Medical Summary Rpt | CCD ---
Demographics Preferred Language Chinese Marital Status Unknown Gnosticist Affiliation Unknown Race Unknown Ethnic Group Unknown Author Author , DIANE COOPER Address Unknown Phone Immunization No patient found.
--- OUTSIDE RECORDS SUMMARY | 2017-05-23 09:57 | External Medical Summary Rpt | CCD ---
Demographics Preferred Language Armenian Marital Status Unknown Yazidism Affiliation Unknown Race Unknown Ethnic Group Unknown Author Author DIANE Address Unknown Phone [email or web address] Purpose Continuity of Care Document - through 2016
--- OUTSIDE RECORDS SUMMARY | 2017-05-23 09:57 | External Medical Summary Rpt | CCD ---
Demographics Preferred Language Arabic Marital Status Unknown Anabaptism Affiliation Unknown Race Unknown Ethnic Group Unknown Author Author , DIANE COOPER Address Unknown Phone Immunization No patient found.
--- NOTE | 2017-05-23 11:23 | Urgent Treatment Center Report ---
History of Present Issue Date/Time Seen by Provider 05/23/17 1100 Visit Reason Pt arrived:Walked Presenting Problem:PT ADVISES THAT SHE HAS BEEN PLACED ON NEW BLOOD THINNER MEDS PER HER MD AND FELL ON TUESDAY NIGHT. PT C/O MULTIPLE BRUISES TO RT BREAST, LT ARM/ KNEE/HIP, RT KNEE/WOODARD, AND ABD. PT ADVISES THAT SHE DOESNT KNOW HOW THE BRUISES ARE APPEARING. Location if Accident: Onset of symptoms date/time:/ or onset unknown for:MEDICAL HX UNKNOWN Have you (or family members/close friends) recently traveled outside the [place]? N If Yes, where/when: Have you had exposure to infectious disease within the past month? TB? Other? Specify: c/o increased bruising and headache s/p fall Tuesday night. Reports was walking in the [employer] when she fell. Pt isn't sure how she fell. "there was nothing there". Doesn't think syncopal or LOC but can't be sure. Doesn't think she hit her head "because there is no bruise or bumps up there". Seeing new bruises each day since fall. Right breast, ingrid knees, lower leg and new today, on abdomen. On plavix for stent to LCA. Also c/o headache. Hx of migraines and takes topamax daily. report this is not the worse headache she has ever had but the most different. Not her typical headache. Constant x 2 days. Associated w/ constant nausea, dizziness, intermittently feeling light headed and new today since being in clinic, seeing black dots. Not sure if was both eyes or just right. Source patient Exam Limitations no limitations ALLERGIES Coded Allergies: ibuprofen (Mild, 02/15/16) naproxen (Mild, 02/15/16) sumatriptan (From IMITREX) (Mild, 02/15/16) Home Medications Active Scripts Albuterol (Albuterol-Hfa Inhaler) 1 PUFF IH Q4H #1 INH Ref 2 Prov: 09/14/16 Azithromycin (Zithromycin (Z-TRAVIS) 250MG Tab) 250 MG PO DAILY 5 Days Prov: 02/25/17 Prednisone (Prednisone 20MG) 20 MG PO BID 5 Days Prov: 02/25/17 Reported Medications Dexlansoprazole (Dexilant) 60 MG PO DAILY BUPROPION HCL (Bupropion HCl Sr) 200 MG PO BID #60 Venlafaxine Hydrochloride (Effexor 75MG) 75 MG PO DAILY Topiramate (Topamax) 200 MG PO BID Oxcarbazepine (Oxcarbazepine 150MG TAB) 150 MG PO DAILY #60 VENLAFAXINE HCL (Venlafaxine HCl ER) 150 MG PO DAILY #30 Estradiol (Estrace 2MG. Tablet) 2 MG PO DAILY #30 Trazodone Hcl 150 MG PO QHS #60 History Medical History General CAD? No Angina: No SC: No Hypertension? No Hyperlipidemia? Yes CHF? No DVT? No PE? No COPD? Yes Asthma? Yes Anemia? Yes GERD? Yes Gastric ulcers? No GI Bleed? No Hernia? Yes Thyroid Problems? No Hypothyroidism? No CVA? No Seizures? No Diabetes? No Insulin Dependent: No Insulin Pump: No Home FSBS? No Renal Insuffiency? No UTI? Yes Stones? Yes BPH? No GB Disease: No Nephritic Syndrome? No Asplenia? No Hepatitis? No Sickle Cell Disease? No Arthritis? Yes Migraines? No Cataracts? No Glaucoma? No MRSA? No HIV? No TB? No Anxiety? Yes Depression? Yes Cancer? No More? Yes Additional hx: 1.FIBROMYALGIA 2.BARETT'S ESOPHAGUS 3. LUNG NODULES 4.BIPOLAR Immunization HX DT/Tetanus > 10 Years Ago Flu Refused Pneumonia Never Had Surgical Hx Previous Surgery?Y Appendix D&C X 2 LITHROTRIPSY Tonsils Tubal Ligation HYSTERECTOMY DUNCAN'S ESOPHAGUS SX CYST REMOVAL FROM OVARY TMJ SX Family History Family HX Diabetes No CAD No Hypertension No Hyperlipidemia No Cancer No TB No Social History Smoking Hx Smoker: Former Smoker Tobacco: Yes Type Cigarettes Packs/day < 1 Pack Alcohol Alcohol: No Review of Systems All Other Systems Reviewed and Negative Constitutional see HPI, denies fever, denies weakness Eyes see HPI, denies blurred vision, denies pain, denies photophobia ENT denies: ear pain, mouth pain, throat pain. Respiratory denies shortness of breath Cardiovascular denies chest pain, denies palpitations Gastrointestinal denies abdominal pain, denies vomiting ("I physically can't but need 2) Musculoskeletal see HPI, denies back pain, denies neck pain Skin see HPI Psychiatric/Neurological see HPI Physical Exam Vital Signs Vital Signs Date Time Temp Pulse Resp B/P Pulse O2 O2 Flow FiO2 Ox Delivery Rate 05/23 1027 98.4 70 18 108/84 100 General Appearance normal appearance, no apparent distress Respiratory Status No: respiratory distress. Cardiovascular no peripheral edema Neurologic alert, oriented x 3 Skin ecchymosis left hip, LLQ abdomen, right breast, right anterior knee, right calf, left anterior lower leg Medical Decision Making LABS/Meds/Orders Pt receiving controlled substance in ED? No Consult MD Physician Consult Consult/PCP Dr. Lozano, ER Time Called 1110 Reason Pt. Condition Comments Discussed HPI and exam. "Send her over" Progress [facility] Progress Notes 1 Date 05/23/17 Time 1109 Comment Discussed concerning HPI, exam and possible differential diagnoses. Pt agreeable to transfer to ER. [facility] Progress Notes 2 Date 05/23/17 Time 1115 Comment Report called to RYAN Graf RN. Room 10 available. Departure Departure Time of Disposition 1113 Disposition Still a Patient Clinical Impression Primary Impression: Headache Qualifiers: Headache type: post-traumatic Headache chronicity pattern: acute headache Intractability: intractable Qualified Code: G44.311 - Acute post- traumatic headache, intractable Secondary Impressions: Easy bruising Fall Qualifiers: Encounter type: initial encounter Qualified Code: W19.XXXA - Unspecified fall, initial encounter Platelet inhibition due to Plavix Condition STABLE Additional Instructions Pt transferred immediately to ER for further evaluation at 1123
--- NOTE | 2017-05-23 11:52 | RADIOLOGY REPORT PS360 ---
CT HEAD W/O CONTRAST HISTORY: Headache, head pain, head injury with bruising, contusion HEADACHE ORDERING PHYSICIAN: Leander Lozano MD PATIENT AGE: 46 years COMPARISON: None TECHNIQUE: Axial images obtained without contrast. Brain and bone windows reviewed. FINDINGS: No midline shift, mass effect, intracranial hemorrhage, hydrocephalus, or extra-axial fluid collection is evident. The calvarium has an unremarkable appearance. No mastoid effusion. There are air-fluid levels in the maxillary sinuses bilaterally mucosal thickening of the ethmoid sinuses.. IMPRESSION: 1. No acute intracranial findings. 2. Bilateral maxillary sinusitis
--- NOTE | 2017-05-23 11:56 | Emergency Room Report ---
History of Present Illness Time Seen by MD 1116 Presenting Problem in Triage Pt arrived:Walked Presenting Problem:PT ADVISES THAT SHE HAS BEEN PLACED ON NEW BLOOD THINNER MEDS PER HER MD AND FELL ON TUESDAY NIGHT. PT C/O MULTIPLE BRUISES TO RT BREAST, LT ARM/ KNEE/HIP, RT KNEE/LOPES, AND ABD. PT ADVISES THAT SHE DOESNT KNOW HOW THE BRUISES ARE APPEARING. 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 N Clinical Suspician of Infection? N Mental Status: 1 - Regular (Normal Baseline) Sepsis Risk:Low Sepsis Risk Have you (or family members/close friends) recently traveled outside the [place]? N If Yes, where/when: Have you had exposure to infectious disease within the past month? TB? Other? Specify: Source patient, RN notes reviewed, family, RN/MD Exam Limitations no limitations Comment This is a 46-year-old lady sent to the emergency room from [facility] with a headache after sustaining a fall and injuring her head on Tuesday night. Patient is currently on blood thinners and she has noticeable bruises on her RIGHT breast, LEFT arm, RIGHT knee and hip, RIGHT knee and lopes and anterior abdominal wall. Patient has any loss of consciousness, any nausea, vomiting, seizure-like activity. ALLERGIES Coded Allergies: ibuprofen (Mild, 02/15/16) naproxen (Mild, 02/15/16) sumatriptan (From IMITREX) (Mild, 02/15/16) Home Medications Active Scripts Albuterol (Albuterol-Hfa Inhaler) 1 PUFF IH Q4H #1 INH Ref 2 Prov: 09/14/16 Azithromycin (Zithromycin (Z-TRAVIS) 250MG Tab) 250 MG PO DAILY 5 Days Prov: 02/25/17 Prednisone (Prednisone 20MG) 20 MG PO BID 5 Days Prov: 02/25/17 Reported Medications Dexlansoprazole (Dexilant) 60 MG PO DAILY BUPROPION HCL (Bupropion HCl Sr) 200 MG PO BID #60 Venlafaxine Hydrochloride (Effexor 75MG) 75 MG PO DAILY Topiramate (Topamax) 200 MG PO BID Oxcarbazepine (Oxcarbazepine 150MG TAB) 150 MG PO DAILY #60 VENLAFAXINE HCL (Venlafaxine HCl ER) 150 MG PO DAILY #30 Estradiol (Estrace 2MG. Tablet) 2 MG PO DAILY #30 Trazodone Hcl 150 MG PO QHS #60 History Medical History General CAD? No Angina: No HI: No Hypertension? No Hyperlipidemia? Yes CHF? No DVT? No PE? No COPD? Yes Asthma? Yes Anemia? Yes GERD? Yes Gastric ulcers? No GI Bleed? No Hernia? Yes Thyroid Problems? No Hypothyroidism? No CVA? No Seizures? No Diabetes? No Insulin Dependent: No Insulin Pump: No Home FSBS? No Renal Insuffiency? No End Stage Renal Disease? No UTI? Yes Stones? Yes BPH? No GB Disease: No Nephritic Syndrome? No Asplenia? No Hepatitis? No Sickle Cell Disease? No Arthritis? Yes Migraines? No Cataracts? No Glaucoma? No MRSA? No HIV? No TB? No Anxiety? Yes Depression? Yes Cancer? No More? Yes Additional hx: 1.FIBROMYALGIA 2.BARETT'S ESOPHAGUS 3. 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 Hx LMP N/A Family History Family Hx Diabetes No CAD No Hypertension No Hyperlipidemia No Cancer No TB No Social History Smoking Hx Smoker: Current Every Day Smoker Tobacco: Yes Type Cigarettes Packs/day < 1 Pack Alcohol Alcohol: No Review of Systems All Other Systems Reviewed and Negative Skin other (bruises) Psychiatric/Neurological headache Physical Exam Vital Signs Vital Signs Date Time Temp Pulse Resp B/P Pulse O2 O2 Flow FiO2 Ox Delivery Rate 05/23 1211 62 18 110/90 100 05/23 1159 18 05/23 1119 98.4 70 18 108/84 100 05/23 1027 98.4 70 18 108/84 100 General Appearance normal appearance, WD/WN, mild distress Eye Exam - bilateral eye normal exam, bilateral eye PERRL, bilateral eye EOMI, bilateral eye other (normal fundi) Ear, Nose, Throat hearing grossly normal, normal ENT inspection Neck normal inspection, non-tender, supple, full range of motion Respiratory Status Yes: trachea midline, chest symmetrical, non tender chest. No: respiratory distress. Lung Sounds bilateral: normal breath sounds, lungs clear. 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 No Comment 1145-upon evaluation patient appears medically stable, clinically improving, with headache almost resolved. I believe the patient is a features of a migraine headache, since she complains with LEFT sided headache, described as a poker, associated with photophobia and sonophobia. Patient instructed to follow-up with her PCP in the morning if no better. Results/Orders Orders Procedure Date/time Status DIET-NOTHING BY MOUTH 05/[address] HEAD REQ 05/23 1116 Complete XRAY/CT/US XRAY/CT/US CT head CT interpretation by reviewed by me, discussed w/radiologist CT Results no acute ICH Departure Departure Time of Disposition 1153 Disposition Still a Patient Clinical Impression Primary Impression: Migraine Qualifiers: Migraine type: without aura Status migrainosus presence: without status migrainosus Intractability: not intractable Qualified Code: G43.009 - Migraine without aura, not intractable, without status migrainosus Secondary Impressions: Acute sinusitis Qualifiers: Sinusitis location: maxillary Recurrence: not specified as recurrent Qualified Code: J01.00 - Acute maxillary sinusitis, unspecified Bruises easily Fall Qualifiers: Encounter type: initial encounter Qualified Code: W19.XXXA - Unspecified fall, initial encounter Platelet inhibition due to Plavix Condition STABLE Patient Instructions DI for Migraine, DI for Sinusitis Additional Instructions Please follow up with your PCP if not better within 2-3 days. Take the medications prescribed as directed. Discharge Counseling Counseled pt/family regarding diagnosis, test results, medications/RX, home care, follow up needs Prescriptions Current Visit Scripts Amoxicillin/Potassium Clav (Augmentin 875-125 Tablet) 1 EACH PO BID #20 TAB ED Critical Care Critical Care No at 7212
[2017-05-23] MEDS ORDERED: AUGMENTIN 875-1 EACH PO (11:59)
[2017-05-23 12:11] VITALS: BP 110/90
[2017-05-30] MEDS ORDERED: ZITHROMAX Z-PA250 M2 PO (14:35)
[2017-05-30] MEDS ORDERED: FLONASE ALLERG9.9 ML NS (14:35)
== END 2017-05-23 12:13 | disposition home or self-care (01) ==
LOC: UTC 09:48 → ER 09:52 → UTC 09:52 → ER 12:13
DX: G43.009 Migraine without aura, not intractable, without status migrainosus (principal); J01.00 Acute maxillary sinusitis, unspecified; S20.01XA Contusion of right breast, initial encounter; S40.022A Contusion of left upper arm, initial encounter; S80.02XA Contusion of left knee, initial encounter; S80.01XA Contusion of right knee, initial encounter; S30.1XXA Contusion of abdominal wall, initial encounter; W19.XXXA Unspecified fall, initial encounter; Y93.9 Activity, unspecified; Y92.9 Unspecified place or not applicable; J44.9 Chronic obstructive pulmonary disease, unspecified; K21.9 Gastro-esophageal reflux disease without esophagitis; F41.9 Anxiety disorder, unspecified; F31.9 Bipolar disorder, unspecified; F17.210 Nicotine dependence, cigarettes, uncomplicated; Z88.8 Allergy status to other drugs, medicaments and biological substances; Z79.890 Hormone replacement therapy; Z79.899 Other long term (current) drug therapy